=== PATIENT | female | born 1995 | race Caucasian/White ===

== ENCOUNTER 2019-12-11 04:11 | Emergency (ER) | payer OTHER, SELFPAY ==
[2019-12-11 04:30] VITALS: BP 134/91; PULSE 93; RESP 16; TEMP 36.4; O2SAT 96; BMI 28.2
[2019-12-11 04:41] VITALS: BP 137/99; PULSE 94; RESP 17; O2SAT 94
[2019-12-11 04:42] LABS: Add Urine Microscopic? NO
[2019-12-11 04:47] LABS: Bilirubin Urine Neg (NEGATIVE); Blood Urine Neg (Negative); Glucose Urine UA Norm (Normal); Ketones Urine Negative (Negative); Leukocyte Esterase Urine Negative (Negative); Nitrate Urine Negative (Negative); Protein Urine Neg (Negative); Urine Appearance Clear (CLEAR); Urine Color Yellow (Yellow); Urobilinogen Urine Norm (Negative); pH Urine 5 (5-7)
[2019-12-11] MEDS: sodium chloride 0.9% 1,000 ML 999 ML IV (04:57)
[2019-12-11 05:12] LABS: Basophils # 0.1 10^3/uL (0.0-0.1); Basophils % 0.8 %; Eosinophils # 0.3 10^3/uL (0.0-0.8); Eosinophils % 2.8 %; Hematocrit 43.4 % (37.0-47.0); Hemoglobin 14.9 g/dL (11.5-15.3); Lymphocytes # 2.8 10^3/uL (0.8-4.8); Lymphocytes % 30.9 %; Mean Corpuscular HGB Conc 34.3 g/dL (30.0-36.0); Mean Corpuscular Hemoglobin 31.3 pg (28.0-34.0); Mean Corpuscular Volume 91.2 fL (81-99); Mean Platelet Volume 11.4 fL (7.4-10.4); Monocytes # 0.7 10^3/uL (0.2-0.9); Neutrophils # 5.17 10^3/uL (1.8-7.7); Neutrophils % 57.2 %; Nucleated Red Blood Cells % 0 %; Platelet Count 265 10^3/cmm (130-400); Red Blood Count 4.76 10^6/uL (4.1-5.3); Red Cell Distribution Width 11.8 % (12.1-15.1)
[2019-12-11 05:20] LABS: HCG, Serum Qual Negative (Negative)
[2019-12-11] MEDS: lidocaine 2% viscous 15 ML, aluminum-mag hydrox-simethicon 30 ML, sucralfate oral liq 1 GM PO (05:25)
[2019-12-11] MEDS: ondansetron 2 mg/ML SDV 2 mL 4 MG IVP (05:25)
[2019-12-11] MEDS: ketorolac 30 mg/mL INJ IVP (05:25)
[2019-12-11 05:26] VITALS: BP 115/99; PULSE 83; RESP 14; O2SAT 96
[2019-12-11 05:29] LABS: Alanine Aminotransferase 41 U/L (0-33); Albumin Level 4.8 g/dL (3.5-5.2); Alcohol Level 81 mg/dL (0-10); Alkaline Phosphatase 65 IU/L (35-105); Anion Gap 15.2 (5-19); Aspartate Amino Transferase 45 U/L (0-32); Blood Urea Nitrogen 7 mg/dL (6-20); C Reactive Protein 0.3 mg/L (0.0-4.9); Calcium 8.8 mg/dL (8.5-10.5); Carbon Dioxide 23 mmol/L (22-29); Chloride 107 mmol/L (98-107); Globulin 2.7 g/dL (1.3-4.6); Glomerular Filtration Rate 104.6 mL/min (90-130); Glucose 103 mg/dL (65-115); Lipase 25 U/L (13-60); Osmolality Calculated 290 mOsm/kg (285-295); Potassium 3.2 mmol/L (3.5-5.1); Sodium 142 mmol/L (136-145); Total Bilirubin 0.2 mg/dL (0.15-1.2); Total Protein 7.5 g/dL (6.6-8.7)
[2019-12-11 06:06] VITALS: BP 142/93; PULSE 77; RESP 16; O2SAT 94
[2019-12-11 06:38] VITALS: BP 105/66; PULSE 84; RESP 16; O2SAT 95
[2019-12-11 07:35] LABS: Amphetamines Screen Urine Negative (Negative); Barbiturates Screen Urine Negative (Negative); Benzodiazepines Screen Urine Negative (Negative); Cocaine Screen Urine Negative (Negative); Opiate Screen Urine Negative (Negative); PCP Screen Urine Negative (Negative); THC Screen Urine Negative (Negative)
--- NOTE | 2019-12-11 09:23 | W.ED.ABDPA2 ---
HPI - Abdominal Pain General: Chief Complaint: Abdominal Pain Stated Complaint: abd pain Time Seen by Provider: 12/11/19 04:49 History of Present Illness: HPI narrative: 24-year-old female presents intoxicated. She notes that her stomach began to hurt after drinking 3 Alex's . Pain is located in the epigastric region. She is vomited a couple of times. No vomiting here. She rupesh not had diarrhea. MD elicited complaint: abdominal pain Pertinent past history: none Onset (ago): hour(s) Pain Consistency: constant Location: Epigastric Severity: moderate Quality: cramping and stabbing Radiation: epigastric Migration to: no migration Exacerbating factors: vomiting Relieving factors: nothing Associated Symptoms: Reports nausea; Denies fever(s), hematuria, hematemesis and fecal incontinence Related Data: Date of Last Menstrual Period: 12/10/19 Review of Systems Const: Denies: fever(s) Eyes: Denies: change in vision ENMT: Denies: swelling of lips/tongue, change in hearing or sinus pain Card: Denies: chest pain, palpitations or irregular heart rhythm Resp: Denies: dyspnea, productive cough, non-productive cough or wheezing GI: Reports: nausea; Denies: hematemesis or fecal incontinence : Denies: hematuria Musc: Denies: back pain Skin/Breast: Denies: rash Neuro: Denies: headache(s), dizziness or vertigo Psych: Denies: anxiety [facility] Female Reproductive History: Date of last menstrual period: 12/10/19 : 1 Physical Exam Const: GENERAL APPEARANCE: well developed ORIENTATION/CONSCIOUSNESS: Yes oriented to person, Yes oriented to place and Yes oriented to time HENMT: COMMON NORMALS: normocephalic, external ears normal and Normal external nose present HEAD & SCALP: normocephalic FACE & SINUS: normal facial exam NOSE: Normal external nose present and No nasal discharge present EXTERNAL EAR: Yes external ears normal Eye: COMMON NORMALS: Equal, round and reactive pupils present, EOMs intact bilaterally and conjunctivae normal EYELID: eyelids normal CONJUNCTIVA: Yes conjunctivae normal PUPIL: Yes Equal, round and reactive pupils present Neck/C-Spine: GENERAL: No tracheal deviation Chest: COMMONS NORMALS: normal inspection of the chest CHEST: No tenderness Resp: COMMON NORMALS: clear to auscultation bilaterally EFFORT & INSPECTION: No tachypneic, No respiratory distress, No retractions, No uses accessory muscles and No tracheal deviation AUSCULTATION: clear to auscultation bilaterally, no rhonchi, no wheezes and lung sounds not diminished Cardio: COMMON NORMALS: regular rate and regular rhythm RATE: regular rate RHYTHM: regular rhythm HEART SOUNDS: no murmurs PERIPHERAL PULSES: radial pulses present GI: COMMON NORMALS: Soft to palpation INSPECTION: No abdominal distension AUSCULTATION: No Hyperactive bowel sounds present and No Hypoactive bowel sounds present PALPATION: Yes Soft to palpation, Yes Tenderness to palpation present (GI) (Epigastric), No Guarding due to palpation present (GI) and No Rigid due to palpation PERCUSSION: no dullness to percussion and no tympanic to percussion Neuro: SENSORIUM/ORIENTATION: Yes oriented to person, Yes oriented to place and Yes oriented to time Psych: COMMON NORMALS: cooperative Skin: COMMON NORMALS: no rashes or lesions noted GENERAL SKIN EXAM: no rashes or lesions noted Course Vital Signs: Vital signs: Vital Signs Temperature 97.5 F L 12/11/19 04:30 Pulse Rate 84 12/11/19 06:38 Respiratory Rate 16 12/11/19 06:38 Blood Pressure 105/66 12/11/19 06:38 Pulse Oximetry 95 12/11/19 06:38 MDM - Abdominal Pain MDM Narrative: Medical decision making narrative: 24-year-old female intoxicated with alcohol. She presents with some epigastric discomfort and vomiting. She has not vomited here. She has been given antiemetics, fluid, and a GI cocktail which have helped. Her white blood cell count is 9. She has mild elevation of her liver enzymes consistent with alcohol consumption. Her alcohol level is elevated. She has a slightly low potassium. She will be allowed discharge Lab Data: Labs: Lab Results 12/11/19 12/11/19 12/11/19 Range/Units 04:36 04:38 04:54 WBC 9.0 (4.0-10.0) 10^3/ uL RBC 4.76 (4.1-5.3) 10^6/u L Hgb 14.9 (11.5-15.3) g/dL Hct 43.4 (37.0-47.0) % MCV 91.2 (81-99) fL MCH 31.3 (28.0-34.0) pg MCHC 34.3 (30.0-36.0) g/dL RDW 11.8 L (12.1-15.1) % Plt Count 265 (130-400) 10^3/c mm MPV 11.4 H (7.4-10.4) fL Neut % (Auto) 57.2 % Lymph % (Auto) 30.9 % Williams % (Auto) 8.0 % Eos % (Auto) 2.8 % Baso % (Auto) 0.8 % Neut # (Auto) 5.17 (1.8-7.7) 10^3/u L Lymph # (Auto) 2.8 (0.8-4.8) 10^3/u L Williams # (Auto) 0.7 (0.2-0.9) 10^3/u L Eos # (Auto) 0.3 (0.0-0.8) 10^3/u L Baso # (Auto) 0.1 (0.0-0.1) 10^3/u L Nucleated RBC % (a uto) 0 % Nucleated RBCs # 0.0 /100WBC Sodium (136-145) mmol/L Potassium (3.5-5.1) mmol/L Chloride (98-107) mmol/L Carbon Dioxide (22-29) mmol/L Anion Gap (5-19) BUN (6-20) mg/dL Creatinine (0.5-0.9) mg/dL GFR Calculation (90-130) mL/min Glucose (65-115) mg/dL Calculated Osmolal ity (285-295) mOsm/k g Calcium (8.5-10.5) mg/dL Total Bilirubin (0.15-1.2) mg/dL AST (0-32) U/L ALT (0-33) U/L Alkaline Phosphata se (35-105) IU/L C-Reactive Protein (0.0-4.9) mg/L Total Protein (6.6-8.7) g/dL Albumin (3.5-5.2) g/dL Globulin (1.3-4.6) g/dL Lipase (13-60) U/L HCG, Qual (Negative) Urine Color Yellow (Yellow) Urine Appearance Clear (CLEAR) Urine pH 5 (5-7) Ur Specific Gravit y 1.010 (1.005-1.030) Urine Protein Neg (Negative) Urine Glucose (UA) Norm (Normal) Urine Ketones Negative (Negative) Urine Blood Neg (Negative) Urine Nitrate Negative (Negative) Urine Bilirubin Neg (NEGATIVE) Urine Urobilinogen Norm (Negative) mg/dL Ur Leukocyte Kym ase Negative (Negative) Urine Opiates Scre en Negative (Negative) ng/mL Ur Barbiturates Sc reen Negative (Negative) ng/mL Ur Phencyclidine S crn Negative (Negative) ng/mL Ur Amphetamines Sc reen Negative (Negative) ng/mL U Benzodiazepines Scrn Negative (Negative) ng/mL Urine Cocaine Scre en Negative (Negative) ng/mL U Marijuana (THC) Screen Negative (Negative) ng/mL Ethyl Alcohol (0-10) mg/dL 12/11/19 12/11/19 Range/Units 04:54 04:54 WBC (4.0-10.0) 10^3/ uL RBC (4.1-5.3) 10^6/u L Hgb (11.5-15.3) g/dL Hct (37.0-47.0) % MCV (81-99) fL MCH (28.0-34.0) pg MCHC (30.0-36.0) g/dL RDW (12.1-15.1) % Plt Count (130-400) 10^3/c mm MPV (7.4-10.4) fL Neut % (Auto) % Lymph % (Auto) % Williams % (Auto) % Eos % (Auto) % Baso % (Auto) % Neut # (Auto) (1.8-7.7) 10^3/u L Lymph # (Auto) (0.8-4.8) 10^3/u L Williams # (Auto) (0.2-0.9) 10^3/u L Eos # (Auto) (0.0-0.8) 10^3/u L Baso # (Auto) (0.0-0.1) 10^3/u L Nucleated RBC % (a uto) % Nucleated RBCs # /100WBC Sodium 142 (136-145) mmol/L Potassium 3.2 L (3.5-5.1) mmol/L Chloride 107 (98-107) mmol/L Carbon Dioxide 23 (22-29) mmol/L Anion Gap 15.2 (5-19) BUN 7 (6-20) mg/dL Creatinine 0.7 (0.5-0.9) mg/dL GFR Calculation 104.6 (90-130) mL/min Glucose 103 (65-115) mg/dL Calculated Osmolal ity 290 (285-295) mOsm/k g Calcium 8.8 (8.5-10.5) mg/dL Total Bilirubin 0.2 (0.15-1.2) mg/dL AST 45 H (0-32) U/L ALT 41 H (0-33) U/L Alkaline Phosphata se 65 (35-105) IU/L C-Reactive Protein 0.3 (0.0-4.9) mg/L Total Protein 7.5 (6.6-8.7) g/dL Albumin 4.8 (3.5-5.2) g/dL Globulin 2.7 (1.3-4.6) g/dL Lipase 25 (13-60) U/L HCG, Qual Negative (Negative) Urine Color (Yellow) Urine Appearance (CLEAR) Urine pH (5-7) Ur Specific Gravit y (1.005-1.030) Urine Protein (Negative) Urine Glucose (UA) (Normal) Urine Ketones (Negative) Urine Blood (Negative) Urine Nitrate (Negative) Urine Bilirubin (NEGATIVE) Urine Urobilinogen (Negative) mg/dL Ur Leukocyte Kym ase (Negative) Urine Opiates Scre en (Negative) ng/mL Ur Barbiturates Sc reen (Negative) ng/mL Ur Phencyclidine S crn (Negative) ng/mL Ur Amphetamines Sc reen (Negative) ng/mL U Benzodiazepines Scrn (Negative) ng/mL Urine Cocaine Scre en (Negative) ng/mL U Marijuana (THC) Screen (Negative) ng/mL Ethyl Alcohol 81 H (0-10) mg/dL Discharge Plan Discharge Patient Disposition: Home Clinical Impression: Gastritis Qualifiers: Gastritis type: alcoholic Chronicity: acute Gastritis bleeding: without bleeding Qualified Code(s): K29.20 - Alcoholic gastritis without bleeding Condition: Stable Prescriptions: New Zofran 4 mg tablet 4 mg PO Q6H PRN (Reason: nausea and vomiting) Qty: 10 RF: 0 Discharge Orders: Discharge Order (Routine); Ordered 12/11/19 Ordered By: Anthony Patterson Discharge Diet: Advance as tolerated and Clear Liquid Discharge Activity: Increase activity as tolerated Patient Instructions: Gastritis (ED) Activity Restrictions/Additional Instructions: Return for fever greater than 100, worsening pain despite treatment, vomiting liquids or medications, other concerning symptoms. Discharge Date/Time: 12/11/19 06:39 Coding Level of Care Code ED Community Development Director for Yamilet De Souza
== END 2019-12-11 06:39 | disposition home or self-care (01) ==
PROVIDERS: Emergency Provider Emergency Medicine
DX: K29.20 Alcoholic gastritis without bleeding (principal)
CPT/HCPCS: 12345; 80053; 80306; 80307; 81003; 83690; 84703; 85025; 86140; 96360; 96361; 96374; 96375; 99283; J1885; J2405; J7030

== ENCOUNTER 2021-03-30 19:09 | Emergency (ER) | payer OTHER, SELFPAY ==
[2021-03-30 19:21] VITALS: BP 156/109; PULSE 97; RESP 20; TEMP 36.4; O2SAT 100; BMI 25.2
--- NOTE | 2021-03-30 19:21 | ED_ITS ---
Documented by User: SHEMAR Austin 03/30/21 23:54 HPI - Abdominal Pain General: Chief Complaint: Abdominal Pain Stated Complaint: abd Pain/GI bleed Time Seen by Provider: 03/30/21 19:21 History of Present Illness: HPI narrative: 25-year-old female comes in for concerns of discomfort at ileostomy site. 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 Patient is concerned due to lower abdominal pain. Patient reported that the surgery was in February she did had to return to [facility] in [place] for a complication/infection. Patient was released last week after clearance of the infection. Patient reports pain starting the last 2 days and was concerned that the infection was returning. Dr. Sarwat Dent was the patient's surgeon. Related Data: Date of Last Menstrual Period: 12/10/19 Review of Systems General: Reports: 10 or more systems reviewed and unremarkable except in HPI and below GI: Reports: abdominal pain [facility] ED Female Reproductive History: Date of last menstrual period: 12/10/19 Physical Exam Const: COMMON NORMALS: no acute distress and patient oriented x3 GENERAL APPEARANCE: cooperative HENMT: COMMON NORMALS: normocephalic and Normal external nose present HEAD & SCALP: normal to inspection and normocephalic NOSE: Normal external nose present Eye: GENERAL EYE: appearance normal, both eyes and all related structures Neck/C-Spine: COMMON NORMALS: full ROM Lymph: LYMPHATIC: no lymphadenopathy noted Chest: COMMONS NORMALS: normal inspection of the chest Resp: COMMON NORMALS: normal respiratory effort EFFORT & INSPECTION: Yes able to speak in complete sentences Cardio: COMMON NORMALS: regular rate and regular rhythm RATE: regular rate RHYTHM: regular rhythm GI: COMMON NORMALS: Soft to palpation AUSCULTATION: Yes normoactive bowel sounds PALPATION: Yes Soft to palpation and Yes Tenderness to palpation present (GI) (Lower abdomen) OTHER: Healing wounds are noted to the surgical incision sites. Patient also has a normal-appearing ileostomy to the right lower quadrant of the abdomen. : COMMON NORMALS: Yes no CVA tenderness BLADDER/KIDNEY EXAM: Yes no CVA tenderness Back/Pelvis: COMMON NORMALS: no CVA tenderness and thoracic and lumbar spine normal to inspection Extremity: COMMON NORMALS: normal to inspection Neuro: COMMON NORMALS: patient oriented x3 and moves all extremities Psych: COMMON NORMALS: mental status grossly normal and cooperative Skin: COMMON NORMALS: no rashes or lesions noted GENERAL SKIN EXAM: no rashes or lesions noted Course ED course: 2199, reviewed patient's CT scan and labs with Dr. Patterson. He agreed with plan of discussion with the surgeon on-call at [facility] for further evaluation and treatment of abscess formation in the presacral surgical area. Patient will be started on vancomycin and Zosyn. 2214, discussed with Dr. Patterson patient's hesitance about being transferred to [facility], he agreed to talk with Dr. Pruitt about accepting patient. We have also talked with [facility] who at this time have no [facility] available beds. 2348, Dr. Collier of [facility] in [place] agreed to accept patient. Patient will be boarded in our ER until a bed becomes available in the medical surgical unit. Patient will be continued care with antibiotics and IV fluids. Vital Signs: Vital signs: Vital Signs Temperature 97.5 F L 03/30/21 19:21 Pulse Rate 73 03/31/21 08:36 Respiratory Rate 16 03/31/21 06:18 Blood Pressure 102/68 03/31/21 08:36 Pulse Oximetry 98 03/31/21 08:36 MDM - Abdominal Pain MDM Narrative: Medical decision making narrative: Patient came in tonight for concerns of increasing abdominal pain to lower abdomen. Patient had a colectomy done about 1 month ago and has had concerns with abscess development after surgery. Patient was treated last week for the abscess but feels that it might be coming back due to her increased pain and discomfort. On exam abdomen soft with some lower abdominal tenderness. Ileostomy site is intact. Respirations are even lungs are clear to auscultation. Vital signs are normal. Differential diagnosis includes but not limited wound infection, surgical site infection, abscess, ruptured bowel. White blood cell count was 17,000, CMP was unremarkable, CT of the abdomen indicated a abscess in the presacral area. Reviewed this with Dr. Patterson who recommended that we talk with patient's surgeon at [facility]. Talk to Dr. Collier at [facility] who agreed to patient admission but transport will be delayed due to availability of beds. Lab Data: Labs: Lab Results 03/30/21 03/30/21 03/30/21 20:15 20:15 20:15 WBC 17.9 10^3/uL H 10 ^3/uL (4.0-10.0) RBC 3.28 10^6/uL L 10 ^6/uL (4.1-5.3) Hgb 10.0 g/dL L g/dL (11.5-15.3) Hct 29.9 % L % (37.0-47.0) MCV 91.2 fl fl (81-99) MCH 30.5 pg pg (28.0-34.0) MCHC 33.4 g/dL g/dL (30.0-36.0) RDW 13.5 % % (12.1-15.1) Plt Count 405 10^3/cmm H 10 ^3/cmm (130-400) MPV 10.9 fL H fL (7.4-10.4) Neut % (Auto) 74.0 % % Lymph % (Auto) 15.2 % % [place] % (Auto) 7.8 % % Eos % (Auto) 2.1 % % Baso % (Auto) 0.4 % % Neut # (Auto) 13.28 10^3/uL H 1 0^3/uL (1.8-7.7) Lymph # (Auto) 2.7 10^3/uL 10^3/ uL (0.8-4.8) [place] # (Auto) 1.4 10^3/uL H 10^ 3/uL (0.2-0.9) Eos # (Auto) 0.4 10^3/uL 10^3/ uL (0.0-0.8) Baso # (Auto) 0.1 10^3/uL 10^3/ uL (0.0-0.1) Nucleated RBC % (a uto) 0 % % Nucleated RBCs # 0.0 /100WBC /100W BC Sodium 137 mmol/L mmol/L (136-145) Potassium 3.9 mmol/L mmol/L (3.5-5.1) Chloride 100 mmol/L mmol/L (98-107) Carbon Dioxide 22 mmol/L mmol/L (22-29) Anion Gap 18.9 (5-19) BUN 12 mg/dL mg/dL (6-20) Creatinine 0.7 mg/dL mg/dL (0.5-0.9) GFR Calculation 103.7 mL/min mL/m in (90-130) Glucose 80 mg/dL mg/dL (65-115) Calculated Osmolal ity 283 mOsm/kg L mOs m/kg (285-295) Calcium 9.0 mg/dL mg/dL (8.5-10.5) Total Bilirubin 0.4 mg/dL mg/dL (0.15-1.2) AST 62 U/L H U/L (0-32) ALT 75 U/L H U/L (0-33) Alkaline Phosphata se 197 IU/L H IU/L (35-105) Total Protein 8.3 g/dL g/dL (6.6-8.7) Albumin 4.4 g/dL g/dL (3.5-5.2) Globulin 3.9 g/dL g/dL (1.3-4.6) Lipase 58 U/L U/L (13-60) HCG, Qual Negative (Negative) Urine Color Urine Appearance Urine pH Ur Specific Gravit y Urine Protein Urine Glucose (UA) Urine Ketones Urine Blood Urine Nitrate Urine Bilirubin Urine Urobilinogen Ur Leukocyte Kym ase Urine RBC Urine WBC Ur Squamous Epith Cells Amorphous Sediment Urine Bacteria Hyaline Casts 03/30/21 20:15 WBC RBC Hgb Hct MCV MCH MCHC RDW Plt Count MPV Neut % (Auto) Lymph % (Auto) [place] % (Auto) Eos % (Auto) Baso % (Auto) Neut # (Auto) Lymph # (Auto) [place] # (Auto) Eos # (Auto) Baso # (Auto) Nucleated RBC % (a uto) Nucleated RBCs # Sodium Potassium Chloride Carbon Dioxide Anion Gap BUN Creatinine GFR Calculation Glucose Calculated Osmolal ity Calcium Total Bilirubin AST ALT Alkaline Phosphata se Total Protein Albumin Globulin Lipase HCG, Qual Urine Color Yellow (Yellow) Urine Appearance Sl hazy (CLEAR) Urine pH 5 (5-7) Ur Specific Gravit y 1.015 (1.005-1.030) Urine Protein Neg (Negative) Urine Glucose (UA) Norm (Normal) Urine Ketones Negative (Negative) Urine Blood Neg (Negative) Urine Nitrate Negative (Negative) Urine Bilirubin Neg (Negative) Urine Urobilinogen Norm mg/dL mg/dL (Negative) Ur Leukocyte Kym ase Negative (Negative) Urine RBC 0-4 /hpf H /hpf (0-2) Urine WBC 0-4 /hpf H /hpf (0-5) Ur Squamous Epith Cells 10-15 /hpf H /hpf (0-5) Amorphous Sediment Not Reportable Urine Bacteria Trace /hpf /hpf (NONE) Hyaline Casts 0-4 /lpf H /lpf Discharge Plan Discharge Patient Disposition: Home Clinical Impression: Abscess of peritoneum Condition: Stable Prescriptions: New ciprofloxacin HCl 500 mg tablet 500 mg PO BID Qty: 14 RF: 0 metronidazole 500 mg tablet 500 mg PO TID Qty: 21 RF: 0 No Action Zofran 4 mg tablet 4 mg PO Q6H PRN (Reason: nausea and vomiting) Qty: 10 RF: 0 Discharge Orders: Discharge ED (Routine); Ordered 03/31/21 Ordered By: Gulshan Vela Discharge Diet: Clear Liquid Discharge Activity: Increase activity as tolerated Patient Instructions: Opioid Safety Activity Restrictions/Additional Instructions: Clear liquid diet for 24 to 48 hours then advance diet as tolerated. Start on Cipro and Flagyl as prescribed today on the recommendation of your surgeon. Also recommend that you contact your surgeon's office to make arrangements for follow-up later this week. Sign Out Sign Out Data: Patient Sign Out occurred on 03/31/21 at 08:32. Patient's care was discussed, and care was transferred from to Gulshan Vela DO. Coding Level of Care Code ED Service Desk Team Lead for Chg Fwd Exam Comprehensive Documented by User: Anthony Patterosn DO 03/31/21 06:08 HPI - Abdominal Pain General: Chief Complaint: Abdominal Pain Stated Complaint: abd Pain/GI bleed Time Seen by Provider: 03/30/21 19:21 Course Vital Signs: Vital signs: Vital Signs Temperature 97.5 F L 03/30/21 19:21 Pulse Rate 73 03/31/21 08:36 Respiratory Rate 16 03/31/21 06:18 Blood Pressure 102/68 03/31/21 08:36 Pulse Oximetry 98 03/31/21 08:36 MDM - Abdominal Pain MDM Narrative: Medical decision making narrative: This patient was originally seen by SHEMAR Roman. I have seen the patient as well. I agree with his history, evaluation, and treatment. Transfer to [facility] for IR when bed is available. Patient has received vancomycin, and is getting Zosyn. She remains medically stable. Blood pressure 107/79 heart rate 80, saturation 97% on room air. Checked out to Dr. Vela at shift change. Lab Data: Labs: Lab Results 03/30/21 03/30/21 03/30/21 20:15 20:15 20:15 WBC 17.9 10^3/uL H 10 ^3/uL (4.0-10.0) RBC 3.28 10^6/uL L 10 ^6/uL (4.1-5.3) Hgb 10.0 g/dL L g/dL (11.5-15.3) Hct 29.9 % L % (37.0-47.0) MCV 91.2 fl fl (81-99) MCH 30.5 pg pg (28.0-34.0) MCHC 33.4 g/dL g/dL (30.0-36.0) RDW 13.5 % % (12.1-15.1) Plt Count 405 10^3/cmm H 10 ^3/cmm (130-400) MPV 10.9 fL H fL (7.4-10.4) Neut % (Auto) 74.0 % % Lymph % (Auto) 15.2 % % [place] % (Auto) 7.8 % % Eos % (Auto) 2.1 % % Baso % (Auto) 0.4 % % Neut # (Auto) 13.28 10^3/uL H 1 0^3/uL (1.8-7.7) Lymph # (Auto) 2.7 10^3/uL 10^3/ uL (0.8-4.8) [place] # (Auto) 1.4 10^3/uL H 10^ 3/uL (0.2-0.9) Eos # (Auto) 0.4 10^3/uL 10^3/ uL (0.0-0.8) Baso # (Auto) 0.1 10^3/uL 10^3/ uL (0.0-0.1) Nucleated RBC % (a uto) 0 % % Nucleated RBCs # 0.0 /100WBC /100W BC Sodium 137 mmol/L mmol/L (136-145) Potassium 3.9 mmol/L mmol/L (3.5-5.1) Chloride 100 mmol/L mmol/L (98-107) Carbon Dioxide 22 mmol/L mmol/L (22-29) Anion Gap 18.9 (5-19) BUN 12 mg/dL mg/dL (6-20) Creatinine 0.7 mg/dL mg/dL (0.5-0.9) GFR Calculation 103.7 mL/min mL/m in (90-130) Glucose 80 mg/dL mg/dL (65-115) Calculated Osmolal ity 283 mOsm/kg L mOs m/kg (285-295) Calcium 9.0 mg/dL mg/dL (8.5-10.5) Total Bilirubin 0.4 mg/dL mg/dL (0.15-1.2) AST 62 U/L H U/L (0-32) ALT 75 U/L H U/L (0-33) Alkaline Phosphata se 197 IU/L H IU/L (35-105) Total Protein 8.3 g/dL g/dL (6.6-8.7) Albumin 4.4 g/dL g/dL (3.5-5.2) Globulin 3.9 g/dL g/dL (1.3-4.6) Lipase 58 U/L U/L (13-60) HCG, Qual Negative (Negative) Urine Color Urine Appearance Urine pH Ur Specific Gravit y Urine Protein Urine Glucose (UA) Urine Ketones Urine Blood Urine Nitrate Urine Bilirubin Urine Urobilinogen Ur Leukocyte Kym ase Urine RBC Urine WBC Ur Squamous Epith Cells Amorphous Sediment Urine Bacteria Hyaline Casts 03/30/21 20:15 WBC RBC Hgb Hct MCV MCH MCHC RDW Plt Count MPV Neut % (Auto) Lymph % (Auto) [place] % (Auto) Eos % (Auto) Baso % (Auto) Neut # (Auto) Lymph # (Auto) [place] # (Auto) Eos # (Auto) Baso # (Auto) Nucleated RBC % (a uto) Nucleated RBCs # Sodium Potassium Chloride Carbon Dioxide Anion Gap BUN Creatinine GFR Calculation Glucose Calculated Osmolal ity Calcium Total Bilirubin AST ALT Alkaline Phosphata se Total Protein Albumin Globulin Lipase HCG, Qual Urine Color Yellow (Yellow) Urine Appearance Sl hazy (CLEAR) Urine pH 5 (5-7) Ur Specific Gravit y 1.015 (1.005-1.030) Urine Protein Neg (Negative) Urine Glucose (UA) Norm (Normal) Urine Ketones Negative (Negative) Urine Blood Neg (Negative) Urine Nitrate Negative (Negative) Urine Bilirubin Neg (Negative) Urine Urobilinogen Norm mg/dL mg/dL (Negative) Ur Leukocyte Kym ase Negative (Negative) Urine RBC 0-4 /hpf H /hpf (0-2) Urine WBC 0-4 /hpf H /hpf (0-5) Ur Squamous Epith Cells 10-15 /hpf H /hpf (0-5) Amorphous Sediment Not Reportable Urine Bacteria Trace /hpf /hpf (NONE) Hyaline Casts 0-4 /lpf H /lpf Discharge Plan Discharge Patient Disposition: Home Clinical Impression: Abscess of peritoneum Condition: Stable Prescriptions: New ciprofloxacin HCl 500 mg tablet 500 mg PO BID Qty: 14 RF: 0 metronidazole 500 mg tablet 500 mg PO TID Qty: 21 RF: 0 No Action Zofran 4 mg tablet 4 mg PO Q6H PRN (Reason: nausea and vomiting) Qty: 10 RF: 0 Discharge Orders: Discharge ED (Routine); Ordered 03/31/21 Ordered By: Gulshan Vela Discharge Diet: Clear Liquid Discharge Activity: Increase activity as tolerated Patient Instructions: Opioid Safety Activity Restrictions/Additional Instructions: Clear liquid diet for 24 to 48 hours then advance diet as tolerated. Start on Cipro and Flagyl as prescribed today on the recommendation of your surgeon. Also recommend that you contact your surgeon's office to make arrangements for follow-up later this week. Sign Out Sign Out Data: Patient Sign Out occurred on 03/31/21 at 08:32. Patient's care was discussed, and care was transferred from to Gulshan Vela DO. Coding Level of Care Code ED Service Desk Team Lead for Chg Fwd Exam Comprehensive Documented by User: Gulshan Vela, DO 04/01/21 07:29 HPI - Abdominal Pain General: Chief Complaint: Abdominal Pain Stated Complaint: abd Pain/GI bleed Time Seen by Provider: 03/30/21 19:21 Course Vital Signs: Vital signs: Vital Signs Temperature 97.5 F L 03/30/21 19:21 Pulse Rate 73 03/31/21 08:36 Respiratory Rate 16 03/31/21 06:18 Blood Pressure 102/68 03/31/21 08:36 Pulse Oximetry 98 03/31/21 08:36 MDM - Abdominal Pain MDM Narrative: Medical decision making narrative: Initially seen by PA and by Dr. Patterson. Reviewed the chart and Dr. Felder her surgeon from [facility] called back. None of these findings are new per his report. She has been on antibiotics for the presacral abscess which I do not believe is actively infected. Dr. Arrington that this is not something that we will drained surgically at this point. He recommends discharge home on Cipro and Flagyl and outpatient follow-up. He offered the patient outpatient follow-up today. He does not feel that the patient needs to be on the inpatient unit. He is willing to accept her on transfer but anticipates discharge after evaluation and [facility] ER. I discussed with the patient and offered her the option of transfer offered option of evaluating for somewhere else to transfer to however that would be difficult because she is having complication of her recent procedure. Ultimately patient decided after long discussion to go ahead and discharge with oral medications and follow-up with Dr. Felder in the office she was asked to call his office today she has no worsening or change problems she should return immediately. Lab Data: Labs: Lab Results 03/30/21 03/30/21 03/30/21 20:15 20:15 20:15 WBC 17.9 10^3/uL H 10 ^3/uL (4.0-10.0) RBC 3.28 10^6/uL L 10 ^6/uL (4.1-5.3) Hgb 10.0 g/dL L g/dL (11.5-15.3) Hct 29.9 % L % (37.0-47.0) MCV 91.2 fl fl (81-99) MCH 30.5 pg pg (28.0-34.0) MCHC 33.4 g/dL g/dL (30.0-36.0) RDW 13.5 % % (12.1-15.1) Plt Count 405 10^3/cmm H 10 ^3/cmm (130-400) MPV 10.9 fL H fL (7.4-10.4) Neut % (Auto) 74.0 % % Lymph % (Auto) 15.2 % % [place] % (Auto) 7.8 % % Eos % (Auto) 2.1 % % Baso % (Auto) 0.4 % % Neut # (Auto) 13.28 10^3/uL H 1 0^3/uL (1.8-7.7) Lymph # (Auto) 2.7 10^3/uL 10^3/ uL (0.8-4.8) [place] # (Auto) 1.4 10^3/uL H 10^ 3/uL (0.2-0.9) Eos # (Auto) 0.4 10^3/uL 10^3/ uL (0.0-0.8) Baso # (Auto) 0.1 10^3/uL 10^3/ uL (0.0-0.1) Nucleated RBC % (a uto) 0 % % Nucleated RBCs # 0.0 /100WBC /100W BC Sodium 137 mmol/L mmol/L (136-145) Potassium 3.9 mmol/L mmol/L (3.5-5.1) Chloride 100 mmol/L mmol/L (98-107) Carbon Dioxide 22 mmol/L mmol/L (22-29) Anion Gap 18.9 (5-19) BUN 12 mg/dL mg/dL (6-20) Creatinine 0.7 mg/dL mg/dL (0.5-0.9) GFR Calculation 103.7 mL/min mL/m in (90-130) Glucose 80 mg/dL mg/dL (65-115) Calculated Osmolal ity 283 mOsm/kg L mOs m/kg (285-295) Calcium 9.0 mg/dL mg/dL (8.5-10.5) Total Bilirubin 0.4 mg/dL mg/dL (0.15-1.2) AST 62 U/L H U/L (0-32) ALT 75 U/L H U/L (0-33) Alkaline Phosphata se 197 IU/L H IU/L (35-105) Total Protein 8.3 g/dL g/dL (6.6-8.7) Albumin 4.4 g/dL g/dL (3.5-5.2) Globulin 3.9 g/dL g/dL (1.3-4.6) Lipase 58 U/L U/L (13-60) HCG, Qual Negative (Negative) Urine Color Urine Appearance Urine pH Ur Specific Gravit y Urine Protein Urine Glucose (UA) Urine Ketones Urine Blood Urine Nitrate Urine Bilirubin Urine Urobilinogen Ur Leukocyte Kym ase Urine RBC Urine WBC Ur Squamous Epith Cells Amorphous Sediment Urine Bacteria Hyaline Casts 03/30/21 20:15 WBC RBC Hgb Hct MCV MCH MCHC RDW Plt Count MPV Neut % (Auto) Lymph % (Auto) [place] % (Auto) Eos % (Auto) Baso % (Auto) Neut # (Auto) Lymph # (Auto) [place] # (Auto) Eos # (Auto) Baso # (Auto) Nucleated RBC % (a uto) Nucleated RBCs # Sodium Potassium Chloride Carbon Dioxide Anion Gap BUN Creatinine GFR Calculation Glucose Calculated Osmolal ity Calcium Total Bilirubin AST ALT Alkaline Phosphata se Total Protein Albumin Globulin Lipase HCG, Qual Urine Color Yellow (Yellow) Urine Appearance Sl hazy (CLEAR) Urine pH 5 (5-7) Ur Specific Gravit y 1.015 (1.005-1.030) Urine Protein Neg (Negative) Urine Glucose (UA) Norm (Normal) Urine Ketones Negative (Negative) Urine Blood Neg (Negative) Urine Nitrate Negative (Negative) Urine Bilirubin Neg (Negative) Urine Urobilinogen Norm mg/dL mg/dL (Negative) Ur Leukocyte Kym ase Negative (Negative) Urine RBC 0-4 /hpf H /hpf (0-2) Urine WBC 0-4 /hpf H /hpf (0-5) Ur Squamous Epith Cells 10-15 /hpf H /hpf (0-5) Amorphous Sediment Not Reportable Urine Bacteria Trace /hpf /hpf (NONE) Hyaline Casts 0-4 /lpf H /lpf Discharge Plan Discharge Patient Disposition: Home Clinical Impression: Abscess of peritoneum Condition: Stable Prescriptions: New ciprofloxacin HCl 500 mg tablet 500 mg PO BID Qty: 14 RF: 0 metronidazole 500 mg tablet 500 mg PO TID Qty: 21 RF: 0 No Action Zofran 4 mg tablet 4 mg PO Q6H PRN (Reason: nausea and vomiting) Qty: 10 RF: 0 Discharge Orders: Discharge ED (Routine); Ordered 03/31/21 Ordered By: Gulshan Vela Discharge Diet: Clear Liquid Discharge Activity: Increase activity as tolerated Patient Instructions: Opioid Safety Activity Restrictions/Additional Instructions: Clear liquid diet for 24 to 48 hours then advance diet as tolerated. Start on Cipro and Flagyl as prescribed today on the recommendation of your surgeon. Al so recommend that you contact your surgeon's office to make arrangements for follow-up later this week. Sign Out Sign Out Data: Patient Sign Out occurred on 03/31/21 at 08:32. Patient's care was discussed, and care was transferred from to Gulshan Vela DO. Coding Level of Care Code ED Service Desk Team Lead for Yamilet Fwd Exam Comprehensive
--- NOTE | 2021-03-30 19:40 | CTR_ITS ---
PROCEDURE INFORMATION: Exam: CT Abdomen And Pelvis With Contrast Exam date and time: 03/30/2021 7:40 PM Age: 25 years old Clinical indication: Abdominal pain; Localized; Right lower quadrant (rlq); Prior surgery; Surgery date: <1 month; Patient HX: Ileostomy 03/06 for polyposis C/O site pain and bleeding x 2 days; Additional info: Abd pain, recent colectomy, R/O abscess TECHNIQUE: Imaging protocol: Computed tomography of the abdomen and pelvis with contrast. Axial, coronal and sagittal reformatted images were created and reviewed. Radiation optimization: All CT scans at this facility use at least one of these dose optimization techniques: automated exposure control; mA and/or kV adjustment per patient size (includes targeted exams where dose is matched to clinical indication); or iterative reconstruction. Contrast material: OMNI 300; Contrast volume: 95 ml; Contrast route: INTRAVENOUS (IV); COMPARISON: US Transvaginal [id number] 10/27/2016 12:54 AM RADIATION DOSE METRICS: Total DLP (mGy-cm): 1098.89 FINDINGS: Liver: Unremarkable. Gallbladder and bile ducts: Status post cholecystectomy. No biliary ductal dilatation. Pancreas: Unremarkable. Spleen: Unremarkable. Adrenal glands: Normal. No mass. Kidneys and ureters: No mass. No radiodense calculi. No hydronephrosis. Stomach and bowel: Evidence of prior colectomy and right lower quadrant ileostomy. No definite bowel wall thickening. No obstruction. No pneumatosis. Appendix: Surgically absent. Intraperitoneal space: No free fluid. No free air. Vasculature: Unremarkable. No aneurysm. Lymph nodes: No pathologically enlarged lymph nodes. Urinary bladder: Unremarkable as visualized. Reproductive: Unremarkable. Bones/joints: No acute osseous abnormality. Soft tissues: Mild soft tissue prominence and edema in the presacral region with a small adjacent loculated, peripherally enhancing collection, measuring approximately 3.4 x 1.2 x 4.7 cm (axial image 67 and sagittal image 40). Tiny additional loculated, peripherally collection more inferiorly, measuring approximately 1.3 x 0.7 cm (axial image 80). CT/CT abdomen pelvis w con* [id number] IMPRESSION: 1. Postoperative changes with small abscess collections in the presacral region, as described above. 2. Additional findings, as above. Radiation Dose CTDIVOL = (mGy): DLP = 1098.89 (mGy-cm)
[2021-03-30] MEDS: morphine 4 mg/mL SDV 1 mL IVP (20:12)
[2021-03-30] MEDS: ondansetron 2 mg/ML SDV 2 mL 4 MG IVP (20:15)
[2021-03-30] MEDS: sodium chloride 0.9% 1,000 ML 999 ML IV (20:17)
[2021-03-30 20:22] VITALS: BP 103/83; PULSE 88; RESP 18; O2SAT 97
[2021-03-30 20:31] LABS: Basophils # 0.1 10^3/uL (0.0-0.1); Basophils % 0.4 %; Eosinophils # 0.4 10^3/uL (0.0-0.8); Eosinophils % 2.1 %; Hematocrit 29.9 % (37.0-47.0); Lymphocytes # 2.7 10^3/uL (0.8-4.8); Lymphocytes % 15.2 %; Mean Corpuscular HGB Conc 33.4 g/dL (30.0-36.0); Mean Corpuscular Hemoglobin 30.5 pg (28.0-34.0); Mean Corpuscular Volume 91.2 fl (81-99); Mean Platelet Volume 10.9 fL (7.4-10.4); Monocytes # 1.4 10^3/uL (0.2-0.9); Monocytes % 7.8 %; Neutrophils # 13.28 10^3/uL (1.8-7.7); Nucleated Red Blood Cells % 0 %; Platelet Count 405 10^3/cmm (130-400); Red Blood Count 3.28 10^6/uL (4.1-5.3); Red Cell Distribution Width 13.5 % (12.1-15.1); White Blood Count 17.9 10^3/uL (4.0-10.0)
[2021-03-30 20:42] LABS: HCG, Serum Qual Negative (Negative)
[2021-03-30 20:45] LABS: Alanine Aminotransferase 75 U/L (0-33); Albumin Level 4.4 g/dL (3.5-5.2); Alkaline Phosphatase 197 IU/L (35-105); Blood Urea Nitrogen 12 mg/dL (6-20); Carbon Dioxide 22 mmol/L (22-29); Chloride 100 mmol/L (98-107); Globulin 3.9 g/dL (1.3-4.6); Glomerular Filtration Rate 103.7 mL/min (90-130); Glucose 80 mg/dL (65-115); Lipase 58 U/L (13-60); Osmolality Calculated 283 mOsm/kg (285-295); Sodium 137 mmol/L (136-145); Total Bilirubin 0.4 mg/dL (0.15-1.2); Total Protein 8.3 g/dL (6.6-8.7)
[2021-03-30] MEDS: iohexol 300 mg/mL 100 mL Btl IV (20:57)
[2021-03-30 21:00] LABS: Add Urine Culture? No; Add Urine Microscopic? YES; Bacteria Urine TRACE /hpf; Bilirubin Urine Neg (Negative); Blood Urine Neg (Negative); Glucose Urine UA Norm (Normal); Hyaline Casts Urine 0-4 /lpf; Ketones Urine Negative (Negative); Leukocyte Esterase Urine Negative (Negative); Nitrate Urine Negative (Negative); Protein Urine Neg (Negative); RBC Urine 0-4 /hpf (0-2); Specific Gravity, Urine 1.015 (1.005-1.030); Urine Appearance SL Hazy (CLEAR); Urine Color Yellow (Yellow); Urobilinogen Urine Norm (Negative); WBC Urine 0-4 /hpf (0-5); pH Urine 5 (5-7)
[2021-03-30 21:09] LABS: Anion Gap 18.9 (5-19); Potassium 3.9 mmol/L (3.5-5.1)
[2021-03-30 21:10] LABS: Aspartate Amino Transferase 62 U/L (0-32)
[2021-03-30 21:29] VITALS: BP 110/81; O2SAT 98
[2021-03-30 22:13] VITALS: RESP 18
[2021-03-30] MEDS: morphine 4 mg/mL SDV 1 mL 2 MG IVP (22:13)
[2021-03-30] MEDS: piperacillin-tazobactam 3.375 GM in sodium chloride 0.9% (plus) 50 ML IV (22:13)
[2021-03-30 22:14] VITALS: PULSE 89; RESP 20; O2SAT 99
[2021-03-30] MEDS: vancomycin 1,000 MG in sodium chloride 0.9% 250 ML 250 MG IV (22:52)
[2021-03-30 23:55] VITALS: RESP 18; O2SAT 98
[2021-03-30] MEDS: HYDROmorphone 1 mg/mL INJ 1 mL IVP (23:55)
[2021-03-31] VITALS (7 sets, daily range): BP systolic 96–121; BP diastolic 65–86; PULSE 68–80; RESP 14–18; O2SAT 95–98
[2021-03-31] MEDS: sodium chloride 0.9% 1,000 ML 125 ML IV ×2 (01:10→08:34)
--- NOTE | 2021-03-31 02:58 | PC.NURSE ---
0245 Pt resting. Call light in reach. Family at bedside. VSS
[2021-03-31] MEDS: piperacillin-tazobactam 3.375 GM in sodium chloride 0.9% (plus) 50 ML IV (04:50)
[2021-03-31] MEDS: morphine 4 mg/mL SDV 1 mL IVP (04:54)
[2021-03-31] MEDS: ipratropium-albuterol 3 mL Neb INHALATION (06:17)
--- NOTE | 2021-03-31 06:25 | PC.NURSE ---
Pt states that she is having some wheezing. Orders recd.
[2021-03-31] MEDS: morphine 4 mg/mL SDV 1 mL 2 MG IVP (08:43)
== END 2021-03-31 09:03 | disposition home or self-care (01) ==
PROVIDERS: Nurse Practitioner Family; Emergency Provider Family Medicine
DX: K65.1 Peritoneal abscess (principal)
CPT/HCPCS: 74177; 80053; 81001; 83630; 83690; 84703; 85025; 87040; 87493; 87506; 94640; 96365; 96367; 96375; 96376; 99285; J1170; J2270; J2405; J2543; J3370; J7030; J7050; Q9967

== ENCOUNTER 2022-01-26 15:16 | Emergency (ER) | payer BC, MEDICAID, SELFPAY ==
[2022-01-26 15:26] VITALS: BP 139/93; PULSE 106; RESP 14; TEMP 36.7; O2SAT 98; BMI 25.8
--- NOTE | 2022-01-26 15:40 | CTR_ITS ---
PROCEDURE INFORMATION: Exam: CT Abdomen And Pelvis With Contrast Exam date and time: 01/26/2022 5:10 PM Age: 26 years old Clinical indication: Abdominal pain; Generalized; Prior surgery; Surgery date: 6+ months; Surgery type: Gb, ileostomy , and reversal, ; additional info: Possible abscess at previous ileostomy site, patient had ileostomy site that has been healing up for the TECHNIQUE: Imaging protocol: Computed tomography of the abdomen and pelvis with contrast. Radiation optimization: All CT scans at this facility use at least one of these dose optimization techniques: automated exposure control; mA and/or kV adjustment per patient size (includes targeted exams where dose is matched to clinical indication); or iterative reconstruction. Contrast material: OMNIPAQUE 350; Contrast volume: 80 ml; Contrast route: INTRAVENOUS (IV); COMPARISON: CT abdomen pelvis w con* [id number] 03/30/2021 8:54 PM RADIATION DOSE METRICS: Total DLP (mGy-cm): 622.98 FINDINGS: Lungs: Right lower lobe 3.1 mm pulmonary nodule, dedicated nonemergent chest CT advised for further evaluation. Bibasilar atelectasis. Liver: Normal. No mass. Gallbladder and bile ducts: Mild intrahepatic biliary dilation. Cholecystectomy. Pancreas: Normal. No ductal dilation. Spleen: Normal. No splenomegaly. Adrenal glands: Normal. No mass. Kidneys and ureters: Normal. No hydronephrosis. Stomach and bowel: Prominent fluid in the small bowel without dilation suggestive of an enteritis. Appendix: No evidence of appendicitis. Intraperitoneal space: Unremarkable. No free air. No significant fluid collection. Vasculature: Unremarkable. No abdominal aortic aneurysm. Lymph nodes: Unremarkable. No enlarged lymph nodes. Urinary bladder: Unremarkable as visualized. Reproductive: Unremarkable as visualized. Bones/joints: Unremarkable. No acute fracture. Soft tissues: Right abdominal wall postsurgical changes CT/CT abdomen pelvis w con* [id number] IMPRESSION: 1. Prominent fluid in the small bowel without dilation suggestive of an enteritis. 2. Right abdominal wall postsurgical changes 3. Right lower lobe 3.1 mm pulmonary nodule, dedicated nonemergent chest CT advised for further evaluation. 4. Bibasilar atelectasis. 5. Mild intrahepatic biliary dilation. 6. Cholecystectomy.
--- NOTE | 2022-01-26 15:45 | ED_ITS ---
Documented by User: AMADOU Coppola 01/27/22 07:06 HPI - Skin/Abscess/Foreign Bdy General: Chief complaint: Skin/Abscess/Foreign Body Stated complaint: Possible skin infection on stomach Time Seen by Provider: 01/26/22 15:30 History of Present Illness: Patient is a 26-year-old female comes to the ED with possible abscess on abdomen. Patient has a history of familial adenomatous polyposis and had an ileostomy performed at hospital in [place] and it was removed approximately 6 months ago. Patient states she has been in and out of hospitals multiple times for the past 10 months due to abdominal infections. Ileostomy site has been healing up but over the last 4 days started getting red, swollen and painful. She rates her pain currently an 8 out of 10. Denies any fevers, nausea/vomiting, bladder or bowel symptoms. Associated symptoms: Deny chills, fever(s), nausea or vomiting Review of Systems Const: Denies: fever(s), chills or fatigue Eyes: Denies: change in vision or eye discomfort ENMT: Denies: throat pain, odynophagia, nasal discharge or nasal congestion Card: Denies: chest pain, palpitations, edema, swelling of feet/ankles, dyspne a on exertion or orthopnea Resp: Denies: dyspnea, productive cough or non-productive cough GI: Reports: abdominal pain; Denies: nausea, vomiting, diarrhea, constipation or hematochezia : Denies: flank pain, dysuria or hematuria Musc: Denies: neck pain, back pain or extremity swelling Skin/Breast: Reports: new lesions (Possible abscess developing at healing ileostomy site.); Denies: rash Neuro: Denies: headache(s), numbness in extremities or weakness in extremities PFS ED PFSH: Medical History Family history of FAP (familial adenomatous polyposis) Surgical History H/O ileostomy Female Reproductive History: Date of last menstrual period: 12/10/19 Physical Exam Const: COMMON NORMALS: patient oriented x3 and alert GENERAL APPEARANCE: cooperative HENMT: COMMON NORMALS: normocephalic HEAD & SCALP: normocephalic MOUTH: Normal oral and palatal mucosa present THROAT: posterior oropharynx normal and uvula midline Neck/C-Spine: COMMON NORMALS: supple GENERAL: Yes normal visual inspection Resp: COMMON NORMALS: normal respiratory effort, No retractions, No use of accessory muscles and clear to auscultation bilaterally AUSCULTATION: clear to auscultation bilaterally Cardio: COMMON NORMALS: regular rate, regular rhythm, S1 normal heart sound present, S2 normal heart sound present, No gallops present (Cardio), No clicks present (Cardio), No murmurs present (Cardio) and Peripheral pulses 2+ throughout RATE: regular rate RHYTHM: regular rhythm HEART SOUNDS: S1 normal heart sound present and S2 normal heart sound present PERIPHERAL PULSE S: Peripheral pulses 2+ throughout GI: COMMON NORMALS: Normal to inspection, nondistended, normoactive bowel sounds present, Soft to palpation and no masses INSPECTION: Yes GI erythema present (Around previous ileostomy site) PALPATION: Yes Soft to palpation and Yes Tenderness to palpation present (GI) Details: other (Tenderness around previous ileostomy site.) OTHER: Palpable tenderness over healing ileostomy site. Surrounding erythema and fluctuant mass palpated. : COMMON NORMALS: Yes no CVA tenderness BLADDER/KIDNEY EXAM: Yes no CVA tenderness Back/Pelvis: COMMON NORMALS: no CVA tenderness Extremity: COMMON NORMALS: normal to inspection Neuro: COMMON NORMALS: patient oriented x3 SENSORIUM/ORIENTATION: Yes alert GAIT: Yes Normal gait present Skin: GENERAL SKIN EXAM: dry skin Course Vital Signs: Vital signs: Vital Signs Temperature 98.0 F 01/26/22 15:26 Pulse Rate 88 01/26/22 18:07 Respiratory Rate 18 01/26/22 18:07 Blood Pressure 140/78 01/26/22 18:07 Pulse Oximetry 96 01/26/22 18:07 Oxygen Delivery Me thod 01/26/22 15:26 MDM - Skin/Abscess/Foreign Bdy Lab Data I reviewed the patient's lab results. : 01/26/22 15:55 01/26/22 15:55 Radiology Impressions Abdomen/Pelvis CT 01/26/22 15:40 IMPRESSION: 1. Prominent fluid in the small bowel without dilation suggestive of an enteritis. 2. Right abdominal wall postsurgical changes 3. Right lower lobe 3.1 mm pulmonary nodule, dedicated nonemergent chest CT advised for further evaluation. 4. Bibasilar atelectasis. 5. Mild intrahepatic biliary dilation. 6. Cholecystectomy. Laboratory Results WBC 9.8 10^3/uL (4.0-10.0) 01/26/22 15:55 RBC 4.35 10^6/uL (4.1-5.3) 01/26/22 15:55 Hgb 14.0 g/dL (11.5-15.3) 01/26/22 15:55 Hct 41.5 % (37.0-47.0) 01/26/22 15:55 MCV 95.4 fl (81-99) 01/26/22 15:55 MCH 32.2 pg (28.0-34.0) 01/26/22 15:55 MCHC 33.7 g/dL (30.0-36.0) 01/26/22 15:55 RDW 12.4 % (12.1-15.1) 01/26/22 15:55 Plt Count 213 10^3/cmm (130-400) 01/26/22 15:55 MPV 11.7 fL (7.4-10.4) H 01/26/22 15:55 Neut % (Auto) 70.1 % 01/26/22 15:55 Lymph % (Auto) 19.0 % 01/26/22 15:55 Burke % (Auto) 5.2 % 01/26/22 15:55 Eos % (Auto) 4.4 % 01/26/22 15:55 Baso % (Auto) 0.7 % 01/26/22 15:55 Neut # (Auto) 6.87 10^3/uL (1.8-7.7) 01/26/22 15:55 Lymph # (Auto) 1.9 10^3/uL (0.8-4.8) 01/26/22 15:55 Burke # (Auto) 0.5 10^3/uL (0.2-0.9) 01/26/22 15:55 Eos # (Auto) 0.4 10^3/uL (0.0-0.8) 01/26/22 15:55 Baso # (Auto) 0.1 10^3/uL (0.0-0.1) 01/26/22 15:55 Nucleated RBC % (auto) 0 % 01/26/22 15:55 Nucleated RBCs # 0.0 /100WBC 01/26/22 15:55 Sodium 141 mmol/L (136-145) 01/26/22 15:55 Potassium 3.9 mmol/L (3.5-5.1) 01/26/22 15:55 Chloride 108 mmol/L (98-107) H 01/26/22 15:55 Carbon Dioxide 21 mmol/L (22-29) L 01/26/22 15:55 Anion Gap 15.9 (5-19) 01/26/22 15:55 BUN 9 mg/dL (6-20) 01/26/22 15:55 Creatinine 0.9 mg/dL (0.5-0.9) 01/26/22 15:55 GFR Calculation 76.9 mL/min (90-130) L 01/26/22 15:55 Glucose 95 mg/dL (65-115) 01/26/22 15:55 Calculated Osmolality 290 mOsm/kg (285-295) 01/26/22 15:55 Calcium 9.2 mg/dL (8.5-10.5) 01/26/22 15:55 Total Bilirubin 0.3 mg/dL (0.15-1.2) 01/26/22 15:55 AST 19 U/L (0-32) 01/26/22 15:55 ALT 22 U/L (0-33) 01/26/22 15:55 Alkaline Phosphatase 75 U/L (35-105) 01/26/22 15:55 Total Protein 6.7 g/dL (6.6-8.7) 01/26/22 15:55 Albumin 4.1 g/dL (3.5-5.2) 01/26/22 15:55 Globulin 2.6 g/dL (1.3-4.6) 01/26/22 15:55 HCG, Qual Negative (Negative) 01/26/22 16:32 Discharge Plan Discharge Patient Disposition: Home Clinical Impression: Cellulitis Qualifiers: Site of cellulitis: trunk Site of cellulitis of trunk: abdominal wall Qualified Code(s): L03.311 - Cellulitis of abdominal wall Condition: Stable Prescriptions: New Cipro 500 mg tablet 500 mg PO BID Qty: 14 0RF hydrocodone-acetaminophen 5-325 mg tablet 1 tab PO Q6H PRN (Reason: pain) Qty: 10 0RF No Action Zofran 4 mg tablet 4 mg PO Q6H PRN (Reason: nausea and vomiting) Qty: 10 0RF ciprofloxacin HCl 500 mg tablet 500 mg PO BID Qty: 14 0RF metronidazole 500 mg tablet 500 mg PO TID Qty: 21 0RF Discharge Orders: Discharge ED (Routine); Ordered 01/26/22 Ordered By: Abdon Warner Referrals: Rigoberto Ferguson MD [Primary Care Provider] - Discharge Diet: Usual diet Discharge Activity: Increase activity as tolerated Patient Instructions: Cellulitis (ED) Activity Restrictions/Additional Instructions: Drink plenty of fluids with antibiotic. Take medication as tolerated. Use acetaminophen and ibuprofen to control pain. Use hydrocodone for severe pain. Follow-up with surgeons office in the morning for further evaluation and treatment. Return to ER for fever greater than 100.5, inability to hold fluids down, blood in vomit or stool. Stand Alone Forms: Work/School Release Sign Out Sign Out Data: Patient Sign Out occurred on 01/26/22 at 17:07. Patient's care was discussed, and care was transferred from to Abdon Warner. Coding Level of Care Code ED Behavioral Scientist for Chg Fwd Exam Comprehensive Documented by User: SHEMAR Austin 01/26/22 17:59 HPI - Skin/Abscess/Foreign Bdy General: Chief complaint: Skin/Abscess/Foreign Body Stated complaint: Possible skin infection on stomach Time Seen by Provider: 01/26/22 15:30 PFSH ED PFSH: Medical History Family history of FAP (familial adenomatous polyposis) Surgical History H/O ileostomy Course Vital Signs: Vital signs: Vital Signs Temperature 98.0 F 01/26/22 15:26 Pulse Rate 88 01/26/22 18:07 Respiratory Rate 18 01/26/22 18:07 Blood Pressure 140/78 01/26/22 18:07 Pulse Oximetry 96 01/26/22 18:07 Oxygen Delivery Me thod 01/26/22 15:26 MDM - Skin/Abscess/Foreign Bdy Medicial Decision Making 26-year-old female comes in today with redness and tenderness to the right lower abdomen at the site of ileostomy repair. Ileostomy was reversed in July of this year. Patient reports has been healing well up until the last 3 days she is noted increased redness and tenderness. On exam abdomen soft. Bowel sounds are present. Vital signs are normal except for some mild elevation in pulse at 106. Differential diagnosis includes abscess, cellulitis, hernia. Laboratory values were unremarkable. CT of the abdomen pelvis noted no hernia or abscess at this time. We will treat patient for cellulitis and recommend follow-up with her surgeon for further evaluation and treatment. Patient reported understanding and agreed to plan. Patient was written a prescription for Cipro 500 twice a day for 7 days and a 10 tablets of hydrocodone for pain. Lab Data : 01/26/22 15:55 01/26/22 15:55 Radiology Impressions Abdomen/Pelvis CT 01/26/22 15:40 IMPRESSION: 1. Prominent fluid in the small bowel without dilation suggestive of an enteritis. 2. Right abdominal wall postsurgical changes 3. Right lower lobe 3.1 mm pulmonary nodule, dedicated nonemergent chest CT advised for further evaluation. 4. Bibasilar atelectasis. 5. Mild intrahepatic biliary dilation. 6. Cholecystectomy. Laboratory Results WBC 9.8 10^3/uL (4.0-10.0) 01/26/22 15:55 RBC 4.35 10^6/uL (4.1-5.3) 01/26/22 15:55 Hgb 14.0 g/dL (11.5-15.3) 01/26/22 15:55 Hct 41.5 % (37.0-47.0) 01/26/22 15:55 MCV 95.4 fl (81-99) 01/26/22 15:55 MCH 32.2 pg (28.0-34.0) 01/26/22 15:55 MCHC 33.7 g/dL (30.0-36.0) 01/26/22 15:55 RDW 12.4 % (12.1-15.1) 01/26/22 15:55 Plt Count 213 10^3/cmm (130-400) 01/26/22 15:55 MPV 11.7 fL (7.4-10.4) H 01/26/22 15:55 Neut % (Auto) 70.1 % 01/26/22 15:55 Lymph % (Auto) 19.0 % 01/26/22 15:55 Burke % (Auto) 5.2 % 01/26/22 15:55 Eos % (Auto) 4.4 % 01/26/22 15:55 Baso % (Auto) 0.7 % 01/26/22 15:55 Neut # (Auto) 6.87 10^3/uL (1.8-7.7) 01/26/22 15:55 Lymph # (Auto) 1.9 10^3/uL (0.8-4.8) 01/26/22 15:55 Burke # (Auto) 0.5 10^3/uL (0.2-0.9) 01/26/22 15:55 Eos # (Auto) 0.4 10^3/uL (0.0-0.8) 01/26/22 15:55 Baso # (Auto) 0.1 10^3/uL (0.0-0.1) 01/26/22 15:55 Nucleated RBC % (auto) 0 % 01/26/22 15:55 Nucleated RBCs # 0.0 /100WBC 01/26/22 15:55 Sodium 141 mmol/L (136-145) 01/26/22 15:55 Potassium 3.9 mmol/L (3.5-5.1) 01/26/22 15:55 Chloride 108 mmol/L (98-107) H 01/26/22 15:55 Carbon Dioxide 21 mmol/L (22-29) L 01/26/22 15:55 Anion Gap 15.9 (5-19) 01/26/22 15:55 BUN 9 mg/dL (6-20) 01/26/22 15:55 Creatinine 0.9 mg/dL (0.5-0.9) 01/26/22 15:55 GFR Calculation 76.9 mL/min (90-130) L 01/26/22 15:55 Glucose 95 mg/dL (65-115) 01/26/22 15:55 Calculated Osmolality 290 mOsm/kg (285-295) 01/26/22 15:55 Calcium 9.2 mg/dL (8.5-10.5) 01/26/22 15:55 Total Bilirubin 0.3 mg/dL (0.15-1.2) 01/26/22 15:55 AST 19 U/L (0-32) 01/26/22 15:55 ALT 22 U/L (0-33) 01/26/22 15:55 Alkaline Phosphatase 75 U/L (35-105) 01/26/22 15:55 Total Protein 6.7 g/dL (6.6-8.7) 01/26/22 15:55 Albumin 4.1 g/dL (3.5-5.2) 01/26/22 15:55 Globulin 2.6 g/dL (1.3-4.6) 01/26/22 15:55 HCG, Qual Negative (Negative) 01/26/22 16:32 Discharge Plan Discharge Patient Disposition: Home Clinical Impression: Cellulitis Qualifiers: Site of cellulitis: trunk Site of cellulitis of trunk: abdominal wall Qualified Code(s): L03.311 - Cellulitis of abdominal wall Condition: Stable Prescriptions: New Cipro 500 mg tablet 500 mg PO BID Qty: 14 0RF hydrocodone-acetaminophen 5-325 mg tablet 1 tab PO Q6H PRN (Reason: pain) Qty: 10 0RF No Action Zofran 4 mg tablet 4 mg PO Q6H PRN (Reason: nausea and vomiting) Qty: 10 0RF ciprofloxacin HCl 500 mg tablet 500 mg PO BID Qty: 14 0RF metronidazole 500 mg tablet 500 mg PO TID Qty: 21 0RF Discharge Orders: Discharge ED (Routine); Ordered 01/26/22 Ordered By: Abdon Warner Referrals: Rigoberto Ferguson MD [Primary Care Provider] - Discharge Diet: Usual diet Discharge Activity: Increase activity as tolerated Patient Instructions: Cellulitis (ED) Activity Restrictions/Additional Instructions: Drink plenty of fluids with antibiotic. Take medication as tolerated. Use acetaminophen and ibuprofen to control pain. Use hydrocodone for severe pain. Follow-up with surgeons office in the morning for further evaluation and treatment. Return to ER for fever greater than 100.5, inability to hold fluids down, blood in vomit or stool. Stand Alone Forms: Work/School Release Sign Out Sign Out Data: Patient Sign Out occurred on 01/26/22 at 17:07. Patient's care was discussed, and care was transferred from to Abdon Warner. Coding Level of Care Code ED Behavioral Scientist for Yamilet Fwd Exam Comprehensive
[2022-01-26] MEDS: ondansetron 2 mg/ML SDV 2 mL 4 MG IVP (15:58)
[2022-01-26 15:59] VITALS: RESP 14
[2022-01-26] MEDS: morphine 4 mg/mL SDV 1 mL IVP (15:59)
[2022-01-26 16:51] LABS: Basophils # 0.1 10^3/uL (0.0-0.1); Basophils % 0.7 %; Eosinophils # 0.4 10^3/uL (0.0-0.8); Eosinophils % 4.4 %; Hematocrit 41.5 % (37.0-47.0); Lymphocytes # 1.9 10^3/uL (0.8-4.8); Mean Corpuscular HGB Conc 33.7 g/dL (30.0-36.0); Mean Corpuscular Hemoglobin 32.2 pg (28.0-34.0); Mean Corpuscular Volume 95.4 fl (81-99); Mean Platelet Volume 11.7 fL (7.4-10.4); Monocytes # 0.5 10^3/uL (0.2-0.9); Monocytes % 5.2 %; Neutrophils # 6.87 10^3/uL (1.8-7.7); Neutrophils % 70.1 %; Nucleated Red Blood Cells % 0 %; Platelet Count 213 10^3/cmm (130-400); Red Blood Count 4.35 10^6/uL (4.1-5.3); Red Cell Distribution Width 12.4 % (12.1-15.1); White Blood Count 9.8 10^3/uL (4.0-10.0)
[2022-01-26 16:52] LABS: HCG, Serum Qual Negative (Negative)
[2022-01-26 17:00] LABS: Alanine Aminotransferase 22 U/L (0-33); Albumin Level 4.1 g/dL (3.5-5.2); Alkaline Phosphatase 75 U/L (35-105); Aspartate Amino Transferase 19 U/L (0-32); Blood Urea Nitrogen 9 mg/dL (6-20); Calcium 9.2 mg/dL (8.5-10.5); Carbon Dioxide 21 mmol/L (22-29); Chloride 108 mmol/L (98-107); Creatinine Clr Calc Pharmacy 98.3109; Globulin 2.6 g/dL (1.3-4.6); Glomerular Filtration Rate 76.9 mL/min (90-130); Glucose 95 mg/dL (65-115); Osmolality Calculated 290 mOsm/kg (285-295); Sodium 141 mmol/L (136-145); Total Bilirubin 0.3 mg/dL (0.15-1.2); Total Protein 6.7 g/dL (6.6-8.7)
[2022-01-26 17:02] LABS: Anion Gap 15.9 (5-19); Potassium 3.9 mmol/L (3.5-5.1)
[2022-01-26] MEDS: iohexol 350 mg/mL 100 mL Btl IV (17:13)
[2022-01-26 18:07] VITALS: BP 140/78; PULSE 88; RESP 18; O2SAT 96
[2022-01-26] MEDS: HYDROcodone-acetaminophen 7.5-325 mg Tablet 1 TAB PO (18:07)
[2022-01-26] MEDS: ciprofloxacin 500 mg Tablet PO (18:07)
== END 2022-01-26 18:09 | disposition home or self-care (01) ==
PROVIDERS: Physician Assistant; Emergency Provider Nurse Practitioner Family; PCP Family Medicine
DX: L03.311 Cellulitis of abdominal wall (principal)
CPT/HCPCS: 74177; 80053; 84703; 85025; 87040; 96374; 96375; 99285; J2270; J2405; Q9967

== ENCOUNTER 2022-01-28 18:01 | Day surgery (SDC) | payer BC, MEDICAID, SELFPAY ==
[2022-01-28] VITALS (7 sets, daily range): BP systolic 136–162; BP diastolic 87–100; PULSE 74–101; RESP 16–18; TEMP 36.7; O2SAT 97–99; BMI 25.8
--- NOTE | 2022-01-28 19:13 | ED_ITS ---
HPI - General Adult General: Chief complaint: ER Hold Stated complaint: Red scab on stomach, N/V Time Seen by Provider: 01/28/22 19:11 History of Present Illness: Patient is a 26-year-old female with a history of familial polyposis status post colectomy in 07/2021 in [place] presenting to the emergency room with complaints of abdominal pain and leakage. Patient tells me that she has had laparoscopic colectomy a while back and her laparoscopic incisions has has been well healing. Few days ago, patient noted redness in one of the laparoscopic incision site. Patient was diagnosed with cellulitis and discharged with antibiotics. Since then, patient noticed that the area has been leaking serosanguineous fluid and she has had significant pain and the erythema has spread. Patient denies any fever but reports chills and body aches. Patient reports abdominal pain around the site where the leakage is. Patient denies any diarrhea melena hematochezia. No complaints. No other focal complaints at this time. Onset: 5 days ago Duration:5 days Location:home Severity:moderate Associated symptoms: Deny chest pain, dyspnea, nausea, palpitations or vomiting Review of Systems Const: Denies: fever(s) or chills Eyes: Denies: change in vision ENMT: Denies: mouth pain Card: Denies: chest pain or palpitations Resp: Denies: dyspnea or non-productive cough GI: Denies: abdominal pain, nausea, vomiting or diarrhea : Denies: dysuria Musc: Denies: extremity pain Skin/Breast: Reports: new lesions (+skin erythema/fluctuance and drainage) Neuro: Denies: weakness in extremities Psych: Reports: other (Normal mood) Basil/Lymph: Denies: easy bruising PFSH ED PFSH: Medical History (Updated 01/31/22 @ 10:46 by Jo Perez MD) Family history of FAP (familial adenomatous polyposis) Surgical History (Updated 01/28/22 @ 19:43 by Jo Perez MD) H/O colectomy H/O ileostomy Social History (Updated 01/28/22 @ 19:43 by Jo Perez MD) Smoking and tobacco status: never smoked Alcohol intake: never Female Reproductive History: Date of last menstrual period: 01/20/22 Physical Exam Const: COMMON NORMALS: alert HENMT: COMMON NORMALS: atraumatic HEAD & SCALP: atraumatic MOUTH: moist mucous membranes not abnormal Eye: COMMON NORMALS: EOMs intact bilaterally and conjunctivae normal CONJUNCTIVA: Yes conjunctivae normal Neck/C-Spine: COMMON NORMALS: full ROM and supple Resp: COMMON NORMALS: normal respiratory effort and clear to auscultation bilaterally AUSCULTATION: clear to auscultation bilaterally Cardio: COMMON NORMALS: regular rate RATE: regular rate GI: COMMON NORMALS: Soft to palpation and non-tender PALPATION: Yes Soft to palpation OTHER: No focal TTP. NO guarding rebound, guarding, rigidity. No CVA tenderness to percussion. Neg Perez/Neg McBurney's point tenderness, no suprabupic tenderness to palpation. Extremity: COMMON NORMALS: full ROM Neuro: SENSORIUM/ORIENTATION: Yes alert MOTOR EXAM: No Abnormal motor strength present and Other motor observations present (no focal motor deficits) Psych: COMMON NORMALS: speech normal SPEECH: Yes normal speech MOOD & AFFECT: Yes euthymic mood Course Vital Signs: Vital signs: Vital Signs Temperature 98.5 F 01/29/22 11:20 Pulse Rate 79 01/29/22 11:20 Respiratory Rate 16 01/29/22 11:20 Blood Pressure 116/74 01/29/22 11:20 Pulse Oximetry 95 01/29/22 11:20 Oxygen Delivery Me thod 01/29/22 11:20 [facility] - General Adult Medical Decision Making Patient is a 26-year-old female with a history of familial polyposis status post colectomy in 07/2021 in [place] presenting to the emergency room with complaints of abdominal pain and leakage. On exam, patient has an area of palpable fluctuance with induration focal tender to palpation wtih serosanginous drainage. Patient is afebrile. White count 10.3. CT abdomen pelvis showed abdominal wall abscess and collection. This was discussed with Dr. Coreas who agrees for or washout in the morning. Patient will be kept NPO. S/p vancomycin/azetronam/clindamycin for abx coverage Disposition: admission Lab Data : 01/28/22 19:30 01/28/22 19:30 Radiology Impressions Abdomen/Pelvis CT 01/28/22 19:40 IMPRESSION: 1. Right-sided ostomy site in the abdominal wall subcutaneous fat with suggestion of some fluid in the subcutaneous abdominal wall tract which measures up to 3.1 x 1.2 cm suggestive of an infectious process with an overlying skin defect. Negative for intra-abdominal extension. 2. Bibasilar atelectasis versus minimal infiltrate. 3. Cholecystectomy. 4. Prominent fluid in the small bowel without dilation suggestive of an enteritis. 5. Several bilateral ovarian cysts measuring up to 2.3 cm on the left, likely follicular. Laboratory Results WBC 10.3 10^3/uL (4.0-10.0) H 01/28/22 19:30 RBC 4.46 10^6/uL (4.1-5.3) 01/28/22 19:30 Hgb 14.4 g/dL (11.5-15.3) 01/28/22 19: Hct 42.7 % (37.0-47.0) 01/28/22 19: MCV 95.7 fl (81-99) 01/28/22 19: MCH 32.3 pg (28.0-34.0) 01/28/22: MCHC 33.7 g/dL (30.0-36.0) 01/28/22 19: RDW 12.3 % (12.1-15.1) 01/28/22: Plt Count 227 10^3/cmm (130-400) 01/28/22 19: MPV 11.1 fL (7.4-10.4) H 01/28/22 19:30 Neut % (Auto) 70.0 % 01/28/22: Lymph % (Auto) 19.9 % 01/28/22: Bell % (Auto) 5.6 % 01/28/22 19:30 Eos % (Auto) 3.4 % 01/28/22: Baso % (Auto) 0.5 % 01/28/22:30 Neut # (Auto) 7.23 10^3/uL (1.8-7.7) 01/28/22 19: Lymph # (Auto) 2.1 10^3/uL (0.8-4.8) 01/28/22 19:30 Bell # (Auto) 0.6 10^3/uL (0.2-0.9) 01/28/22 19:30 Eos # (Auto) 0.4 10^3/uL (0.0-0.8) 01/28/22 19:30 Baso # (Auto) 0.1 10^3/uL (0.0-0.1) 01/28/22 19: Nucleated RBC % (auto) 0 % 01/28/22: Nucleated RBCs # 0.0 /100WBC 01/28/22 19: Sodium 141 mmol/L (136-145) 01/28/22: Potassium 4.2 mmol/L (3.5-5.1) 01/28/22: Chloride 108 mmol/L (98-107) H 01/28/22: Carbon Dioxide 23 mmol/L (22-29) 01/28/22: Anion Gap 14.2 (5-19) 01/28/22: BUN 9 mg/dL (6-20) 01/28/22: Creatinine 0.7 mg/dL (0.5-0.9) 01/28/22: GFR Calculation 102.8 mL/min (90-130) 01/28/22: Glucose 110 mg/dL (65-115) 01/28/22: Calculated Osmolality 291 mOsm/kg (285-295) 01/28/22: Calcium 9.0 mg/dL (8.5-10.5) 01/28/22: Total Bilirubin 0.2 mg/dL (0.15-1.2) 01/28/22: AST 17 U/L (0-32) 01/28/22: ALT 18 U/L (0-33) 01/28/22 19: Alkaline Phosphatase 78 U/L (35-105) 01/28/22: C-Reactive Protein 3.0 mg/L (0.0-4.9) 01/28/22: Total Protein 6.9 g/dL (6.6-8.7) 01/28/22 19: Albumin 4.3 g/dL (3.5-5.2) 01/28/22: Globulin 2.6 g/dL (1.3-4.6) 01/28/22: Lipase 19 U/L (13-60) 01/28/22 19:30 Urine HCG, Qual Negative (Negative) 01/29/22 08:22 Imaging Data Other Imaging: Radiologist's impression: [facility] [place] [address] CT Scan Report Signed Patient: Shayla Taylor Unit #: [id number] : 1995 Age/Sex: 26 / F ADM Date: 01/28/22 Loc: ER Room/Bed: Attending Dr: Ordering Provider/Ordering MD: Jo Perez MD Date of Service: 01/28/22 Procedure(s): CT abdomen pelvis w con* [id number] Accession Number(s): [id number] Report Number: [id number] PROCEDURE INFORMATION: Exam: CT Abdomen And Pelvis With Contrast Exam date and time: 01/28/2022 9:15 PM Age: 26 years old Clinical indication: Abdominal pain; Periumbilical; Prior surgery; Surgery type: Colectomy. Ileostomy; Patient HX: Infection with drainage to ileostomy site. ; Additional info: Abd lesion TECHNIQUE: Imaging protocol: Computed tomography of the abdomen and pelvis with contrast. Radiation optimization: All CT scans at this facility use at least one of these dose optimization techniques: automated exposure control; mA and/or kV adjustment per patient size (includes targeted exams where dose is matched to clinical indication); or iterative reconstruction. Contrast material: OMNI 350; Contrast volume: 80 ml; Contrast route: INTRAVENOUS (IV);? COMPARISON: CT abdomen pelvis w con* [id number] 01/26/2022 5:10 PM RADIATION DOSE METRICS: Total DLP (mGy-cm): 538.66 FINDINGS: Lungs: Bibasilar atelectasis versus minimal infiltrate. Liver: Normal. No mass. Gallbladder and bile ducts: Cholecystectomy. Pancreas: Normal. No ductal dilation. Spleen: Normal. No splenomegaly. Adrenal glands: Normal. No mass. Kidneys and ureters: Normal. No hydronephrosis. Stomach and bowel: Prominent fluid in the small bowel without dilation suggestive of an enteritis. Appendix: No evidence of appendicitis. Intraperitoneal space: Unremarkable. No free air. No significant fluid collection. Vasculature: Unremarkable. No abdominal aortic aneurysm. Lymph nodes: Unremarkable. No enlarged lymph nodes. Urinary bladder: Unremarkable as visualized. Reproductive:? Several bilateral ovarian cysts measuring up to 2.3 cm on the left, likely follicular. Bones/joints: Unremarkable. No acute fracture. Soft tissues: Right-sided ostomy site in the abdominal wall subcutaneous fat with suggestion of some fluid in the subcutaneous abdominal wall tract which measures up to 3.1 x 1.2 cm suggestive of an infectious process with an overlying skin defect. Negative for intra-abdominal extension. CT/CT abdomen pelvis w con* [id number] IMPRESSION: 1. Right-sided ostomy site in the abdominal wall subcutaneous fat with suggestion of some fluid in the subcutaneous abdominal wall tract which measures up to 3.1 x 1.2 cm suggestive of an infectious process with an overlying skin defect.? Negative for intra-abdominal extension. 2. Bibasilar atelectasis versus minimal infiltrate. 3. Cholecystectomy. 4. Prominent fluid in the small bowel without dilation suggestive of an enteritis. 5. Several bilateral ovarian cysts measuring up to 2.3 cm on the left, likely follicular. ? Dictated By: Kiel More MD Signed By: Kiel More MD Signed Date/Time: 01/28/222138 DD/ 14 Discharge Plan Discharge Patient Disposition: Admitted As Inpatient Clinical Impression: Abdominal wall abscess Condition: Stable Discharge Diet: Advance as tolerated Discharge Activity: Resume usual activity Coding Level of Care Code ED Low Heel Builder for Yamilet Fwd Exam Comprehensive
--- NOTE | 2022-01-28 19:40 | CTR_ITS ---
PROCEDURE INFORMATION: Exam: CT Abdomen And Pelvis With Contrast Exam date and time: 01/28/2022 9:15 PM Age: 26 years old Clinical indication: Abdominal pain; Periumbilical; Prior surgery; Surgery type: Colectomy. Ileostomy; Patient HX: Infection with drainage to ileostomy site. ; Additional info: Abd lesion TECHNIQUE: Imaging protocol: Computed tomography of the abdomen and pelvis with contrast. Radiation optimization: All CT scans at this facility use at least one of these dose optimization techniques: automated exposure control; mA and/or kV adjustment per patient size (includes targeted exams where dose is matched to clinical indication); or iterative reconstruction. Contrast material: OMNI 350; Contrast volume: 80 ml; Contrast route: INTRAVENOUS (IV); COMPARISON: CT abdomen pelvis w con* [id number] 01/26/2022 5:10 PM RADIATION DOSE METRICS: Total DLP (mGy-cm): 538.66 FINDINGS: Lungs: Bibasilar atelectasis versus minimal infiltrate. Liver: Normal. No mass. Gallbladder and bile ducts: Cholecystectomy. Pancreas: Normal. No ductal dilation. Spleen: Normal. No splenomegaly. Adrenal glands: Normal. No mass. Kidneys and ureters: Normal. No hydronephrosis. Stomach and bowel: Prominent fluid in the small bowel without dilation suggestive of an enteritis. Appendix: No evidence of appendicitis. Intraperitoneal space: Unremarkable. No free air. No significant fluid collection. Vasculature: Unremarkable. No abdominal aortic aneurysm. Lymph nodes: Unremarkable. No enlarged lymph nodes. Urinary bladder: Unremarkable as visualized. Reproductive: Several bilateral ovarian cysts measuring up to 2.3 cm on the left, likely follicular. Bones/joints: Unremarkable. No acute fracture. Soft tissues: Right-sided ostomy site in the abdominal wall subcutaneous fat with suggestion of some fluid in the subcutaneous abdominal wall tract which measures up to 3.1 x 1.2 cm suggestive of an infectious process with an overlying skin defect. Negative for intra-abdominal extension. CT/CT abdomen pelvis w con* [id number] IMPRESSION: 1. Right-sided ostomy site in the abdominal wall subcutaneous fat with suggestion of some fluid in the subcutaneous abdominal wall tract which measures up to 3.1 x 1.2 cm suggestive of an infectious process with an overlying skin defect. Negative for intra-abdominal extension. 2. Bibasilar atelectasis versus minimal infiltrate. 3. Cholecystectomy. 4. Prominent fluid in the small bowel without dilation suggestive of an enteritis. 5. Several bilateral ovarian cysts measuring up to 2.3 cm on the left, likely follicular.
[2022-01-28 19:41] LABS: Basophils # 0.1 10^3/uL (0.0-0.1); Basophils % 0.5 %; Eosinophils # 0.4 10^3/uL (0.0-0.8); Eosinophils % 3.4 %; Hematocrit 42.7 % (37.0-47.0); Hemoglobin 14.4 g/dL (11.5-15.3); Lymphocytes # 2.1 10^3/uL (0.8-4.8); Lymphocytes % 19.9 %; Mean Corpuscular HGB Conc 33.7 g/dL (30.0-36.0); Mean Corpuscular Hemoglobin 32.3 pg (28.0-34.0); Mean Corpuscular Volume 95.7 fl (81-99); Mean Platelet Volume 11.1 fL (7.4-10.4); Monocytes # 0.6 10^3/uL (0.2-0.9); Monocytes % 5.6 %; Neutrophils # 7.23 10^3/uL (1.8-7.7); Nucleated Red Blood Cells % 0 %; Platelet Count 227 10^3/cmm (130-400); Red Blood Count 4.46 10^6/uL (4.1-5.3); Red Cell Distribution Width 12.3 % (12.1-15.1); White Blood Count 10.3 10^3/uL (4.0-10.0)
[2022-01-28] MEDS: morphine 4 mg/mL SDV 1 mL IVP ×2 (19:56→20:47)
[2022-01-28 20:03] LABS: Alanine Aminotransferase 18 U/L (0-33); Albumin Level 4.3 g/dL (3.5-5.2); Alkaline Phosphatase 78 U/L (35-105); Anion Gap 14.2 (5-19); Aspartate Amino Transferase 17 U/L (0-32); Blood Urea Nitrogen 9 mg/dL (6-20); Carbon Dioxide 23 mmol/L (22-29); Chloride 108 mmol/L (98-107); Globulin 2.6 g/dL (1.3-4.6); Glomerular Filtration Rate 102.8 mL/min (90-130); Glucose 110 mg/dL (65-115); Lipase 19 U/L (13-60); Osmolality Calculated 291 mOsm/kg (285-295); Potassium 4.2 mmol/L (3.5-5.1); Sodium 141 mmol/L (136-145); Total Bilirubin 0.2 mg/dL (0.15-1.2); Total Protein 6.9 g/dL (6.6-8.7)
[2022-01-28] MEDS: iohexol 350 mg/mL 100 mL Btl IV (21:11)
[2022-01-28] MEDS: HYDROmorphone 1 mg/mL INJ 1 mL 0.5 MG IVP (22:39)
[2022-01-28] MEDS: clindamycin 600 MG/50 ML PREMIX 100 MG IV (23:14)
--- NOTE | 2022-01-28 23:26 | PM.HP ---
Providers/Chief Complaint Admitting Physician: Paul Coreas Primary Care Provider: Rigoberto Ferguson MD Chief Complaint: Red scab on stomach, N/V History of Present Illness Shayla Taylor is a 26 year old female She has a history of asthma and familial polyposis syndrome. She underwent a subtotal colectomy in [place] about 6 months ago. Postoperative course was complicated by infection, she stated that she was in the hospital for a month. Subsequently she developed several more episodes of infection which were treated in [place]. It is not clear if she has skin infection or some kind of intraperitoneal abscess. She is not the best historian to explain it and she does not give any medical records. Several days ago she noticed erythema around the laparoscopic port site on the right side of the abdomen. She was in the emergency room, was evaluated with a CT scan, discharged home. Oral antibiotics did not help. She presented to the emergency room again today with the same complaints. Repeat CT scan showed worsening inflammation. Surgery was consulted to evaluate the patient. She is complaining of pain in the abscess area, drainage from the abscess. She denies any other complaints at this time. She is accompanied by her fianc?. Review of Systems Narrative: 10 point review of systems is negative except as per HPI Medications/Allergies Home Medications Medication Instructions Recorded Confirmed Last Taken Type albuterol sulfate 90 mcg/actuation 2 puff inhalation QID PRN 01/28/22 01/28/22 Unknown History aerosol inhaler Shortness Of Breath Or Wheezing clindamycin HCl 300 mg capsule 300 mg PO TID 01/28/22 01/28/22 01/28/22 History Allergies Allergy/AdvReac Type Severity Reaction Status Date / Time ceftriaxone [From Rocephin] Allergy ALGY-Anaphy Verified 01/28/22 19:40 laxis ciprofloxacin [From Cipro] Allergy ADR-Nausea Verified 01/28/22 19:40 Sulfa (Sulfonamide Allergy Unknown Verified 01/28/22 19:40 Antibiotics) sulfamethoxazole Allergy ADR-Nausea Verified 01/28/22 19:40 [From Bactrim] trimethoprim [From Bactrim] Allergy ADR-Nausea Verified 01/28/22 19:40 PFSH Acute PFSH: Medical History (Updated 01/28/22 @ 23:31 by Paul Coreas MD) Family history of FAP (familial adenomatous polyposis) Surgical History (Updated 01/28/22 @ 19:43 by Jo Perez MD) H/O colectomy H/O ileostomy Social History (Updated 01/28/22 @ 19:43 by Jo Perez MD) Smoking and tobacco status: never smoked Alcohol intake: never Substance/Drug Use: never Female Reproductive History: Date of last menstrual period: 01/20/22 Vitals/I&O/Wt Last Vital Signs Temp 98.1 F 01/28/22 19:09 Pulse 74 01/28/22 21:01 Resp 18 01/28/22 22:57 BP 139/87 01/28/22 22:57 Pulse Ox 99 01/28/22 22:57 O2 Del Method 01/28/22 22:57 Weight last 48 hrs Weight 160 lb Physical Exam Narrative: General: No acute distress, comfortable Psych: [AAOx3] Eyes: [sclerae are white] Head/ENT: [normocephalic, symmetric] CV: [regular] pulse, [tachychardic], no JVD Lungs: [symmetrical chest rise] Abdomen: [soft, ND. Erythema in the epigastric area on the right, area of fluctuation consistent with a subcutaneous abscess] Ext: [no obvious traumatic deformities] Skin: warm Data : 01/28/22 19:30 01/28/22 19:30 Other data: I personally reviewed CT scan. She does have a subcutaneous abscess which extends to the rectus muscle on the right side. It is located exactly at the 12 mm trocar port that was used for colectomy. A&P Assessment and plan (1) Abdominal wall abscess at site of surgical wound: Status: Acute Plan Most likely this is a LigaSure abscess. Stranding does goes to the rectus muscle, there is swelling and erythema around the wound, it will be difficult to drain at bedside. Risk and benefits of surgery were discussed with the patient, given fluctuation and relatively superficial location I think she would benefit from I&D of the abscess. She would like to do it on the sedation/general anesthesia to avoid pain. I agree. We will continue IV antibiotics in the meanwhile because she seems to fail outpatient regimen. Plan for I&D of the right abdominal wall abscess, washout, packing tomorrow. I called and process the case for tomorrow. N.p.o. after midnight. I will admit for overnight observation for surgery tomorrow. Attestations Medical Necessity Statement*: Abdominal abscess Coding Level of Care Code Acute Money Laundering Investigator for Yamilet De Souza Diagnoses Abdominal wall abscess at site of surgical wound T81.49XA
[2022-01-28] MEDS: aztreonam 1,000 MG in sodium chloride 0.9% (plus) 50 ML 100 MG IV (23:42)
[2022-01-29] VITALS (17 sets, daily range): BP systolic 106–125; BP diastolic 58–91; PULSE 64–95; RESP 14–18; TEMP 36.4–37.1; O2SAT 79–97
[2022-01-29] MEDS: vancomycin 1,000 MG in sodium chloride 0.9% 250 ML 250 MG IV (00:17)
[2022-01-29] MEDS: ibuprofen 200 mg Tablet 400 MG PO (00:31)
[2022-01-29] MEDS: enoxaparin 40 mg/0.4 mL Syringe SUBCUT (00:32)
[2022-01-29] MEDS: albuterol 8 gm MDI 2 PUFF INHALATION (00:44)
[2022-01-29] MEDS: dextrose 5%-sod chloride 0.45% 1,000 ML 100 ML IV (02:53)
[2022-01-29] MEDS: aztreonam 2,000 MG in sodium chloride 0.9% (plus) 100 ML 200 MG IV (03:53)
[2022-01-29] MEDS: ipratropium-albuterol 3 mL Neb INHALATION (06:09)
--- NOTE | 2022-01-29 07:34 | PC.NURSE ---
Pt lying R-side with eyes closed, appears to be asleep and in no distress at this time, will continue to monitor.
[2022-01-29 08:31] LABS: OR HCG Qualitative Urine Negative (Negative)
[2022-01-29] MEDS: sodium chloride 0.9% 1,000 ML 30 ML IV (08:41)
--- NOTE | 2022-01-29 09:26 | P.ANESASSM_ITS ---
Pre-Anesthetic Assessment Height/Weight: Height 1.68 m Weight 72.575 kg Temp Pulse Resp BP Pulse Ox O2 Del Method 97.5 F L 81 18 124/80 94 01/29/22 08:13 01/29/22 08:13 01/29/22 08:13 01/29/22 08:13 01/29/22 08:13 01/29/22 08:13 Operation Date: 01/29/22 09:10 Proposed Procedures p Incision And Drainage of Abdominal Wall Abcess(Not Applicable) - Paul Coreas MD Familial anesthetic complications: None Was Beta Dana taken within 24 hours: N/A Was Clonidine taken within 24 hours: N/A Social Tobacco and No alcohol Exam alert, oriented x 3 and regular rate & rhythm Airway Submandibular: within normal limits Cervical ROM: within normal limits Mallampati: Class II Pulmonary Asthma and Chronic Obstructive Pulmonary Disease Anesthetic Plan ASA status: 2 Anesthesia: General Medications/Allergies Home Medications Medication Instructions Recorded Confirmed Last Taken Type albuterol sulfate 90 mcg/actuation 2 puff inhalation QID PRN 01/28/22 01/28/22 Unknown History aerosol inhaler Shortness Of Breath Or Wheezing clindamycin HCl 300 mg capsule 300 mg PO TID 01/28/22 01/28/22 01/28/22 History Allergies Allergy/AdvReac Type Severity Reaction Status Date / Time ceftriaxone [From Rocephin] Allergy ALGY-Anaphy Verified 01/28/22 19:40 laxis ciprofloxacin [From Cipro] Allergy ADR-Nausea Verified 01/28/22 19:40 Sulfa (Sulfonamide Allergy Unknown Verified 01/28/22 19:40 Antibiotics) sulfamethoxazole Allergy ADR-Nausea Verified 01/28/22 19:40 [From Bactrim] trimethoprim [From Bactrim] Allergy ADR-Nausea Verified 01/28/22 19:40 Current Medications Generic Name Dose Route Start Last Admin Trade Name Freq PRN Reason Stop Dose Admin Albuterol Sulfate 2 puff 01/28/22 23:18 01/29/22 00:44 Albuterol 8 Gm Mdi INHALATION 2 puff Q4H.RESPIRATORY PRN Administration SHORTNESS OF BREATH Enoxaparin Sodium 40 mg 01/29/22 00:10 01/29/22 00:32 Enoxaparin 40 Mg/0.4 Ml Syringe SUBCUT 40 mg Q24H LESLIE Administration Dextrose/Sodium Chloride 1,000 mls @ 100 mls/hr 01/29/22 00:10 01/29/22 02:53 Dextrose 5%-Sod Chloride 0.45% IV 100 mls/hr .Q10H LESLIE Administration Sodium Chloride 1,000 mls @ 30 mls/hr 01/29/22 08:15 01/29/22 08:41 Sodium Chloride 0.9% IV 01/30/22 08:14 30 mls/hr .Q24H LESLIE Administration Ibuprofen 400 mg 01/29/22 00:10 01/29/22 00:31 Ibuprofen 200 Mg Tablet PO 400 mg Q8H PRN Administration mild/mod pain or temp >/= 101 PFSH Anesthesia Medical History (Updated 01/28/22 @ 23:31 by Paul Coreas MD) Family history of FAP (familial adenomatous polyposis) Surgical History (Updated 01/28/22 @ 19:43 by Jo Perez MD) H/O colectomy H/O ileostomy Social History (Updated 01/28/22 @ 19:43 by Jo Perez MD) Smoking and tobacco status: never smoked Alcohol intake: never Substance/Drug Use: never Female Reproductive History Date of last menstrual period: 01/20/22 Data Anesthesia : 01/28/22 19:30 01/28/22 19:30 Short CBC 01/28/22 Range/Units 19:30 WBC 10.3 H (4.0-10.0) 10^3/uL Hgb 14.4 (11.5-15.3) g/dL Hct 42.7 (37.0-47.0) % MCV 95.7 (81-99) fl Plt Count 227 (130-400) 10^3/cmm Neut % (Auto) 70.0 % Neut # (Auto) 7.23 (1.8-7.7) 10^3/uL BMP 01/28/22 19:30 Sodium 141 Potassium 4.2 Chloride 108 H Carbon Dioxide 23 BUN 9 Creatinine 0.7 Glucose 110 Calcium 9.0 Liver Function 01/28/22 Range/Units 19:30 Total Bilirubin 0.2 (0.15-1.2) mg/dL AST 17 (0-32) U/L ALT 18 (0-33) U/L Alkaline Phosphatase 78 (35-105) U/L Albumin 4.3 (3.5-5.2) g/dL [facility] 01/28/22 19:30 C-Reactive Protein 3.0 Cardiac Studies: No Data to Display
[2022-01-29] MEDS: fentaNYL 50 mcg/mL INJ 2mL IVP (09:46)
--- NOTE | 2022-01-29 10:26 | P.OP_ITS ---
Operative Report Date of procedure: January 29, 2022 Pre-op diagnosis: Abdominal wall abscess Post-op diagnosis: Ligature abscess over the right rectus muscle. 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 Multiple episodes of infection after surgery. Presented to the ER with an abscess of the right abdominal wall, Procedure: Timeout was performed. Elliptical incision was made over the abscess to excise the skin and nonviable skin. Dissection was carried down, cultures were obtained. 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 There was a lot of chronic scar tissue consistent with a chronic abscess. Sinus tracts was dissected from the surrounding normal tissue all the way down to the rectus muscle and removed. At the bottom of the sinus tract to exposed PDS sutures were identified. Both were removed. The abscess did not tunnel into the peritoneal cavity. The wound was irrigated and packed with half-inch gauze. Sterile dressing was applied. I did not see any more exposed PDS sutures in the wound. I decided not to dissect healthier appearing tissue and look for more sutures that are not obviously exposed. Removing too much healthy tissue may predispose the patient to a large hernia defect in the future.
[2022-01-29] MEDS: meperidine 50 mg/mL INJ 12.5 MG IVP (10:50)
--- NOTE | 2022-01-29 11:11 | SUR.PHASEI ---
1026 PT TO PACU AWAKES TO VOICE, ABDOMEN SOFT WITH LARGE DRESSING PAPER TAPE D/I IV TO LT FOREARM #18 WITH NS 100ML UP AT KVO RATE PER GRAVITY, ID BANDS TO RT WRIST ,PT ID'D WITH 2 IDENTIFIERS. BILAT SCDS ON, WARM BLANKETS X 3 TO PT. 1050 PT CONTINUES TO SHIVER UNCONTROLLED AND NOW RATES PAIN AT 9 SEE MED GIVEN WARM BLANKETS X 3 MORE. 1108 PT SLEEPS IF NOT DISTURBED, MONITOR REMAINS SR NO ECTOPY ABDOMEN SOFT AND DRESSING D/I HANDOFF AT BEDSIDE TO ARCHIE ROPER PT TO OPS.
[2022-01-29] MEDS: TRAMadol 50 mg Tablet PO (11:44)
[2022-01-29] MEDS: ondansetron 2 mg/ML SDV 2 mL 4 MG IVP (11:46)
--- NOTE | 2022-01-29 12:41 | PM.DCS ---
Discharge Providers Date of Admission: 01/28/2022 Date of Discharge: January 29, 2022 Attending Provider at Discharge: Paul Coreas MD Primary Care Provider: Rigoberto Ferguson MD Diagnoses at Discharge Discharge Diagnosis (1) Abdominal wall abscess at site of surgical wound: Status: Acute Reason for Visit Reason for Visit: Red scab on stomach, N/V Brief History: 22 underwent colectomy in [place] at least 6 months ago, postoperative course complicated by infection, the patient cannot describe it very well, stated it was in the hospital for at least a month after surgery. Several more episodes of wound infection in the past. Hospital Course Hospital Course Intraoperatively, found to have a long sinus tract which led to a PDS ligature x2. Ligatures were removed, abscess drained and irrigated and packed. Physical Exam Narrative: General: No acute distress Psych: [AAOx3] Eyes: [sclerae are white] Head/ENT: [normocephalic, symmetric] CV: [regular] pulse, [tachychardic], no JVD Lungs: [symmetrical chest rise] Abdomen: [soft, ND, small draining wound in the right epigastrium] Ext: [no obvious traumatic deformities] Skin: warm Discharge Data Studies Completed and Pending Completed Studies During Hospitalization Category Date Time Status CT abdomen pelvis w con* [id number] Stat Cat Scan 01/28/22 19:40 Completed Pending at discharge Category Date Time Status Abscess Culture and Gram Stain Routine Lab 01/29/22 10:00 Received Anaerobic Culture Routine Lab 01/29/22 10:00 Received Radiology Impressions Abdomen/Pelvis CT 01/28/22 19:40 IMPRESSION: 1. Right-sided ostomy site in the abdominal wall subcutaneous fat with suggestion of some fluid in the subcutaneous abdominal wall tract which measures up to 3.1 x 1.2 cm suggestive of an infectious process with an overlying skin defect. Negative for intra-abdominal extension. 2. Bibasilar atelectasis versus minimal infiltrate. 3. Cholecystectomy. 4. Prominent fluid in the small bowel without dilation suggestive of an enteritis. 5. Several bilateral ovarian cysts measuring up to 2.3 cm on the left, likely follicular. Laboratory Results WBC 10.3 10^3/uL (4.0-10.0) H 01/28/22 19:30 RBC 4.46 10^6/uL (4.1-5.3) 01/28/22: Hgb 14.4 g/dL (11.5-15.3) 01/28/22: Hct 42.7 % (37.0-47.0) 01/28/22: MCV 95.7 fl (81-99) 01/28/22: MCH 32.3 pg (28.0-34.0) 01/28/22: MCHC 33.7 g/dL (30.0-36.0) 01/28/22: RDW 12.3 % (12.1-15.1) 01/28/22: Plt Count 227 10^3/cmm (130-400) 01/28/22 MPV 11.1 fL (7.4-10.4) H 01/28/22: Neut % (Auto) 70.0 % 01/28/22: Lymph % (Auto) 19.9 % 01/28/22: [place] % (Auto) 5.6 % 01/28/22: Eos % (Auto) 3.4 % 01/28/22: Baso % (Auto) 0.5 % 01/28/22 Neut # (Auto) 7.23 10^3/uL (1.8-7.7) 01/28/22 Lymph # (Auto) 2.1 10^3/uL (0.8-4.8) 01/28/22 [place] # (Auto) 0.6 10^3/uL (0.2-0.9) 01/28/22 Eos # (Auto) 0.4 10^3/uL (0.0-0.8) 01/28/22 Baso # (Auto) 0.1 10^3/uL (0.0-0.1) 01/28/22 Nucleated RBC % (auto) 0 % 01/28/22 Nucleated RBCs # 0.0 /100WBC 01/28/22: Sodium 141 mmol/L (136-145) 01/28/22: Potassium 4.2 mmol/L (3.5-5.1) 09/14/22 19:30 Chloride 108 mmol/L (98-107) H 01/28/22 19:30 Carbon Dioxide 23 mmol/L (22-29) 01/28/22 19:30 Anion Gap 14.2 (5-19) 01/28/22 19:30 BUN 9 mg/dL (6-20) 01/28/22 19:30 Creatinine 0.7 mg/dL (0.5-0.9) 01/28/22 19:30 GFR Calculation 102.8 mL/min (90-130) 01/28/22 19:30 Glucose 110 mg/dL (65-115) 01/28/22 19:30 Calculated Osmolality 291 mOsm/kg (285-295) 01/28/22 19:30 Calcium 9.0 mg/dL (8.5-10.5) 01/28/22 19:30 Total Bilirubin 0.2 mg/dL (0.15-1.2) 01/28/22 19:30 AST 17 U/L (0-32) 01/28/22 19:30 ALT 18 U/L (0-33) 01/28/22 19:30 Alkaline Phosphatase 78 U/L (35-105) 01/28/22 19:30 C-Reactive Protein 3.0 mg/L (0.0-4.9) 01/28/22 19:30 Total Protein 6.9 g/dL (6.6-8.7) 01/28/22 19:30 Albumin 4.3 g/dL (3.5-5.2) 01/28/22 19:30 Globulin 2.6 g/dL (1.3-4.6) 01/28/22 19:30 Lipase 19 U/L (13-60) 01/28/22 19:30 Urine HCG, Qual Negative (Negative) 01/29/22 08:22 Procedures Performed I&D of the right rectus muscle Vitals Last Vital Signs Temp 98.5 F 01/29/22 11:20 Pulse 79 01/29/22 11:20 Resp 16 01/29/22 11:20 BP 116/74 01/29/22 11:20 Pulse Ox 95 01/29/22 11:20 O2 Del Method 01/29/22 11:20 Discharge Plan Discharge Patient Disposition: Home Condition: Stable Prescriptions: New Probiotic 100 billion cell capsule 1 cap PO BID 7 Days Qty: 14 0RF ibuprofen 600 mg tablet 600 mg PO Q8H Qty: 15 0RF tramadol 50 mg tablet 50 mg PO Q8H PRN (Reason: pain) Qty: 12 0RF Continued albuterol sulfate 90 mcg/actuation Hfa Aerosol Inhaler 2 puff INHALATION QID PRN (Reason: Shortness Of Breath Or Wheezing) Changed clindamycin HCl 300 mg Capsule 300 mg PO Q6H 7 Days Qty: 28 0RF Discharge Orders: Discharge Order (Routine); Ordered 01/29/22 Ordered By: Paul Coreas Referrals: Jaxson Iyer DO [Physician] - 02/03/22 Rigoberto Ferguson MD [Primary Care Provider] - Discharge Diet: Advance as tolerated Discharge Activity: Resume usual activity Patient Instructions: OP Post-Operative Instructions Activity Restrictions/Additional Instructions: Wound packing daily, start on January 31, 2022. Removed old gauze, shower, okay to water to get into the wound, then pack with clean slightly wet gauze. Reapply clean dressing. Follow-up next Wednesday with Dr. Iyer to reassess the healing of the wound as well well as make a decision for how long to continue antibiotics. Continue to take clindamycin 4 times a day and probiotics twice a day for 7 days. The need for continuous antibiotic therapy will be reassessed in the surgery clinic next week. Stand Alone Forms: Work/School Release Discharge Attestations Time Spent in Discharge Care*: less than 30 min Quality Metrics Clinical Quality Measures [ No reported AMI, CVA or VTE this stay] Coding Level of Care Code Acute Chg [facility] note Diagnoses Abdominal wall abscess at site of surgical wound T81.49XA
--- NOTE | 2022-01-29 15:23 | ANE.PACU2 ---
Inpatient post-anesthesia follow up: Airway intact: Yes Vital signs: Temperature 98.5 F Pulse Rate 79 Respiratory Rate 16 Blood Pressure 116/74 Pulse Oximetry 95 Oxygen Delivery Me thod Room Air Oxygen Flow Rate Fraction of Inspir ed Oxygen Hydration adequate: Yes Nausea and vomiting: No Pain level: 3 Mental status: Baseline
== END 2022-01-29 12:40 | disposition home or self-care (01) ==
LOC: ER 01-29 02:50 → OPS 01-29 07:55
PROVIDERS: Anesthesiology; Emergency Provider Emergency Medicine; PCP Family Medicine; Visit Provider Surgery
PROC: (CPT 20520; principal; 2022-01-29 09:00)
DX: T81.49XA Infection following a procedure, other surgical site, initial encounter (principal); J44.9 Chronic obstructive pulmonary disease, unspecified
CPT/HCPCS: 20520; 12345; 74177; 80053; 83690; 84703; 85025; 86140; 87070; 87075; 87077; 87186; 87205; 94640; 96372; J1170; J1650; J2175; J2250; J2270; J2405; J3010; J3370; J3490; J3535; J7030; J7050; J7799; Q9967

== ENCOUNTER 2022-02-03 17:42 | Emergency (ER) | payer BC, MEDICAID, SELFPAY ==
[2022-02-03 18:20] VITALS: BMI 27.4
[2022-02-03 18:26] VITALS: BP 133/92; PULSE 90; RESP 18; TEMP 36.8; O2SAT 98
--- NOTE | 2022-02-03 21:11 | CTR_ITS ---
PROCEDURE INFORMATION: Exam: CT Abdomen And Pelvis With Contrast Exam date and time: 02/03/2022 9:29 PM Age: 26 years old Clinical indication: Other: Drainage from ileostomy site; Prior surgery; Surgery date: 3-7 days post-operative; Surgery type: Surgical drainage of abscess on 01/29/2022; Patient HX: Ivanna had surgical drainage of abscess of ileostomy site on 01/29/2022. C/O continued drainage. ; Additional info: Abd pain TECHNIQUE: Imaging protocol: Computed tomography of the abdomen and pelvis with contrast. Radiation optimization: All CT scans at this facility use at least one of these dose optimization techniques: automated exposure control; mA and/or kV adjustment per patient size (includes targeted exams where dose is matched to clinical indication); or iterative reconstruction. Contrast material: OMNI 350; Contrast volume: 80 ml; Contrast route: INTRAVENOUS (IV); COMPARISON: CT abdomen pelvis w con* [id number] 01/28/2022 9:15 PM RADIATION DOSE METRICS: Total DLP (mGy-cm): 567.41 FINDINGS: Liver: Normal. No mass. Gallbladder and bile ducts: Cholecystectomy. Pancreas: Normal. No ductal dilation. Spleen: Normal. No splenomegaly. Adrenal glands: Normal. No mass. Kidneys and ureters: Normal. No hydronephrosis. Stomach and bowel: Unremarkable. No obstruction. No mucosal thickening. Appendix: No evidence of appendicitis. Intraperitoneal space: Unremarkable. No free air. No significant fluid collection. Vasculature: Unremarkable. No abdominal aortic aneurysm. Lymph nodes: Unremarkable. No enlarged lymph nodes. Urinary bladder: Unremarkable as visualized. Reproductive: Several left ovarian cysts measuring up to 18 mm, nonspecific. Bones/joints: Unremarkable. No acute fracture. Soft tissues: Right abdominal wall apparent surgical defect with a 21 by 41 mm focal soft tissue prominence in the right rectus muscle deep to the defect, perhaps reflecting postsurgical changes, a developing phlegmon may also be a consideration depending on the clinical scenario. CT/CT abdomen pelvis w con* [id number] IMPRESSION: 1. Right abdominal wall apparent surgical defect with a 21 by 41 mm focal soft tissue prominence in the right rectus muscle deep to the defect, perhaps reflecting postsurgical changes, a developing phlegmon may also be a consideration depending on the clinical scenario. Finding best seen series 3, image 51. 2. Several left ovarian cysts measuring up to 18 mm, nonspecific. 3. Cholecystectomy.
[2022-02-03] MEDS: iohexol 350 mg/mL 100 mL Btl IV (21:21)
[2022-02-03] MEDS: ketorolac 30 mg/mL INJ 15 MG IVP (22:00)
[2022-02-03 22:03] LABS: Basophils # 0.1 10^3/uL (0.0-0.1); Basophils % 0.6 %; Eosinophils # 0.5 10^3/uL (0.0-0.8); Eosinophils % 3.9 %; Hematocrit 45.3 % (37.0-47.0); Hemoglobin 15.2 g/dL (11.5-15.3); Lymphocytes # 2.8 10^3/uL (0.8-4.8); Lymphocytes % 24.2 %; Mean Corpuscular HGB Conc 33.6 g/dL (30.0-36.0); Mean Corpuscular Volume 95.4 fl (81-99); Monocytes # 0.7 10^3/uL (0.2-0.9); Monocytes % 6.4 %; Neutrophils # 7.43 10^3/uL (1.8-7.7); Neutrophils % 64.5 %; Nucleated Red Blood Cells % 0 %; Platelet Count 252 10^3/cmm (130-400); Red Blood Count 4.75 10^6/uL (4.1-5.3); Red Cell Distribution Width 12.1 % (12.1-15.1); White Blood Count 11.5 10^3/uL (4.0-10.0)
[2022-02-03 22:10] VITALS: PULSE 82; RESP 16; O2SAT 99
[2022-02-03] MEDS: ipratropium-albuterol 3 mL Neb INHALATION (22:10)
[2022-02-03 22:12] VITALS: PULSE 77; RESP 20; O2SAT 99
[2022-02-03 22:25] VITALS: BP 129/89; PULSE 85; RESP 17; O2SAT 100
[2022-02-03 22:25] LABS: Alanine Aminotransferase 14 U/L (0-33); Albumin Level 4.2 g/dL (3.5-5.2); Alkaline Phosphatase 75 U/L (35-105); Anion Gap 12.8 (5-19); Aspartate Amino Transferase 12 U/L (0-32); Blood Urea Nitrogen 9 mg/dL (6-20); Calcium 9.4 mg/dL (8.5-10.5); Carbon Dioxide 23 mmol/L (22-29); Chloride 104 mmol/L (98-107); Creatinine Clr Calc Pharmacy 129.9493; Globulin 2.7 g/dL (1.3-4.6); Glomerular Filtration Rate 102.8 mL/min (90-130); Glucose 76 mg/dL (65-115); Osmolality Calculated 279 mOsm/kg (285-295); Potassium 3.8 mmol/L (3.5-5.1); Sodium 136 mmol/L (136-145); Total Bilirubin 0.2 mg/dL (0.15-1.2); Total Protein 6.9 g/dL (6.6-8.7)
[2022-02-03 22:33] LABS: SARS Covid-2 Antigen Negative (Negative)
--- NOTE | 2022-02-03 22:39 | W.ED.GENADLT ---
HPI - General Adult General: Chief complaint: Shortness of Breath/Dyspnea Stated complaint: SOB Time Seen by Provider: 02/03/22 20:53 History of Present Illness: 26-year-old female presents with abdominal pain, wheezing, shortness of breath. Patient reports that she has a upset stomach. She thinks this may be because she just started Levaquin for MRSA. Patient also reports that she has had some increasing mild shortness of breath and wheezing. That she has a history of asthma. That she has a mild cough. Patient denies any nausea or vomiting. Patient was concerned about her abdomen because she recently had an abscess drainage in her abdominal wall from difficulty with sutures not resolving. Patient denies any fever or chills. PFSH ED PFSH: Medical History Family history of FAP (familial adenomatous polyposis) Surgical History H/O colectomy H/O ileostomy Hx of cholecystectomy Hx of colonoscopy with polypectomy Social History Smoking and tobacco status: current every day smoker Alcohol intake: never Female Reproductive History: Date of last menstrual period: 01/28/22 Course Vital Signs: Vital signs: Vital Signs Temperature 98.2 F 02/03/22 18:26 Pulse Rate 83 02/03/22 22:52 Respiratory Rate 18 02/03/22 22:52 Blood Pressure 131/76 02/03/22 22:52 Pulse Oximetry 99 02/03/22 22:52 Oxygen Delivery Me thod 02/03/22 22:52 MDM - General Adult Medical Decision Making Patient's CT shows known postsurgical defect but no intra-abdominal pathology. I did recommend she follow-up with her surgeon to have this rechecked. Patient also was having an asthma exacerbation doing much better following treatment. I will refill her albuterol she is low. Patient should follow-up with her primary care provider as needed. Patient was stable and discharged home Lab Data : 02/03/22 21:54 02/03/22 21:54 Radiology Impressions Abdomen/Pelvis CT 02/03/22 21:11 IMPRESSION: 1. Right abdominal wall apparent surgical defect with a 21 by 41 mm focal soft tissue prominence in the right rectus muscle deep to the defect, perhaps reflecting postsurgical changes, a developing phlegmon may also be a consideration depending on the clinical scenario. Finding best seen series 3, image 51. 2. Several left ovarian cysts measuring up to 18 mm, nonspecific. 3. Cholecystectomy. Laboratory Results WBC 11.5 10^3/uL (4.0-10.0) H 02/03/22 21:54 RBC 4.75 10^6/uL (4.1-5.3) 02/03/22 21:54 Hgb 15.2 g/dL (11.5-15.3) 02/03/22 21:54 Hct 45.3 % (37.0-47.0) 02/03/22 21:54 MCV 95.4 fl (81-99) 02/03/22 21:54 MCH 32.0 pg (28.0-34.0) 02/03/22 21:54 MCHC 33.6 g/dL (30.0-36.0) 02/03/22 21:54 RDW 12.1 % (12.1-15.1) 02/03/22 21:54 Plt Count 252 10^3/cmm (130-400) 02/03/22 21:54 MPV 11.0 fL (7.4-10.4) H 02/03/22 21:54 Neut % (Auto) 64.5 % 02/03/22 21:54 Lymph % (Auto) 24.2 % 02/03/22 21:54 [place] % (Auto) 6.4 % 02/03/22 21:54 Eos % (Auto) 3.9 % 02/03/22 21:54 Baso % (Auto) 0.6 % 02/03/22 21:54 Neut # (Auto) 7.43 10^3/uL (1.8-7.7) 02/03/22 21:54 Lymph # (Auto) 2.8 10^3/uL (0.8-4.8) 02/03/22 21:54 [place] # (Auto) 0.7 10^3/uL (0.2-0.9) 02/03/22 21:54 Eos # (Auto) 0.5 10^3/uL (0.0-0.8) 02/03/22 21:54 Baso # (Auto) 0.1 10^3/uL (0.0-0.1) 02/03/22 21:54 Nucleated RBC % (auto) 0 % 02/03/22 21:54 Nucleated RBCs # 0.0 /100WBC 02/03/22 21:54 Sodium 136 mmol/L (136-145) 02/03/22 21:54 Potassium 3.8 mmol/L (3.5-5.1) 02/03/22 21:54 Chloride 104 mmol/L (98-107) 02/03/22 21:54 Carbon Dioxide 23 mmol/L (22-29) 02/03/22 21:54 Anion Gap 12.8 (5-19) 02/03/22 21:54 BUN 9 mg/dL (6-20) 02/03/22 21:54 Creatinine 0.7 mg/dL (0.5-0.9) 02/03/22 21:54 GFR Calculation 102.8 mL/min (90-130) 02/03/22 21:54 Glucose 76 mg/dL (65-115) 02/03/22 21:54 Calculated Osmolality 279 mOsm/kg (285-295) L 02/03/22 21:54 Lactate 1.0 mmol/L (0.5-2.2) 02/03/22 21:54 Calcium 9.4 mg/dL (8.5-10.5) 02/03/22 21:54 Total Bilirubin 0.2 mg/dL (0.15-1.2) 02/03/22 21:54 AST 12 U/L (0-32) 02/03/22 21:54 ALT 14 U/L (0-33) 02/03/22 21:54 Alkaline Phosphatase 75 U/L (35-105) 02/03/22 21:54 Total Protein 6.9 g/dL (6.6-8.7) 02/03/22 21:54 Albumin 4.2 g/dL (3.5-5.2) 02/03/22 21:54 Globulin 2.7 g/dL (1.3-4.6) 02/03/22 21:54 Urine Color Yellow (Yellow) 02/03/22 22:43 Urine Appearance Clear (CLEAR) 02/03/22 22:43 Urine pH 5 (5-7) 02/03/22 22:43 Ur Specific Flasher 1.010 (1.005-1.030) 02/03/22 22:43 Urine Protein Trace (Negative) 02/03/22 22:43 Urine Glucose (UA) Norm (Normal) 02/03/22 22:43 Urine Ketones Negative (Negative) 02/03/22 22:43 Urine Blood Neg (Negative) 02/03/22 22:43 Urine Nitrate Negative (Negative) 02/03/22 22:43 Urine Bilirubin Neg (Negative) 02/03/22 22:43 Urine Urobilinogen Norm mg/dL (Negative) 02/03/22 22:43 Ur Leukocyte Esterase Negative (Negative) 02/03/22 22:43 Urine RBC 0-4 /hpf (0-2) H 02/03/22 22:43 Urine WBC None /hpf (0-5) 02/03/22 22:43 Ur Squamous Epith Cells 0-4 /hpf (0-5) H 02/03/22 22:43 Amorphous Sediment Not Reportable 02/03/22 22:43 Urine Bacteria None /hpf (NONE) 02/03/22 22:43 SARS-CoV-2 Ag (Rapid) Negative (Negative) 02/03/22 22:07 Discharge Plan Discharge Condition: Stable Prescriptions: No Action levofloxacin 750 mg tablet 750 mg PO DAILY albuterol sulfate 90 mcg/actuation Hfa Aerosol Inhaler 2 puff INHALATION QID PRN (Reason: Shortness Of Breath Or Wheezing) Probiotic 100 billion cell capsule 1 cap PO BID 7 Days Qty: 14 0RF clindamycin HCl 300 mg Capsule 300 mg PO Q6H 7 Days Qty: 28 0RF ibuprofen 600 mg tablet 600 mg PO Q8H Qty: 15 0RF tramadol 50 mg tablet 50 mg PO Q8H PRN (Reason: pain) Qty: 12 0RF Referrals: Rigoberto Ferguson MD [Primary Care Provider] - Coding Level of Care Code ED Sheet Metal Installer for Yamilet De Souza
[2022-02-03] MEDS: dexamethasone 10 mg/mL INJ IVP (22:48)
[2022-02-03 22:52] VITALS: BP 131/76; PULSE 83; RESP 18; O2SAT 99
[2022-02-03 23:00] LABS: Add Urine Microscopic? YES; Bilirubin Urine Neg (Negative); Blood Urine Neg (Negative); Glucose Urine UA Norm (Normal); Ketones Urine Negative (Negative); Leukocyte Esterase Urine Negative (Negative); Nitrate Urine Negative (Negative); Protein Urine Trace (Negative); Urine Appearance Clear (CLEAR); Urine Color Yellow (Yellow); Urobilinogen Urine Norm (Negative); pH Urine 5 (5-7)
[2022-02-03 23:01] LABS: Add Urine Culture? No; RBC Urine 0-4 /hpf (0-2); Squamous Epithelial Cell Urine 0-4 /hpf (0-5)
[2022-02-03 23:27] VITALS: BP 120/86; PULSE 82; RESP 16; O2SAT 99
== END 2022-02-03 23:27 | disposition home or self-care (01) ==
PROVIDERS: Emergency Provider Student in an Organized Health Care Education/Training Program; PCP Family Medicine
DX: R10.9 Unspecified abdominal pain (principal); R06.02 Shortness of breath; R06.2 Wheezing; Z20.822 Contact with and (suspected) exposure to COVID-19; F17.210 Nicotine dependence, cigarettes, uncomplicated
CPT/HCPCS: 74177; 80053; 81001; 83605; 85025; 87426; 94640; 96374; 96375; 99285; J1100; J1885; J7611; Q9967

== ENCOUNTER 2022-02-13 12:45 | Outpatient (CLI) | payer BC, MEDICAID, SELFPAY ==
--- NOTE | 2022-02-13 13:00 | CTR_ITS ---
PROCEDURE INFORMATION: Exam: CT Abdomen And Pelvis With Contrast Exam date and time: 02/13/2022 3:05 PM Age: 26 years old Clinical indication: Abdominal pain; Epigastric; Prior surgery; Surgery date: <1 month; Surgery type: Surgery-- 2 weeks ago- colon resection (polyps); Additional info: Generalized abdominal pain TECHNIQUE: Imaging protocol: Computed tomography of the abdomen and pelvis with contrast. Radiation optimization: All CT scans at this facility use at least one of these dose optimization techniques: automated exposure control; mA and/or kV adjustment per patient size (includes targeted exams where dose is matched to clinical indication); or iterative reconstruction. Contrast material: OMNIPAQUE 350; Contrast volume: 95 ml; Contrast route: INTRAVENOUS (IV); Other contrast: Oral, Omnipaque 350, 30; COMPARISON: CT abdomen pelvis w con* [id number] 02/03/2022 9:29 PM RADIATION DOSE METRICS: Total DLP (mGy-cm): 1057.03 FINDINGS: Liver: Normal. No mass. Gallbladder and bile ducts: Stable cholecystectomy. Pancreas: Normal. No ductal dilation. Spleen: Normal. No splenomegaly. Adrenal glands: Normal. No mass. Kidneys and ureters: Normal. No hydronephrosis. Stomach and bowel: Unremarkable. No obstruction. No mucosal thickening. Appendix: No evidence of appendicitis. Intraperitoneal space: Unremarkable. No free air. No significant fluid collection. Vasculature: Unremarkable. No abdominal aortic aneurysm. Lymph nodes: Unremarkable. No enlarged lymph nodes. Urinary bladder: Unremarkable as visualized. Reproductive: Unremarkable as visualized. Bones/joints: Unremarkable. No acute fracture. Soft tissues: Interval healing in the soft tissue defect in the right lower quadrant with decreased size of the soft tissue defect in decreased inflammation. Other findings: Scar tissue leading from the right rectus muscle to the soft tissue defect in the right lower quadrant. CT/CT abdomen pelvis w con* [id number] IMPRESSION: 1. Interval healing in the soft tissue defect in the right lower quadrant with decreased size of the soft tissue defect in decreased inflammation. 2. Scar tissue leading from the right rectus muscle to the soft tissue defect in the right lower quadrant.
[2022-02-13 14:57] LABS: HCG, Serum Qual Negative (Negative)
[2022-02-13] MEDS: iohexol 350 mg/mL 100 mL Btl IV (15:01)
== END 2022-02-13 12:46 | disposition home or self-care (01) ==
LOC: RAD 12:46
PROVIDERS: Radiology Neuroradiology; PCP Family Medicine; Visit Provider Family Medicine
DX: R10.84 Generalized abdominal pain (principal)
CPT/HCPCS: 74177; 84703

== ENCOUNTER 2022-03-10 13:06 | Emergency (ER) | payer BC, MEDICAID, SELFPAY ==
[2022-03-10 13:23] VITALS: BP 131/88; PULSE 88; RESP 18; TEMP 36.8; O2SAT 98; BMI 27.4
--- NOTE | 2022-03-10 13:27 | ECG_ITS ---
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 Measurements Intervals [place] Rate: 77 P: 67 SC: 215 QRS: 26 QRSD: 93 T: 69 QT: 356 QTc: 405 Interpretive Statements SINUS RHYTHM WITH FIRST DEGREE AV BLOCK POSSIBLE RIGHT VENTRICULAR CONDUCTION DELAY [RSR (QR) IN V1/V2] INTERPRETATION BASED ON A DEFAULT AGE OF 40 YEARS Compared to ECG 06/08/2016 00:10:58 No significant changes Electronically Signed On 03-11-2022 0:19:52 CDT by Julissa Mckeon M.D. [id number]
--- NOTE | 2022-03-10 13:27 | XR_ITS ---
WS: [id number] Exam: XR chest 1V portable [id number] Date/Time of Exam: 03/10/2022 1:27 PM Reason For Exam: Chest Pain Comparison 12/07/2018. Findings: The lungs are clear and fully expanded. Costophrenic angles are sharp. No infiltrates. Bronchovascula r relief appears normal. Cardiac silhouette is unremarkable. Bony elements are intact. XR/XR chest 1V portable [id number] IMPRESSION: Unremarkable chest radiograph.
[2022-03-10 14:05] LABS: Basophils # 0.1 10^3/uL (0.0-0.1); Basophils % 0.6 %; Eosinophils # 0.3 10^3/uL (0.0-0.8); Eosinophils % 2.4 %; Hematocrit 42.3 % (37.0-47.0); Hemoglobin 14.4 g/dL (11.5-15.3); Lymphocytes # 2.6 10^3/uL (0.8-4.8); Mean Corpuscular Hemoglobin 32.1 pg (28.0-34.0); Mean Corpuscular Volume 94.2 fl (81-99); Mean Platelet Volume 10.8 fL (7.4-10.4); Monocytes # 0.8 10^3/uL (0.2-0.9); Monocytes % 5.7 %; Neutrophils # 9.37 10^3/uL (1.8-7.7); Neutrophils % 69.7 %; Nucleated Red Blood Cells % 0 %; Platelet Count 247 10^3/cmm (130-400); Red Blood Count 4.49 10^6/uL (4.1-5.3); Red Cell Distribution Width 12.1 % (12.1-15.1); White Blood Count 13.4 10^3/uL (4.0-10.0)
[2022-03-10 14:30] LABS: Troponin(5th) Baseline 6 ng/L (0-10)
[2022-03-10 14:37] LABS: Alanine Aminotransferase 18 U/L (0-33); Alkaline Phosphatase 84 U/L (35-105); Anion Gap 11.6 (5-19); Aspartate Amino Transferase 10 U/L (0-32); Blood Urea Nitrogen 8 mg/dL (6-20); Calcium 9.2 mg/dL (8.5-10.5); Carbon Dioxide 24 mmol/L (22-29); Chloride 102 mmol/L (98-107); Creatinine Clr Calc Pharmacy 151.6075; Globulin 2.8 g/dL (1.3-4.6); Glomerular Filtration Rate 122.8 mL/min (90-130); Glucose 84 mg/dL (65-115); NT Pro B Type Natriuretic Pept 17 pg/mL (0-125); Osmolality Calculated 276 mOsm/kg (285-295); Potassium 3.6 mmol/L (3.5-5.1); Sodium 134 mmol/L (136-145); Total Bilirubin 0.3 mg/dL (0.15-1.2); Total Protein 6.8 g/dL (6.6-8.7)
--- NOTE | 2022-03-10 18:41 | W.ED.CHESTPA ---
HPI - Chest Pain General: Chief Complaint: Chest Pain Stated Complaint: Chest Pain and dizziness Time Seen by Provider: 03/10/22 18:32 Source: patient Mode of arrival: ambulatory Limitations: no limitations History of Present Illness: 26-year-old female who states she started a new job yesterday states she is around burning: She feels like she has been inhaling the fumes. She states that she had felt lightheaded today at work and felt like she was going to pass out states she had a mild cough as well and some burning in her chest. She states she feels improved currently denies any fever Associated symptoms: Deny abdominal pain, dyspnea, fever(s), nausea or vomiting Review of Systems Const: Denies: fever(s), chills, body aches or change in appetite Eyes: Denies: blurry vision or eye discomfort ENMT: Denies: throat pain or dental pain Card: Reports: pre-syncope Resp: Denies: dyspnea GI: Denies: abdominal pain, nausea, vomiting or diarrhea : Denies: dysuria Musc: Denies: neck pain or back pain Skin/Breast: Denies: rash Neuro: Denies: headache(s) Psych: Denies: depression Basil/Lymph: Denies: easy bruising All/Imm: Denies: urticaria PFSH ED PFSH: Medical History Family history of FAP (familial adenomatous polyposis) Surgical History H/O colectomy H/O ileostomy Hx of cholecystectomy Hx of colonoscopy with polypectomy Social History Smoking and tobacco status: current every day smoker Alcohol intake: never Female Reproductive History: Date of last menstrual period: 01/28/22 Physical Exam Const: COMMON NORMALS: no acute distress, patient oriented x3 and healthy appearing HENMT: COMMON NORMALS: normocephalic and atraumatic HEAD & SCALP: normocephalic and atraumatic Eye: COMMON NORMALS: Equal, round and reactive pupils present and EOMs intact bilaterally PUPIL: Yes Equal, round and reactive pupils present Neck/C-Spine: COMMON NORMALS: full ROM and supple Chest: COMMONS NORMALS: normal inspection of the chest and normal palpation of entire chest wall Resp: COMMON NORMALS: normal respiratory effort, No retractions, No use of accessory muscles and clear to auscultation bilaterally AUSCULTATION: clear to auscultation bilaterally Cardio: COMMON NORMALS: regular rate, regular rhythm and No murmurs present (Cardio) RATE: regular rate RHYTHM: regular rhythm GI: COMMON NORMALS: Normal to inspection, nondistended, normoactive bowel sounds present, Soft to palpation, non-tender and no masses PALPATION: Yes Soft to palpation Extremity: COMMON NORMALS: normal to inspection and full ROM Neuro: COMMON NORMALS: patient oriented x3, moves all extremities and no focal motor deficits Psych: COMMON NORMALS: mental status grossly normal, Normal thought process present and cooperative THOUGHT PROCESS: Normal thought process present Skin: COMMON NORMALS: no rashes or lesions noted and no wounds GENERAL SKIN EXAM: no rashes or lesions noted Course Vital Signs: Vital signs: Vital Signs Temperature 98.2 F 03/10/22 13:23 Pulse Rate 88 03/10/22 13:23 Respiratory Rate 18 03/10/22 13:23 Blood Pressure 131/88 03/10/22 13:23 Pulse Oximetry 98 03/10/22 13:23 Oxygen Delivery Me thod 03/10/22 13:23 MDM - Chest Pain Medical Decision Making Patient presents here with near syncopal event could be from inhaling fumes at work her blood work including carboxyhemoglobin here is normal she is stable for discharge she is to follow-up with PCP and return if worsening. Lab Data : 03/10/22 13:56 03/10/22 13:56 Radiology Impressions Chest X-Ray 03/10/22 13:27 IMPRESSION: Unremarkable chest radiograph. Laboratory Results WBC 13.4 10^3/uL (4.0-10.0) H 03/10/22 13:56 RBC 4.49 10^6/uL (4.1-5.3) 03/10/22 13:56 Hgb 14.4 g/dL (11.5-15.3) 03/10/22 13:56 Hct 42.3 % (37.0-47.0) 03/10/22 13:56 MCV 94.2 fl (81-99) 03/10/22 13:56 MCH 32.1 pg (28.0-34.0) 03/10/22 13:56 MCHC 34.0 g/dL (30.0-36.0) 03/10/22 13:56 RDW 12.1 % (12.1-15.1) 03/10/22 13:56 Plt Count 247 10^3/cmm (130-400) 03/10/22 13:56 MPV 10.8 fL (7.4-10.4) H 03/10/22 13:56 Neut % (Auto) 69.7 % 03/10/22 13:56 Lymph % (Auto) 19.0 % 03/10/22 13:56 [place] % (Auto) 5.7 % 03/10/22 13:56 Eos % (Auto) 2.4 % 03/10/22 13:56 Baso % (Auto) 0.6 % 03/10/22 13:56 Neut # (Auto) 9.37 10^3/uL (1.8-7.7) H 03/10/22 13:56 Lymph # (Auto) 2.6 10^3/uL (0.8-4.8) 03/10/22 13:56 [place] # (Auto) 0.8 10^3/uL (0.2-0.9) 03/10/22 13:56 Eos # (Auto) 0.3 10^3/uL (0.0-0.8) 03/10/22 13:56 Baso # (Auto) 0.1 10^3/uL (0.0-0.1) 03/10/22 13:56 Nucleated RBC % (auto) 0 % 03/10/22 13:56 Nucleated RBCs # 0.0 /100WBC 03/10/22 13:56 Specimen Type Arterial 03/10/22 18:47 Sample Site Radial, left 03/10/22 18:47 ABG pH 7.41 (7.35-7.45) 03/10/22 18:47 ABG pCO2 37.5 mmHg (35-45) 03/10/22 18:47 ABG pO2 93.7 mmHg (80.0-100.0) 03/10/22 18:47 ABG HCO3 23.6 mmol/L (22-26) 03/10/22 18:47 ABG O2 Saturation 98.9 03/10/22 18:47 ABG Base Excess -0.8 mmol/L (-2.0-2.0) 03/10/22 18:47 Haris Test Pos 03/10/22 18:47 A-a O2 Gradient 1.0 mmHg (5-10) L 03/10/22 18:47 Hematocrit 42.3 % (37-47) 03/10/22 18:47 Hgb O2 Saturation 92.9 % (95-100) L 03/10/22 18:47 Carboxyhemoglobin 5.3 %THgb (0.4-20.1) 03/10/22 18:47 Methemoglobin 0.8 % (0.4-1.5) 03/10/22 18:47 Total Hemoglobin 13.8 g/dL (12-16) 03/10/22 18:47 Sodium 138.0 mmol/L (131-143) 03/10/22 18:47 Potassium 3.5 mmol/L (3.5-5.0) 03/10/22 18:47 Glucose 83.0 mg/dL (70-115) 03/10/22 18:47 Ionized Calcium 1.2 mmol/L (1.1-1.4) 03/10/22 18:47 O2 Delivery Device Room air 03/10/22 18:47 FiO2 21.0 % 03/10/22 18:47 Altitude Chamber Technician ID Cak 03/10/22 18:47 Sodium 134 mmol/L (136-145) L 03/10/22 13:56 Potassium 3.6 mmol/L (3.5-5.1) 03/10/22 13:56 Chloride 102 mmol/L (98-107) 03/10/22 13:56 Carbon Dioxide 24 mmol/L (22-29) 03/10/22 13:56 Anion Gap 11.6 (5-19) 03/10/22 13:56 BUN 8 mg/dL (6-20) 03/10/22 13:56 Creatinine 0.6 mg/dL (0.5-0.9) 03/10/22 13:56 GFR Calculation 122.8 mL/min (90-130) 03/10/22 13:56 Glucose 84 mg/dL (65-115) 03/10/22 13:56 Calculated Osmolality 276 mOsm/kg (285-295) L 03/10/22 13:56 Calcium 9.2 mg/dL (8.5-10.5) 03/10/22 13:56 Total Bilirubin 0.3 mg/dL (0.15-1.2) 03/10/22 13:56 AST 10 U/L (0-32) 03/10/22 13:56 ALT 18 U/L (0-33) 03/10/22 13:56 Alkaline Phosphatase 84 U/L (35-105) 03/10/22 13:56 Troponin T Baseline 6 ng/L (0-10) 03/10/22 13:56 NT-Pro-B Natriuret Pep 17 pg/mL (0-125) 03/10/22 13:56 Total Protein 6.8 g/dL (6.6-8.7) 03/10/22 13:56 Albumin 4.0 g/dL (3.5-5.2) 03/10/22 13:56 Globulin 2.8 g/dL (1.3-4.6) 03/10/22 13:56 HCG, Qual Negative (Negative) 03/10/22 19:32 Discharge Plan Discharge Patient Disposition: Home Clinical Impression: Near syncope Condition: Stable Prescriptions: No Action levofloxacin 750 mg tablet 750 mg PO DAILY albuterol sulfate 90 mcg/actuation HFA aerosol inhaler 2 inh inhalation Q4H PRN (Reason: shortness of breath or wheezing) Qty: 8.5 0RF albuterol sulfate 90 mcg/actuation Hfa Aerosol Inhaler 2 puff INHALATION QID PRN (Reason: Shortness Of Breath Or Wheezing) clindamycin HCl 300 mg Capsule 300 mg PO Q6H 7 Days Qty: 28 0RF ibuprofen 600 mg tablet 600 mg PO Q8H Qty: 15 0RF tramadol 50 mg tablet 50 mg PO Q8H PRN (Reason: pain) Qty: 12 0RF Discharge Orders: Discharge ED (Routine); Ordered 03/10/22 Ordered By: Herman Guerrero Referrals: Rigoberto Ferguson MD [Primary Care Provider] - Discharge Diet: Advance as tolerated Discharge Activity: Resume usual activity Patient Instructions: Near Syncope (ED) Stand Alone Forms: Work/School Release Coding Level of Care Code ED Parts Department Manager for Ch Fwd Exam Comprehensive
[2022-03-10 18:59] LABS: ABG PCO2 37.5 mmHg (35-45); ABG PH Result 7.41 (7.35-7.45); Arterial Blood Gas Hematocrit 42.3 % (37-47); Base Excess ABG -0.8 mmol/L (-2.0-2.0); Blood Gas Allen Test Pos; Blood Gas Operator Identificat CAK; Blood Gas Sample Site Radial, left; Blood Gas Sample Type Arterial; Carboxyhemoglobin 5.3 %THgb (0.4-20.1); HCO3 ABG 23.6 mmol/L (22-26); HGB O2 Sat 92.9 % (95-100); Ionized Calcium Level - ABG 1.2 mmol/L (1.1-1.4); Methemoglobin 0.8 % (0.4-1.5); Oxygen Device ROOM AIR; Oxygen Saturation ABG 98.9; PO2 ABG 93.7 mmHg (80.0-100.0); Potassium Level - ABG 3.5 mmol/L (3.5-5.0); Total Hemoglobin 13.8 g/dL (12-16)
--- NOTE | 2022-03-10 19:02 | PC.NURSE ---
performed on day shift
--- NOTE | 2022-03-10 19:14 | ECG_ITS ---
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 Measurements Intervals [place] Rate: 69 P: 69 [place]: 226 QRS: 89 QRSD: 110 T: 51 QT: 361 QTc: 388 Interpretive Statements SINUS RHYTHM WITH SINUS ARRHYTHMIA WITH FIRST DEGREE AV BLOCK Compared to ECG 03/10/2022 13:18:21 No significant changes Electronically Signed On 03-12-2022 7:08:53 CDT by Saul Kingsley M.D. [id number]
[2022-03-10 19:35] VITALS: BP 126/84; PULSE 73; RESP 18; O2SAT 97
[2022-03-10 19:50] LABS: HCG Qualitative Urine. Negative (Negative)
[2022-03-10 20:08] VITALS: BP 133/90; PULSE 78; RESP 18; O2SAT 98
[2022-03-10 20:55] LABS: Add Urine Microscopic? YES; Bilirubin Urine Neg (Negative); Blood Urine Neg (Negative); Glucose Urine UA Norm (Normal); Ketones Urine 1+ (Negative); Leukocyte Esterase Urine Negative (Negative); Nitrate Urine Negative (Negative); Protein Urine Trace (Negative); Specific Gravity, Urine 1.025 (1.005-1.030); Urine Appearance Hazy (CLEAR); Urine Color Yellow (Yellow); Urobilinogen Urine Norm (Negative); pH Urine 5 (5-7)
[2022-03-10 20:56] LABS: Add Urine Culture? No; Amorphous Sediment Urine 1+ /hpf; Mucus Urine 2+ /hpf; WBC Urine 0-4 /hpf (0-5)
== END 2022-03-10 20:14 | disposition home or self-care (01) ==
PROVIDERS: Family Medicine; Emergency Provider Emergency Medicine; PCP Family Medicine
DX: R55 Syncope and collapse (principal); F17.210 Nicotine dependence, cigarettes, uncomplicated
CPT/HCPCS: 36415; 36600; 71045; 80051; 80053; 81001; 81025; 82330; 82805; 83880; 84484; 85025; 93005; 99285

== ENCOUNTER 2022-03-15 23:59 | Emergency (ER) | payer BC, MEDICAID, SELFPAY ==
[2022-03-16] VITALS (8 sets, daily range): BP systolic 106–141; BP diastolic 64–98; PULSE 89–97; RESP 16–20; TEMP 36.4; O2SAT 87–98
--- NOTE | 2022-03-16 01:05 | CTR_ITS ---
PROCEDURE INFORMATION: Exam: CT Abdomen And Pelvis With Contrast Exam date and time: 03/16/2022 2:09 AM Age: 26 years old Clinical indication: Vomiting; Abdominal pain; Acute; Prior surgery; Surgery date: 6+ months; Surgery type: Cholecystectomy; Additional info: Abd pain vomiting TECHNIQUE: Imaging protocol: Computed tomography of the abdomen and pelvis with contrast. Radiation optimization: All CT scans at this facility use at least one of these dose optimization techniques: automated exposure control; mA and/or kV adjustment per patient size (includes targeted exams where dose is matched to clinical indication); or iterative reconstruction. Contrast material: OMNI 350; Contrast volume: 100 ml; Contrast route: INTRAVENOUS (IV); COMPARISON: CT abdomen pelvis w con* [id number] 02/13/2022 3:05 PM RADIATION DOSE METRICS: Total DLP (mGy-cm): 681.55 FINDINGS: Lungs: The visualized lung bases demonstrate a small focus of consolidation in the left lower lobe suspicious for aspiration. Liver: No hepatomegaly. There are no enhancing liver masses. Gallbladder and bile ducts: There has been a cholecystectomy. There is a mild, expected degree of intrahepatic ductal dilation. Pancreas: Normal in size and homogeneous enhancement. No ductal dilation. Spleen: Normal. No splenomegaly. Adrenal glands: Normal. No mass. Kidneys and ureters: There is no hydronephrosis. No renal or obstructing ureteral calculi. Stomach and bowel: There is thickening of the gastric wall that may be secondary to gastritis or underdistension. There are multiple, diffuse small bowel loops with thickened hutchinson consistent with enteritis (axial series 3, image 32; coronal 5, images 18-22). There are postoperative changes of the rectosigmoid with a probable anastomosis. There is an area of narrowing in the distal sigmoid or anastomosing ileum with proximal dilatation to 4.2 cm, which is concerning for stricture, possibly worsened by inflammatory changes and partial obstruction (axial series 3, images 47 - 68; coronal 5, images 15 - 42). This is worse than on the comparison study. There is gas and stool in the rectosigmoid.. Appendix: The appendix is not identified and is likely surgically absent. Intraperitoneal space: No free air. No significant fluid collection. Vasculature: There is no abdominal aortic aneurysm. Lymph nodes: No enlarged retroperitoneal or mesenteric lymph nodes. Urinary bladder: The bladder shows a normal contour and is free of calcific opacities. Reproductive: In the right ovary, there is a 4 x 3.6 cm cyst. Bones/joints: No acute fracture. Soft tissues: Normal. CT/CT abdomen pelvis w con* [id number] IMPRESSION: 1. A small focus of consolidation in the left lower lobe concerning for aspiration pneumonia and this vomiting patient. 2. Findings consistent with gastroenteritis. Underdistension may present a similar picture. 3. There are findings suggestive of a sub total colectomy. There is a small area of stricture, spasm and of inflammatory changes proximal to the distal ileocolic anastomosis with proximally dilated bowel suspicious for partial obstruction. 4. A 4 cm cyst in the right ovary. This may be further evaluated by pelvic sonography to evaluate the cyst and document flow in the right ovary.
[2022-03-16] MEDS: sodium chloride 0.9% 1,000 ML 999 ML IV (01:21)
[2022-03-16] MEDS: ondansetron 2 mg/ML SDV 2 mL 4 MG IVP (01:23)
[2022-03-16 01:25] LABS: Basophils # 0.1 10^3/uL (0.0-0.1); Basophils % 0.4 %; Eosinophils # 0.2 10^3/uL (0.0-0.8); Eosinophils % 1.1 %; Hematocrit 40.5 % (37.0-47.0); Hemoglobin 14.1 g/dL (11.5-15.3); Lymphocytes # 2.4 10^3/uL (0.8-4.8); Lymphocytes % 14.8 %; Mean Corpuscular HGB Conc 34.8 g/dL (30.0-36.0); Mean Corpuscular Hemoglobin 32.3 pg (28.0-34.0); Mean Corpuscular Volume 92.9 fl (81-99); Mean Platelet Volume 11.3 fL (7.4-10.4); Monocytes # 0.8 10^3/uL (0.2-0.9); Neutrophils # 12.69 10^3/uL (1.8-7.7); Neutrophils % 78.1 %; Nucleated Red Blood Cells % 0 %; Platelet Count 223 10^3/cmm (130-400); Red Blood Count 4.36 10^6/uL (4.1-5.3); Red Cell Distribution Width 12.5 % (12.1-15.1); White Blood Count 16.3 10^3/uL (4.0-10.0)
[2022-03-16] MEDS: morphine 4 mg/mL SDV 1 mL IVP (01:25)
--- NOTE | 2022-03-16 01:42 | W.ED.ABDPA2 ---
HPI - Abdominal Pain General: Chief Complaint: Abdominal Pain Stated Complaint: Vomiting Bowel Time Seen by Provider: 03/16/22 01:05 History of Present Illness: 26-year-old female with a history of juvenile polyposis, and colon surgery with ileostomy site. Her course has been complicated by abdominal abscesses which have had to be treated surgically as well. She does not have a gallbladder. She presents with abdominal pain and vomiting. She notes that she is vomited 5 times today no fever. She has had diarrhea, but this is normal for her. Pain is generalized. MD elicited complaint: abdominal pain Pertinent past history: other Onset (ago): hour(s) Pain Consistency: constant Location: Diffuse Quality: cramping, stabbing and aching Radiation: none Migration to: no migration Exacerbating factors: vomiting and movement Relieving factors: nothing Associated Symptoms: Reports diarrhea and vomiting; Denies bloating, coffee ground emesis, constipation, dysuria, fever(s) and hematochezia Related Data: Date of Last Menstrual Period: 01/28/22 Review of Systems Const: Denies: fever(s) Eyes: Denies: change in vision ENMT: Denies: throat pain Card: Denies: chest pain or palpitations Resp: Denies: dyspnea, productive cough or non-productive cough GI: Reports: vomiting and diarrhea; Denies: coffee ground emesis, constipation, bloating or hematochezia : Denies: dysuria Skin/Breast: Reports: rash Neuro: Denies: headache(s) PFSH ED PFSH: Medical History Family history of FAP (familial adenomatous polyposis) Surgical History H/O colectomy H/O ileostomy Hx of cholecystectomy Hx of colonoscopy with polypectomy Social History Smoking and tobacco status: current every day smoker Alcohol intake: never Female Reproductive History: Date of last menstrual period: 01/28/22 Physical Exam Const: COMMON NORMALS: no acute distress GENERAL APPEARANCE: cooperative; not ill appearing and not frail appearing HENMT: COMMON NORMALS: normocephalic, atraumatic and Normal external nose present HEAD & SCALP: normocephalic and atraumatic FACE & SINUS: normal facial exam NOSE: Normal external nose present Eye: COMMON NORMALS: Equal, round and reactive pupils present and EOMs intact bilaterally PUPIL: Yes Equal, round and reactive pupils present Neck/C-Spine: GENERAL: Yes trachea midline Chest: CHEST: Yes Symmetrical chest wall rise Resp: COMMON NORMALS: normal respiratory effort, No retractions, No use of accessory muscles and clear to auscultation bilaterally AUSCULTATION: clear to auscultation bilaterally Cardio: COMMON NORMALS: regular rate and regular rhythm RATE: regular rate RHYTHM: regular rhythm GI: COMMON NORMALS: Normal to inspection, nondistended, normoactive bowel sounds present and Soft to palpation PALPATION: Yes Soft to palpation and Yes Tenderness to palpation present (GI) (Diffusely) Extremity: COMMON NORMALS: no pedal edema Neuro: ANDREAS COMA SCALE: document GCS findings Andreas coma scale eye opening: Spontaneous [place] coma scale verbal response: Orientated Andreas coma scale motor response: Obey commands Andreas coma scale total score: 15 SENSORY EXAM: Yes extremities (intact) Psych: COMMON NORMALS: speech normal SPEECH: Yes normal speech Skin: COMMON NORMALS: no rashes or lesions noted GENERAL SKIN EXAM: no rashes or lesions noted Course Vital Signs: Vital signs: Vital Signs Temperature 97.6 F 03/16/22 00:06 Pulse Rate 97 03/16/22 04:07 Respiratory Rate 18 03/16/22 04:07 Blood Pressure 106/66 03/16/22 04:07 Pulse Oximetry 92 03/16/22 04:07 Oxygen Delivery Me thod 03/16/22 04:07 Oxygen Flow Rate 1 03/16/22 03:24 MDM - Abdominal Pain Medical Decision Making 26-year-old female with a history of multiple abdominal surgeries. She is status post ileostomy with delayed reanastomosis. She presents with vomiting and generalized belly pain. She notes that her vomit at 1 point smelled like stool. CT findings show a small focus of consolidation in the left lower lobe concerning for pneumonitis. She does not have a history of or present as pneumonia. She has a 4 cm cyst in the right ovary. She is not overly tender in the right lower quadrant compared to the left. She does have a small area of stricture or spasm with inflammatory changes to the distal ileocolic anastomosis with proximally dilated bowel suspicious for partial obstruction although she has stool and air distally. Upon returning from CT, the patient began to experience shortness of breath. She started to wheeze significantly. She was quite tight. She became mildly hypoxic with a low oxygen saturation of 85 at the lowest he was placed on oxygen. She was given intramuscular epinephrine, racemic epinephrine treatment, Solu-Medrol, Pepcid, and Benadryl. Symptoms have essentially resolved. She is off oxygen now satting 94%. Heart rate is down to 92. Blood pressure is 109/66. She will need to add IV contrast dye to her list of allergies. 4:35 AM patient is significantly improved. Her belly pain is decreased. No episodes of vomiting here. She shows no signs of rebound allergic reaction. She would like to go home. She will be allowed discharge on liquid diet for the next 48 hours. Magnesium citrate to help relieve the obstruction, scheduled Zofran and as needed pain medication. She was counseled to come back for any return of symptoms. Lab Data : 03/16/22 01:15 03/16/22 01:15 Labs/Radiology: Radiology Impressions Abdomen/Pelvis CT 03/16/22 01:05 IMPRESSION: 1. A small focus of consolidation in the left lower lobe concerning for aspiration pneumonia and this vomiting patient. 2. Findings consistent with gastroenteritis. Underdistension may present a similar picture. 3. There are findings suggestive of a sub total colectomy. There is a small area of stricture, spasm and of inflammatory changes proximal to the distal ileocolic anastomosis with proximally dilated bowel suspicious for partial obstruction. 4. A 4 cm cyst in the right ovary. This may be further evaluated by pelvic sonography to evaluate the cyst and document flow in the right ovary. ADDENDUM: 03/16/22 0345 THIS REPORT CONTAINS FINDINGS THAT MAY BE CRITICAL TO PATIENT CARE. The findings were verbally communicated via telephone conference with ANTHONY PATTERSON at 3:43 AM CDT on 03/16/2022. The findings were acknowledged and understood. Laboratory Results WBC 16.3 10^3/uL (4.0-10.0) H 03/16/22 01:15 RBC 4.36 10^6/uL (4.1-5.3) 03/16/22 01:15 Hgb 14.1 g/dL (11.5-15.3) 03/16/22 01:15 Hct 40.5 % (37.0-47.0) 03/16/22 01:15 MCV 92.9 fl (81-99) 03/16/22 01:15 MCH 32.3 pg (28.0-34.0) 03/16/22 01:15 MCHC 34.8 g/dL (30.0-36.0) 03/16/22 01:15 RDW 12.5 % (12.1-15.1) 03/16/22 01:15 Plt Count 223 10^3/cmm (130-400) 03/16/22 01:15 MPV 11.3 fL (7.4-10.4) H 03/16/22 01:15 Neut % (Auto) 78.1 % 03/16/22 01:15 Lymph % (Auto) 14.8 % 03/16/22 01:15 [place] % (Auto) 5.0 % 03/16/22 01:15 Eos % (Auto) 1.1 % 03/16/22 01:15 Baso % (Auto) 0.4 % 03/16/22 01:15 Neut # (Auto) 12.69 10^3/uL (1.8-7.7) H 03/16/22 01:15 Lymph # (Auto) 2.4 10^3/uL (0.8-4.8) 03/16/22 01:15 [place] # (Auto) 0.8 10^3/uL (0.2-0.9) 03/16/22 01:15 Eos # (Auto) 0.2 10^3/uL (0.0-0.8) 03/16/22 01:15 Baso # (Auto) 0.1 10^3/uL (0.0-0.1) 03/16/22 01:15 Nucleated RBC % (auto) 0 % 03/16/22 01:15 Nucleated RBCs # 0.0 /100WBC 03/16/22 01:15 Sodium 137 mmol/L (136-145) 03/16/22 01:15 Potassium 3.8 mmol/L (3.5-5.1) 03/16/22 01:15 Chloride 103 mmol/L (98-107) 03/16/22 01:15 Carbon Dioxide 22 mmol/L (22-29) 03/16/22 01:15 Anion Gap 15.8 (5-19) 03/16/22 01:15 BUN 12 mg/dL (6-20) 03/16/22 01:15 Creatinine 0.8 mg/dL (0.5-0.9) 03/16/22 01:15 GFR Calculation 88.1 mL/min (90-130) L 03/16/22 01:15 Glucose 94 mg/dL (65-115) 03/16/22 01:15 Calculated Osmolality 284 mOsm/kg (285-295) L 03/16/22 01:15 Calcium 9.3 mg/dL (8.5-10.5) 03/16/22 01:15 Total Bilirubin 0.2 mg/dL (0.15-1.2) 03/16/22 01:15 AST 12 U/L (0-32) 03/16/22 01:15 ALT 14 U/L (0-33) 03/16/22 01:15 Alkaline Phosphatase 75 U/L (35-105) 03/16/22 01:15 C-Reactive Protein 3.0 mg/L (0.0-4.9) 03/16/22 01:15 Total Protein 6.9 g/dL (6.6-8.7) 03/16/22 01:15 Albumin 4.3 g/dL (3.5-5.2) 03/16/22 01:15 Globulin 2.6 g/dL (1.3-4.6) 03/16/22 01:15 Lipase 30 U/L (13-60) 03/16/22 01:15 HCG, Qual Negative (Negative) 03/16/22 01:15 Urine Color Yellow (Yellow) 03/16/22 01:07 Urine Appearance Clear (CLEAR) 03/16/22 01:07 Urine pH 6 (5-7) 03/16/22 01:07 Ur Specific [place] 1.020 (1.005-1.030) 03/16/22 01:07 Urine Protein Neg (Negative) 03/16/22 01:07 Urine Glucose (UA) Norm (Normal) 03/16/22 01:07 Urine Ketones 1+ (Negative) H 03/16/22 01:07 Urine Blood Neg (Negative) 03/16/22 01:07 Urine Nitrate Negative (Negative) 03/16/22 01:07 Urine Bilirubin Neg (Negative) 03/16/22 01:07 Urine Urobilinogen Neg mg/dL (Negative) 03/16/22 01:07 Ur Leukocyte Esterase Trace (Negative) H 03/16/22 01:07 Urine RBC None /hpf (0-2) 03/16/22 01:07 Urine WBC 0-4 /hpf (0-5) H 03/16/22 01:07 Ur Squamous Epith Cells 5-10 /hpf (0-5) H 03/16/22 01:07 Amorphous Sediment Not Reportable 03/16/22 01:07 Urine Bacteria Trace /hpf (NONE) 03/16/22 01:07 Discharge Plan Discharge Patient Disposition: Home Clinical Impression: Partial bowel obstruction Condition: Stable Prescriptions: New Percocet 7.5-325 mg tablet 1 tab PO Q6H PRN (Reason: pain) Qty: 10 0RF ondansetron 4 mg film 4 mg PO DAILY PRN (Reason: nausea and vomiting) Qty: 10 0RF No Action levofloxacin 750 mg tablet 750 mg PO DAILY albuterol sulfate 90 mcg/actuation HFA aerosol inhaler 2 inh inhalation Q4H PRN (Reason: shortness of breath or wheezing) Qty: 8.5 0RF albuterol sulfate 90 mcg/actuation Hfa Aerosol Inhaler 2 puff INHALATION QID PRN (Reason: Shortness Of Breath Or Wheezing) clindamycin HCl 300 mg Capsule 300 mg PO Q6H 7 Days Qty: 28 0RF ibuprofen 600 mg tablet 600 mg PO Q8H Qty: 15 0RF tramadol 50 mg tablet 50 mg PO Q8H PRN (Reason: pain) Qty: 12 0RF Discharge Orders: Discharge ED (Routine); Ordered 03/16/22 Ordered By: Anthony Patterson Referrals: Rigoberto Ferguson MD [Primary Care Provider] - 1-3 days Discharge Diet: Clear Liquid Patient Instructions: Bowel Obstruction (ED), Opioid Safety, Pain Management Activity Restrictions/Additional Instructions: Stay on a clear liquid diet for 48 hours. Use nausea medication every 6 hours while awake for the first 48 hours scheduled, then as needed. Pain medication only for severe pain. Use the medication you were dispensed when you get home and stay close to a bathroom, as it will cause you to have significant watery stool to relieve the obstruction. Return for return of or worsening symptoms Stand Alone Forms: Work/School Release Coding Level of Care Code ED Floral [employer] Specialist for Chg Fwd Exam Comprehensive
[2022-03-16 01:43] LABS: Bilirubin Urine Neg (Negative); Blood Urine Neg (Negative); Glucose Urine UA Norm (Normal); Ketones Urine 1+ (Negative); Leukocyte Esterase Urine Trace (Negative); Nitrate Urine Negative (Negative); Protein Urine Neg (Negative); Urine Appearance Clear (CLEAR); Urine Color Yellow (Yellow); Urobilinogen Urine Neg (Negative); pH Urine 6 (5-7)
[2022-03-16 01:44] LABS: Add Urine Microscopic? YES
[2022-03-16 01:46] LABS: Bacteria Urine TRACE /hpf; WBC Urine 0-4 /hpf (0-5)
[2022-03-16 01:47] LABS: Alanine Aminotransferase 14 U/L (0-33); Albumin Level 4.3 g/dL (3.5-5.2); Alkaline Phosphatase 75 U/L (35-105); Anion Gap 15.8 (5-19); Aspartate Amino Transferase 12 U/L (0-32); Blood Urea Nitrogen 12 mg/dL (6-20); Calcium 9.3 mg/dL (8.5-10.5); Carbon Dioxide 22 mmol/L (22-29); Chloride 103 mmol/L (98-107); Creatinine Clr Calc Pharmacy 113.7057; Globulin 2.6 g/dL (1.3-4.6); Glomerular Filtration Rate 88.1 mL/min (90-130); Glucose 94 mg/dL (65-115); Lipase 30 U/L (13-60); Osmolality Calculated 284 mOsm/kg (285-295); Potassium 3.8 mmol/L (3.5-5.1); Sodium 137 mmol/L (136-145); Total Bilirubin 0.2 mg/dL (0.15-1.2); Total Protein 6.9 g/dL (6.6-8.7)
[2022-03-16 01:47] LABS: Add Urine Culture? No
[2022-03-16 01:54] LABS: HCG, Serum Qual Negative (Negative)
[2022-03-16] MEDS: iohexol 350 mg/mL 100 mL Btl IV (01:59)
[2022-03-16] MEDS: EPINEPHrine 1 mg/mL INJ 0.3 MG IM (02:30)
[2022-03-16] MEDS: diphenhydrAMINE 50 mg/mL SDV 1mL 25 MG IVP (02:30)
[2022-03-16] MEDS: famotidine 20 mg/2 mL INJ IVP (02:32)
--- NOTE | 2022-03-16 02:33 | PC.NURSE ---
Patient returned from CT with new complaints of dyspnea after receiving IV contrast. On arrival, patient noted to be slightly hypoxic with oxygen saturation of 88% on RA. Lung sounds diminished with exp. wheesze. Provider notified of concerned and assessed. Medications ordered and given per JUL.
[2022-03-16] MEDS: racepinephrine 0.5 mL Neb INHALATION (02:36)
== END 2022-03-16 04:59 | disposition home or self-care (01) ==
PROVIDERS: Emergency Provider Emergency Medicine; PCP Family Medicine
DX: K56.600 Partial intestinal obstruction, unspecified as to cause (principal); F17.210 Nicotine dependence, cigarettes, uncomplicated
CPT/HCPCS: 74177; 80053; 81001; 83690; 84703; 85025; 86140; 94640; 96361; 96372; 96374; 96375; 99285; J0171; J1200; J2270; J2405; J2930; J3490; J7030; Q9967

== ENCOUNTER 2022-03-17 15:58 | Emergency (ER) | payer BC, MEDICAID, SELFPAY ==
[2022-03-17 16:22] VITALS: BP 146/92; PULSE 84; RESP 16; TEMP 36.6; O2SAT 97; BMI 27.4
[2022-03-17 19:30] LABS: Basophils # 0.1 10^3/uL (0.0-0.1); Basophils % 0.4 %; Eosinophils # 0.1 10^3/uL (0.0-0.8); Hematocrit 42.6 % (37.0-47.0); Hemoglobin 14.4 g/dL (11.5-15.3); Lymphocytes # 2.3 10^3/uL (0.8-4.8); Lymphocytes % 19.5 %; Mean Corpuscular HGB Conc 33.8 g/dL (30.0-36.0); Mean Corpuscular Hemoglobin 32.2 pg (28.0-34.0); Mean Corpuscular Volume 95.3 fl (81-99); Mean Platelet Volume 11.6 fL (7.4-10.4); Monocytes # 0.6 10^3/uL (0.2-0.9); Monocytes % 4.8 %; Neutrophils # 8.64 10^3/uL (1.8-7.7); Neutrophils % 73.5 %; Nucleated Red Blood Cells % 0 %; Platelet Count 210 10^3/cmm (130-400); Red Blood Count 4.47 10^6/uL (4.1-5.3); Red Cell Distribution Width 12.6 % (12.1-15.1); White Blood Count 11.8 10^3/uL (4.0-10.0)
[2022-03-17 19:46] LABS: HCG, Serum Qual Negative (Negative)
[2022-03-17 19:53] LABS: Alanine Aminotransferase 15 U/L (0-33); Albumin Level 4.2 g/dL (3.5-5.2); Alkaline Phosphatase 88 U/L (35-105); Anion Gap 11.8 (5-19); Aspartate Amino Transferase 13 U/L (0-32); Blood Urea Nitrogen 13 mg/dL (6-20); Calcium 9.3 mg/dL (8.5-10.5); Carbon Dioxide 26 mmol/L (22-29); Chloride 102 mmol/L (98-107); Creatinine Clr Calc Pharmacy 113.7057; Globulin 2.8 g/dL (1.3-4.6); Glomerular Filtration Rate 88.1 mL/min (90-130); Glucose 83 mg/dL (65-115); Osmolality Calculated 281 mOsm/kg (285-295); Potassium 3.8 mmol/L (3.5-5.1); Sodium 136 mmol/L (136-145); Total Bilirubin 0.2 mg/dL (0.15-1.2)
--- NOTE | 2022-03-17 20:28 | CTR_ITS ---
PROCEDURE INFORMATION: Exam: CT Abdomen And Pelvis Without Contrast Exam date and time: 03/17/2022 9:06 PM Age: 26 years old Clinical indication: Abdominal pain; Generalized; Prior surgery; Surgery type: Gb. Colectomy. Ileostomy. Patient HX: C/O persistent abd pain. Possible sbo on CT dated 03/16/2022. TECHNIQUE: Imaging protocol: Computed tomography of the abdomen and pelvis without contrast. Sagittal and coronal reformatted images were created and reviewed. Radiation optimization: All CT scans at this facility use at least one of these dose optimization techniques: automated exposure control; mA and/or kV adjustment per patient size (includes targeted exams where dose is matched to clinical indication); or iterative reconstruction. COMPARISON: 1. CT abdomen pelvis w con* [id number] 02/13/2022 3:[address] abdomen pelvis w con* [id number] 01/26/2022 5:[address] abdomen pelvis w con* [id number] 03/16/2022 2:09 AM RADIATION DOSE METRICS: Total DLP (mGy-cm): 577.63 FINDINGS: Limitations: Evaluation of solid organs and vasculature is limited without intravenous contrast. Lungs: Dependent atelectasis in the visualized lungs. Pleural spaces: No pleural effusion. Heart: Visualized cardiac chambers are unremarkable. Liver: The liver is unremarkable. Gallbladder and bile ducts: Stable findings consistent with a previous cholecystectomy. No biliary ductal dilatation. Pancreas: The pancreas is unremarkable. No pancreatic ductal dilatation. Spleen: The spleen is unremarkable. Adrenal glands: The right and left adrenal glands are unremarkable. Kidneys and ureters: The right and left kidneys are unremarkable. The right and left ureters are unremarkable. Stomach and bowel: Stable changes consistent with a previous subtotal colectomy and ileocolic anastomosis at the distal sigmoid. Dilatation of small bowel loops in the lower abdomen has resolved. Fluid within the small bowel without evidence of bowel wall thickening. Ingested contents in the stomach. Stable scar from a previous right ileostomy. Appendix: The patient has had a previous appendectomy. Intraperitoneal space: No free intraperitoneal air. No ascites. No loculated fluid collections to suggest an abscess. Vasculature: No evidence for aortic aneurysm. Lymph nodes: No lymphadenopathy. Urinary bladder: The bladder is unremarkable. Reproductive: The uterus is unremarkable. 4.3 x 3.5 cm cyst in the right ovary (series 3, image 66). This is new compared with 02/13/2022. The left ovary is unremarkable. Bones/joints: No acute fracture. Soft tissues: No acute abnormality in the extra-abdominal soft tissues. CT/CT abdomen pelvis wo con [id number] IMPRESSION: 1. Fluid within the small bowel without evidence of bowel wall thickening. This may reflect viral gastroenteritis in the appropriate clinical situation. 2. Stable changes consistent with a previous subtotal colectomy and ileocolic anastomosis at the distal sigmoid. 3. Dilatation of small bowel loops in the lower abdomen has resolved. 4. Right ovarian cyst that is new compared with 02/13/2022. 5. Incidental/nonacute findings are listed in the report.
--- NOTE | 2022-03-17 20:54 | ED_ITS ---
HPI - Abdominal Pain General: Chief Complaint: Abdominal Pain Stated Complaint: constipation Time Seen by Provider: 03/17/22 20:23 Source: patient Mode of arrival: ambulatory Limitations: no limitations History of Present Illness: 26-year-old female who states she was seen here 2 days ago was diagnosed with a partial small bowel obstruction she states that since being discharged she is continue to have abdominal pain along with some vomiting. Patient has had bowel movements as well. She denies any fever she denies any worsening or improving factors. Patient resting comfortably in the bed. Associated Symptoms: Reports nausea and vomiting; Denies chills, dysuria and fever(s) Related Data: Date of Last Menstrual Period: 01/28/22 Review of Systems Const: Denies: fever(s), chills, body aches or change in appetite Eyes: Denies: blurry vision or eye discomfort ENMT: Denies: throat pain or dental pain Card: Denies: chest pain Resp: Denies: dyspnea GI: Reports: abdominal pain, nausea and vomiting : Denies: dysuria Musc: Denies: neck pain or back pain Skin/Breast: Denies: rash Neuro: Denies: headache(s) Psych: Denies: depression Basil/Lymph: Denies: easy bruising All/Imm: Denies: urticaria PFSH ED PFSH: Medical History Family history of FAP (familial adenomatous polyposis) Surgical History H/O colectomy H/O ileostomy Hx of cholecystectomy Hx of colonoscopy with polypectomy Social History Smoking and tobacco status: current every day smoker Alcohol intake: never Female Reproductive History: Date of last menstrual period: 01/28/22 Physical Exam Const: COMMON NORMALS: no acute distress, patient oriented x3 and healthy appearing HENMT: COMMON NORMALS: normocephalic and atraumatic HEAD & SCALP: normocephalic and atraumatic Eye: COMMON NORMALS: Equal, round and reactive pupils present and EOMs intact bilaterally PUPIL: Yes Equal, round and reactive pupils present Neck/C-Spine: COMMON NORMALS: full ROM and supple Chest: COMMONS NORMALS: normal inspection of the chest and normal palpation of entire chest wall Resp: COMMON NORMALS: normal respiratory effort, No retractions, No use of accessory muscles and clear to auscultation bilaterally AUSCULTATION: clear to auscultation bilaterally Cardio: COMMON NORMALS: regular rate, regular rhythm and No murmurs present (Cardio) RATE: regular rate RHYTHM: regular rhythm GI: COMMON NORMALS: Normal to inspection, nondistended, normoactive bowel sounds present, Soft to palpation, non-tender and no masses PALPATION: Yes Soft to palpation Extremity: COMMON NORMALS: normal to inspection and full ROM Neuro: COMMON NORMALS: patient oriented x3, moves all extremities and no focal motor deficits Psych: COMMON NORMALS: mental status grossly normal, Normal thought process present and cooperative THOUGHT PROCESS: Normal thought process present Skin: COMMON NORMALS: no rashes or lesions noted and no wounds GENERAL SKIN EXAM: no rashes or lesions noted Course Vital Signs: Vital signs: Vital Signs Temperature 97.8 F 03/17/22 16:22 Pulse Rate 84 03/17/22 16:22 Respiratory Rate 16 03/17/22 16:22 Blood Pressure 146/92 03/17/22 16:22 Pulse Oximetry 97 03/17/22 16:22 Oxygen Delivery Me thod 03/17/22 16:22 MDM - Abdominal Pain Medical Decision Making Patient presents here with vomiting along with some abdominal pain her CT actually shows improvement of her obstruction she is well-appearing here she feels improved we will prescribe her Reglan for home she is to follow-up with her surgeon in [place] return if worsening she understands agrees to plan. Lab Data : 03/17/22 19:20 03/17/22 19:20 Labs/Radiology: Radiology Impressions Abdomen/Pelvis CT 03/17/22 20:28 IMPRESSION: 1. Fluid within the small bowel without evidence of bowel wall thickening. This may reflect viral gastroenteritis in the appropriate clinical situation. 2. Stable changes consistent with a previous subtotal colectomy and ileocolic anastomosis at the distal sigmoid. 3. Dilatation of small bowel loops in the lower abdomen has resolved. 4. Right ovarian cyst that is new compared with 02/13/2022. 5. Incidental/nonacute findings are listed in the report. Laboratory Results WBC 11.8 10^3/uL (4.0-10.0) H 03/17/22 19:20 RBC 4.47 10^6/uL (4.1-5.3) 03/17/22 19:20 Hgb 14.4 g/dL (11.5-15.3) 03/17/22 19:20 Hct 42.6 % (37.0-47.0) 03/17/22 19:20 MCV 95.3 fl (81-99) 03/17/22 19:20 MCH 32.2 pg (28.0-34.0) 03/17/22 19:20 MCHC 33.8 g/dL (30.0-36.0) 03/17/22 19:20 RDW 12.6 % (12.1-15.1) 03/17/22 19:20 Plt Count 210 10^3/cmm (130-400) 03/17/22 19:20 MPV 11.6 fL (7.4-10.4) H 03/17/22 19:20 Neut % (Auto) 73.5 % 03/17/22 19:20 Lymph % (Auto) 19.5 % 03/17/22 19:20 [place] % (Auto) 4.8 % 03/17/22 19:20 Eos % (Auto) 1.0 % 03/17/22 19:20 Baso % (Auto) 0.4 % 03/17/22 19:20 Neut # (Auto) 8.64 10^3/uL (1.8-7.7) H 03/17/22 19:20 Lymph # (Auto) 2.3 10^3/uL (0.8-4.8) 03/17/22 19:20 [place] # (Auto) 0.6 10^3/uL (0.2-0.9) 03/17/22 19:20 Eos # (Auto) 0.1 10^3/uL (0.0-0.8) 03/17/22 19:20 Baso # (Auto) 0.1 10^3/uL (0.0-0.1) 03/17/22 19:20 Nucleated RBC % (auto) 0 % 03/17/22: Nucleated RBCs # 0.0 /100WBC 03/17/22 19:20 Sodium 136 mmol/L (136-145) 03/17/22 19:20 Potassium 3.8 mmol/L (3.5-5.1) 03/17/22 19:20 Chloride 102 mmol/L (98-107) 03/17/22 19:20 Carbon Dioxide 26 mmol/L (22-29) 03/17/22 19:20 Anion Gap 11.8 (5-19) 03/17/22 19:20 BUN 13 mg/dL (6-20) 03/17/22 19:20 Creatinine 0.8 mg/dL (0.5-0.9) 03/17/22 19:20 GFR Calculation 88.1 mL/min (90-130) L 03/17/22 19:20 Glucose 83 mg/dL (65-115) 03/17/22 19:20 Calculated Osmolality 281 mOsm/kg (285-295) L 03/17/22 19:20 Calcium 9.3 mg/dL (8.5-10.5) 03/17/22 19:20 Total Bilirubin 0.2 mg/dL (0.15-1.2) 03/17/22 19:20 AST 13 U/L (0-32) 03/17/22 19:20 ALT 15 U/L (0-33) 03/17/22 19:20 Alkaline Phosphatase 88 U/L (35-105) 03/17/22 19:20 Total Protein 7.0 g/dL (6.6-8.7) 03/17/22 19:20 Albumin 4.2 g/dL (3.5-5.2) 03/17/22 19:20 Globulin 2.8 g/dL (1.3-4.6) 03/17/22 19:20 HCG, Qual Negative (Negative) 03/17/22 19:20 Discharge Plan Discharge Patient Disposition: Home Clinical Impression: Abdominal pain, Vomiting Condition: Stable Prescriptions: New Reglan 10 mg tablet 10 mg PO Q6H PRN (Reason: nausea and vomiting) Qty: 20 0RF No Action levofloxacin 750 mg tablet 750 mg PO DAILY albuterol sulfate 90 mcg/actuation HFA aerosol inhaler 2 inh inhalation Q4H PRN (Reason: shortness of breath or wheezing) Qty: 8.5 0RF Percocet 7.5-325 mg tablet 1 tab PO Q6H PRN (Reason: pain) Qty: 10 0RF ondansetron 4 mg film 4 mg PO DAILY PRN (Reason: nausea and vomiting) Qty: 10 0RF albuterol sulfate 90 mcg/actuation Hfa Aerosol Inhaler 2 puff INHALATION QID PRN (Reason: Shortness Of Breath Or Wheezing) clindamycin HCl 300 mg Capsule 300 mg PO Q6H 7 Days Qty: 28 0RF ibuprofen 600 mg tablet 600 mg PO Q8H Qty: 15 0RF tramadol 50 mg tablet 50 mg PO Q8H PRN (Reason: pain) Qty: 12 0RF Discharge Orders: Discharge ED (Routine); Ordered 03/17/22 Ordered By: Herman Guerrero Referrals: Rigoberto Ferguson MD [Primary Care Provider] - Discharge Diet: Advance as tolerated Discharge Activity: Resume usual activity Patient Instructions: Acute Nausea and Vomiting (ED), Abdominal Pain (ED) Stand Alone Forms: Work/School Release Coding Level of Care Code ED Phosphoric Acid Operator for [place]ignon Fwd Exam Comprehensive
[2022-03-17 21:01] VITALS: BP 117/85; PULSE 78; RESP 18; O2SAT 97
[2022-03-17 21:30] VITALS: BP 134/90; PULSE 81; RESP 18; O2SAT 98
[2022-03-17 21:42] LABS: Add Urine Microscopic? NO; Charge for UA Resulting for Rev
[2022-03-17 21:59] LABS: Bilirubin Urine Neg (Negative); Blood Urine Neg (Negative); Glucose Urine UA Norm (Normal); Ketones Urine Negative (Negative); Leukocyte Esterase Urine Negative (Negative); Nitrate Urine Negative (Negative); Protein Urine Neg (Negative); Specific Gravity, Urine 1.015 (1.005-1.030); Urine Appearance Clear (CLEAR); Urine Color Yellow (Yellow); Urobilinogen Urine Norm (Negative); pH Urine 7 (5-7)
[2022-03-17] MEDS: diphenhydrAMINE 50 mg/mL SDV 1mL IVP (22:06)
[2022-03-17] MEDS: metoclopramide 5 mg/mL SDV 2 mL 10 MG IVP (22:06)
[2022-03-17 22:16] VITALS: BP 119/74; PULSE 77; RESP 18; O2SAT 99
== END 2022-03-17 22:16 | disposition home or self-care (01) ==
PROVIDERS: Nurse Practitioner Family; Emergency Provider Emergency Medicine; PCP Family Medicine
DX: R10.9 Unspecified abdominal pain (principal); R11.11 Vomiting without nausea; F17.210 Nicotine dependence, cigarettes, uncomplicated
CPT/HCPCS: 36415; 74176; 80053; 81003; 84703; 85025; 96374; 96375; 99285; J1200; J2765

== ENCOUNTER 2022-04-19 16:07 | Emergency (ER) | payer BC, MEDICAID, SELFPAY ==
[2022-04-19 16:16] VITALS: BP 140/98; PULSE 86; RESP 18; TEMP 36.8; O2SAT 97
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
[2022-04-19 19:16] LABS: HCG Qualitative Urine. Negative (Negative)
[2022-04-19 19:17] LABS: Bilirubin Urine Neg (Negative); Blood Urine Neg (Negative); Glucose Urine UA Norm (Normal); Ketones Urine Negative (Negative); Leukocyte Esterase Urine Negative (Negative); Nitrate Urine Negative (Negative); Protein Urine Neg (Negative); Specific Gravity, Urine 1.015 (1.005-1.030); Urine Appearance Hazy (CLEAR); Urine Color Yellow (Yellow); Urobilinogen Urine Neg (Negative); pH Urine 6.5 (5-7)
[2022-04-19 19:20] LABS: Add Urine Microscopic? YES
[2022-04-19 19:21] LABS: Add Urine Culture? No
[2022-04-19 19:42] LABS: Basophils # 0.1 10^3/uL (0.0-0.1); Basophils % 0.6 %; Eosinophils # 0.3 10^3/uL (0.0-0.8); Eosinophils % 2.7 %; Hematocrit 41.8 % (37.0-47.0); Hemoglobin 14.3 g/dL (11.5-15.3); Lymphocytes # 2.1 10^3/uL (0.8-4.8); Lymphocytes % 20.8 %; Mean Corpuscular HGB Conc 34.2 g/dL (30.0-36.0); Mean Corpuscular Hemoglobin 32.3 pg (28.0-34.0); Mean Corpuscular Volume 94.4 fl (81-99); Monocytes # 0.6 10^3/uL (0.2-0.9); Monocytes % 5.4 %; Neutrophils % 70.1 %; Nucleated Red Blood Cells % 0 %; Platelet Count 191 10^3/cmm (130-400); Red Blood Count 4.43 10^6/uL (4.1-5.3); Red Cell Distribution Width 12.2 % (12.1-15.1); White Blood Count 10.3 10^3/uL (4.0-10.0)
[2022-04-19 19:50] VITALS: BP 131/88; PULSE 88; RESP 18; O2SAT 97
[2022-04-19 20:05] LABS: Alanine Aminotransferase 12 U/L (0-33); Albumin Level 3.9 g/dL (3.5-5.2); Alkaline Phosphatase 68 U/L (35-105); Anion Gap 11.3 (5-19); Aspartate Amino Transferase 9 U/L (0-32); Blood Urea Nitrogen 8 mg/dL (6-20); Carbon Dioxide 23 mmol/L (22-29); Chloride 101 mmol/L (98-107); Creatinine Clr Calc Pharmacy 151.6075; Globulin 2.7 g/dL (1.3-4.6); Glomerular Filtration Rate 122.8 mL/min (90-130); Glucose 102 mg/dL (65-115); Lipase 22 U/L (13-60); Osmolality Calculated 273 mOsm/kg (285-295); Potassium 3.3 mmol/L (3.5-5.1); Sodium 132 mmol/L (136-145); Total Bilirubin 0.3 mg/dL (0.15-1.2); Total Protein 6.6 g/dL (6.6-8.7)
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
[2022-04-19 20:43] LABS: HIV 1 & 2 Antibody Non-Reactive (Non-Reactiv); HIV 1 & 2 Antigen Non-Reactive (Non-Reactiv)
[2022-04-19 20:46] VITALS: RESP 18
[2022-04-19] MEDS: morphine 4 mg/mL SDV 1 mL IM (20:46)
[2022-04-19 21:32] LABS: Hepatitis A Antibody IgM Non-Reactive (Nonreactive); Hepatitis B Core IgM Non-Reactive (Nonreactive); Hepatitis B Surface Antigen Non-Reactive (Nonreactive); Hepatitis C Virus Antibody Non-Reactive (Nonreactive)
[2022-04-19 22:00] VITALS: BP 129/85; PULSE 76; RESP 18; O2SAT 97
== END 2022-04-19 22:00 | disposition home or self-care (01) ==
PROVIDERS: Emergency Provider Emergency Medicine; PCP Family Medicine
DX: R10.9 Unspecified abdominal pain (principal)
CPT/HCPCS: 76856; 80053; 80074; 81001; 81025; 83690; 85025; 87210; 87491; 87591; 87806; 96372; 99284; J2270

== ENCOUNTER 2022-04-27 18:35 | Emergency (ER) | payer BC, MEDICAID, SELFPAY ==
[2022-04-27 18:46] VITALS: BP 143/96; PULSE 84; RESP 14; TEMP 36.8; O2SAT 98; BMI 27.4
--- NOTE | 2022-04-27 20:26 | W.ED.ABDPA2 ---
HPI - Abdominal Pain General: Chief Complaint: Abdominal Pain Stated Complaint: abdomen pain Time Seen by Provider: 04/27/22 20:15 Source: patient Mode of arrival: ambulatory Limitations: no limitations History of Present Illness: 26-year-old female has had multiple abdominal surgeries in the past states she has been having diffuse abdominal pain since this morning states it is worse in the epigastric but is diffuse in nature she rates it a 7 out of 10 on multiple episodes of vomiting denies any fever denies any diarrhea she denies any worsening improving factors. Associated Symptoms: Reports nausea and vomiting; Denies chills, dysuria and fever(s) Related Data: Date of Last Menstrual Period: 01/28/22 Review of Systems Const: Denies: fever(s), chills, body aches or change in appetite Eyes: Denies: blurry vision or eye discomfort ENMT: Denies: throat pain or dental pain Card: Denies: chest pain Resp: Denies: dyspnea GI: Reports: abdominal pain, nausea and vomiting : Denies: dysuria Musc: Denies: neck pain or back pain Skin/Breast: Denies: rash Neuro: Denies: headache(s) Psych: Denies: depression Basil/Lymph: Denies: easy bruising All/Imm: Denies: urticaria PFSH ED PFSH: Medical History Family history of FAP (familial adenomatous polyposis) Surgical History H/O colectomy H/O ileostomy Hx of cholecystectomy Hx of colonoscopy with polypectomy Social History Smoking and tobacco status: current every day smoker Alcohol intake: never Female Reproductive History: Date of last menstrual period: 01/28/22 Physical Exam Const: COMMON NORMALS: no acute distress, patient oriented x3 and healthy appearing HENMT: COMMON NORMALS: normocephalic and atraumatic HEAD & SCALP: normocephalic and atraumatic Eye: COMMON NORMALS: Equal, round and reactive pupils present and EOMs intact bilaterally PUPIL: Yes Equal, round and reactive pupils present Neck/C-Spine: COMMON NORMALS: full ROM and supple Chest: COMMONS NORMALS: normal inspection of the chest and normal palpation of entire chest wall Resp: COMMON NORMALS: normal respiratory effort, No retractions, No use of accessory muscles and clear to auscultation bilaterally AUSCULTATION: clear to auscultation bilaterally Cardio: COMMON NORMALS: regular rate, regular rhythm and No murmurs present (Cardio) RATE: regular rate RHYTHM: regular rhythm GI: COMMON NORMALS: Normal to inspection, nondistended, normoactive bowel sounds present, Soft to palpation and no masses PALPATION: Yes Soft to palpation OTHER: diffuse tenderness Extremity: COMMON NORMALS: normal to inspection and full ROM Neuro: COMMON NORMALS: patient oriented x3, moves all extremities and no focal motor deficits Psych: COMMON NORMALS: mental status grossly normal, Normal thought process present and cooperative THOUGHT PROCESS: Normal thought process present Skin: COMMON NORMALS: no rashes or lesions noted and no wounds GENERAL SKIN EXAM: no rashes or lesions noted Course Vital Signs: Vital signs: Vital Signs Temperature 98.2 F 04/27/22 18:46 Pulse Rate 86 04/27/22 22:00 Respiratory Rate 15 04/27/22 22:16 Blood Pressure 106/74 04/27/22 22:00 Pulse Oximetry 97 04/27/22 22:16 Oxygen Delivery Me thod 04/27/22 21:30 MDM - Abdominal Pain Medical Decision Making Patient presents here with abdominal pain likely from ovarian cyst she is well-appearing here no signs of torsion we will get her follow-up with OB write her pain meds she is return if worsening. Lab Data 04/27/22 18:37 04/27/22 18:37 Labs/Radiology: Radiology Impressions Abdomen/Pelvis CT 04/27/22 20:46 IMPRESSION: 1. Large left ovarian 6 cm cyst. Consider need for ultrasound, as this is quite large. This is new from 03/17/2022. From that time, the right-sided cyst has resolved. 2. Postop findings and a few other chronic findings above. No small bowel obstruction, abscess or free air. Pelvis Ultrasound 04/27/22 21:49 IMPRESSION: 1. Large left ovarian probable hemorrhagic cyst. This should be followed up in 4-6 weeks. 2. No evidence of torsion or other acute finding. Laboratory Results WBC 14.5 10^3/uL (4.0-10.0) H 04/27/22 20:32 Corrected WBC Cancelled 04/27/22 18:37 RBC 4.74 10^6/uL (4.1-5.3) 04/27/22 20:32 Hgb 15.1 g/dL (11.5-15.3) 04/27/22 20:32 Hct 44.8 % (37.0-47.0) 04/27/22 20:32 MCV 94.5 fl (81-99) 04/27/22 20: MCH 31.9 pg (28.0-34.0) 04/27/22 20:32 MCHC 33.7 g/dL (30.0-36.0) 04/27/22 20:32 RDW 12.5 % (12.1-15.1) 04/27/22 20:32 Plt Count 224 10^3/cmm (130-400) 04/27/22 20:32 MPV 11.0 fL (7.4-10.4) H 04/27/22 20:32 Gran % Cancelled 04/27/22 18:37 Neut % (Auto) 74.2 % 04/27/22 20:32 Lymph % (Auto) 18.0 % 04/27/22 20:32 [place] % (Auto) 5.2 % 04/27/22 20:32 Eos % (Auto) 1.7 % 04/27/22 20:32 Baso % (Auto) 0.3 % 04/27/22 20:32 Neut # (Auto) 10.76 10^3/uL (1.8-7.7) H 04/27/22 20:32 Lymph # (Auto) 2.6 10^3/uL (0.8-4.8) 04/27/22 20:32 [place] # (Auto) 0.8 10^3/uL (0.2-0.9) 04/27/22 20:32 Eos # (Auto) 0.2 10^3/uL (0.0-0.8) 04/27/22 20:32 Baso # (Auto) 0.0 10^3/uL (0.0-0.1) 04/27/22 20:32 Absolute Gran (auto) Cancelled 04/27/22 18:37 Nucleated RBC % (auto) 0 % 04/27/22 20:32 Nucleated RBCs # 0.0 /100WBC 04/27/22 20:32 Sodium 133 mmol/L (136-145) L 04/27/22 20:32 Potassium 3.7 mmol/L (3.5-5.1) 04/27/22 20:32 Chloride 102 mmol/L (98-107) 04/27/22 20:32 Carbon Dioxide 22 mmol/L (22-29) 04/27/22 20:32 Anion Gap 12.7 (5-19) 04/27/22 20:32 BUN 10 mg/dL (6-20) 04/27/22 20:32 Creatinine 0.6 mg/dL (0.5-0.9) 04/27/22 20:32 GFR Calculation 122.8 mL/min (90-130) 04/27/22 20:32 Glucose 90 mg/dL (65-115) 04/27/22 20:32 Calculated Osmolality 275 mOsm/kg (285-295) L 04/27/22 20:32 Calcium 9.0 mg/dL (8.5-10.5) 04/27/22 20:32 Total Bilirubin 0.2 mg/dL (0.15-1.2) 04/27/22 20:32 AST 12 U/L (0-32) 04/27/22 20:32 ALT 17 U/L (0-33) 04/27/22 20:32 Alkaline Phosphatase 64 U/L (35-105) 04/27/22 20:32 Total Protein 7.1 g/dL (6.6-8.7) 04/27/22 20:32 Albumin 4.4 g/dL (3.5-5.2) 04/27/22 20:32 Globulin 2.7 g/dL (1.3-4.6) 04/27/22 20:32 Lipase 27 U/L (13-60) 04/27/22 20:32 HCG, Qual Negative (Negative) 04/27/22 20:32 Urine Color Light yellow (Yellow) 04/27/22 20:15 Urine Appearance Clear (CLEAR) 04/27/22 20:15 Urine pH 5 (5-7) 04/27/22 20:15 Ur Specific [place] 1.015 (1.005-1.030) 04/27/22 20:15 Urine Protein Neg (Negative) 04/27/22 20:15 Urine Glucose (UA) Norm (Normal) 04/27/22 20:15 Urine Ketones 1+ (Negative) H 04/27/22 20:15 Urine Blood Neg (Negative) 04/27/22 20:15 Urine Nitrate Negative (Negative) 04/27/22 20:15 Urine Bilirubin Neg (Negative) 04/27/22 20:15 Urine Urobilinogen Neg mg/dL (Negative) 04/27/22 20:15 Ur Leukocyte Esterase Negative (Negative) 04/27/22 20:15 Discharge Plan Discharge Patient Disposition: Home Clinical Impression: Abdominal pain, Ovarian cyst Condition: Stable Prescriptions: New hydrocodone-acetaminophen 5-325 mg tablet 1 tab PO Q6H PRN (Reason: pain) Qty: 14 0RF ondansetron 4 mg tablet,disintegrating 4 mg PO Q6H PRN (Reason: nausea and vomiting) Qty: 14 0RF No Action levofloxacin 750 mg tablet 750 mg PO DAILY albuterol sulfate 90 mcg/actuation HFA aerosol inhaler 2 inh inhalation Q4H PRN (Reason: shortness of breath or wheezing) Qty: 8.5 0RF Percocet 7.5-325 mg tablet 1 tab PO Q6H PRN (Reason: pain) Qty: 10 0RF ondansetron 4 mg film 4 mg PO DAILY PRN (Reason: nausea and vomiting) Qty: 10 0RF oxycodone 5 mg tablet 5 mg PO Q4H PRN (Reason: pain) Qty: 10 0RF albuterol sulfate 90 mcg/actuation Hfa Aerosol Inhaler 2 puff INHALATION QID PRN (Reason: Shortness Of Breath Or Wheezing) clindamycin HCl 300 mg Capsule 300 mg PO Q6H 7 Days Qty: 28 0RF ibuprofen 600 mg tablet 600 mg PO Q8H Qty: 15 0RF tramadol 50 mg tablet 50 mg PO Q8H PRN (Reason: pain) Qty: 12 0RF Reglan 10 mg tablet 10 mg PO Q6H PRN (Reason: nausea and vomiting) Qty: 20 0RF Discharge Orders: Discharge ED (Routine); Ordered 04/27/22 Ordered By: Herman Guerrero Referrals: Lc Victoria MD [Physician] - 1-3 days Rigoberto Ferguson MD [Primary Care Provider] - Discharge Diet: Advance as tolerated Discharge Activity: Resume usual activity Patient Instructions: Ovarian Cyst (ED), Abdominal Pain (ED), Opioid Safety Coding Level of Care Code ED Employment Educational Coord for Chg Fwd Exam Comprehensive
[2022-04-27 20:32] LABS: Add Urine Microscopic? NO; Charge for UA Resulting for Rev
[2022-04-27 20:43] LABS: Basophils % 0.3 %; Eosinophils # 0.2 10^3/uL (0.0-0.8); Eosinophils % 1.7 %; Hematocrit 44.8 % (37.0-47.0); Hemoglobin 15.1 g/dL (11.5-15.3); Lymphocytes # 2.6 10^3/uL (0.8-4.8); Mean Corpuscular HGB Conc 33.7 g/dL (30.0-36.0); Mean Corpuscular Hemoglobin 31.9 pg (28.0-34.0); Mean Corpuscular Volume 94.5 fl (81-99); Monocytes # 0.8 10^3/uL (0.2-0.9); Monocytes % 5.2 %; Neutrophils # 10.76 10^3/uL (1.8-7.7); Neutrophils % 74.2 %; Nucleated Red Blood Cells % 0 %; Platelet Count 224 10^3/cmm (130-400); Red Blood Count 4.74 10^6/uL (4.1-5.3); Red Cell Distribution Width 12.5 % (12.1-15.1); White Blood Count 14.5 10^3/uL (4.0-10.0)
[2022-04-27] MEDS: sodium chloride 0.9% 1,000 ML 999 ML IV (20:46)
--- NOTE | 2022-04-27 20:46 | CTR_ITS ---
PROCEDURE INFORMATION: Exam: CT Abdomen And Pelvis Without Contrast Exam date and time: 04/27/2022 9:22 PM Age: 26 years old Clinical indication: Abdominal pain; Generalized; Prior surgery; Surgery type: Gb. Colectomy. Ileostomy. Patient HX: C/O of persistent abd pain since abd surgery one month ago for MRSA. TECHNIQUE: Imaging protocol: Computed tomography of the abdomen and pelvis without contrast. Radiation optimization: All CT scans at this facility use at least one of these dose optimization techniques: automated exposure control; mA and/or kV adjustment per patient size (includes targeted exams where dose is matched to clinical indication); or iterative reconstruction. COMPARISON: CT abdomen pelvis wo con [id number] 03/17/2022 9:06 PM RADIATION DOSE METRICS: Total DLP (mGy-cm): 567.13 FINDINGS: Lungs: The visualized lung bases are clear. Liver: Unremarkable. No discrete mass. Gallbladder and bile ducts: The gallbladder is absent. Pancreas: Unremarkable with no suspicious mass. No ductal dilation. Spleen: The spleen is not enlarged. No suspicious mass is noted. Adrenal glands: Normal. No mass. Kidneys and ureters: No solid renal mass or hydronephrosis. Stomach and bowel: Rectal anastomotic postop changes. No small bowel obstruction, abscess, or free air. Appendix: No evidence of appendicitis. Intraperitoneal space: See Stomach and bowel finding. Vasculature: No AAA or acute vascular lesion identified. Lymph nodes: No enlarged lymph nodes. Urinary bladder: Unremarkable as visualized. Reproductive: The left ovary shows a large rounded cystic lesion measuring 6.1 cm. Bones/joints: No acute fracture. Soft tissues: No acute or suspicious finding noted. Right lateral mid abdominal subcutaneous scarring. CT/CT abdomen pelvis wo con [id number] IMPRESSION: 1. Large left ovarian 6 cm cyst. Consider need for ultrasound, as this is quite large. This is new from 03/17/2022. From that time, the right-sided cyst has resolved. 2. Postop findings and a few other chronic findings above. No small bowel obstruction, abscess or free air.
[2022-04-27 20:47] VITALS: RESP 16; O2SAT 99
[2022-04-27] MEDS: morphine 4 mg/mL SDV 1 mL IVP (20:47)
[2022-04-27] MEDS: ondansetron 2 mg/ML SDV 2 mL 4 MG IVP (20:47)
[2022-04-27 20:49] LABS: Blood Urine Neg (Negative); Glucose Urine UA Norm (Normal); Ketones Urine 1+ (Negative); Nitrate Urine Negative (Negative); Protein Urine Neg (Negative); Specific Gravity, Urine 1.015 (1.005-1.030); Urine Appearance Clear (CLEAR); Urine Color Light Yellow (Yellow); pH Urine 5 (5-7)
[2022-04-27 20:50] LABS: Bilirubin Urine Neg (Negative); Leukocyte Esterase Urine Negative (Negative); Urobilinogen Urine Neg (Negative)
[2022-04-27 20:56] LABS: HCG, Serum Qual Negative (Negative)
[2022-04-27 21:19] LABS: Alanine Aminotransferase 17 U/L (0-33); Albumin Level 4.4 g/dL (3.5-5.2); Alkaline Phosphatase 64 U/L (35-105); Anion Gap 12.7 (5-19); Aspartate Amino Transferase 12 U/L (0-32); Blood Urea Nitrogen 10 mg/dL (6-20); Carbon Dioxide 22 mmol/L (22-29); Chloride 102 mmol/L (98-107); Creatinine Clr Calc Pharmacy 151.6075; Globulin 2.7 g/dL (1.3-4.6); Glomerular Filtration Rate 122.8 mL/min (90-130); Glucose 90 mg/dL (65-115); Lipase 27 U/L (13-60); Osmolality Calculated 275 mOsm/kg (285-295); Potassium 3.7 mmol/L (3.5-5.1); Sodium 133 mmol/L (136-145); Total Bilirubin 0.2 mg/dL (0.15-1.2); Total Protein 7.1 g/dL (6.6-8.7)
[2022-04-27 21:30] VITALS: BP 149/85; PULSE 73; RESP 15; O2SAT 99
--- NOTE | 2022-04-27 21:49 | USR_ITS ---
PROCEDURE INFORMATION: Exam: US Pelvis Complete, Transabdominal and US Pelvis, Transvaginal Exam date and time: 04/27/2022 10:36 PM Age: 26 years old Clinical indication: Abdominal pain; Other: Generalized pain across upper abdomen. She is also complaining of left pelvic pain, but says this has been going on for months. Patient HX: History of complete colectomy 2020 with MRSA post-op. She says colectomy was due to 150 polyps . ; Additional info: Left ovarian cyst/ pain TECHNIQUE: Imaging protocol: Real-time complete transabdominal and transvaginal pelvic ultrasound with image documentation. Transvaginal imaging was used for better evaluation of the endometrium, adnexa, and/or cervix. COMPARISON: US pelvic complete* [id number] 04/19/2022 8:45 PM FINDINGS: Uterus: Uterus is normal. Endometrial stripe is normal. Right ovary/adnexa: Ovary is normal. No mass. Normal ovarian blood flow. Left ovary/adnexa: The left ovary is quite large measuring 67 x 43 x 56 mm. It contains an internal complex cystic lesion measuring up to 5.8 cm. No evidence of torsion. Intraperitoneal space: No intraperitoneal fluid. Urinary bladder: Normal. US/US pelvic complete* [id number] IMPRESSION: 1. Large left ovarian probable hemorrhagic cyst. This should be followed up in 4-6 weeks. 2. No evidence of torsion or other acute finding.
[2022-04-27 22:00] VITALS: BP 106/74; PULSE 86; RESP 18; O2SAT 99
[2022-04-27 22:16] VITALS: RESP 15; O2SAT 97
[2022-04-27] MEDS: HYDROmorphone 1 mg/mL INJ 1 mL IVP (22:16)
[2022-04-27 23:43] VITALS: BP 117/87; PULSE 88; RESP 19; O2SAT 98
--- NOTE | 2022-04-28 10:29 | DCPLANNER ---
Addendum entered by Venessa Gongora 07/29/22 07:24: Patient had a follow up appointment at [facility] - patient did not attend appointment Addendum entered by Venessa Gongora 05/01/22 12:22: Patient has a follow up appointment scheduled for Tuesday June 29, 2021 at 9:[address] Victoria at [facility]. Clinic will call patient with appointment information. Original Note: manager oncology had message to schedule a follow up appointment for patient with [facility]. manager oncology sent patients information to the front office staff at [facility]. Patients information will be printed and reviewed. Clinic will call patient with appointment information.
== END 2022-04-27 23:43 | disposition home or self-care (01) ==
PROVIDERS: Emergency Provider Emergency Medicine; PCP Family Medicine
DX: R10.9 Unspecified abdominal pain (principal); N83.202 Unspecified ovarian cyst, left side; F17.210 Nicotine dependence, cigarettes, uncomplicated
CPT/HCPCS: 74176; 76856; 80053; 81003; 83690; 84703; 85025; 96361; 96374; 96375; 99285; J1170; J2270; J2405; J7030

== ENCOUNTER 2022-06-08 19:51 | Emergency (ER) | payer BC, MEDICAID, SELFPAY ==
[2022-06-08 19:55] VITALS: BP 139/87; PULSE 87; RESP 18; TEMP 36.3; O2SAT 97
[2022-06-08 20:52] LABS: Basophils # 0.1 10^3/uL (0.0-0.1); Basophils % 0.6 %; Eosinophils # 0.4 10^3/uL (0.0-0.8); Eosinophils % 3.5 %; Hemoglobin 16.2 g/dL (11.5-15.3); Lymphocytes # 2.4 10^3/uL (0.8-4.8); Mean Corpuscular HGB Conc 33.8 g/dL (30.0-36.0); Mean Corpuscular Hemoglobin 31.7 pg (28.0-34.0); Mean Corpuscular Volume 93.9 fl (81-99); Mean Platelet Volume 10.9 fL (7.4-10.4); Monocytes # 0.4 10^3/uL (0.2-0.9); Monocytes % 3.6 %; Neutrophils # 7.95 10^3/uL (1.8-7.7); Neutrophils % 70.9 %; Nucleated Red Blood Cells % 0 %; Platelet Count 257 10^3/cmm (130-400); Red Blood Count 5.11 10^6/uL (4.1-5.3); White Blood Count 11.2 10^3/uL (4.0-10.0)
[2022-06-08 21:09] LABS: INR 0.85 (0.8-1.2)
[2022-06-08 21:10] LABS: HCG, Serum Qual Negative (Negative)
[2022-06-08 21:15] LABS: Alanine Aminotransferase 25 U/L (0-33); Alkaline Phosphatase 86 U/L (35-105); Anion Gap 15.7 (5-19); Aspartate Amino Transferase 20 U/L (0-32); Blood Urea Nitrogen 10 mg/dL (6-20); Carbon Dioxide 22 mmol/L (22-29); Chloride 103 mmol/L (98-107); Creatinine Clr Calc Pharmacy 151.6075; Globulin 3.1 g/dL (1.3-4.6); Glomerular Filtration Rate 122.8 mL/min (90-130); Glucose 95 mg/dL (65-115); Lipase 31 U/L (13-60); Osmolality Calculated 283 mOsm/kg (285-295); Potassium 3.7 mmol/L (3.5-5.1); Sodium 137 mmol/L (136-145); Total Bilirubin 0.2 mg/dL (0.15-1.2); Total Protein 8.1 g/dL (6.6-8.7)
[2022-06-08 21:36] LABS: Calcium 9.3 mg/dL (8.5-10.5)
--- NOTE | 2022-06-08 22:30 | PC.NURSE ---
NIWR after calling for patient
== END 2022-06-08 23:00 | disposition left against medical advice (07) ==
PROVIDERS: Emergency Medicine; Emergency Provider Family Medicine; PCP Family Medicine
DX: Z53.21 Procedure and treatment not carried out due to patient leaving prior to being seen by health care provider (principal)
CPT/HCPCS: 80053; 83690; 84703; 85025; 85610; 99283

== ENCOUNTER 2022-06-10 15:47 | Emergency (ER) | payer BC, MEDICAID, SELFPAY ==
[2022-06-10] VITALS (8 sets, daily range): BP systolic 116–143; BP diastolic 73–89; PULSE 71–95; RESP 16–18; TEMP 36.3; O2SAT 94–98
--- NOTE | 2022-06-10 16:03 | CTR_ITS ---
PROCEDURE INFORMATION: Exam: CT Abdomen And Pelvis With Contrast Exam date and time: 06/10/2022 5:29 PM Age: 26 years old Clinical indication: Abdominal pain; Generalized; Prior surgery; Surgery date: 6+ months; Surgery type: Ostomy and reversal, gall bladder; Patient HX: Familial adenomatous polyposis; Additional info: Abd pain. TECHNIQUE: Imaging protocol: Computed tomography of the abdomen and pelvis with contrast. Radiation optimization: All CT scans at this facility use at least one of these dose optimization techniques: automated exposure control; mA and/or kV adjustment per patient size (includes targeted exams where dose is matched to clinical indication); or iterative reconstruction. Contrast material: OMNIPAQUE 350; Contrast volume: 75 ml; Contrast route: INTRAVENOUS (IV); Other protocol: This patient has received 7 known CTs and 0 known cardiac nuclear medicine studies in the 12 months prior to the current study. COMPARISON: CT abdomen pelvis wo con [id number] 04/27/2022 9:22 PM RADIATION DOSE METRICS: Total DLP (mGy-cm): 608.88 FINDINGS: Lungs: Bibasilar atelectasis. Liver: Normal. No mass. Gallbladder and bile ducts: Cholecystectomy. Pancreas: Normal. No ductal dilation. Spleen: Normal. No splenomegaly. Adrenal glands: Normal. No mass. Kidneys and ureters: Normal. No hydronephrosis. Stomach and bowel: Rectal anastomotic changes again seen similar to prior exam. Appendix: No evidence of appendicitis. Intraperitoneal space: Unremarkable. No free air. No significant fluid collection. Vasculature: Unremarkable. No abdominal aortic aneurysm. Lymph nodes: Unremarkable. No enlarged lymph nodes. Urinary bladder: Unremarkable as visualized. Reproductive: Unremarkable as visualized. Bones/joints: Unremarkable. No acute fracture. Soft tissues: Unremarkable. CT/CT abdomen pelvis w con* [id number] IMPRESSION: 1. Negative for acute inflammatory process in the abdomen or pelvis. 2. Bibasilar atelectasis. 3. Cholecystectomy. 4. Rectal anastomotic changes again seen similar to prior exam.
[2022-06-10 16:21] LABS: Basophils # 0.1 10^3/uL (0.0-0.1); Basophils % 0.8 %; Eosinophils # 0.4 10^3/uL (0.0-0.8); Eosinophils % 3.9 %; Hematocrit 44.4 % (37.0-47.0); Lymphocytes # 2.3 10^3/uL (0.8-4.8); Mean Corpuscular HGB Conc 33.8 g/dL (30.0-36.0); Mean Corpuscular Hemoglobin 31.6 pg (28.0-34.0); Mean Corpuscular Volume 93.7 fl (81-99); Monocytes # 0.5 10^3/uL (0.2-0.9); Monocytes % 5.2 %; Neutrophils # 6.32 10^3/uL (1.8-7.7); Neutrophils % 65.8 %; Nucleated Red Blood Cells % 0 %; Platelet Count 253 10^3/cmm (130-400); Red Blood Count 4.74 10^6/uL (4.1-5.3); Red Cell Distribution Width 11.9 % (12.1-15.1); White Blood Count 9.6 10^3/uL (4.0-10.0)
--- NOTE | 2022-06-10 16:26 | W.ED.GIBLEED ---
Documented by User: Gulshan Vela DO 06/11/22 05:58 HPI - GI Bleed General: Chief complaint: GI Bleed Stated complaint: blood in stool, blood in vomit Time Seen by Provider: 06/10/22 15:59 Source: patient Mode of arrival: ambulatory History of Present Illness: 26-year-old female presents emergency room complaining of dark stools and hematemesis. The stools been going on for several days hematemesis began yesterday. She is also noticed some bright red blood in the stool. She uses large amounts of NSAID Aleve and ibuprofen daily for her chronic pain. She has had several visits for abdominal pain over the last 2 months. MD complaint: blood streaked emesis Onset (ago): day(s) Pain Consistency: intermittent Severity: mild Relieving factors: none Exacerbating factors: none Associated symptoms: Reports abdominal pain; Denies chills, easy bruising, epistaxis, fever(s), headache(s), malaise, nausea, other bleeding, poor appetite, rash, syncope, vomiting or weakness Treatments Prior to Arrival: none Review of Systems Const: Denies: fever(s), chills or malaise ENMT: Denies: epistaxis Card: Denies: syncope GI: Reports: abdominal pain, hematemesis and hematochezia; Denies: nausea or vomiting : Denies: dysuria, urinary frequency or urinary urgency Skin/Breast: Denies: rash Neuro: Denies: headache(s) Basil/Lymph: Denies: easy bruising PFSH ED PFSH: Medical History Family history of FAP (familial adenomatous polyposis) Surgical History H/O colectomy H/O ileostomy Hx of cholecystectomy Hx of colonoscopy with polypectomy Social History Smoking and tobacco status: current every day smoker Alcohol intake: never Female Reproductive History: Date of last menstrual period: 01/28/22 Physical Exam Const: GENERAL APPEARANCE: cooperative and comfortable ORIENTATION/CONSCIOUSNESS: Yes awake, Yes oriented to person, Yes oriented to place and Yes oriented to time HENMT: COMMON NORMALS: normocephalic, atraumatic and hearing grossly normal bilaterally HEAD & SCALP: normocephalic and atraumatic Resp: COMMON NORMALS: normal respiratory effort, No retractions, No use of accessory muscles and clear to auscultation bilaterally AUSCULTATION: clear to auscultation bilaterally Cardio: COMMON NORMALS: regular rate, regular rhythm and No murmurs present (Cardio) RATE: regular rate RHYTHM: regular rhythm GI: COMMON NORMALS: Soft to palpation and No hepatosplenomegaly present AUSCULTATION: Yes normoactive bowel sounds PALPATION: Yes Soft to palpation, No Tenderness to palpation present (GI), No Guarding due to palpation present (GI) and Yes No hepatosplenomegaly present Extremity: COMMON NORMALS: normal to inspection, capillary refill normal, no clubbing, cyanosis or edema, no calf tenderness and no pedal edema Neuro: SENSORIUM/ORIENTATION: Yes oriented to person, Yes oriented to place and Yes oriented to time Skin: COMMON NORMALS: no rashes or lesions noted GENERAL SKIN EXAM: no rashes or lesions noted Course Vital Signs: Vital signs: Vital Signs Temperature 97.3 F L 06/10/22 15:54 Pulse Rate 84 06/10/22 18:49 Respiratory Rate 16 06/10/22 18:49 Blood Pressure 116/80 06/10/22 18:49 Pulse Oximetry 96 06/10/22 18:49 Oxygen Delivery Me thod 06/10/22 17:40 MDM - GI Bleed Medical Decision Making Care signed out to Dr. Guerrero at change of shift. See final notes for diagnosis and disposition. Lab Data 06/10/22 16:10 06/10/22 16:10 Radiology Impressions Abdomen/Pelvis CT 06/10/22 16:03 IMPRESSION: 1. Negative for acute inflammatory process in the abdomen or pelvis. 2. Bibasilar atelectasis. 3. Cholecystectomy. 4. Rectal anastomotic changes again seen similar to prior exam. Laboratory Results WBC 9.6 10^3/uL (4.0-10.0) 06/10/22 16:10 RBC 4.74 10^6/uL (4.1-5.3) 06/10/22 16:10 Hgb 14.3 g/dL (11.5-15.3) 06/10/22 18:25 Hct 42.6 % (37.0-47.0) 06/10/22 18:25 MCV 93.7 fl (81-99) 06/10/22 16:10 MCH 31.6 pg (28.0-34.0) 06/10/22 16:10 MCHC 33.8 g/dL (30.0-36.0) 06/10/22 16:10 RDW 11.9 % (12.1-15.1) L 06/10/22 16:10 Plt Count 253 10^3/cmm (130-400) 06/10/22 16:10 MPV 11.0 fL (7.4-10.4) H 06/10/22 16:10 Neut % (Auto) 65.8 % 06/10/22 16:10 Lymph % (Auto) 24.0 % 06/10/22 16:10 Haskell % (Auto) 5.2 % 06/10/22 16:10 Eos % (Auto) 3.9 % 06/10/22 16:10 Baso % (Auto) 0.8 % 06/10/22 16:10 Neut # (Auto) 6.32 10^3/uL (1.8-7.7) 06/10/22 16:10 Lymph # (Auto) 2.3 10^3/uL (0.8-4.8) 06/10/22 16:10 Haskell # (Auto) 0.5 10^3/uL (0.2-0.9) 06/10/22 16:10 Eos # (Auto) 0.4 10^3/uL (0.0-0.8) 06/10/22 16:10 Baso # (Auto) 0.1 10^3/uL (0.0-0.1) 06/10/22 16:10 Nucleated RBC % (auto) 0 % 06/10/22 16:10 Nucleated RBCs # 0.0 /100WBC 06/10/22 16:10 PT 12.50 SECONDS (12.1-14.9) 06/10/22 16:10 INR 0.90 (0.8-1.2) 06/10/22 16:10 APTT 26.1 SECONDS (23.9-36.7) 06/10/22 16:10 Sodium 138 mmol/L (136-145) 06/10/22 16:10 Potassium 4.0 mmol/L (3.5-5.1) 06/10/22 16:10 Chloride 104 mmol/L (98-107) 06/10/22 16:10 Carbon Dioxide 22 mmol/L (22-29) 06/10/22 16:10 Anion Gap 16.0 (5-19) 06/10/22 16:10 BUN 14 mg/dL (6-20) 06/10/22 16:10 Creatinine 0.6 mg/dL (0.5-0.9) 06/10/22 16:10 GFR Calculation 122.8 mL/min (90-130) 06/10/22 16:10 Glucose 103 mg/dL (65-115) 06/10/22 16:10 Calculated Osmolality 287 mOsm/kg (285-295) 06/10/22 16:10 Calcium 9.1 mg/dL (8.5-10.5) 06/10/22 16:10 Total Bilirubin 0.2 mg/dL (0.15-1.2) 06/10/22 16:10 AST 14 U/L (0-32) 06/10/22 16:10 ALT 19 U/L (0-33) 06/10/22 16:10 Alkaline Phosphatase 70 U/L (35-105) 06/10/22 16:10 Total Protein 7.0 g/dL (6.6-8.7) 06/10/22 16:10 Albumin 4.5 g/dL (3.5-5.2) 06/10/22 16:10 Globulin 2.5 g/dL (1.3-4.6) 06/10/22 16:10 Discharge Plan Discharge Patient Disposition: Home Clinical Impression: Upper gastrointestinal hemorrhage, Allergic reaction to contrast dye Condition: Stable Prescriptions: New Protonix 40 mg tablet,delayed release (DR/EC) 40 mg PO DAILY Qty: 60 0RF No Action levofloxacin 750 mg tablet 750 mg PO DAILY albuterol sulfate 90 mcg/actuation HFA aerosol inhaler 2 inh inhalation Q4H PRN (Reason: shortness of breath or wheezing) Qty: 8.5 0RF Percocet 7.5-325 mg tablet 1 tab PO Q6H PRN (Reason: pain) Qty: 10 0RF ondansetron 4 mg film 4 mg PO DAILY PRN (Reason: nausea and vomiting) Qty: 10 0RF oxycodone 5 mg tablet 5 mg PO Q4H PRN (Reason: pain) Qty: 10 0RF hydrocodone-acetaminophen 5-325 mg tablet 1 tab PO Q6H PRN (Reason: pain) Qty: 14 0RF ondansetron 4 mg tablet,disintegrating 4 mg PO Q6H PRN (Reason: nausea and vomiting) Qty: 14 0RF albuterol sulfate 90 mcg/actuation Hfa Aerosol Inhaler 2 puff INHALATION QID PRN (Reason: Shortness Of Breath Or Wheezing) clindamycin HCl 300 mg Capsule 300 mg PO Q6H 7 Days Qty: 28 0RF ibuprofen 600 mg tablet 600 mg PO Q8H Qty: 15 0RF tramadol 50 mg tablet 50 mg PO Q8H PRN (Reason: pain) Qty: 12 0RF Reglan 10 mg tablet 10 mg PO Q6H PRN (Reason: nausea and vomiting) Qty: 20 0RF Discharge Orders: Discharge ED (Routine); Ordered 06/10/22 Ordered By: Herman Guerrero Referrals: Jaxson Iyer DO [Physician] - 1-3 days Rigoberto Ferguson MD [Primary Care Provider] - Discharge Diet: Advance as tolerated Discharge Activity: Resume usual activity Patient Instructions: General Allergic Reaction (ED) Coding Level of Care Code ED Supplier Quality Engineering Manager for Chg Fwd Exam Detailed Documented by User: Herman Guerrero MD 06/10/22 19:08 HPI - GI Bleed General: Chief complaint: GI Bleed Stated complaint: blood in stool, blood in vomit Time Seen by Provider: 06/10/22 15:59 PFSH ED PFSH: Medical History Family history of FAP (familial adenomatous polyposis) Surgical History H/O colectomy H/O ileostomy Hx of cholecystectomy Hx of colonoscopy with polypectomy Social History Smoking and tobacco status: current every day smoker Alcohol intake: never Course Vital Signs: Vital signs: Vital Signs Temperature 97.3 F L 06/10/22 15:54 Pulse Rate 84 06/10/22 18:49 Respiratory Rate 16 06/10/22 18:49 Blood Pressure 116/80 06/10/22 18:49 Pulse Oximetry 96 06/10/22 18:49 Oxygen Delivery Me thod 06/10/22 17:40 MDM - GI Bleed Medical Decision Making Care signed out to Dr. Guerrero at change of shift. See final notes for diagnosis and disposition. Patient presents here with a GI bleed her hemoglobin here is been stable no signs of large amount of bleeding CT scan was normal she did have allergic reaction to iodine did have some wheezing she is much improved after breathing treatment steroids she is requesting go home I feel she is stable for discharge have her set up with GI consult she is return if worsening she understands agrees to plan. Lab Data 06/10/22 16:10 06/10/22 16:10 Radiology Impressions Abdomen/Pelvis CT 06/10/22 16:03
[2022-06-10 16:28] LABS: Partial Thromboplastin Time 26.1 SECONDS (23.9-36.7)
[2022-06-10] MEDS: sodium chloride 0.9% 1,000 ML 999 ML IV (16:30)
[2022-06-10] MEDS: pantoprazole 40 mg SDV 80 MG IVP (16:30)
[2022-06-10 16:33] LABS: Alanine Aminotransferase 19 U/L (0-33); Albumin Level 4.5 g/dL (3.5-5.2); Alkaline Phosphatase 70 U/L (35-105); Aspartate Amino Transferase 14 U/L (0-32); Blood Urea Nitrogen 14 mg/dL (6-20); Calcium 9.1 mg/dL (8.5-10.5); Carbon Dioxide 22 mmol/L (22-29); Chloride 104 mmol/L (98-107); Creatinine Clr Calc Pharmacy 151.6075; Globulin 2.5 g/dL (1.3-4.6); Glomerular Filtration Rate 122.8 mL/min (90-130); Glucose 103 mg/dL (65-115); Osmolality Calculated 287 mOsm/kg (285-295); Sodium 138 mmol/L (136-145); Total Bilirubin 0.2 mg/dL (0.15-1.2)
[2022-06-10] MEDS: diphenhydrAMINE 50 mg/mL SDV 1mL IVP (16:59)
[2022-06-10] MEDS: ipratropium 0.5 mg/2.5 mL Neb INHALATION (17:44)
[2022-06-10] MEDS: iohexol 350 mg/mL 500 mL Btl (per mL) IV (17:45)
[2022-06-10] MEDS: albuterol 2.5 mg/3 mL Neb INHALATION (17:45)
[2022-06-10 18:32] LABS: Hematocrit 42.6 % (37.0-47.0); Hemoglobin 14.3 g/dL (11.5-15.3)
[2022-06-10] MEDS: morphine 4 mg/mL SDV 1 mL IVP (18:46)
[2022-06-10] MEDS: ondansetron 2 mg/ML SDV 2 mL 4 MG IVP (18:46)
--- NOTE | 2022-06-11 09:55 | DCPLANNER ---
Addendum entered by Venessa Gongora 07/17/22 07:19: Patient had a follow up appointment at general surgery - patient did not attend appointment. Addendum entered by Venessa Gongora 06/16/22 13:44: Patient has a follow up appointment scheduled for Wednesday, July 01, 2022 at 2:[address] Iyer at general surgery. Clinic will call patient with appointment information. Original Note: multimedia services manager had message to schedule a follow up appointment for patient with general surgery. multimedia services manager sent patients information to the front office staff at general surgery. Patients information will be printed and reviewed. Clinic will call patient with appointment information.
== END 2022-06-10 19:09 | disposition home or self-care (01) ==
PROVIDERS: Family Medicine; Emergency Provider Emergency Medicine; PCP Family Medicine
DX: K92.2 Gastrointestinal hemorrhage, unspecified (principal); T50.8X5A Adverse effect of diagnostic agents, initial encounter; F17.210 Nicotine dependence, cigarettes, uncomplicated
CPT/HCPCS: 74177; 80053; 85014; 85018; 85025; 85610; 85730; 94640; 96374; 96375; 96376; 99285; C9113; J1200; J2270; J2405; J2920; J2930; J7030; J7613; J7644; Q9967

== ENCOUNTER 2022-06-18 19:01 | Emergency (ER) | payer BC, MEDICAID, SELFPAY ==
[2022-06-18 19:35] VITALS: BP 147/99; PULSE 101; RESP 18; TEMP 36.6; O2SAT 96; BMI 27.4
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
[2022-06-18] MEDS: HYDROcodone-acetaminophen 5-325 mg Tablet 1 TAB PO (19:59)
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
== END 2022-06-18 20:33 | disposition home or self-care (01) ==
PROVIDERS: Emergency Provider Emergency Medicine; PCP Family Medicine
DX: S92.251A Displaced fracture of navicular [scaphoid] of right foot, initial encounter for closed fracture (principal); F17.210 Nicotine dependence, cigarettes, uncomplicated; W01.0XXA Fall on same level from slipping, tripping and stumbling without subsequent striking against object, initial encounter
CPT/HCPCS: 73562; 73630; 99283; E0114

== ENCOUNTER 2022-07-16 13:28 | Emergency (ER) | payer BC, MEDICAID, SELFPAY ==
[2022-07-16 14:10] VITALS: BP 151/92; PULSE 97; RESP 14; TEMP 37; O2SAT 97
[2022-07-16 14:44] VITALS: BP 124/85; PULSE 93; RESP 14; O2SAT 97
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
[2022-07-16 17:27] VITALS: BP 132/91; PULSE 80; RESP 16; TEMP 36.3; O2SAT 97
== END 2022-07-16 17:30 | disposition home or self-care (01) ==
PROVIDERS: Emergency Provider Physician Assistant; PCP Family Medicine
DX: M79.671 Pain in right foot (principal); F17.210 Nicotine dependence, cigarettes, uncomplicated
CPT/HCPCS: 73630; 99283

== ENCOUNTER 2022-07-26 17:10 | Emergency (ER) | payer BC, MEDICAID, SELFPAY ==
[2022-07-26 17:14] VITALS: BP 129/87; PULSE 112; RESP 16; TEMP 36.9; O2SAT 98
--- NOTE | 2022-07-26 18:18 | W.ED.ABDPA2 ---
HPI - Abdominal Pain General: Chief Complaint: Abdominal Pain Stated Complaint: abd pain Time Seen by Provider: 07/26/22 17:35 Source: patient History of Present Illness: This 26-year-old female with a history of familial adenomatous polyposis with partial colectomy presents to the ER with abdominal pain that started last night. It is associated with nausea and vomiting that occurred once last night. She has no fever, chest pain, shortness of breath or any other systemic symptoms. Because of her FAP, patient had partial removal of her colon in February 2021. She had an ileostomy for a while which was subsequently closed. Since then, patient has been experiencing intermittent abdominal pain with occasional bowel obstruction. She appears clinically stable. Associated Symptoms: Reports nausea and vomiting Review of Systems General: Reports: 10 or more systems reviewed and unremarkable except in HPI and below GI: Reports: abdominal pain, nausea and vomiting PFSH ED PFSH: Medical History Family history of FAP (familial adenomatous polyposis) Surgical History H/O colectomy H/O ileostomy Hx of cholecystectomy Hx of colonoscopy with polypectomy Social History Smoking and tobacco status: current every day smoker Alcohol intake: never Physical Exam Const: COMMON NORMALS: no acute distress, patient oriented x3, no limitations and alert Resp: COMMON NORMALS: normal respiratory effort, No retractions, No use of accessory muscles and clear to auscultation bilaterally AUSCULTATION: clear to auscultation bilaterally Cardio: COMMON NORMALS: regular rate, regular rhythm and No murmurs present (Cardio) RATE: regular rate RHYTHM: regular rhythm GI: COMMON NORMALS: Normal to inspection, nondistended, normoactive bowel sounds present OTHER: Abdomen is soft, periumbilical tenderness. Normal bowel sounds. No distention or rigidity. Back/Pelvis: COMMON NORMALS: no thoracic nor lumbar tenderness Extremity: GENERAL: Yes normal exam except as noted Neuro: COMMON NORMALS: patient oriented x3 and no focal motor deficits SENSORIUM/ORIENTATION: Yes alert Psych: COMMON NORMALS: mental status grossly normal and cooperative Course Vital Signs: Vital signs: Vital Signs Temperature 98.5 F 07/26/22 17:14 Pulse Rate 112 H 03/12/23 17:14 Respiratory Rate 16 07/26/22 17:14 Blood Pressure 129/87 07/26/22 17:14 Pulse Oximetry 98 07/26/22 17:14 Oxygen Delivery Me thod 07/26/22 17:14 MDM - Abdominal Pain Medical Decision Making Medical decision making: History as above. Patient has a history of chronic intermittent abdominal pain following her surgery in 2020. She has had instances of small bowel obstruction but that does not seem to be the case today. On exam, abdomen is soft and nonsurgical. CT of the abdomen reveals no acute intra-abdominal process. White count is 12.2 with no left shift and CMP is unremarkable. Given that she is not vomiting as she can tolerate orally there is no indication to admit her at this time. She will be treated symptomatically. Lab Data 07/26/22 19:17 07/26/22 19:17 Labs/Radiology: Radiology Impressions Abdomen/Pelvis CT 07/26/22 18:24 IMPRESSION: 1. Limited noncontrast examination without CT evidence of acute intra-abdominal or pelvic pathology. 2. Additional findings, as above. Laboratory Results WBC 12.2 10^3/uL (4.0-10.0) H 07/26/22 19:17 RBC 4.46 10^6/uL (4.1-5.3) 07/26/22 19:17 Hgb 14.1 g/dL (11.5-15.3) 07/26/22 19:17 Hct 41.9 % (37.0-47.0) 07/26/22 19:17 MCV 93.9 fl (81-99) 07/26/22 19:17 MCH 31.6 pg (28.0-34.0) 07/26/22 19:17 MCHC 33.7 g/dL (30.0-36.0) 07/26/22 19:17 RDW 12.3 % (12.1-15.1) 07/26/22 19:17 Plt Count 229 10^3/cmm (130-400) 07/26/22 19:17 MPV 11.3 fL (7.4-10.4) H 07/26/22 19:17 Neut % (Auto) 73.7 % 07/26/22 19:17 Lymph % (Auto) 17.5 % 07/26/22 19:17 [place] % (Auto) 5.6 % 07/26/22 19:17 Eos % (Auto) 2.0 % 07/26/22 19:17 Baso % (Auto) 0.5 % 07/26/22 19:17 Neut # (Auto) 8.99 10^3/uL (1.8-7.7) H 07/26/22 19:17 Lymph # (Auto) 2.1 10^3/uL (0.8-4.8) 07/26/22 19:17 [place] # (Auto) 0.7 10^3/uL (0.2-0.9) 07/26/22 19:17 Eos # (Auto) 0.3 10^3/uL (0.0-0.8) 07/26/22 19:17 Baso # (Auto) 0.1 10^3/uL (0.0-0.1) 07/26/22 19:17 Nucleated RBC % (auto) 0 % 07/26/22 19:17 Nucleated RBCs # 0.0 /100WBC 07/26/22 19:17 Sodium 139 mmol/L (136-145) 07/26/22 19:17 Potassium 4.0 mmol/L (3.5-5.1) 07/26/22 19:17 Chloride 104 mmol/L (98-107) 07/26/22 19:17 Carbon Dioxide 24 mmol/L (22-29) 07/26/22 19:17 Anion Gap 15.0 (5-19) 07/26/22 19:17 BUN 10 mg/dL (6-20) 07/26/22 19:17 Creatinine 0.6 mg/dL (0.5-0.9) 07/26/22 19:17 GFR Calculation 122.8 mL/min (90-130) 07/26/22 19:17 Glucose 88 mg/dL (65-115) 07/26/22 19:17 Calculated Osmolality 286 mOsm/kg (285-295) 07/26/22 19:17 Calcium 9.4 mg/dL (8.5-10.5) 07/26/22 19:17 Total Bilirubin 0.2 mg/dL (0.15-1.2) 07/26/22 19:17 AST 15 U/L (0-32) 07/26/22 19:17 ALT 18 U/L (0-33) 07/26/22 19:17 Alkaline Phosphatase 78 U/L (35-105) 07/26/22 19:17 Total Protein 6.7 g/dL (6.6-8.7) 07/26/22 19:17 Albumin 4.3 g/dL (3.5-5.2) 07/26/22 19:17 Globulin 2.4 g/dL (1.3-4.6) 07/26/22 19:17 Lipase 25 U/L (13-60) 07/26/22 19:17 Discharge Plan Discharge Patient Disposition: Home Clinical Impression: Intermittent abdominal pain Condition: Stable Prescriptions: New tramadol 50 mg tablet 50 mg PO Q6H PRN (Reason: pain) Qty: 20 0RF No Action levofloxacin 750 mg tablet 750 mg PO DAILY albuterol sulfate 90 mcg/actuation HFA aerosol inhaler 2 inh inhalation Q4H PRN (Reason: shortness of breath or wheezing) Qty: 8.5 0RF Percocet 7.5-325 mg tablet 1 tab PO Q6H PRN (Reason: pain) Qty: 10 0RF ondansetron 4 mg film 4 mg PO DAILY PRN (Reason: nausea and vomiting) Qty: 10 0RF oxycodone 5 mg tablet 5 mg PO Q4H PRN (Reason: pain) Qty: 10 0RF hydrocodone-acetaminophen 5-325 mg tablet 1 tab PO Q6H PRN (Reason: pain) Qty: 14 0RF ondansetron 4 mg tablet,disintegrating 4 mg PO Q6H PRN (Reason: nausea and vomiting) Qty: 14 0RF albuterol sulfate 90 mcg/actuation Hfa Aerosol Inhaler 2 puff INHALATION QID PRN (Reason: Shortness Of Breath Or Wheezing) clindamycin HCl 300 mg Capsule 300 mg PO Q6H 7 Days Qty: 28 0RF ibuprofen 600 mg tablet 600 mg PO Q8H Qty: 15 0RF tramadol 50 mg tablet 50 mg PO Q8H PRN (Reason: pain) Qty: 12 0RF Reglan 10 mg tablet 10 mg PO Q6H PRN (Reason: nausea and vomiting) Qty: 20 0RF Protonix 40 mg tablet,delayed release (DR/EC) 40 mg PO DAILY Qty: 60 0RF Discharge Orders: Discharge ED (Routine); Ordered 07/26/22 Ordered By: Ludmila Landin Referrals: Rigoberto Ferguson MD [Primary Care Provider] - Discharge Diet: Usual diet Discharge Activity: Resume usual activity Patient Instructions: Abdominal Pain (ED), Opioid Safety, Pain Management Activity Restrictions/Additional Instructions: Take tramadol as needed for pain. Maintain adequate fluid intake. Follow-up with your primary care physician in 3 to 5 days for reevaluation. Return with new or worsening symptoms. Coding Level of Care Code ED Wood Treating Inspector for Yamilet De Souza
--- NOTE | 2022-07-26 18:24 | CTR_ITS ---
PROCEDURE INFORMATION: Exam: CT Abdomen And Pelvis Without Contrast Exam date and time: 07/26/2022 5:32 PM Age: 26 years old Clinical indication: Abdominal pain; Generalized; Prior surgery; Surgery date: 6+ months; Surgery type: Complete colectomy TECHNIQUE: Imaging protocol: Computed tomography of the abdomen and pelvis without contrast. Axial, coronal and sagittal reformatted images were created and reviewed. Radiation optimization: All CT scans at this facility use at least one of these dose optimization techniques: automated exposure control; mA and/or kV adjustment per patient size (includes targeted exams where dose is matched to clinical indication); or iterative reconstruction. REPORTING DATA: Count of CT and Cardiac NM exams in prior 12 months: This patient has received 8 known CTs and 0 known cardiac nuclear medicine studies in the 12 months prior to the current study. COMPARISON: CT abdomen pelvis w con* [id number] 06/10/2022 5:29 PM RADIATION DOSE METRICS: Total DLP (mGy-cm): 594.12 FINDINGS: Liver: Unremarkable. Gallbladder and bile ducts: Status post cholecystectomy. No biliary ductal dilatation. Pancreas: Unremarkable. Spleen: Punctate calcified splenic granuloma. Adrenal glands: Normal. No mass. Kidneys and ureters: No mass. No radiodense calculi. No hydronephrosis. Stomach and bowel: Evidence of prior bowel resection. No definite bowel wall thickening. No obstruction. No pneumatosis. Appendix: Surgically absent. Intraperitoneal space: No free fluid. No organized fluid collection. No free air. Vasculature: Unremarkable. No aneurysm. Lymph nodes: No pathologically enlarged lymph nodes. Urinary bladder: Unremarkable as visualized. Reproductive: 2.7 x 2.1 cm right adnexal cystic lesion, likely a follicular cyst. Bones/joints: No acute osseous abnormality. Soft tissues: Unremarkable. CT/CT abdomen pelvis wo con [id number] IMPRESSION: 1. Limited noncontrast examination without CT evidence of acute intra-abdominal or pelvic pathology. 2. Additional findings, as above.
[2022-07-26] MEDS: sodium chloride 0.9% 1,000 ML 999 ML IV (19:22)
[2022-07-26] MEDS: morphine 4 mg/mL SDV 1 mL IVP (19:22)
[2022-07-26 19:23] LABS: Basophils # 0.1 10^3/uL (0.0-0.1); Basophils % 0.5 %; Eosinophils # 0.3 10^3/uL (0.0-0.8); Hematocrit 41.9 % (37.0-47.0); Hemoglobin 14.1 g/dL (11.5-15.3); Lymphocytes # 2.1 10^3/uL (0.8-4.8); Lymphocytes % 17.5 %; Mean Corpuscular HGB Conc 33.7 g/dL (30.0-36.0); Mean Corpuscular Hemoglobin 31.6 pg (28.0-34.0); Mean Corpuscular Volume 93.9 fl (81-99); Mean Platelet Volume 11.3 fL (7.4-10.4); Monocytes # 0.7 10^3/uL (0.2-0.9); Monocytes % 5.6 %; Neutrophils # 8.99 10^3/uL (1.8-7.7); Neutrophils % 73.7 %; Nucleated Red Blood Cells % 0 %; Platelet Count 229 10^3/cmm (130-400); Red Blood Count 4.46 10^6/uL (4.1-5.3); Red Cell Distribution Width 12.3 % (12.1-15.1); White Blood Count 12.2 10^3/uL (4.0-10.0)
[2022-07-26 19:39] LABS: Alanine Aminotransferase 18 U/L (0-33); Albumin Level 4.3 g/dL (3.5-5.2); Alkaline Phosphatase 78 U/L (35-105); Aspartate Amino Transferase 15 U/L (0-32); Blood Urea Nitrogen 10 mg/dL (6-20); Calcium 9.4 mg/dL (8.5-10.5); Carbon Dioxide 24 mmol/L (22-29); Chloride 104 mmol/L (98-107); Creatinine Clr Calc Pharmacy 151.6075; Globulin 2.4 g/dL (1.3-4.6); Glomerular Filtration Rate 122.8 mL/min (90-130); Glucose 88 mg/dL (65-115); Lipase 25 U/L (13-60); Osmolality Calculated 286 mOsm/kg (285-295); Sodium 139 mmol/L (136-145); Total Bilirubin 0.2 mg/dL (0.15-1.2); Total Protein 6.7 g/dL (6.6-8.7)
== END 2022-07-26 20:37 | disposition home or self-care (01) ==
PROVIDERS: Emergency Provider Family Medicine; PCP Family Medicine
DX: R10.9 Unspecified abdominal pain (principal); F17.210 Nicotine dependence, cigarettes, uncomplicated
CPT/HCPCS: 74176; 80053; 83690; 85025; 96361; 96374; 99285; J2270; J7030

== ENCOUNTER 2022-09-23 21:41 | Emergency (ER) | payer BC, MEDICAID, SELFPAY ==
[2022-09-23] VITALS (9 sets, daily range): BP systolic 132–138; BP diastolic 88–98; PULSE 70–86; RESP 15–18; TEMP 36.9; O2SAT 96–99
--- NOTE | 2022-09-23 21:53 | ED_ITS ---
HPI - Abdominal Pain General: Chief Complaint: Abdominal Pain Stated Complaint: ABD Pain Time Seen by Provider: 09/23/22 21:51 Source: patient Mode of arrival: ambulatory Limitations: no limitations History of Present Illness: 27-year-old female states she has had abdominal pain over the last 3 days states that her left lower quadrant is sharp in nature states she is also had some bright red blood in her stools for over a week. She denies any fever denies any vomiting denies any diarrhea denies any worsening proving factors. She rates her pain a 4 out of 10 currently Associated Symptoms: Reports hematochezia; Denies chills, diarrhea, dysuria, fever(s), nausea and vomiting Review of Systems Const: Denies: fever(s) or chills ENMT: Denies: throat pain or dental pain Card: Denies: chest pain Resp: Denies: dyspnea GI: Reports: abdominal pain and hematochezia; Denies: nausea, vomiting or diarrhea : Denies: dysuria Musc: Denies: neck pain or back pain Skin/Breast: Denies: rash Neuro: Denies: headache(s) PFSH ED PFSH: Medical History Family history of FAP (familial adenomatous polyposis) Surgical History H/O colectomy H/O ileostomy Hx of cholecystectomy Hx of colonoscopy with polypectomy Social History Smoking and tobacco status: current every day smoker Alcohol intake: never Substance/Drug Use: never Physical Exam Const: COMMON NORMALS: no acute distress, patient oriented x3 and healthy ap pearing HENMT: COMMON NORMALS: normocephalic and atraumatic HEAD & SCALP: normocephalic and atraumatic Eye: COMMON NORMALS: conjunctivae normal CONJUNCTIVA: Yes conjunctivae normal Neck/C-Spine: COMMON NORMALS: full ROM and supple Chest: COMMONS NORMALS: normal inspection of the chest Resp: COMMON NORMALS: normal respiratory effort, No retractions, No use of accessory muscles and clear to auscultation bilaterally AUSCULTATION: clear to auscultation bilaterally Cardio: COMMON NORMALS: regular rate, regular rhythm and No murmurs present (Cardio) RATE: regular rate RHYTHM: regular rhythm GI: COMMON NORMALS: Normal to inspection, nondistended, normoactive bowel sounds present, Soft to palpation, non-tender and no masses PALPATION: Yes Soft to palpation Extremity: COMMON NORMALS: normal to inspection and full ROM Neuro: COMMON NORMALS: patient oriented x3, moves all extremities and no focal motor deficits Psych: COMMON NORMALS: mental status grossly normal, Normal thought process present and cooperative THOUGHT PROCESS: Normal thought process present Skin: COMMON NORMALS: no rashes or lesions noted and no wounds GENERAL SKIN EXAM: no rashes or lesions noted Course Vital Signs: Vital signs: Vital Signs Temperature 98.5 F 09/23/22 21:46 Pulse Rate 77 09/23/22 23:34 Respiratory Rate 18 09/23/22 23:34 Blood Pressure 138/98 09/23/22 23:34 Pulse Oximetry 97 09/23/22 23:34 Oxygen Delivery Me thod Room Air 09/23/22 23:30 MDM - Abdominal Pain Medical Decision Making Patient presents here with some abdominal pain she states she had blood in her stools I did a rectal exam showed no blood Hemoccult was negative. Her blood work here is all normal white counts normal hemoglobin is normal she has had a recent CAT scan as well. She has had a history of a colon resection due to familial polyposis we will get her follow-up with GI as she likely does need a scope in the future we will write her pain meds nausea meds she is to return if worsening she understands agrees to plan. Medical Records I reviewed the patient's medical records. Lab Data I reviewed the patient's lab results. 09/23/22 22:22 09/23/22 22:22 Labs/Radiology: Laboratory Results WBC 9.9 10^3/uL (4.0-10.0) 09/23/22 22: RBC 4.46 10^6/uL (4.1-5.3) 09/23/22 22: Hgb 14.1 g/dL (11.5-15.3) 09/23/22 22: Hct 41.3 % (37.0-47.0) 09/23/22 22: MCV 92.6 fl (81-99) 09/23/22 22: MCH 31.6 pg (28.0-34.0) 09/23/22: MCHC 34.1 g/dL (30.0-36.0) 09/23/22: RDW 12.0 % (12.1-15.1) L 09/23/22: Plt Count 230 10^3/cmm (130-400) 09/23/22: MPV 11.3 fL (7.4-10.4) H 09/23/22: Neut % (Auto) 63.2 % 09/23/22: Lymph % (Auto) 25.5 % 09/23/22: [place] % (Auto) 7.0 % 09/23/22: Eos % (Auto) 3.3 % 09/23/22: Baso % (Auto) 0.7 % 09/23/22: Neut # (Auto) 6.23 10^3/uL (1.8-7.7) 09/23/22: Lymph # (Auto) 2.5 10^3/uL (0.8-4.8) 09/23/22: [place] # (Auto) 0.7 10^3/uL (0.2-0.9) 09/23/22: Eos # (Auto) 0.3 10^3/uL (0.0-0.8) 09/23/22: Baso # (Auto) 0.1 10^3/uL (0.0-0.1) 09/23/22: Nucleated RBC % (auto) 0 % 09/23/22: Nucleated RBCs # 0.0 /100WBC 09/23/22: Sodium 138 mmol/L (136-145) 09/23/22 22: Potassium 3.7 mmol/L (3.5-5.1) 09/23/22: Chloride 107 mmol/L (98-107) 09/23/22: Carbon Dioxide 19 mmol/L (22-29) L 09/23/22: Anion Gap 15.7 (5-19) 09/23/22: BUN 12 mg/dL (6-20) 09/23/22:22 Creatinine 0.7 mg/dL (0.5-0.9) 09/23/22 22: GFR Calculation 102.0 mL/min (90-130) 09/23/22 22: Glucose 85 mg/dL (65-115) 09/23/22 22: Calculated Osmolality 285 mOsm/kg (285-295) 09/23/22 22: Calcium 9.0 mg/dL (8.5-10.5) 09/23/22 22: Total Bilirubin 0.2 mg/dL (0.15-1.2) 09/23/22 22: AST 13 U/L (0-32) 09/23/22 22: ALT 15 U/L (0-33) 09/23/22 22: Alkaline Phosphatase 68 U/L (35-105) 09/23/22 22: Total Protein 6.4 g/dL (6.6-8.7) L 09/23/22 22: Albumin 4.4 g/dL (3.5-5.2) 09/23/22: Globulin 2.0 g/dL (1.3-4.6) 09/23/22 22: Lipase 30 U/L (13-60) 09/23/22 22: HCG, Qual Negative (Negative) 09/23/22 22: Discharge Plan Discharge Patient Disposition: Home Clinical Impression: Abdominal pain, Blood in stool Condition: Stable Prescriptions: New hydrocodone-acetaminophen 5-325 mg tablet 1 tab PO Q6H PRN (Reason: pain) Qty: 14 0RF ondansetron 4 mg tablet,disintegrating 4 mg PO Q6H PRN (Reason: nausea and vomiting) Qty: 14 0RF No Action levofloxacin 750 mg tablet 750 mg PO DAILY albuterol sulfate 90 mcg/actuation HFA aerosol inhaler 2 inh inhalation Q4H PRN (Reason: shortness of breath or wheezing) Qty: 8.5 0RF Percocet 7.5-325 mg tablet 1 tab PO Q6H PRN (Reason: pain) Qty: 10 0RF ondansetron 4 mg film 4 mg PO DAILY PRN (Reason: nausea and vomiting) Qty: 10 0RF oxycodone 5 mg tablet 5 mg PO Q4H PRN (Reason: pain) Qty: 10 0RF hydrocodone-acetaminophen 5-325 mg tablet 1 tab PO Q6H PRN (Reason: pain) Qty: 14 0RF ondansetron 4 mg tablet,disintegrating 4 mg PO Q6H PRN (Reason: nausea and vomiting) Qty: 14 0RF tramadol 50 mg tablet 50 mg PO Q6H PRN (Reason: pain) Qty: 20 0RF albuterol sulfate 90 mcg/actuation Hfa Aerosol Inhaler 2 puff INHALATION QID PRN (Reason: Shortness Of Breath Or Wheezing) clindamycin HCl 300 mg Capsule 300 mg PO Q6H 7 Days Qty: 28 0RF ibuprofen 600 mg tablet 600 mg PO Q8H Qty: 15 0RF tramadol 50 mg tablet 50 mg PO Q8H PRN (Reason: pain) Qty: 12 0RF Reglan 10 mg tablet 10 mg PO Q6H PRN (Reason: nausea and vomiting) Qty: 20 0RF Protonix 40 mg tablet,delayed release (DR/EC) 40 mg PO DAILY Qty: 60 0RF Discharge Orders: Discharge ED (Routine); Ordered 09/23/22 Ordered By: Herman Guerrero Referrals: Jaxson Iyer DO [Physician] - 1-3 days Rigoberto Ferguson MD [Primary Care Provider] - Discharge Diet: Advance as tolerated Discharge Activity: Resume usual activity Patient Instructions: Abdominal Pain (ED) Coding Level of Care Code ED Revenue Director for Yamilet De Souza
[2022-09-23] MEDS: ondansetron 2 mg/ML SDV 2 mL 4 MG IVP (22:39)
[2022-09-23] MEDS: morphine 4 mg/mL SDV 1 mL IVP ×2 (22:39→23:12)
[2022-09-23 22:44] LABS: HCG, Serum Qual Negative (Negative)
[2022-09-23 23:06] LABS: Basophils # 0.1 10^3/uL (0.0-0.1); Basophils % 0.7 %; Eosinophils # 0.3 10^3/uL (0.0-0.8); Eosinophils % 3.3 %; Hematocrit 41.3 % (37.0-47.0); Hemoglobin 14.1 g/dL (11.5-15.3); Lymphocytes # 2.5 10^3/uL (0.8-4.8); Lymphocytes % 25.5 %; Mean Corpuscular HGB Conc 34.1 g/dL (30.0-36.0); Mean Corpuscular Hemoglobin 31.6 pg (28.0-34.0); Mean Corpuscular Volume 92.6 fl (81-99); Mean Platelet Volume 11.3 fL (7.4-10.4); Monocytes # 0.7 10^3/uL (0.2-0.9); Neutrophils # 6.23 10^3/uL (1.8-7.7); Neutrophils % 63.2 %; Nucleated Red Blood Cells % 0 %; Platelet Count 230 10^3/cmm (130-400); Red Blood Count 4.46 10^6/uL (4.1-5.3); White Blood Count 9.9 10^3/uL (4.0-10.0)
[2022-09-23 23:21] LABS: Alanine Aminotransferase 15 U/L (0-33); Albumin Level 4.4 g/dL (3.5-5.2); Alkaline Phosphatase 68 U/L (35-105); Anion Gap 15.7 (5-19); Aspartate Amino Transferase 13 U/L (0-32); Blood Urea Nitrogen 12 mg/dL (6-20); Carbon Dioxide 19 mmol/L (22-29); Chloride 107 mmol/L (98-107); Glucose 85 mg/dL (65-115); Lipase 30 U/L (13-60); Osmolality Calculated 285 mOsm/kg (285-295); Potassium 3.7 mmol/L (3.5-5.1); Sodium 138 mmol/L (136-145); Total Bilirubin 0.2 mg/dL (0.15-1.2); Total Protein 6.4 g/dL (6.6-8.7)
--- NOTE | 2022-09-24 08:43 | DCPLANNER ---
Addendum entered by Venessa Gongora 10/14/22 11:16: Patient had a follow up appointment scheduled with general surgery - patient did attend appointment Addendum entered by Venessa Gongora 09/30/22 11:23: Patient has a follow up appointment scheduled for Thursday, October 13, 2022 at 3:[address] Iyer at general surgery. Original Note: marketing project manager had message to schedule a follow up appointment for patient with general surgery. marketing project manager sent patients information to the front office staff at general surgery. Patients information will be printed and reviewed. Clinic will call patient with appointment information.
== END 2022-09-23 23:39 | disposition home or self-care (01) ==
PROVIDERS: Emergency Provider Emergency Medicine; PCP Family Medicine
DX: R10.32 Left lower quadrant pain (principal); K92.1 Melena; F17.210 Nicotine dependence, cigarettes, uncomplicated
CPT/HCPCS: 80053; 83690; 84703; 85025; 96374; 96375; 96376; 99285; J2270; J2405

== ENCOUNTER 2022-10-01 09:26 | Emergency (ER) | payer BC, MEDICAID, SELFPAY ==
[2022-10-01 09:31] VITALS: BP 150/100; PULSE 96; RESP 16; TEMP 36.7; O2SAT 95; BMI 27.6
--- NOTE | 2022-10-01 09:40 | W.ED.ABDPA2 ---
Documented by User: AMADOU Coppola 10/01/22 15:42 HPI - Abdominal Pain General: Chief Complaint: Abdominal Pain Stated Complaint: abd pains Time Seen by Provider: 10/01/22 09:28 History of Present Illness: Patient is a 27-year-old female comes to the ED with abdominal pain. 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 patient says her abdominal pains been going on for approximately 1 month. She was seen here in the ED for same complaint back on September 23. Patient rates her pain currently an 8 out of 10 and says her abdominal pain is located in the right lower quadrant of her abdomen. Endorses having nausea and vomiting and states she has trouble keeping any food or fluids down. Patient does state that she has had some red blood in her stool recently as well. Denies any fevers. Associated Symptoms: Reports hematochezia, nausea and vomiting; Denies chills, constipation, diarrhea, dysuria, fever(s) and hematuria Review of Systems Const: Denies: fever(s), chills or fatigue Eyes: Denies: change in vision or eye discomfort ENMT: Denies: throat pain, odynophagia, nasal discharge or nasal congestion Card: Denies: chest pain, palpitations, edema, swelling of feet/ankles, dyspnea on exertion or orthopnea Resp: Denies: dyspnea, productive cough or non-productive cough GI: Reports: abdominal pain, nausea, vomiting and hematochezia; Denies: diarrhea or constipation : Denies: flank pain, dysuria or hematuria Musc: Denies: neck pain, back pain or extremity swelling Skin/Breast: Denies: rash or new lesions Neuro: Denies: headache(s), numbness in extremities or weakness in extremities PFS ED PFSH: Medical History Family history of FAP (familial adenomatous polyposis) Surgical History H/O colectomy H/O ileostomy Hx of cholecystectomy Hx of colonoscopy with polypectomy Social History Smoking and tobacco status: current every day smoker Alcohol intake: never Substance/Drug Use: never Physical Exam Const: COMMON NORMALS: no acute distress, patient oriented x3 and alert HENMT: COMMON NORMALS: normocephalic HEAD & SCALP: normocephalic MOUTH: Normal oral and palatal mucosa present THROAT: posterior oropharynx normal and uvula midline Neck/C-Spine: COMMON NORMALS: supple GENERAL: Yes normal visual inspection Resp: COMMON NORMALS: normal respiratory effort, No retractions, No use of accessory muscles and clear to auscultation bilaterally AUSCULTATION: clear to auscultation bilaterally Cardio: COMMON NORMALS: regular rate, regular rhythm, S1 normal heart sound present, S2 normal heart sound present, No gallops present (Cardio), No clicks present (Cardio), No murmurs present (Cardio) and Peripheral pulses 2+ throughout RATE: regular rate RHYTHM: regular rhythm HEART SOUNDS: S1 normal heart sound present and S2 normal heart sound present PERIPHERAL PULSES: Peripheral pulses 2+ throughout GI: COMMON NORMALS: Normal to inspection, nondistended, normoactive bowel sounds present, Soft to palpation and no masses PALPATION: Yes Soft to palpation and Yes Tenderness to palpation present (GI) Details: RLQ : COMMON NORMALS: Yes no CVA tenderness BLADDER/KIDNEY EXAM: Yes no CVA tenderness Back/Pelvis: COMMON NORMALS: no CVA tenderness Extremity: COMMON NORMALS: normal to inspection Neuro: COMMON NORMALS: patient oriented x3 SENSORIUM/ORIENTATION: Yes alert GAIT: Yes Normal gait present Skin: GENERAL SKIN EXAM: dry skin Course Vital Signs: Vital signs: Vital Signs Temperature 98.1 F 10/01/22 09:31 Pulse Rate 70 10/01/22 13:08 Respiratory Rate 18 10/01/22 13:08 Blood Pressure 110/85 10/01/22 13:08 Pulse Oximetry 98 10/01/22 13:08 Oxygen Delivery Me thod Room Air 10/01/22 10:03 MDM - Abdominal Pain Medical Decision Making Patient is a 27-year-old female comes to the ED with abdominal pain. 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 patient says her abdominal pains been going on for approximately 1 month. She was seen here in the ED for same complaint back on September 23. Patient rates her pain currently an 8 out of 10 and says her abdominal pain is located in the right lower quadrant of her abdomen. Endorses having nausea and vomiting and states she has trouble keeping any food or fluids down. Patient does state that she has had some red blood in her stool recently as well. Denies any fevers. Vitals are stable. Patient appears nontoxic in no acute distress or pain. She does have some right lower quadrant abdominal tenderness but rest of exam is benign. Labs are all unremarkable. CT of abdomen pelvis shows a moderate sized right ovarian cyst. No other acute findings noted. Patient was given IV fluids, pain and nausea meds and her symptoms were controlled. She was able to tolerate p.o. fluids. She was stable for discharge home and diagnosed with right ovarian cyst. Sent home with prescription for nausea med and pain med. Return to ED precautions given. Follow-up with PCP within the next week for reevaluation. Patient understood and agreed with plan. Lab Data I reviewed the patient's lab results. 10/01/22 10:00 10/01/22 10:00 Labs/Radiology: Radiology Impressions Abdomen/Pelvis CT 10/01/22 10:43 IMPRESSION: 1. Moderate size RIGHT ovarian cyst measuring 3.5 x 4.4 cm, (O-RADS 2). 2. Prior rectosigmoid anastomotic sutures. No recurrent mass or obstruction. Moderate fecal retention distal colon. 3. Appendix not visualized. No inflammatory changes in the RIGHT lower quadrant. Laboratory Results WBC 7.9 10^3/uL (4.0-10.0) 10/01/22 10:00 RBC 4.73 10^6/uL (4.1-5.3) 10/01/22 10:00 Hgb 14.8 g/dL (11.5-15.3) 10/01/22 10:00 Hct 43.8 % (37.0-47.0) 10/01/22 10:00 MCV 92.6 fl (81-99) 10/01/22 10:00 MCH 31.3 pg (28.0-34.0) 10/01/22 10:00 MCHC 33.8 g/dL (30.0-36.0) 10/01/22 10:00 RDW 12.0 % (12.1-15.1) L 10/01/22 10:00 Plt Count 176 10^3/cmm (130-400) 10/01/22 10:00 MPV 11.5 fL (7.4-10.4) H 10/01/22 10:00 Neut % (Auto) 70.4 % 10/01/22 10:00 Lymph % (Auto) 18.5 % 10/01/22 10:00 [place] % (Auto) 6.5 % 10/01/22 10:00 Eos % (Auto) 3.5 % 10/01/22 10:00 Baso % (Auto) 0.6 % 10/01/22 10:00 Neut # (Auto) 5.58 10^3/uL (1.8-7.7) 10/01/22 10:00 Lymph # (Auto) 1.5 10^3/uL (0.8-4.8) 10/01/22 10:00 [place] # (Auto) 0.5 10^3/uL (0.2-0.9) 10/01/22 10:00 Eos # (Auto) 0.3 10^3/uL (0.0-0.8) 10/01/22 10:00 Baso # (Auto) 0.1 10^3/uL (0.0-0.1) 10/01/22 10:00 Nucleated RBC % (auto) 0 % 10/01/22 10:00 Nucleated RBCs # 0.0 /100WBC 10/01/22 10:00 Sodium 138 mmol/L (136-145) 10/01/22 10:00 Potassium 4.3 mmol/L (3.5-5.1) 10/01/22 10:00 Chloride 107 mmol/L (98-107) 10/01/22 10:00 Carbon Dioxide 20 mmol/L (22-29) L 10/01/22 10:00 Anion Gap 15.3 (5-19) 10/01/22 10:00 BUN 10 mg/dL (6-20) 10/01/22 10:00 Creatinine 0.6 mg/dL (0.5-0.9) 10/01/22 10:00 GFR Calculation 121.8 mL/min (90-130) 10/01/22 10:00 Glucose 84 mg/dL (65-115) 10/01/22 10:00 Calculated Osmolality 284 mOsm/kg (285-295) L 10/01/22 10:00 Calcium 9.3 mg/dL (8.5-10.5) 10/01/22 10:00 Total Bilirubin 0.2 mg/dL (0.15-1.2) 10/01/22 10:00 AST 16 U/L (0-32) 10/01/22 10:00 ALT 16 U/L (0-33) 10/01/22 10:00 Alkaline Phosphatase 62 U/L (35-105) 10/01/22 10:00 Total Protein 6.5 g/dL (6.6-8.7) L 10/01/22 10:00 Albumin 4.4 g/dL (3.5-5.2) 10/01/22 10:00 Globulin 2.1 g/dL (1.3-4.6) 10/01/22 10:00 Lipase 25 U/L (13-60) 10/01/22 10:00 HCG, Qual Negative (Negative) 10/01/22 10:00 Urine Color Light yellow (Yellow) 10/01/22 11:42 Urine Appearance Sl hazy (CLEAR) A 10/01/22 11:42 Urine pH 5 (5-7) 10/01/22 11:42 Ur Specific [place] 1.010 (1.005-1.030) 10/01/22 11:42 Urine Protein Neg (Negative) 10/01/22 11:42 Urine Glucose (UA) Norm (Normal) 10/01/22 11:42 Urine Ketones Negative (Negative) 10/01/22 11:42 Urine Blood Neg (Negative) 10/01/22 11:42 Urine Nitrate Negative (Negative) 10/01/22 11:42 Urine Bilirubin Neg (Negative) 10/01/22 11:42 Urine Urobilinogen Neg mg/dL (Negative) 10/01/22 11:42 Ur Leukocyte Esterase Trace (Negative) H 10/01/22 11:42 Urine RBC Rare /hpf (0-2) 10/01/22 11:42 Urine WBC 0-4 /hpf (0-5) H 10/01/22 11:42 Ur Squamous Epith Cells 0-4 /hpf (0-5) H 10/01/22 11:42 Amorphous Sediment Not Reportable 10/01/22 11:42 Urine Bacteria None /hpf (NONE) 10/01/22 11:42 Discharge Plan Discharge Patient Disposition: Home Clinical Impression: Right ovarian cyst Condition: Stable Prescriptions: New Reglan 10 mg tablet 10 mg PO Q6H PRN (Reason: nausea and vomiting) Qty: 20 0RF No Action hydrocodone-acetaminophen 5-325 mg tablet 1 tab PO Q6H PRN (Reason: pain) Qty: 14 0RF albuterol sulfate 90 mcg/actuation Hfa Aerosol Inhaler 2 puff INHALATION QID PRN (Reason: Shortness Of Breath Or Wheezing) metformin 500 mg Tablet 500 mg PO BID Symbicort 80-4.5 mcg/actuation Hfa Aerosol Inhaler 2 puff INHALATION BID Discharge Orders: Discharge ED (Routine); Ordered 10/01/22 Ordered By: Sarwat Ceballos Referrals: Rigoberto Ferguson MD [Primary Care Provider] - Discharge Diet: Advance as tolerated and Clear Liquid Discharge Activity: Increase activity as tolerated Patient Instructions: Ovarian Cyst (ED), Opioid Safety Activity Restrictions/Additional Instructions: Follow-up with your PCP or surgical product sales consultant doctor in the next week for reevaluation. Take medications as prescribed. Return to the ER or your medical provider if condition worsens. Please read and understand discharge instructions. Thank you for choosing [facility] for your healthcare needs today. Please realize this is an emergency room and that we are providing you with a medical screening exam and this may not be complete and all inclusive of all the testing and or work up that you may need to determine your ailment or severity of your illness. It is very important that you follow up as instructed or that you return to the Emergency Department should you have concerns or if your condition changes or worsens in any way. Coding Level of Care Code ED Corporate Relations Director for [facility] Documented by User: Gulshan Vela DO 10/01/22 16:00 HPI - Abdominal Pain General: Chief Complaint: Abdominal Pain Stated Complaint: abd pains Time Seen by Provider: 10/01/22 09:28 [facility] ED PFSH: Medical History Family history of FAP (familial adenomatous polyposis) Surgical History H/O colectomy H/O ileostomy Hx of cholecystectomy Hx of colonoscopy with polypectomy Social History Smoking and tobacco status: current every day smoker Alcohol intake: never Substance/Drug Use: never Course Vital Signs: Vital signs: Vital Signs Temperature 98.1 F 10/01/22 09:31 Pulse Rate 70 10/01/22 13:08 Respiratory Rate 18 10/01/22 13:08 Blood Pressure 110/85 10/01/22 13:08 Pulse Oximetry 98 10/01/22 13:08 Oxygen Delivery Me thod Room Air 10/01/22 10:03 MDM - Abdominal Pain Medical Decision Making Patient is a 27-year-old female comes to the ED with abdominal pain. 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 patient says her abdominal pains been going on for approximately 1 month. She was seen here in the ED for same complaint back on September 23. Patient rates her pain currently an 8 out of 10 and says her abdominal pain is located in the right lower quadrant of her abdomen. Endorses having nausea and vomiting and states she has trouble keeping any food or fluids down. Patient does state that she has had some red blood in her stool recently as well. Denies any fevers. Vitals are stable. Patient appears nontoxic in no acute distress or pain. She does have some right lower quadrant abdominal tenderness but rest of exam is benign. Labs are all unremarkable. CT of abdomen pelvis shows a moderate sized right ovarian cyst. No other acute findings noted. Patient was given IV fluids, pain and nausea meds and her symptoms were controlled. She was able to tolerate p.o. fluids. She was stable for discharge home and diagnosed with right ovarian cyst. Sent home with prescription for nausea med and pain med. Return to ED precautions given. Follow-up with PCP within the next week for reevaluation. Patient understood and agreed with plan. Chart reviewed and patient discussed with midlevel. Agree with assessment and plan. Lab Data 10/01/22 10:00 10/01/22 10:00 Labs/Radiology: Radiology Impressions Abdomen/Pelvis CT 10/01/22 10:43 IMPRESSION: 1. Moderate size RIGHT ovarian cyst measuring 3.5 x 4.4 cm, (O-RADS 2). 2. Prior rectosigmoid anastomotic sutures. No recurrent mass or obstruction. Moderate fecal retention distal colon. 3. Appendix not visualized. No inflammatory changes in the RIGHT lower quadrant. Laboratory Results WBC 7.9 10^3/uL (4.0-10.0) 10/01/22 10:00 RBC 4.73 10^6/uL (4.1-5.3) 10/01/22 10:00 Hgb 14.8 g/dL (11.5-15.3) 10/01/22 10:00 Hct 43.8 % (37.0-47.0) 10/01/22 10:00 MCV 92.6 fl (81-99) 10/01/22 10:00 MCH 31.3 pg (28.0-34.0) 10/01/22 10:00 MCHC 33.8 g/dL (30.0-36.0) 10/01/22 10:00 RDW 12.0 % (12.1-15.1) L 10/01/22 10:00 Plt Count 176 10^3/cmm (130-400) 10/01/22 10:00 MPV 11.5 fL (7.4-10.4) H 10/01/22 10:00 Neut % (Auto) 70.4 % 10/01/22 10:00 Lymph % (Auto) 18.5 % 10/01/22 10:00 [place] % (Auto) 6.5 % 10/01/22 10:00 Eos % (Auto) 3.5 % 10/01/22 10:00 Baso % (Auto) 0.6 % 10/01/22 10:00 Neut # (Auto) 5.58 10^3/uL (1.8-7.7) 10/01/22 10:00 Lymph # (Auto) 1.5 10^3/uL (0.8-4.8) 10/01/22 10:00 [place] # (Auto) 0.5 10^3/uL (0.2-0.9) 10/01/22 10:00 Eos # (Auto) 0.3 10^3/uL (0.0-0.8) 10/01/22 10:00 Baso # (Auto) 0.1 10^3/uL (0.0-0.1) 10/01/22 10:00 Nucleated RBC % (auto) 0 % 10/01/22 10:00 Nucleated RBCs # 0.0 /100WBC 10/01/22 10:00 Sodium 138 mmol/L (136-145) 10/01/22 10:00 Potassium 4.3 mmol/L (3.5-5.1) 10/01/22 10:00 Chloride 107 mmol/L (98-107) 10/01/22 10:00 Carbon Dioxide 20 mmol/L (22-29) L 10/01/22 10:00 Anion Gap 15.3 (5-19) 10/01/22 10:00 BUN 10 mg/dL (6-20) 10/01/22 10:00 Creatinine 0.6 mg/dL (0.5-0.9) 10/01/22 10:00 GFR Calculation 121.8 mL/min (90-130) 10/01/22 10:00 Glucose 84 mg/dL (65-115) 10/01/22 10:00 Calculated Osmolality 284 mOsm/kg (285-295) L 10/01/22 10:00 Calcium 9.3 mg/dL (8.5-10.5) 10/01/22 10:00 Total Bilirubin 0.2 mg/dL (0.15-1.2) 10/01/22 10:00 AST 16 U/L (0-32) 10/01/22 10:00 ALT 16 U/L (0-33) 10/01/22 10:00 Alkaline Phosphatase 62 U/L (35-105) 10/01/22 10:00 Total Protein 6.5 g/dL (6.6-8.7) L 10/01/22 10:00 Albumin 4.4 g/dL (3.5-5.2) 10/01/22 10:00 Globulin 2.1 g/dL (1.3-4.6) 10/01/22 10:00 Lipase 25 U/L (13-60) 10/01/22 10:00 HCG, Qual Negative (Negative) 10/01/22 10:00 Urine Color Light yellow (Yellow) 10/01/22 11:42 Urine Appearance Sl hazy (CLEAR) A 10/01/22 11:42 Urine pH 5 (5-7) 10/01/22 11:42 Ur Specific [place] 1.010 (1.005-1.030) 10/01/22 11:42 Urine Protein Neg (Negative) 10/01/22 11:42 Urine Glucose (UA) Norm (Normal) 10/01/22 11:42 Urine Ketones Negative (Negative) 10/01/22 11:42 Urine Blood Neg (Negative) 10/01/22 11:42 Urine Nitrate Negative (Negative) 10/01/22 11:42 Urine Bilirubin Neg (Negative) 10/01/22 11:42 Urine Urobilinogen Neg mg/dL (Negative) 10/01/22 11:42 Ur Leukocyte Esterase Trace (Negative) H 10/01/22 11:42 Urine RBC Rare /hpf (0-2) 10/01/22 11:42 Urine WBC 0-4 /hpf (0-5) H 10/01/22 11:42 Ur Squamous Epith Cells 0-4 /hpf (0-5) H 10/01/22 11:42 Amorphous Sediment Not Reportable 10/01/22 11:42 Urine Bacteria None /hpf (NONE) 10/01/22 11:42 Discharge Plan Discharge Patient Disposition: Home Clinical Impression: Right ovarian cyst Condition: Stable Prescriptions: New Reglan 10 mg tablet 10 mg PO Q6H PRN (Reason: nausea and vomiting) Qty: 20 0RF No Action hydrocodone-acetaminophen 5-325 mg tablet 1 tab PO Q6H PRN (Reason: pain) Qty: 14 0RF albuterol sulfate 90 mcg/actuation Hfa Aerosol Inhaler 2 puff INHALATION QID PRN (Reason: Shortness Of Breath Or Wheezing) metformin 500 mg Tablet 500 mg PO BID Symbicort 80-4.5 mcg/actuation Hfa Aerosol Inhaler 2 puff INHALATION BID Discharge Orders: Discharge ED (Routine); Ordered 10/01/22 Ordered By: Sarwat Ceballos Referrals: Rigoberto Ferguson MD [Primary Care Provider] - Discharge Diet: Advance as tolerated and Clear Liquid Discharge Activity: Increase activity as tolerated Patient Instructions: Ovarian Cyst (ED), Opioid Safety Activity Restrictions/Additional Instructions: Follow-up with your PCP or surgical product sales consultant doctor in the next week for reevaluation. Take medications as prescribed. Return to the ER or your medical provider if condition worsens. Please read and understand discharge instructions. Thank you for choosing [facility] for your healthcare needs today. Please realize this is an emergency room and that we are providing you with a medical screening exam and this may not be complete and all inclusive of all the testing and or work up that you may need to determine your ailment or severity of your illness. It is very important that you follow up as instructed or that you return to the Emergency Department should you have concerns or if your condition changes or worsens in any way. Coding Level of Care Code ED Corporate Relations Director for Yamilet De Souza
[2022-10-01 10:03] VITALS: BP 128/87; PULSE 80; RESP 18; O2SAT 98
[2022-10-01 10:05] VITALS: RESP 18
[2022-10-01] MEDS: sodium chloride 0.9% 1,000 ML 999 ML IV (10:05)
[2022-10-01] MEDS: ondansetron 2 mg/ML SDV 2 mL 4 MG IVP (10:05)
[2022-10-01] MEDS: HYDROmorphone 1 mg/mL INJ 1 mL IVP (10:05)
[2022-10-01 10:23] LABS: Basophils # 0.1 10^3/uL (0.0-0.1); Basophils % 0.6 %; Eosinophils # 0.3 10^3/uL (0.0-0.8); Eosinophils % 3.5 %; Hematocrit 43.8 % (37.0-47.0); Hemoglobin 14.8 g/dL (11.5-15.3); Lymphocytes # 1.5 10^3/uL (0.8-4.8); Lymphocytes % 18.5 %; Mean Corpuscular HGB Conc 33.8 g/dL (30.0-36.0); Mean Corpuscular Hemoglobin 31.3 pg (28.0-34.0); Mean Corpuscular Volume 92.6 fl (81-99); Mean Platelet Volume 11.5 fL (7.4-10.4); Monocytes # 0.5 10^3/uL (0.2-0.9); Monocytes % 6.5 %; Neutrophils # 5.58 10^3/uL (1.8-7.7); Neutrophils % 70.4 %; Nucleated Red Blood Cells % 0 %; Platelet Count 176 10^3/cmm (130-400); Red Blood Count 4.73 10^6/uL (4.1-5.3); White Blood Count 7.9 10^3/uL (4.0-10.0)
[2022-10-01 10:27] LABS: HCG, Serum Qual Negative (Negative)
[2022-10-01 10:35] LABS: Alanine Aminotransferase 16 U/L (0-33); Albumin Level 4.4 g/dL (3.5-5.2); Alkaline Phosphatase 62 U/L (35-105); Blood Urea Nitrogen 10 mg/dL (6-20); Calcium 9.3 mg/dL (8.5-10.5); Carbon Dioxide 20 mmol/L (22-29); Chloride 107 mmol/L (98-107); Creatinine Clr Calc Pharmacy 150.7106; Globulin 2.1 g/dL (1.3-4.6); Glomerular Filtration Rate 121.8 mL/min (90-130); Glucose 84 mg/dL (65-115); Lipase 25 U/L (13-60); Osmolality Calculated 284 mOsm/kg (285-295); Sodium 138 mmol/L (136-145); Total Bilirubin 0.2 mg/dL (0.15-1.2); Total Protein 6.5 g/dL (6.6-8.7)
[2022-10-01 10:39] LABS: Anion Gap 15.3 (5-19); Aspartate Amino Transferase 16 U/L (0-32); Potassium 4.3 mmol/L (3.5-5.1)
--- NOTE | 2022-10-01 10:43 | CT_ITS ---
WS: [id number] CT ABDOMEN AND PELVIS WITH CONTRAST HISTORY: RLQ abdominal pain, n/v TECHNIQUE: Imaging performed of the abdomen and pelvis with IV contrast. Single phase imaging of the abdomen. Coronal and sagittal reformats are submitted. All CT scans at [facility] use at [address] one of these dose optimization techniques: automated exposure control; mA and/or kV adjustment per patient size (includes targeted exams where dose is matched to clinical indication); or iterative re construction. IV CONTRAST: Omnipaque 350; 100 mL IV. Oral contrast: No DLP: 644.62 mGy.cm COMPARISON: 07/26/2022 Lower thorax: Mild dependent changes and hazy attenuation at the lung bases. Normal size heart. No hi atal hernia. Liver/biliary system: Normal size liver. Hepatic steatosis along the falciform ligament. There is faviola y slight central bile duct dilatation. May be on the basis of cholecystectomy. Gallbladder: Status post cholecystectomy. Pancreas: Normal size pancreas and pancreatic duct. No adjacent inflammation. Spleen: Normal size spleen. No mass or infarct. Adrenal glands: Normal. Right kidney: Normal. Left kidney: Normal. Aorta: Normal. Lymphadenopathy: None. Free fluid: None. GI tract: Normal stomach. No small bowel obstruction. Focal dilatation of the proximal small bowel lo op in the RIGHT upper quadrant. May be intermittent dilatation due to peristalsis. The appendix is no t definitely visualized. Rectosigmoid anastomotic sutures are identified. No mass or obstruction. The re is a moderate amount of retained fecal material distally. Abdominal wall: Unremarkable abdominal wall. No hernia. Pelvis: No free fluid or adenopathy within the pelvis. RIGHT adnexal cyst with enhancing wall measure s 3.5 x 4.4 cm. Normal size uterus. Normal size LEFT ovary. Bones: Unremarkable. CT/CT abdomen pelvis w con* [id number] IMPRESSION: 1. Moderate size RIGHT ovarian cyst measuring 3.5 x 4.4 cm, (O-RADS 2). 2. Prior rectosigmoid anastomotic sutures. No recurrent mass or obstruction. M oderate fecal retention distal colon. 3. Appendix not visualized. No inflammatory changes in the RIGHT lower quadran t.
[2022-10-01 10:46] LABS: Slide Review Slide Review Perform
[2022-10-01] MEDS: diphenhydrAMINE 50 mg/mL SDV 1mL IVP (11:02)
[2022-10-01] MEDS: water for injection-sterile SDV 10 mL IVP (11:49)
[2022-10-01 11:55] LABS: Urine Appearance SL Hazy (CLEAR); Urine Color Light yellow (Yellow)
[2022-10-01 11:56] LABS: Add Urine Culture? No; Add Urine Microscopic? YES; Bilirubin Urine Neg (Negative); Blood Urine Neg (Negative); Glucose Urine UA Norm (Normal); Ketones Urine Negative (Negative); Leukocyte Esterase Urine Trace (Negative); Nitrate Urine Negative (Negative); Protein Urine Neg (Negative); RBC Urine RARE /hpf (0-2); Squamous Epithelial Cell Urine 0-4 /hpf (0-5); Urobilinogen Urine Neg (Negative); WBC Urine 0-4 /hpf (0-5); pH Urine 5 (5-7)
[2022-10-01] MEDS: HYDROmorphone 1 mg/mL INJ 1 mL 0.5 MG IVP (12:20)
[2022-10-01 13:08] VITALS: BP 110/85; PULSE 70; RESP 18; O2SAT 98
== END 2022-10-01 12:00 | disposition home or self-care (01) ==
PROVIDERS: Emergency Provider Physician Assistant; PCP Family Medicine
DX: N83.201 Unspecified ovarian cyst, right side (principal); F17.210 Nicotine dependence, cigarettes, uncomplicated
CPT/HCPCS: 74177; 80053; 81001; 83690; 84703; 85025; 96361; 96374; 96375; 96376; 99284; J1170; J1200; J2405; J2920; J7030; Q9967

== ENCOUNTER 2022-10-06 12:39 | Emergency (ER) | payer BC, MEDICAID, SELFPAY ==
[2022-10-06 12:52] VITALS: BP 127/75; PULSE 96; RESP 16; TEMP 36.8; O2SAT 96
--- NOTE | 2022-10-06 13:43 | W.ED.ABDPA2 ---
HPI - Abdominal Pain General: Chief Complaint: Abdominal Pain Stated Complaint: abd pain Time Seen by Provider: 10/06/22 13:26 History of Present Illness: Patient presents to the ER with complaints of right pelvic/abdominal pain. Patient was seen here about 5 days ago diagnosed with a right ovarian cyst per CT. Patient's also having some nausea but no vomiting. Patient says she has a cyst all the time and this pain is no different than the others MD elicited complaint: abdominal pain (Right lower quadrant/right suprapubic) Pertinent past history: other (Strong history of ovarian cysts) Location: RLQ and Suprapubic Severity: moderate Quality: aching Radiation: none Migration to: no migration Exacerbating factors: movement Relieving factors: nothing Context: history of similar episodes Associated Symptoms: Reports nausea; Denies chills and fever(s) Review of Systems General: Reports: 10 or more systems reviewed and unremarkable except in HPI and below Const: Denies: fever(s) or chills Eyes: Denies: change in vision or photophobia ENMT: Denies: throat pain or odynophagia Card: Denies: chest pain, palpitations or edema Resp: Denies: dyspnea or non-productive cough GI: Reports: abdominal pain and nausea : Denies: flank pain or difficulty voiding Musc: Denies: neck pain or back pain Skin/Breast: Denies: rash or pruritus Neuro: Denies: headache(s), numbness in extremities or weakness in extremities PFSH ED PFSH: Medical History (Updated 10/10/22 @ 05:59 by Maverick Monsalve DO) Family history of FAP (familial adenomatous polyposis) Surgical History H/O colectomy H/O ileostomy Hx of cholecystectomy Hx of colonoscopy with polypectomy Family History (Updated 10/09/22 @ 10:01 by Yanelis Jimenez LPN) Family/Other Diabetes Maternal uncle Hypertension Maternal uncle Hyperlipidemia Maternal uncle Colon cancer paternal cousins Mother Hypertension Hyperlipidemia Stroke Father Colon cancer Family/Other No problems noted. Other Breast cancer Ovarian cancer Uterine cancer Denies family history of Heart disease Thyroid condition Physical Exam Const: COMMON NORMALS: no acute distress, average body habitus, patient oriented x3, no limitations, healthy appearing, alert and well nourished HENMT: COMMON NORMALS: normocephalic, atraumatic, hearing grossly normal bilaterally, external ears normal, Normal external nose present and moist oral mucous membranes HEAD & SCALP: normocephalic and atraumatic NOSE: Normal external nose present EXTERNAL EAR: Yes external ears normal Neck/C-Spine: COMMON NORMALS: no JVD Chest: COMMONS NORMALS: normal inspection of the chest and normal palpation of entire chest wall Resp: COMMON NORMALS: normal respiratory effort, No retractions, No use of accessory muscles and clear to auscultation bilaterally AUSCULTATION: clear to auscultation bilaterally Cardio: COMMON NORMALS: no JVD, regular rate, regular rhythm, S1 normal heart sound present, S2 normal heart sound present, No gallops present (Cardio), No clicks present (Cardio), No murmurs present (Cardio) and No rub (Cardio) RATE: regular rate RHYTHM: regular rhythm HEART SOUNDS: S1 normal heart sound present and S2 normal heart sound present GI: COMMON NORMALS: Normal to inspection, nondistended, normoactive bowel sounds present, Soft to palpation, No hepatosplenomegaly present and no masses PALPATION: Yes Soft to palpation, Yes Tenderness to palpation present (GI) Details: RLQ, Yes No hepatosplenomegaly present, No Hepatomegaly present, No Splenomegaly present, No Palpable mass present and No Rebound tenderness present : COMMON NORMALS: Yes no CVA tenderness BLADDER/KIDNEY EXAM: Yes no CVA tenderness Back/Pelvis: COMMON NORMALS: no CVA tenderness Neuro: COMMON NORMALS: patient oriented x3 SENSORIUM/ORIENTATION: Yes alert Course Vital Signs: Vital signs: Vital Signs Temperature 98.3 F 10/06/22 12:52 Pulse Rate 90 10/06/22 14:41 Respiratory Rate 14 10/06/22 14:41 Blood Pressure 119/84 10/06/22 14:41 Pulse Oximetry 97 10/06/22 14:41 Oxygen Delivery Me thod Room Air 10/06/22 12:52 MDM - Abdominal Pain Medical Decision Making Patient left AGAINST MEDICAL ADVICE after she received pain medicine Differential Diagnosis Likely abdominal pain; Unlikely acute appendicitis, calculus of kidney, constipation, diverticulitis, endometriosis, gastroenteritis, pancreatitis or small bowel obstruction Medical Records I reviewed the patient's medical records. Lab Data I reviewed the patient's lab results. Labs/Radiology: Laboratory Results Urine Color Yellow (Yellow) 10/06/22 14:15 Urine Appearance Cloudy (CLEAR) A 10/06/22 14:15 Urine pH 5 (5-7) 10/06/22 14:15 Ur Specific [place] 1.030 (1.005-1.030) 10/06/22 14:15 Urine Protein Neg (Negative) 10/06/22 14:15 Urine Glucose (UA) Norm (Normal) 10/06/22 14:15 Urine Ketones Negative (Negative) 10/06/22 14:15 Urine Blood Neg (Negative) 10/06/22 14:15 Urine Nitrate Negative (Negative) 10/06/22 14:15 Urine Bilirubin Neg (Negative) 10/06/22 14:15 Urine Urobilinogen Norm mg/dL (Negative) 10/06/22 14:15 Ur Leukocyte Esterase 1+ (Negative) H 10/06/22 14:15 Urine RBC 10-15 /hpf (0-2) H 10/06/22 14:15 Urine WBC 15-25 /hpf (0-5) H 10/06/22 14:15 Ur Squamous Epith Cells 25-40 /hpf (0-5) H 10/06/22 14:15 Amorphous Sediment Not Reportable 10/06/22 14:15 Urine Bacteria Trace /hpf (NONE) 10/06/22 14:15 Discharge Plan Discharge Patient Disposition: Left Against Medical Advice Clinical Impression: Ovarian cyst Condition: Stable Prescriptions: No Action hydrocodone-acetaminophen 5-325 mg tablet 1 tab PO Q6H PRN (Reason: pain) Qty: 14 0RF albuterol sulfate 90 mcg/actuation Hfa Aerosol Inhaler 2 puff INHALATION QID PRN (Reason: Shortness Of Breath Or Wheezing) metformin 500 mg Tablet 500 mg PO BID Symbicort 80-4.5 mcg/actuation Hfa Aerosol Inhaler 2 puff INHALATION BID Reglan 10 mg tablet 10 mg PO Q6H PRN (Reason: nausea and vomiting) Qty: 20 0RF Referrals: Rigoberto Freguson MD [Primary Care Provider] - Coding Level of Care Code ED Starting Sheet Tank Operator for Chg Nolvia
[2022-10-06 13:54] VITALS: BP 127/95; PULSE 100; O2SAT 96
[2022-10-06] MEDS: promethazine 25 mg/mL SDV 1 mL IM (13:54)
[2022-10-06] MEDS: ketorolac 60 mg/2 mL INJ IM (13:54)
--- NOTE | 2022-10-06 14:40 | PC.NURSE ---
pt reported to tech she wnted to leave because we werent doing anything for her , rn to room informed PT we had medicated her and was waiting on Urine sample. pt reported she wanted to leave AMA. AMA waiver signed, pt left in NAD VSS
[2022-10-06 14:41] VITALS: BP 119/84; PULSE 90; RESP 14; O2SAT 97
[2022-10-06 14:42] LABS: Add Urine Microscopic? YES; Bilirubin Urine Neg (Negative); Blood Urine Neg (Negative); Glucose Urine UA Norm (Normal); Ketones Urine Negative (Negative); Leukocyte Esterase Urine 1+ (Negative); Nitrate Urine Negative (Negative); Protein Urine Neg (Negative); Urine Appearance Cloudy (CLEAR); Urine Color Yellow (Yellow); Urobilinogen Urine Norm (Negative); pH Urine 5 (5-7)
[2022-10-06 14:43] LABS: Bacteria Urine TRACE /hpf; Squamous Epithelial Cell Urine 25-40 /hpf (0-5); WBC Urine 15-25 /hpf (0-5)
== END 2022-10-06 14:42 | disposition left against medical advice (07) ==
PROVIDERS: Emergency Provider Emergency Medicine; PCP Family Medicine
DX: N83.209 Unspecified ovarian cyst, unspecified side (principal); Z79.84 Long term (current) use of oral hypoglycemic drugs; Z53.21 Procedure and treatment not carried out due to patient leaving prior to being seen by health care provider
CPT/HCPCS: 81001; 96372; 99284; J1885; J2550

== ENCOUNTER 2022-10-14 18:59 | Emergency (ER) | payer BC, MEDICAID, SELFPAY ==
[2022-10-14] VITALS (8 sets, daily range): BP systolic 118–142; BP diastolic 78–103; PULSE 72–88; RESP 16–18; TEMP 36.8; O2SAT 95–98; BMI 27.4
[2022-10-14 19:53] LABS: Basophils # 0.1 10^3/uL (0.0-0.1); Basophils % 0.6 %; Eosinophils # 0.3 10^3/uL (0.0-0.8); Eosinophils % 2.7 %; Hematocrit 42.9 % (37.0-47.0); Hemoglobin 14.8 g/dL (11.5-15.3); Mean Corpuscular HGB Conc 34.5 g/dL (30.0-36.0); Mean Corpuscular Hemoglobin 31.1 pg (28.0-34.0); Mean Corpuscular Volume 90.1 fl (81-99); Mean Platelet Volume 10.8 fL (7.4-10.4); Monocytes # 0.6 10^3/uL (0.2-0.9); Monocytes % 5.4 %; Neutrophils # 7.16 10^3/uL (1.8-7.7); Neutrophils % 70.9 %; Nucleated Red Blood Cells % 0 %; Platelet Count 244 10^3/cmm (130-400); Red Blood Count 4.76 10^6/uL (4.1-5.3); Red Cell Distribution Width 11.9 % (12.1-15.1); White Blood Count 10.1 10^3/uL (4.0-10.0)
--- NOTE | 2022-10-14 19:53 | ED_ITS ---
HPI - Abdominal Pain General: Chief Complaint: Abdominal Pain Stated Complaint: ABD Pain Time Seen by Provider: 10/14/22 19:41 History of Present Illness: Ms. 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 She notes few month history of blood in stool and abdominal pain for few weeks. She is scheduled for endoscopy on the of this coming month however began having lightheadedness and presyncopal type feeling earlier today. She denies infectious symptoms or other focal neurologic symptoms. Moderate intensity symptoms. No other specific changes in health, exacerbating, or alleviating factors identified. Onset (ago): month(s) Severity: moderate Exacerbating factors: nothing Relieving factors: nothing Associated Symptoms: Reports hematochezia and other; Denies hematemesis Review of Systems General: Reports: 10 or more systems reviewed and unremarkable except in HPI and below GI: Reports: hematochezia and other; Denies: hematemesis PFSH ED PFSH: Medical History Family history of FAP (familial adenomatous polyposis) Surgical History H/O colectomy H/O ileostomy Hx of cholecystectomy Hx of colonoscopy with polypectomy Family History Family/Other Diabetes Maternal uncle Hypertension Maternal uncle Hyperlipidemia Maternal uncle Colon cancer paternal cousins Mother Hypertension Hyperlipidemia Stroke Father Colon cancer Family/Other No problems noted. Other Breast cancer Ovarian cancer Uterine cancer Denies family history of Heart disease Thyroid condition Physical Exam Const: COMMON NORMALS: alert GENERAL APPEARANCE: cooperative and well developed HENMT: COMMON NORMALS: normocephalic and atraumatic HEAD & SCALP: normocephalic and atraumatic Eye: COMMON NORMALS: conjunctivae normal CONJUNCTIVA: Yes conjunctivae normal SCLERA: sclerae normal Neck/C-Spine: COMMON NORMALS: supple GENERAL: Yes trachea midline Resp: COMMON NORMALS: clear to auscultation bilaterally EFFORT & INSPECTION: Yes able to speak in complete sentences AUSCULTATION: clear to auscultation bilaterally Cardio: COMMON NORMALS: regular rate and regular rhythm RATE: regular rate RHYTHM: regular rhythm GI: COMMON NORMALS: Soft to palpation PALPATION: Yes Soft to palpation and No Tenderness to palpation present (GI) Extremity: GENERAL: Yes normal exam except as noted and No edema Neuro: COMMON NORMALS: moves all extremities SENSORIUM/ORIENTATION: Yes alert and No Orientation impaired Psych: COMMON NORMALS: mental status grossly normal and Normal thought process present THOUGHT PROCESS: Normal thought process present Course Vital Signs: Vital signs: Vital Signs Temperature 98.2 F 10/14/22 19:10 Pulse Rate 85 10/14/22 22:35 Respiratory Rate 18 10/14/22 22:35 Blood Pressure 139/91 10/14/22 22:35 Pulse Oximetry 97 10/14/22 22:35 Oxygen Delivery Me thod Room Air 10/14/22 22:20 MDM - Abdominal Pain Medical Decision Making 27-year-old lady with past surgical history presenting with months of change in bowel habits with concern over GI bleeding. Does endorse presyncopal episode earlier. No focal neurologic deficits. Vitals are satisfactory. Patient appears warm and well-perfused. Labs with normal hemoglobin and platelet count. Coags are normal. Metabolic panel with perhaps mild dehydration. hCG negative. No UTI. Patient had CT on 10/01 which was reviewed. Given abdominal exam and provided clinical history I do not feel that repeat is necessary at this time. Patient treated with fluids and analgesia. Also albuterol treatment for wheezing. Patient is appropriate for continued plan for outpatient endoscopy. The results of ED evaluation were discussed with the patient including prescriptions and/or symptomatic cares (if applicable) including appropriate and responsible use, followup plan, and return precautions. The patient verbalized understanding and felt safe for discharge. Medical Records I reviewed the patient's medical records. Lab Data I reviewed the patient's lab results. 10/14/22 19:43 10/14/22 19:43 Labs/Radiology: Laboratory Results WBC 10.1 10^3/uL (4.0-10.0) H 10/14/22 19:43 RBC 4.76 10^6/uL (4.1-5.3) 10/14/22 19:43 Hgb 14.8 g/dL (11.5-15.3) 10/14/22 19: Hct 42.9 % (37.0-47.0) 10/14/22 19:43 MCV 90.1 fl (81-99) 10/14/22 19:43 MCH 31.1 pg (28.0-34.0) 10/14/22 19:43 MCHC 34.5 g/dL (30.0-36.0) 10/14/22 19:43 RDW 11.9 % (12.1-15.1) L 10/14/22 19:43 Plt Count 244 10^3/cmm (130-400) 10/14/22 19:43 MPV 10.8 fL (7.4-10.4) H 10/14/22 19:43 Neut % (Auto) 70.9 % 10/14/22 19:43 Lymph % (Auto) 20.0 % 10/14/22 19:43 Morgan % (Auto) 5.4 % 10/14/22 19:43 Eos % (Auto) 2.7 % 10/14/22 19:43 Baso % (Auto) 0.6 % 10/14/22 19:43 Neut # (Auto) 7.16 10^3/uL (1.8-7.7) 10/14/22 19:43 Lymph # (Auto) 2.0 10^3/uL (0.8-4.8) 10/14/22 19:43 Morgan # (Auto) 0.6 10^3/uL (0.2-0.9) 10/14/22 19:43 Eos # (Auto) 0.3 10^3/uL (0.0-0.8) 10/14/22 19:43 Baso # (Auto) 0.1 10^3/uL (0.0-0.1) 10/14/22 19:43 Nucleated RBC % (auto) 0 % 10/14/22 19:43 Nucleated RBCs # 0.0 /100WBC 10/14/22 19:43 PT 12.40 SECONDS (12.1-14.9) 10/14/22 19:43 INR 0.90 (0.8-1.2) 10/14/22 19:43 Sodium 137 mmol/L (136-145) 10/14/22 19:43 Potassium 3.9 mmol/L (3.5-5.1) 10/14/22 19:43 Chloride 107 mmol/L (98-107) 10/14/22 19:43 Carbon Dioxide 19 mmol/L (22-29) L 10/14/22 19:43 Anion Gap 14.9 (5-19) 10/14/22 19:43 BUN 9 mg/dL (6-20) 10/14/22 19:43 Creatinine 0.8 mg/dL (0.5-0.9) 10/14/22 19:43 GFR Calculation 87.4 mL/min (90-130) L 10/14/22 19:43 Glucose 87 mg/dL (65-115) 10/14/22 19:43 Calculated Osmolality 282 mOsm/kg (285-295) L 10/14/22 19:43 Calcium 8.7 mg/dL (8.5-10.5) 10/14/22 19:43 Total Bilirubin 0.2 mg/dL (0.15-1.2) 10/14/22 19:43 AST 16 U/L (0-32) 10/14/22 19:43 ALT 22 U/L (0-33) 10/14/22 19:43 Alkaline Phosphatase 76 U/L (35-105) 10/14/22 19:43 Total Protein 7.0 g/dL (6.6-8.7) 10/14/22 19:43 Albumin 4.5 g/dL (3.5-5.2) 10/14/22 19:43 Globulin 2.5 g/dL (1.3-4.6) 10/14/22 19:43 Lipase 28 U/L (13-60) 10/14/22 19:43 HCG, Qual Negative (Negative) 10/14/22 19:43 Urine Color Yellow (Yellow) 10/14/22 21:28 Urine Appearance Clear (CLEAR) 10/14/22 21:28 Urine pH 5 (5-7) 10/14/22 21:28 Ur Specific [place] 1.020 (1.005-1.030) 10/14/22 21:28 Urine Protein Neg (Negative) 10/14/22 21:28 Urine Glucose (UA) Norm (Normal) 10/14/22 21:28 Urine Ketones Negative (Negative) 10/14/22 21:28 Urine Blood Neg (Negative) 10/14/22 21:28 Urine Nitrate Negative (Negative) 10/14/22 21:28 Urine Bilirubin Neg (Negative) 05/31/23 21:28 Urine Urobilinogen Norm mg/dL (Negative) 10/14/22 21:28 Ur Leukocyte Esterase Negative (Negative) 10/14/22 21:28 Urine RBC 5-10 /hpf (0-2) H 10/14/22 21:28 Urine WBC 0-4 /hpf (0-5) H 10/14/22 21:28 Ur Squamous Epith Cells 0-4 /hpf (0-5) H 10/14/22 21:28 Amorphous Sediment Not Reportable 10/14/22 21:28 Urine Bacteria Not Reportable 10/14/22 21:28 Urine Mucus 2+ /hpf 10/14/22 21:28 Discharge Plan Discharge Patient Disposition: Home Clinical Impression: Abdominal pain, Blood in stool Condition: Stable Prescriptions: New omeprazole 40 mg capsule,delayed release(DR/EC) 40 mg PO DAILY 28 Days Qty: 28 0RF clarithromycin 500 mg tablet 500 mg PO BID 14 Days Qty: 28 0RF metronidazole 500 mg tablet 500 mg PO BID 14 Days Qty: 28 0RF No Action hydrocodone-acetaminophen 5-325 mg tablet 1 tab PO Q6H PRN (Reason: pain) Qty: 14 0RF ondansetron 4 mg tablet,disintegrating 4 mg PO Q8H PRN (Reason: nausea and vomiting) Qty: 15 0RF Miralax 17 gram/dose powder 17 g PO TID PRN (Reason: constipation) Qty: 238 0RF Rx Instructions: One to Three times daily adjusted for multiple apple sauce consistency stools albuterol sulfate 90 mcg/actuation Hfa Aerosol Inhaler 2 puff INHALATION QID PRN (Reason: Shortness Of Breath Or Wheezing) metformin 500 mg Tablet 500 mg PO BID Symbicort 80-4.5 mcg/actuation Hfa Aerosol Inhaler 2 puff INHALATION BID Reglan 10 mg tablet 10 mg PO Q6H PRN (Reason: nausea and vomiting) Qty: 20 0RF Discharge Orders: Discharge ED (Routine); Ordered 10/14/22 Ordered By: Josias Ortiz Referrals: Rigoberto Ferguson MD [Primary Care Provider] - Discharge Diet: Advance as tolerated and Clear Liquid Discharge Activity: Increase activity as tolerated Patient Instructions: Gastrointestinal Bleeding (ED), Diet for Stomach Ulcers and Gastritis (ED), Abdominal Pain (ED), Opioid Safety Activity Restrictions/Additional Instructions: Thank you for visiting the emergency department. You were seen and evaluated for abdominal pain and blood in stool. The exact cause of your symptoms is unclear. Based on ED evaluation I believe that continued outpatient management is appropriate. I will treat empirically for possible H. pylori infection and peptic ulcer disease. Please follow-up with your primary care provider. Return to the emergency department for uncontrolled symptoms or anything else that you are concerned about and feel needs emergency department evaluation. Coding Level of Care Code ED Medical Transcription Supervisor for Yamilet De Souza
[2022-10-14 20:11] LABS: Alanine Aminotransferase 22 U/L (0-33); Albumin Level 4.5 g/dL (3.5-5.2); Alkaline Phosphatase 76 U/L (35-105); Anion Gap 14.9 (5-19); Aspartate Amino Transferase 16 U/L (0-32); Blood Urea Nitrogen 9 mg/dL (6-20); Calcium 8.7 mg/dL (8.5-10.5); Carbon Dioxide 19 mmol/L (22-29); Chloride 107 mmol/L (98-107); Glomerular Filtration Rate 87.4 mL/min (90-130); Glucose 87 mg/dL (65-115); HCG, Serum Qual Negative (Negative); Lipase 28 U/L (13-60); Osmolality Calculated 282 mOsm/kg (285-295); Potassium 3.9 mmol/L (3.5-5.1); Sodium 137 mmol/L (136-145); Total Bilirubin 0.2 mg/dL (0.15-1.2)
[2022-10-14] MEDS: lactated ringers 1,000 ML 999 ML IV (20:45)
[2022-10-14] MEDS: morphine 4 mg/mL SDV 1 mL IVP (20:56)
[2022-10-14 20:58] LABS: Globulin 2.5 g/dL (1.3-4.6)
[2022-10-14 21:43] LABS: Add Urine Microscopic? YES; Bilirubin Urine Neg (Negative); Blood Urine Neg (Negative); Glucose Urine UA Norm (Normal); Ketones Urine Negative (Negative); Leukocyte Esterase Urine Negative (Negative); Nitrate Urine Negative (Negative); Protein Urine Neg (Negative); Urine Appearance Clear (CLEAR); Urine Color Yellow (Yellow); Urobilinogen Urine Norm (Negative); WBC Urine 0-4 /hpf (0-5); pH Urine 5 (5-7)
[2022-10-14 21:44] LABS: Add Urine Culture? No; Mucus Urine 2+ /hpf; Squamous Epithelial Cell Urine 0-4 /hpf (0-5)
[2022-10-14] MEDS: lidocaine 2% viscous 15 ML, aluminum-mag hydrox-simethicon 30 ML, sucralfate oral liq 1 GM PO (22:01)
[2022-10-14] MEDS: ipratropium-albuterol 3 mL Neb INHALATION (22:19)
== END 2022-10-14 22:39 | disposition home or self-care (01) ==
PROVIDERS: Emergency Provider Emergency Medicine; PCP Family Medicine
DX: K92.1 Melena (principal); Z79.84 Long term (current) use of oral hypoglycemic drugs; R10.9 Unspecified abdominal pain
CPT/HCPCS: 36415; 80053; 81001; 83690; 84703; 85025; 85610; 94640; 96361; 96374; 99284; J2270; J7120

== ENCOUNTER 2022-10-16 22:13 | Emergency (ER) | payer BC, MEDICAID, SELFPAY ==
[2022-10-16 22:25] VITALS: BP 151/103; PULSE 85; RESP 18; TEMP 36.9; O2SAT 99; BMI 27.4
--- NOTE | 2022-10-16 23:03 | W.ED.SYNCOPE ---
HPI - Syncope General: Chief Complaint: Syncope Stated Complaint: syncope Time Seen by Provider: 10/16/22 23:03 Limitations: altered mental status History of Present Illness: 27-year-old lady presenting due to altered mental status. She has recently been seen multiple times for abdominal pain and apparently was incidentally. She had near syncope in the end episode of confusion as reported by friends. Patient himself continues to have mild confusion however no focal neurologic deficits. History otherwise limited by patient factors/mental state. Review of Systems General: Reports: ROS unobtainable due to mental status PFSH ED PFSH: Medical History Family history of FAP (familial adenomatous polyposis) Surgical History H/O colectomy H/O ileostomy Hx of cholecystectomy Hx of colonoscopy with polypectomy Family History Family/Other Diabetes Maternal uncle Hypertension Maternal uncle Hyperlipidemia Maternal uncle Colon cancer paternal cousins Mother Hypertension Hyperlipidemia Stroke Father Colon cancer Family/Other No problems noted. Other Breast cancer Ovarian cancer Uterine cancer Denies family history of Heart disease Thyroid condition Physical Exam Const: COMMON NORMALS: patient oriented x3 and alert GENERAL APPEARANCE: cooperative and well developed HENMT: COMMON NORMALS: normocephalic and atraumatic HEAD & SCALP: normocephalic and atraumatic THROAT: posterior oropharynx normal Eye: COMMON NORMALS: conjunctivae normal CONJUNCTIVA: Yes conjunctivae normal SCLERA: sclerae normal Neck/C-Spine: COMMON NORMALS: supple and no meningeal signs GENERAL: Yes trachea midline Resp: COMMON NORMALS: clear to auscultation bilaterally EFFORT & INSPECTION: Yes able to speak in complete sentences AUSCULTATION: clear to auscultation bilaterally Cardio: COMMON NORMALS: regular rate and regular rhythm RATE: regular rate RHYTHM: regular rhythm GI: COMMON NORMALS: Soft to palpation PALPATION: Yes Soft to palpation, Yes Tenderness to palpation present (GI), No Guarding due to palpation present (GI) and No Rigid due to palpation Extremity: GENERAL: Yes normal exam except as noted and No edema Neuro: COMMON NORMALS: patient oriented x3, CN's II-XII intact bilaterally, moves all extremities, no focal motor deficits and no sensory deficits noted SENSORIUM/ORIENTATION: Yes alert and No Orientation impaired MENINGEAL SIGNS: Yes no meningeal signs Course Vital Signs: Vital signs: Vital Signs Temperature 98.4 F 10/17/22 04:12 Pulse Rate 89 10/17/22 04:12 Respiratory Rate 16 10/17/22 04:12 Blood Pressure 111/86 10/17/22 04:12 Pulse Oximetry 97 10/17/22 04:12 MDM - Syncope Medical Decision Making 27-year lady presenting with episode of confusion with possible presyncope. Continues to be somewhat altered appearing without focal neurologic deficits. She is nontoxic. Labs with minimal leukocytosis, normal hemoglobin and platelet count. Metabolic panel without acute arrangement to explain symptoms. Urinalysis is negative. Toxic ingestions are negative with exception of UDS for opioids which may be secondary to iatrogenic administration. Head CT negative. Chest x-ray with no lobar consolidation or pneumothorax. CT abdomen pelvis notes possible gastritis and constipation. Incidental findings noted. Clinically patient does not have pneumonia. Patient treated with analgesia, given and was improved. Also given enema. Plan to continue to treat for constipation at home. Exact etiology of symptoms is unclear however does not appear to need hospitalization at this time. The results of ED evaluation were discussed with the patient including prescriptions and/or symptomatic cares (if applicable) including appropriate and responsible use, followup plan, and return precautions. The patient verbalized understanding and felt safe for discharge. Medical Records I reviewed the patient's medical records. Lab Data I reviewed the patient's lab results. 10/16/22 23:21 10/16/22 23:21 Radiology Impressions Abdomen/Pelvis CT 10/16/22 23:10 IMPRESSION: 1. Prominent fluid in the stomach may reflect a gastritis in the appropriate clinical setting. 2. Left lower lobe atelectasis versus minimal infiltrate. 3. Cholecystectomy. 4. Constipation with large amount of stool in the rectal vault. Chest X-Ray 10/16/22 23:10 IMPRESSION: No acute findings. Head CT 10/16/22 23:10 IMPRESSION: No acute intracranial abnormality. Laboratory Results WBC 11.5 10^3/uL (4.0-10.0) H 10/16/22 23:21 RBC 4.52 10^6/uL (4.1-5.3) 10/16/22 23:21 Hgb 13.9 g/dL (11.5-15.3) 10/16/22 23:21 Hct 41.3 % (37.0-47.0) 10/16/22 23:21 MCV 91.4 fl (81-99) 10/16/22 23:21 MCH 30.8 pg (28.0-34.0) 10/16/22 23:21 MCHC 33.7 g/dL (30.0-36.0) 10/16/22 23:21 RDW 12.0 % (12.1-15.1) L 10/16/22 23:21 Plt Count 252 10^3/cmm (130-400) 10/16/22 23:21 MPV 11.2 fL (7.4-10.4) H 10/16/22 23:21 Neut % (Auto) 69.2 % 10/16/22 23:21 Lymph % (Auto) 21.2 % 10/16/22 23:21 [place] % (Auto) 5.8 % 10/16/22 23:21 Eos % (Auto) 2.9 % 10/16/22 23:21 Baso % (Auto) 0.6 % 10/16/22 23:21 Neut # (Auto) 7.99 10^3/uL (1.8-7.7) H 10/16/22 23:21 Lymph # (Auto) 2.4 10^3/uL (0.8-4.8) 10/16/22 23:21 [place] # (Auto) 0.7 10^3/uL (0.2-0.9) 10/16/22 23:21 Eos # (Auto) 0.3 10^3/uL (0.0-0.8) 10/16/22 23:21 Baso # (Auto) 0.1 10^3/uL (0.0-0.1) 10/16/22 23:21 Nucleated RBC % (auto) 0 % 10/16/22 23: Nucleated RBCs # 0.0 /100WBC 10/16/22 23:21 Sodium 140 mmol/L (136-145) 10/16/22 23:21 Potassium 3.9 mmol/L (3.5-5.1) 10/16/22 23:21 Chloride 109 mmol/L (98-107) H 10/16/22 23:21 Carbon Dioxide 20 mmol/L (22-29) L 10/16/22 23:21 Anion Gap 14.9 (5-19) 10/16/22 23:21 BUN 6 mg/dL (6-20) 10/16/22 23:21 Creatinine 0.7 mg/dL (0.5-0.9) 10/16/22 23:21 GFR Calculation 102.0 mL/min (90-130) 10/16/22 23:21 Glucose 83 mg/dL (65-115) 10/16/22 23:21 POC Glucose 93 mg/dL (70-110) 10/16/22 23:23 Calculated Osmolality 287 mOsm/kg (285-295) 10/16/22 23:21 Calcium 8.9 mg/dL (8.5-10.5) 10/16/22 23:21 Magnesium 1.9 mg/dL (1.7-2.3) 10/16/22 23:21 Total Bilirubin 0.2 mg/dL (0.15-1.2) 10/16/22 23:21 AST 13 U/L (0-32) 10/16/22 23:21 ALT 16 U/L (0-33) 10/16/22 23:21 Alkaline Phosphatase 71 U/L (35-105) 10/16/22 23:21 Total Protein 6.9 g/dL (6.6-8.7) 10/16/22 23:21 Albumin 4.6 g/dL (3.5-5.2) 10/16/22 23:21 Globulin 2.3 g/dL (1.3-4.6) 10/16/22 23:21 Urine Color Yellow (Yellow) 10/17/22 00:04 Urine Appearance Clear (CLEAR) 10/17/22 00:04 Urine pH 5 (5-7) 10/17/22 00:04 Ur Specific [place] 1.025 (1.005-1.030) 10/17/22 00:04 Urine Protein Neg (Negative) 10/17/22 00:04 Urine Glucose (UA) Norm (Normal) 10/17/22 00:04 Urine Ketones Negative (Negative) 10/17/22 00:04 Urine Blood Neg (Negative) 10/17/22 00:04 Urine Nitrate Negative (Negative) 10/17/22 00:04 Urine Bilirubin Neg (Negative) 10/17/22 00:04 Urine Urobilinogen Norm mg/dL (Negative) 10/17/22 00:04 Ur Leukocyte Esterase Negative (Negative) 10/17/22 00:04 Salicylates < 0.3 mg/dL (3-10) L 10/16/22 23:21 Urine Opiates Screen Positive ng/mL (Negative) H 10/17/22 00:04 Acetaminophen < 5.0 ug/mL (10-30) L 10/16/22 23:21 Ur Barbiturates Screen Negative ng/mL (Negative) 10/17/22 00:04 Ur Phencyclidine Scrn Negative ng/mL (Negative) 10/17/22 00:04 Ur Amphetamines Screen Negative ng/mL (Negative) 10/17/22 00:04 U Benzodiazepines Scrn Negative ng/mL (Negative) 10/17/22 00:04 Urine Cocaine Screen Negative ng/mL (Negative) 10/17/22 00:04 U Marijuana (THC) Screen Negative ng/mL (Negative) 10/17/22 00:04 Ethyl Alcohol < 10 mg/dL (0-10) 10/16/22 23:21 Discharge Plan Discharge Patient Disposition: Home Clinical Impression: Constipation, Enteritis, Syncope, Altered mental status Condition: Stable Prescriptions: New ondansetron 4 mg tablet,disintegrating 4 mg PO Q8H PRN (Reason: nausea and vomiting) Qty: 15 0RF Miralax 17 gram/dose powder 17 g PO TID PRN (Reason: constipation) Qty: 238 0RF Rx Instructions: One to Three times daily adjusted for multiple apple sauce consistency stools No Action hydrocodone-acetaminophen 5-325 mg tablet 1 tab PO Q6H PRN (Reason: pain) Qty: 14 0RF albuterol sulfate 90 mcg/actuation Hfa Aerosol Inhaler 2 puff INHALATION QID PRN (Reason: Shortness Of Breath Or Wheezing) metformin 500 mg Tablet 500 mg PO BID Symbicort 80-4.5 mcg/actuation Hfa Aerosol Inhaler 2 puff INHALATION BID Reglan 10 mg tablet 10 mg PO Q6H PRN (Reason: nausea and vomiting) Qty: 20 0RF omeprazole 40 mg capsule,delayed release(DR/EC) 40 mg PO DAILY 28 Days Qty: 28 0RF Discharge Orders: Discharge ED (Routine); Ordered 10/17/22 Ordered By: Josias Ortiz Other Ambulatory Orders: ECG holter monitor 7 Days (Routine) Timeframe: 3 Days Facility: [facility] - Location: Radiology Ordered By: Josias Ortiz Referrals: Rigoberto Ferguson MD [Primary Care Provider] - Discharge Diet: Clear Liquid Discharge Activity: Increase activity as tolerated Patient Instructions: Constipation (ED), Syncope (ED), Abdominal Pain (ED), Opioid Safety Activity Restrictions/Additional Instructions: Thank you for visiting the emergency department. You were seen and evaluated for abdominal pain. The exact cause of your symptoms is unclear however may be related to enteritis and constipation. The episode of syncope and mental status change is also somewhat unclear however does not appear to need hospitalization at this time. I will order an outpatient property assessment monitor. I recommend clear liquid diet. For constipation I recommend MiraLAX 1-3 times daily for goal of multiple applesauce consistency stools per day. Please ensure that you are drinking electrolyte solution to stay hydrated. Follow-up with your primary care provider. Continue previously prescribed medications. Return for anything that you are concerned about and feel needs emergency department evaluation. Coding Level of Care Code ED Human Services Instructor for Yamilet De Souza
--- NOTE | 2022-10-16 23:10 | XRR_ITS ---
PROCEDURE INFORMATION: Exam: XR Chest Exam date and time: 10/16/2022 11:24 PM Age: 27 years old Clinical indication: Other: Syncopal episode; Additional info: Syncope TECHNIQUE: Imaging protocol: Radiologic exam of the chest. Views: 1 view. COMPARISON: CR XR chest 1V portable [id number] 03/10/2022 1:35 PM FINDINGS: Lungs: Unremarkable. No consolidation. Pleural spaces: Unremarkable. No pleural effusion. No pneumothorax. Heart/Mediastinum: Unremarkable. No cardiomegaly. Bones/joints: Unremarkable. XR/XR chest 1V portable [id number] IMPRESSION: No acute findings.
--- NOTE | 2022-10-16 23:10 | CTR_ITS ---
PROCEDURE INFORMATION: Exam: CT Abdomen And Pelvis Without Contrast Exam date and time: 10/16/2022 11:40 PM Age: 27 years old Clinical indication: Abdominal pain; Generalized; Prior surgery; Surgery date: 6+ months; Surgery type: Gb. Ileostomy. Colectomy. Patient HX: C/O diffuse abd pain; Additional info: Syncope, AMS, abd pain TECHNIQUE: Imaging protocol: Computed tomography of the abdomen and pelvis without contrast. Radiation optimization: All CT scans at this facility use at least one of these dose optimization techniques: automated exposure control; mA and/or kV adjustment per patient size (includes targeted exams where dose is matched to clinical indication); or iterative reconstruction. REPORTING DATA: Count of CT and Cardiac NM exams in prior 12 months: This patient has received 10 known CTs and 0 known cardiac nuclear medicine studies in the 12 months prior to the current study. COMPARISON: CT abdomen pelvis w con* [id number] 10/01/2022 11:14 AM RADIATION DOSE METRICS: Total DLP (mGy-cm): 711.93 FINDINGS: Lungs: Left lower lobe atelectasis versus minimal infiltrate. Liver: Normal. No mass. Gallbladder and bile ducts: Cholecystectomy. Pancreas: Normal. No ductal dilation. Spleen: Normal. No splenomegaly. Adrenal glands: Normal. No mass. Kidneys and ureters: Normal. No hydronephrosis. Stomach and bowel: Prominent fluid in the stomach may reflect a gastritis in the appropriate clinical setting. Constipation with large amount of stool in the rectal vault. Appendix: No evidence of appendicitis. Intraperitoneal space: Unremarkable. No free air. No significant fluid collection. Vasculature: Unremarkable. No abdominal aortic aneurysm. Lymph nodes: Unremarkable. No enlarged lymph nodes. Urinary bladder: Unremarkable as visualized. Reproductive: Unremarkable as visualized. Bones/joints: Unremarkable. No acute fracture. Soft tissues: Unremarkable. CT/CT abdomen pelvis wo con [id number] IMPRESSION: 1. Prominent fluid in the stomach may reflect a gastritis in the appropriate clinical setting. 2. Left lower lobe atelectasis versus minimal infiltrate. 3. Cholecystectomy. 4. Constipation with large amount of stool in the rectal vault.
--- NOTE | 2022-10-16 23:10 | CTR_ITS ---
PROCEDURE INFORMATION: Exam: CT Head Without Contrast Exam date and time: 10/16/2022 11:38 PM Age: 27 years old Clinical indication: Syncope and collapse; Patient HX: Syncopal episode; Additional info: Syncope, AMS TECHNIQUE: Imaging protocol: Computed tomography of the head without contrast. Radiation optimization: All CT scans at this facility use at least one of these dose optimization techniques: automated exposure control; mA and/or kV adjustment per patient size (includes targeted exams where dose is matched to clinical indication); or iterative reconstruction. REPORTING DATA: Count of CT and Cardiac NM exams in prior 12 months: This patient has received 10 known CTs and 0 known cardiac nuclear medicine studies in the 12 months prior to the current study. COMPARISON: CT neck w con* [id number] 10/11/2016 10:39 AM RADIATION DOSE METRICS: Total DLP (mGy-cm): 990.58 FINDINGS: Brain: Normal. No hemorrhage. Unremarkable white matter. No mass effect. Cerebral ventricles: No ventriculomegaly. Paranasal sinuses: Visualized sinuses are unremarkable. No fluid levels. Mastoid air cells: Visualized mastoid air cells are well aerated. Bones/joints: Unremarkable. No acute fracture. Soft tissues: Unremarkable. CT/CT head wo con* [id number] IMPRESSION: No acute intracranial abnormality.
[2022-10-16] MEDS: sodium chloride 0.9% 1,000 ML 999 ML IV (23:19)
[2022-10-16 23:24] VITALS: RESP 16; O2SAT 97
[2022-10-16] MEDS: morphine 4 mg/mL SDV 1 mL IVP (23:24)
[2022-10-16] MEDS: ondansetron 2 mg/ML SDV 2 mL 4 MG IVP (23:25)
[2022-10-16 23:30] VITALS: BP 138/91; PULSE 77; RESP 16; O2SAT 98
[2022-10-16 23:37] LABS: Basophils # 0.1 10^3/uL (0.0-0.1); Basophils % 0.6 %; Eosinophils # 0.3 10^3/uL (0.0-0.8); Eosinophils % 2.9 %; Hematocrit 41.3 % (37.0-47.0); Hemoglobin 13.9 g/dL (11.5-15.3); Lymphocytes # 2.4 10^3/uL (0.8-4.8); Lymphocytes % 21.2 %; Mean Corpuscular HGB Conc 33.7 g/dL (30.0-36.0); Mean Corpuscular Hemoglobin 30.8 pg (28.0-34.0); Mean Corpuscular Volume 91.4 fl (81-99); Mean Platelet Volume 11.2 fL (7.4-10.4); Monocytes # 0.7 10^3/uL (0.2-0.9); Monocytes % 5.8 %; Neutrophils # 7.99 10^3/uL (1.8-7.7); Neutrophils % 69.2 %; Nucleated Red Blood Cells % 0 %; Platelet Count 252 10^3/cmm (130-400); Red Blood Count 4.52 10^6/uL (4.1-5.3); White Blood Count 11.5 10^3/uL (4.0-10.0)
[2022-10-16 23:46] LABS: Alanine Aminotransferase 16 U/L (0-33); Albumin Level 4.6 g/dL (3.5-5.2); Alkaline Phosphatase 71 U/L (35-105); Anion Gap 14.9 (5-19); Aspartate Amino Transferase 13 U/L (0-32); Blood Urea Nitrogen 6 mg/dL (6-20); Calcium 8.9 mg/dL (8.5-10.5); Carbon Dioxide 20 mmol/L (22-29); Chloride 109 mmol/L (98-107); Globulin 2.3 g/dL (1.3-4.6); Glucose 83 mg/dL (65-115); Magnesium 1.9 mg/dL (1.7-2.3); Osmolality Calculated 287 mOsm/kg (285-295); Potassium 3.9 mmol/L (3.5-5.1); Sodium 140 mmol/L (136-145); Total Bilirubin 0.2 mg/dL (0.15-1.2); Total Protein 6.9 g/dL (6.6-8.7)
[2022-10-16 23:49] LABS: Acetaminophen < 5.0 ug/mL (10-30); Alcohol Level < 10 mg/dL (0-10); Salicylate < 0.3 mg/dL (3-10)
[2022-10-17] VITALS (9 sets, daily range): BP systolic 96–131; BP diastolic 56–94; PULSE 66–89; RESP 16; TEMP 36.9; O2SAT 96–98
--- NOTE | 2022-10-17 00:01 | USR_ITS ---
PROCEDURE INFORMATION: Exam: US Pelvis Complete, Transabdominal and US Duplex Artery and Vein, Ovaries, Complete Exam date and time: 10/17/2022 2:10 AM Age: 27 years old Clinical indication: Pelvic pain; Additional info: Eval torsion, abd pain, known cyst, syncope TECHNIQUE: Imaging protocol: Real-time transabdominal pelvic ultrasound with image documentation. Real-time duplex ultrasound scan of the arterial and venous flow of the ovaries with B-mode, color Doppler flow and spectral waveform analysis. Complete Pelvis, Complete Duplex. Duplex exam was performed to evaluate for torsion and other vascular conditions. COMPARISON: US pelvic complete* [id number] 04/27/2022 10:36 PM FINDINGS: The uterus measures 8.6 cm in length. There is no visible focal myometrial mass. There is no intrauterine fluid. Endometrial thickness is 4.1 mm. There is no free pelvic fluid. The right ovary measures 44 x 24 x 37 mm, estimated volume 19.7 cc. The right ovary appears essentially unremarkable. The left ovary measures 28 x 22 x 26 mm, estimated volume 8.5 cc. The left ovary appears essentially unremarkable. Ovarian blood flow was evaluated with color and spectral Doppler imaging. Arterial and venous blood flow detected within each ovary. The urinary bladder was not completely evaluated/imaged at this time. US/US pelvic complete* [id number] IMPRESSION: 1. Essentially unremarkable sonographic appearance of the uterus and ovaries. 2. Blood flow detected in each ovary. 3. Other details discussed above.
[2022-10-17 00:14] LABS: Add Urine Microscopic? NO; Charge for UA Resulting for Rev
[2022-10-17 00:17] LABS: Bilirubin Urine Neg (Negative); Blood Urine Neg (Negative); Glucose Urine UA Norm (Normal); Ketones Urine Negative (Negative); Leukocyte Esterase Urine Negative (Negative); Nitrate Urine Negative (Negative); Protein Urine Neg (Negative); Specific Gravity, Urine 1.025 (1.005-1.030); Urine Appearance Clear (CLEAR); Urine Color Yellow (Yellow); Urobilinogen Urine Norm (Negative); pH Urine 5 (5-7)
[2022-10-17] MEDS: morphine 4 mg/mL SDV 1 mL IVP (00:20)
[2022-10-17 00:26] LABS: Amphetamines Screen Urine Negative (Negative); Barbiturates Screen Urine Negative (Negative); Benzodiazepines Screen Urine Negative (Negative); Cocaine Screen Urine Negative (Negative); Opiate Screen Urine Positive (Negative); PCP Screen Urine Negative (Negative); THC Screen Urine Negative (Negative)
[2022-10-17] MEDS: acetaminophen 500 mg Tablet 1000 MG PO (01:22)
[2022-10-17] MEDS: HYDROmorphone 1 mg/mL INJ 1 mL 0.5 MG IVP (01:49)
[2022-10-17] MEDS: haloperidol inj 5 mg/mL INJ 1 mL 1 MG IVP (02:04)
[2022-10-17] MEDS: Fleet Enema 133 mL Enema PR (02:39)
[2022-10-17 09:33] LABS: Glucose Point of Care 93 mg/dL (70-110)
== END 2022-10-17 04:13 | disposition home or self-care (01) ==
PROVIDERS: Emergency Provider Emergency Medicine; PCP Family Medicine
DX: R55 Syncope and collapse (principal); K59.00 Constipation, unspecified; K52.9 Noninfective gastroenteritis and colitis, unspecified; R41.82 Altered mental status, unspecified; Z79.84 Long term (current) use of oral hypoglycemic drugs
CPT/HCPCS: 36416; 70450; 71045; 74176; 76856; 80053; 80306; 80307; 81003; 82962; 83735; 85025; 96361; 96374; 96375; 96376; 99285; J1170; J1630; J2270; J2405; J7030

== ENCOUNTER 2022-10-22 14:58 | Outpatient (CLI) | payer BC, MEDICAID, SELFPAY ==
--- NOTE | 2022-10-22 | US_ITS ---
WS: [id number] US transvaginal [id number] HISTORY: N83.209 - Unspecified ovarian cyst, unspecified side COMPARISON: 10/18/2019. Uterus: 7.2 cm x 3.6 cm x 2.6 cm. Normal size anteverted uterus. No fibroid or mass. Endometrium: 0.3 cm. Normal. Right ovary: 3.9 cm x 3.2 cm x 3.5 cm. 22 cubic cm. Enlarged ovary with multiple small peripheral fol licles. Numerous follicles are present, greater than 20 estimated within the periphery of the ovary. Normal vascularity. Left ovary: 4.5 cm x 3.3 cm x 2.2 cm. 17 cubic cm. Enlarged ovary with multiple small peripheral foll icles. The number of follicles approaching 20. Normal vascularity. No free fluid in the cul-de-sac. US/US transvaginal [id number] IMPRESSION: 1. Normal vascularity to each ovary. 2. Enlarged ovaries with multiple peripheral follicles. Findings consistent wi th polycystic ovarian syndrome.
== END 2022-10-22 14:59 | disposition home or self-care (01) ==
LOC: RAD 15:01
PROVIDERS: PCP Family Medicine; Visit Provider Obstetrics & Gynecology
DX: N83.209 Unspecified ovarian cyst, unspecified side (principal); N83.8 Other noninflammatory disorders of ovary, fallopian tube and broad ligament
CPT/HCPCS: 76830

== ENCOUNTER 2022-10-31 21:32 | Emergency (ER) | payer BC, MEDICAID, SELFPAY ==
[2022-10-31 21:57] VITALS: BP 146/93; PULSE 97; RESP 15; TEMP 36.7; O2SAT 99
[2022-10-31 23:53] LABS: Basophils # 0.1 10^3/uL (0.0-0.1); Basophils % 0.6 %; Eosinophils # 0.3 10^3/uL (0.0-0.8); Eosinophils % 2.7 %; Hematocrit 52.2 % (37.0-47.0); Hemoglobin 16.1 g/dL (11.5-15.3); Lymphocytes # 1.9 10^3/uL (0.8-4.8); Lymphocytes % 17.5 %; Mean Corpuscular HGB Conc 30.8 g/dL (30.0-36.0); Mean Corpuscular Hemoglobin 31.1 pg (28.0-34.0); Mean Corpuscular Volume 100.8 fl (81-99); Monocytes % 8.9 %; Neutrophils # 7.52 10^3/uL (1.8-7.7); Neutrophils % 69.7 %; Nucleated Red Blood Cells % 0 %; Platelet Count 208 10^3/cmm (130-400); Red Blood Count 5.18 10^6/uL (4.1-5.3); Red Cell Distribution Width 12.2 % (12.1-15.1); White Blood Count 10.8 10^3/uL (4.0-10.0)
[2022-11-01 00:22] LABS: Blood Urea Nitrogen 9 mg/dL (6-20); Calcium 9.8 mg/dL (8.5-10.5); Carbon Dioxide 20 mmol/L (22-29); Chloride 103 mmol/L (98-107); Glucose 82 mg/dL (65-115); Lipase 21 U/L (13-60); Osmolality Calculated 280 mOsm/kg (285-295); Sodium 136 mmol/L (136-145)
--- NOTE | 2022-11-01 01:19 | XRR_ITS ---
PROCEDURE INFORMATION: Exam: XR Abdomen Exam date and time: 11/01/2022 1:30 AM Age: 27 years old Clinical indication: Abdominal pain; Generalized; Additional info: Abd pain TECHNIQUE: Imaging protocol: Radiologic exam of the abdomen. Views: Frontal supine view of the abdomen. 1 View. COMPARISON: CT abdomen pelvis con [id number] 10/16/2022 11:40 PM FINDINGS: Gastrointestinal tract: No small bowel dilation or free air identified. The colon is known to be tortuous and redundant based on CT. It distally measures up to about 6 cm. A mild ileus is possible. There are rectal postop changes. Organs: Absent gallbladder. Bones/joints: Mild scoliosis. XR/XR KUB portable [id number] IMPRESSION: 1. No small bowel obstruction or free air. 2. The colon is known to be tortuous and redundant based on recent CT. It distally measures up to about 6 cm. A mild ileus is possible. There are rectal postop changes. Overall, the findings are improved mildly from 10/16/2022.
[2022-11-01 01:46] LABS: Alanine Aminotransferase 30 U/L (0-33); Albumin Level 4.5 g/dL (3.5-5.2); Alkaline Phosphatase 116 U/L (35-105); Total Bilirubin 0.3 mg/dL (0.15-1.2); Total Protein 7.5 g/dL (6.6-8.7)
[2022-11-01 01:51] LABS: Aspartate Amino Transferase 23 U/L (0-32)
--- NOTE | 2022-11-01 02:45 | CTR_ITS ---
PROCEDURE INFORMATION: Exam: CT Abdomen And Pelvis Without Contrast Exam date and time: 11/01/2022 4:38 AM Age: 27 years old Clinical indication: Abdominal pain; Generalized; Prior surgery; Surgery date: 6+ months; Surgery type: Colectomy, ileostomy, cholecystectomy; Additional info: Abd pain. HX colectomy TECHNIQUE: Imaging protocol: Computed tomography of the abdomen and pelvis without contrast. Radiation optimization: All CT scans at this facility use at least one of these dose optimization techniques: automated exposure control; mA and/or kV adjustment per patient size (includes targeted exams where dose is matched to clinical indication); or iterative reconstruction. REPORTING DATA: Count of CT and Cardiac NM exams in prior 12 months: This patient has received 12 known CTs and 0 known cardiac nuclear medicine studies in the 12 months prior to the current study. COMPARISON: CT abdomen pelvis con [id number] 10/16/2022 11:40 PM RADIATION DOSE METRICS: Total DLP (mGy-cm): 536.72 FINDINGS: Lungs: Minimal left lung base probable atelectasis. Liver: Unremarkable. No discrete mass. Gallbladder and bile ducts: Absent gallbladder. Pancreas: Unremarkable with no suspicious mass. No ductal dilation. Spleen: The spleen is not enlarged. No suspicious mass is noted. Adrenal glands: Normal. No mass. Kidneys and ureters: No solid renal mass or hydronephrosis. Stomach and bowel: Rectosigmoid anastomotic suture all postop changes. Previous extensive colon resection, correlate with surgical history. Rectum measures up to 8 cm, fluid-filled. No small bowel obstruction, abscess or free air. Appendix: No evidence of appendicitis. Intraperitoneal space: Unremarkable. No free air. No suspicious fluid collection. Vasculature: No AAA or acute vascular lesion identified. Lymph nodes: No enlarged lymph nodes. Urinary bladder: Unremarkable as visualized. Reproductive: Unremarkable as visualized. Bones/joints: No acute fracture. Soft tissues: No acute or suspicious finding noted. CT/CT abdomen pelvis wo con [id number] IMPRESSION: 1. Rectosigmoid anastomotic postop changes. Fluid-filled rectum, which does suggest a diarrheal disease. 2. No small bowel obstruction, abscess or free air. 3. Absent gallbladder.
[2022-11-01] MEDS: ondansetron 2 mg/ML SDV 2 mL 4 MG IVP (03:27)
[2022-11-01] MEDS: morphine 4 mg/mL SDV 1 mL IVP (03:27)
[2022-11-01 03:35] VITALS: BP 135/93; PULSE 88; RESP 16; O2SAT 97
[2022-11-01 04:20] VITALS: BP 135/93; RESP 16; O2SAT 97
[2022-11-01 04:27] LABS: HCG, Serum Qual Negative (Negative)
[2022-11-01 05:20] VITALS: BP 128/93; PULSE 85; RESP 16; TEMP 36.7; O2SAT 97
--- NOTE | 2022-11-01 15:14 | ED_ITS ---
HPI - Abdominal Pain General: Chief Complaint: Abdominal Pain Stated Complaint: abdomen pain Time Seen by Provider: 11/01/22 00:46 Source: patient History of Present Illness: 27 year old female with a history of a colectomy. She's had other belly surgeries as well. She presents with abdominal pain, vomiting at home. + diarrhea. A mild amount of blood in the stool. She presents not infrequently with these similar symptoms. She is concerned over a bowel obstruction, as she has had this prior. MD elicited complaint: abdominal pain Location: Epigastric, LUQ and LLQ Severity: moderate Quality: stabbing and aching Radiation: none Migration to: no migration Exacerbating factors: vomiting and movement Relieving factors: nothing Associated Symptoms: Reports change in stool character, diarrhea, fever(s) (subjective), hematochezia, loose stools, nausea and vomiting; Denies coffee ground emesis, dysuria and hematemesis Review of Systems Const: Reports: fever(s) (subjective) Card: Denies: chest pain Resp: Denies: dyspnea GI: Reports: abdominal pain, nausea, vomiting, diarrhea, change in stool character and hematochezia; Denies: hematemesis or coffee ground emesis : Denies: flank pain or dysuria PFSH ED PFSH: Medical History Family history of FAP (familial adenomatous polyposis) Surgical History H/O colectomy H/O ileostomy Hx of cholecystectomy Hx of colonoscopy with polypectomy Family History Family/Other Diabetes Maternal uncle Hypertension Maternal uncle Hyperlipidemia Maternal uncle Colon cancer paternal cousins Mother Hypertension Hyperlipidemia Stroke Father Colon cancer Family/Other No problems noted. Other Breast cancer Ovarian cancer Uterine cancer Denies family history of Heart disease Thyroid condition Physical Exam Const: COMMON NORMALS: no acute distress GENERAL APPEARANCE: cooperative; not ill appearing and not frail appearing HENMT: COMMON NORMALS: normocephalic, atraumatic and Normal external nose present HEAD & SCALP: normocephalic and atraumatic FACE & SINUS: normal facial exam and face symmetric NOSE: Normal external nose present Eye: COMMON NORMALS: Equal, round and reactive pupils present and EOMs intact bilaterally PUPIL: Yes Equal, round and reactive pupils present Neck/C-Spine: GENERAL: Yes trachea midline Chest: CHEST: Yes Symmetrical chest wall rise Resp: COMMON NORMALS: normal respiratory effort, No retractions, No use of accessory muscles and clear to auscultation bilaterally AUSCULTATION: clear to auscultation bilaterally Cardio: COMMON NORMALS: regular rate and regular rhythm RATE: regular rate RHYTHM: regular rhythm GI: COMMON NORMALS: Normal to inspection, nondistended, normoactive bowel sounds present PALPATION: Yes Tenderness to palpation present (GI) and Yes Guarding due to palpation present (GI) Extremity: COMMON NORMALS: no pedal edema Neuro: ANDREAS COMA SCALE: document GCS findings Andreas coma scale eye opening: Spontaneous Andreas coma scale verbal response: Orientated Andreas coma scale motor response: Obey commands Andreas coma scale total score: 15 SENSORY EXAM: Yes extremities (intact) Psych: COMMON NORMALS: speech normal SPEECH: Yes normal speech Skin: COMMON NORMALS: no rashes or lesions noted GENERAL SKIN EXAM: no rashes or lesions noted Course Vital Signs: Vital signs: Vital Signs Temperature 98.0 F 11/01/22 05:20 Pulse Rate 85 11/01/22 05:20 Respiratory Rate 16 11/01/22 05:20 Blood Pressure 128/93 11/01/22 05:20 Pulse Oximetry 97 11/01/22 05:20 Oxygen Delivery Me thod Room Air 10/31/22 21:57 MDM - Abdominal Pain Medical Decision Making Abdominal pain is improved following medication. White blood cell count is 11. Hemoglobin 16. BMP is normal. Liver enzymes are normal. CT reveals no small bowel obstruction Abscess or free air. There are postoperative changes with a fluid filled rectum suggestive of diarrhea. symptomatic treatment. Our patient follow up. Return if worsening symptoms. Lab Data 10/31/22 23:31 10/31/22 23:31 Labs/Radiology: Radiology Impressions KUB X-Ray 11/01/22 01:19 IMPRESSION: 1. No small bowel obstruction or free air. 2. The colon is known to be tortuous and redundant based on recent CT. It distally measures up to about 6 cm. A mild ileus is possible. There are rectal postop changes. Overall, the findings are improved mildly from 10/16/2022. Abdomen/Pelvis CT 11/01/22 02:45 IMPRESSION: 1. Rectosigmoid anastomotic postop changes. Fluid-filled rectum, which does suggest a diarrheal disease. 2. No small bowel obstruction, abscess or free air. 3. Absent gallbladder. Laboratory Results WBC 10.8 10^3/uL (4.0-10.0) H 10/31/22 23:31 RBC 5.18 10^6/uL (4.1-5.3) 10/31/22 23: Hgb 16.1 g/dL (11.5-15.3) H 10/31/22 23:31 Hct 52.2 % (37.0-47.0) H 10/31/22 23:31 MCV 100.8 fl (81-99) H 10/31/22 23: MCH 31.1 pg (28.0-34.0) 10/31/22 23: MCHC 30.8 g/dL (30.0-36.0) 10/31/22 23: RDW 12.2 % (12.1-15.1) 10/31/22 23: Plt Count 208 10^3/cmm (130-400) 10/31/22 23: MPV 11.0 fL (7.4-10.4) H 10/31/22 23: Neut % (Auto) 69.7 % 10/31/22 23: Lymph % (Auto) 17.5 % 10/31/22 23: [place] % (Auto) 8.9 % 10/31/22 23: Eos % (Auto) 2.7 % 10/31/22 23: Baso % (Auto) 0.6 % 10/31/22 23: Neut # (Auto) 7.52 10^3/uL (1.8-7.7) 10/31/22 23: Lymph # (Auto) 1.9 10^3/uL (0.8-4.8) 10/31/22 23: [place] # (Auto) 1.0 10^3/uL (0.2-0.9) H 10/31/22 23:31 Eos # (Auto) 0.3 10^3/uL (0.0-0.8) 10/31/22 23: Baso # (Auto) 0.1 10^3/uL (0.0-0.1) 10/31/22 23:31 Nucleated RBC % (auto) 0 % 10/31/22 23:31 Nucleated RBCs # 0.0 /100WBC 10/31/22 23:31 Sodium 136 mmol/L (136-145) 10/31/22 23:31 Potassium 4.0 mmol/L (3.5-5.1) 10/31/22 23:31 Chloride 103 mmol/L (98-107) 10/31/22 23:31 Carbon Dioxide 20 mmol/L (22-29) L 10/31/22 23:31 Anion Gap 17.0 (5-19) 10/31/22 23:31 BUN 9 mg/dL (6-20) 10/31/22 23:31 Creatinine 0.7 mg/dL (0.5-0.9) 10/31/22 23:31 GFR Calculation 102.0 mL/min (90-130) 10/31/22 23:31 Glucose 82 mg/dL (65-115) 10/31/22 23:31 Calculated Osmolality 280 mOsm/kg (285-295) L 10/31/22 23:31 Calcium 9.8 mg/dL (8.5-10.5) 10/31/22 23:31 Total Bilirubin 0.3 mg/dL (0.15-1.2) 10/31/22 23:31 Direct Bilirubin 0.20 mg/dL (0.00-0.30) 10/31/22 23:31 AST 23 U/L (0-32) 10/31/22 23:31 ALT 30 U/L (0-33) 10/31/22 23:31 Alkaline Phosphatase 116 U/L (35-105) H 10/31/22 23:31 Total Protein 7.5 g/dL (6.6-8.7) 10/31/22 23:31 Albumin 4.5 g/dL (3.5-5.2) 10/31/22 23:31 Globulin 3.0 g/dL (1.3-4.6) 10/31/22 23:31 Lipase 21 U/L (13-60) 10/31/22 23:31 HCG, Qual Negative (Negative) 11/01/22 03:15 Discharge Plan Discharge Patient Disposition: Home Clinical Impression: Abdominal pain Condition: Stable Prescriptions: Continued hydrocodone-acetaminophen 5-325 mg tablet 1 tab PO Q6H PRN (Reason: pain) Qty: 7 0RF ondansetron 4 mg tablet,disintegrating 4 mg PO Q8H PRN (Reason: nausea and vomiting) Qty: 15 0RF No Action Miralax 17 gram/dose powder 17 g PO TID PRN (Reason: constipation) Qty: 238 0RF Rx Instructions: One to Three times daily adjusted for multiple apple sauce consistency stools albuterol sulfate 90 mcg/actuation Hfa Aerosol Inhaler 2 puff INHALATION QID PRN (Reason: Shortness Of Breath Or Wheezing) metformin 500 mg Tablet 500 mg PO BID Symbicort 80-4.5 mcg/actuation Hfa Aerosol Inhaler 2 puff INHALATION BID Reglan 10 mg tablet 10 mg PO Q6H PRN (Reason: nausea and vomiting) Qty: 20 0RF omeprazole 40 mg capsule,delayed release(DR/EC) 40 mg PO DAILY 28 Days Qty: 28 0RF Discharge Orders: Discharge ED (Routine); Ordered 11/01/22 Ordered By: Anthony Patterson Referrals: Rigoberto Ferguson MD [Primary Care Provider] - 1-3 days Patient Instructions: Abdominal Pain (ED), Opioid Safety, Pain Management Activity Restrictions/Additional Instructions: Your testing did not reveal a specific cause of your abdominal pain this morning. Medications are for symptoms. See your doctor early this week in follow-up. Return for continued fever greater than 100, vomiting liquids or medications despite treatment, other concerning symptoms. Coding Level of Care Code ED Information Technology Audit Manager for Yamilet De Souza
== END 2022-11-01 05:21 | disposition home or self-care (01) ==
PROVIDERS: Emergency Provider Emergency Medicine; PCP Family Medicine
DX: R10.12 Left upper quadrant pain (principal); R10.32 Left lower quadrant pain; Z79.84 Long term (current) use of oral hypoglycemic drugs
CPT/HCPCS: 36415; 74018; 74176; 80048; 80076; 83690; 84703; 85025; 96374; 96375; 99285; J2270; J2405

== ENCOUNTER 2022-11-11 07:59 | Day surgery (SDC) | payer BC, MEDICAID, SELFPAY ==
[2022-11-09 10:14] VITALS: BMI 28.2
[2022-11-11 08:29] VITALS: BP 124/94; PULSE 86; RESP 18; TEMP 36.5; O2SAT 95
--- NOTE | 2022-11-11 08:35 | P.ANESASSM_ITS ---
Pre-Anesthetic Assessment Height/Weight: Height 1.68 m Weight 79.379 kg Operation Date: 11/11/22 09:15 Proposed Procedures p proctosigmoidoscoy [id number] EGD K92.1 melena(Not Applicable) - Jaxson Iyer DO s proctosigmoidoscoy [id number] EGD K92.1 melena(Not Applicable) - Jaxson Iyer DO Familial anesthetic complications: None Was Beta Dana taken within 24 hours: N/A Was Clonidine taken within 24 hours: N/A Social Tobacco and No alcohol 1, marijuana pack(s) per day 7 pack years Exam alert, oriented x 3, clear to auscultation bilaterally and regular rate & rhythm Airway Submandibular: within normal limits Cervical ROM: within normal limits Mallampati: Class II Dentition: full History/ROS No significant history except as noted and No significant complaints Pulmonary Asthma, Chronic Obstructive Pulmonary Disease and Cough Asthma exacerbation 2 weeks ago. Was treated for strep throat a month ago but stated she never had any symptoms of strep CV/HEM None reported None reported Hepatic None reported GI Gastroesophageal Reflux Disease (None this am) Hemicolectomy 2020 Metabolic None reported Musc/skel None reported Neuropsych Anxiety Anesthetic Plan ASA status: 2 Anesthesia: Anesthesia Evaluation, General and MAC Risk of > 500 ml blood loss (7ml/kg in children): No Medications/Allergies Home Medications Medication Instructions Recorded Confirmed Last Taken Type albuterol sulfate 90 mcg/actuation 2 puff inhalation QID PRN 01/28/22 11/09/22 11/11/22 07:45 History aerosol inhaler Shortness Of Breath Or Wheezing budesonide-formoterol HFA 80 2 puff inhalation BID 10/01/22 11/09/22 11/11/22 07:45 History mcg-4.5 mcg/actuation aerosol inhaler (Symbicort) metformin 500 mg tablet 500 mg PO BID 10/01/22 11/09/22 11/09/22 History metoclopramide HCl 10 mg tablet 10 mg PO Q6H PRN nausea and 10/01/22 11/11/22 1 Week Ago Rx (Reglan) vomiting #20 tabs ~11/04/22 hydrocodone 5 mg-acetaminophen 325 1 tab PO Q6H PRN pain #7 tabs 11/01/22 11/11/22 1 Week Ago Rx mg tablet ~11/04/22 prednisone 20 mg tablet 20 mg PO BID 5 days #10 tabs 11/03/22 11/09/22 11/08/22 Rx Allergies Allergy/AdvReac Type Severity Reaction Status Date / Time Iodinated Contrast Media Allergy Severe ALGY-Anaphy Verified 11/11/22 08:22 laxis ceftriaxone [From Rocephin] Allergy ALGY-Anaphy Verified 11/11/22 08:22 laxis ciprofloxacin [From Cipro] Allergy ADR-Nausea Verified 11/11/22 08:22 ketorolac Allergy anaphylaxis Verified 11/11/22 08:22 Sulfa (Sulfonamide Allergy Unknown Verified 11/11/22 08:22 Antibiotics) sulfamethoxazole Allergy ADR-Nausea Verified 11/11/22 08:22 [From Bactrim] trimethoprim [From Bactrim] Allergy ADR-Nausea Verified 11/11/22 08:22 [facility] Anesthesia Medical History Family history of FAP (familial adenomatous polyposis) Surgical History H/O colectomy H/O ileostomy Hx of cholecystectomy Hx of colonoscopy with polypectomy Family History Family/Other Diabetes Maternal uncle Hypertension Maternal uncle Hyperlipidemia Maternal uncle Colon cancer paternal cousins Mother Hypertension Hyperlipidemia Stroke Father Colon cancer Family/Other No problems noted. Other Breast cancer Ovarian cancer Uterine cancer Denies family history of Heart disease Thyroid condition Data Anesthesia Cardiac Studies: No Data to Display
[2022-11-11] MEDS: sodium chloride 0.9% 1,000 ML 30 ML IV (08:52)
[2022-11-11 08:55] LABS: OR HCG Qualitative Urine Negative (Negative)
--- NOTE | 2022-11-11 09:01 | W.PM.OPSUD ---
Surgery/Procedure H&P Update DATE OF PROCEDURE: November 11, 2022 DATE H&P PERFORMED: 10/13/22 H&P UPDATE INFORMATION: I have reviewed H&P completed within last 30 days, I have examined patient prior to procedure and No changes to prior documentation PLANNED PROCEDURE: Operation Date: 11/11/22 09:15 Proposed Procedures p proctosigmoidoscoy [id number] EGD K92.1 melena(Not Applicable) - Jaxson Iyer DO s proctosigmoidoscoy [id number] EGD K92.1 melena(Not Applicable) - Jaxson Iyer DO
[2022-11-11 09:28] VITALS: BP 115/68; PULSE 72; RESP 16; TEMP 36.1; O2SAT 98
[2022-11-11 09:40] VITALS: BP 118/78; PULSE 78; RESP 16; O2SAT 98
--- NOTE | 2022-11-11 15:51 | ANE.PACU2 ---
Inpatient post-anesthesia follow up: Airway intact: Yes Vital signs: Temperature 97.0 F Pulse Rate 78 Respiratory Rate 16 Blood Pressure 118/78 Pulse Oximetry 98 Oxygen Delivery Me thod Room Air Oxygen Flow Rate Fraction of Inspir ed Oxygen Hydration adequate: Yes Nausea and vomiting: No Pain level: 1 Mental status: Baseline
== END 2022-11-11 10:05 | disposition home or self-care (01) ==
PROVIDERS: Anesthesiology; PCP Family Medicine; Visit Provider Surgery
PROC: 0DJD8ZZ Inspection of Lower Intestinal Tract, Via Natural or Artificial Opening Endoscopic (ICD-10-PCS; CPT 45330; principal; 2022-11-11 09:15)
PROC: 0DJ08ZZ Inspection of Upper Intestinal Tract, Via Natural or Artificial Opening Endoscopic (ICD-10-PCS; CPT 43235; 2022-11-11 09:15)
DX: K92.1 Melena (principal); K29.50 Unspecified chronic gastritis without bleeding
CPT/HCPCS: 43239; 45300; 81025; 84703; 88305; 88342; J2250; J2704; J7030

== ENCOUNTER → 2022-11-20 08:03 | Outpatient (BNVA) | payer BC, MEDICAID, SELFPAY | PROVIDERS: PCP Family Medicine; Visit Provider Podiatrist Foot & Ankle Surgery | DX: T84.84XA Pain due to internal orthopedic prosthetic devices, implants and grafts, initial encounter (principal); Y79.2 Prosthetic and other implants, materials and accessory orthopedic devices associated with adverse incidents; M96.0 Pseudarthrosis after fusion or arthrodesis | CPT/HCPCS: 73630 ==

== ENCOUNTER 2022-11-25 15:53 | Outpatient (CLI) | payer BC, MEDICAID, SELFPAY | END 2022-11-25 15:54 | disposition home or self-care (01) | LOC: SPT 15:57 | PROVIDERS: PCP Family Medicine; Visit Provider Podiatrist Foot & Ankle Surgery | DX: Z46.89 Encounter for fitting and adjustment of other specified devices (principal); M79.671 Pain in right foot | CPT/HCPCS: 97760; L4361 ==

== ENCOUNTER 2022-12-02 20:23 | Emergency (ER) | payer BC, MEDICAID, SELFPAY ==
[2022-12-02 20:29] VITALS: BP 140/88; PULSE 88; RESP 16; TEMP 36.8; O2SAT 96; BMI 29.0
--- NOTE | 2022-12-02 20:37 | XRR_ITS ---
PROCEDURE INFORMATION: Exam: XR Right Foot Exam date and time: 12/02/2022 8:43 PM Age: 27 years old Clinical indication: Injury or trauma; Fall; Other: General pain; Prior surgery; Surgery date: 1-6 months; Surgery type: Foot TECHNIQUE: Imaging protocol: Radiologic exam of the right foot. Views: 3 or more views. COMPARISON: CR XR foot RT min 3V* [id number] 07/16/2022 4:02 PM FINDINGS: Bones/joints: Intact ORIF hardware within the cuneiforms, bases of the 1st through 3rd metatarsals, and navicular bone. Osseous structures are intact. Negative for fracture. Joint spaces are preserved. Soft tissues: Normal. XR/XR foot RT min 3V* [id number] IMPRESSION: No acute findings.
--- NOTE | 2022-12-02 20:37 | XRR_ITS ---
PROCEDURE INFORMATION: Exam: XR Right Tibia and Fibula Exam date and time: 12/02/2022 8:45 PM Age: 27 years old Clinical indication: Pain; Foot and lower leg; Right; Additional info: Injury TECHNIQUE: Imaging protocol: Radiologic exam of the right tibia and fibula. Views: 2 views. COMPARISON: CR (LOW EXM, ) 12/02/2022 8:43 PM FINDINGS: Bones/joints: Tibia and fibula are intact. Negative for fracture. Soft tissues: Normal. XR/XR tibia fibula RT 2V [id number] IMPRESSION: No acute findings.
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
== END 2022-12-02 21:14 | disposition home or self-care (01) ==
PROVIDERS: Emergency Provider Physician Assistant; PCP Family Medicine
DX: S99.921A Unspecified injury of right foot, initial encounter (principal); W01.0XXA Fall on same level from slipping, tripping and stumbling without subsequent striking against object, initial encounter
CPT/HCPCS: 73590; 73630; 99283

== ENCOUNTER 2022-12-07 19:53 | Emergency (ER) | payer BC, MEDICAID, SELFPAY ==
--- NOTE | 2022-12-07 20:02 | XRR_ITS ---
PROCEDURE INFORMATION: Exam: XR Right Ankle Exam date and time: 12/07/2022 8:22 PM Age: 27 years old Clinical indication: Injury or trauma; Fall; Blunt trauma; Ankle; Right TECHNIQUE: Imaging protocol: Radiologic exam of the right ankle. Views: 3 or more views. COMPARISON: CR (LOW EXM, ) 12/07/2022 8:19 PM FINDINGS: Bones/joints: No acute fracture or other acute osseous abnormality. No significant joint narrowing. No joint dislocation. No joint effusion noted. Soft tissues: The soft tissues are unremarkable as demonstrated. XR/XR ankle RT min 3V* [id number] IMPRESSION: No acute fracture demonstrated.
--- NOTE | 2022-12-07 20:02 | XRR_ITS ---
PROCEDURE INFORMATION: Exam: XR Right Foot Exam date and time: 12/07/2022 8:19 PM Age: 27 years old Clinical indication: Injury or trauma; Fall; Blunt trauma; Right; Prior surgery; Surgery date: 1-6 months; Surgery type: RT foot TECHNIQUE: Imaging protocol: Radiologic exam of the right foot. Views: 3 or more views. COMPARISON: CR (LOW EXM, ) 12/02/2022 8:43 PM FINDINGS: Bones/joints: Intact ORIF hardware within the tarsal navicular, the cuneiforms, and the bases of the 1st through 3rd metatarsals. Osseous structures are intact. Negative for fracture. Joint spaces are preserved. Soft tissues: No acute abnormality XR/XR foot RT min 3V* [id number] IMPRESSION: 1. No acute fracture demonstrated. 2. There is no interval change from the prior examination.
[2022-12-07 20:11] VITALS: BP 136/87; PULSE 96; RESP 14; TEMP 37.2; O2SAT 98; BMI 29.0
[2022-12-07 20:51] VITALS: BP 139/94; PULSE 87; RESP 14; O2SAT 98
--- NOTE | 2022-12-07 21:11 | ED_ITS ---
HPI - Extremity Problem General: Chief complaint: Extremity Injury, Lower Stated complaint: Right foot injury Time Seen by Provider: 12/07/22 20:55 History of Present Illness: To the ER with complaints of right foot pain after she fell approximately 4 feet onto the hard ground. Patient's post-ORIF in June of her foot and has extensive hardware in it. Patient was told the fracture was still there and is not healing properly. Patient states now the pain hurts a lot worse than it did before the fall. Review of Systems General: Reports: 10 or more systems reviewed and unremarkable except in HPI and below PFSH ED PFSH: Medical History Family history of FAP (familial adenomatous polyposis) Surgical History H/O colectomy H/O ileostomy Hx of cholecystectomy Hx of colonoscopy with polypectomy Family History Family/Other Diabetes Maternal uncle Hypertension Maternal uncle Hyperlipidemia Maternal uncle Colon cancer paternal cousins Mother Hypertension Hyperlipidemia Stroke Father Colon cancer Family/Other No problems noted. Other Breast cancer Ovarian cancer Uterine cancer Denies family history of Heart disease Thyroid condition Physical Exam Const: COMMON NORMALS: no acute distress, average body habitus, patient oriented x3, no limitations, alert and well nourished HENMT: COMMON NORMALS: normocephalic, atraumatic, hearing grossly normal bilaterally, external ears normal, Normal external nose present and moist oral mucous membranes HEAD & SCALP: normocephalic and atraumatic NOSE: Normal external nose present EXTERNAL EAR: Yes external ears normal Neck/C-Spine: COMMON NORMALS: full ROM, no lymphadenopathy, no meningeal signs, no JVD and Thyroid normal THYROID: Thyroid normal Chest: COMMONS NORMALS: normal inspection of the chest and normal palpation of entire chest wall Resp: COMMON NORMALS: normal respiratory effort, No retractions, No use of accessory muscles and clear to auscultation bilaterally AUSCULTATION: clear to auscultation bilaterally Cardio: COMMON NORMALS: no JVD, regular rate, regular rhythm, S1 normal heart sound present, S2 normal heart sound present, No gallops present (Cardio), No clicks present (Cardio), No murmurs present (Cardio) and No rub (Cardio) RATE: regular rate RHYTHM: regular rhythm HEART SOUNDS: S1 normal heart sound present and S2 normal heart sound present GI: COMMON NORMALS: Normal to inspection, nondistended, normoactive bowel sounds present, Soft to palpation, non-tender, No hepatosplenomegaly present and no masses PALPATION: Yes Soft to palpation and Yes No hepatosplenomegaly present Extremity: NARRATIVE EXTREMITY EXAM: Tenderness to palpation over right foot worsened along the tarsal phalangeal region. Extensive postsurgical changes noted. Neuro: COMMON NORMALS: patient oriented x3 SENSORIUM/ORIENTATION: Yes alert MENINGEAL SIGNS: Yes no meningeal signs Course Vital Signs: Vital signs: Vital Signs Temperature 99.0 F 12/07/22 20:11 Pulse Rate 87 12/07/22 20:51 Respiratory Rate 14 12/07/22 20:51 Blood Pressure 139/94 12/07/22 20:51 Pulse Oximetry 98 12/07/22 20:51 Oxygen Delivery Me thod Room Air 12/07/22 20:51 MDM - Extremity (Nontraumatic) Medical Decision Making Presents to the ER with complaints of falling and landing on her right foot. Patient's post ORIF about 6 months of multiple areas in her right foot. X-ray was obtained which was essentially negative for new acute fracture. Patient was given 5 mg Kimberly for pain. Patient be discharged home to follow-up with her PCP and/or paperboard box maker. Differential Diagnosis Unlikely herpes zoster, gout, cellulitis, superficial thrombophlebitis, deep venous thrombosis of upper extremity, lower extremity edema or deep vein thrombosis of lower extremity Medical Records I reviewed the patient's medical records. Lab Data I reviewed the patient's lab results. Radiology Impressions Ankle X-Ray 12/07/22 20:02 IMPRESSION: No acute fracture demonstrated. Foot X-Ray 12/07/22 20:02 IMPRESSION: 1. No acute fracture demonstrated. 2. There is no interval change from the prior examination. Discharge Plan Discharge Patient Disposition: Home Clinical Impression: Pain in right foot Fall Qualifiers: Encounter type: initial encounter Qualified Code(s): W19.XXXA - Unspecified fall, initial encounter Condition: Stable Prescriptions: No Action (DME) CAM Boot See Rx Instructions .Route .MEDSUPPLY Qty: 1 0RF Rx Instructions: As directed hydrocodone-acetaminophen 5-325 mg tablet 1 tab PO Q6H PRN (Reason: pain) Qty: 7 0RF albuterol sulfate 90 mcg/actuation Hfa Aerosol Inhaler 2 puff INHALATION QID PRN (Reason: Shortness Of Breath Or Wheezing) metformin 500 mg Tablet 500 mg PO BID budesonide-formoterol [Symbicort] 80-4.5 mcg/actuation Hfa Aerosol Inhaler 2 puff INHALATION BID metoclopramide HCl [Reglan] 10 mg tablet 10 mg PO Q6H PRN (Reason: nausea and vomiting) Qty: 20 0RF Protonix 40 mg tablet,delayed release (DR/EC) 40 mg PO BID 42 Days Qty: 84 1RF Discharge Orders: Discharge ED (Routine); Ordered 12/07/22 Ordered By: Maverick Monsalve Referrals: Rigoberto Ferguson MD [Primary Care Provider] - 7-10 days Patient Instructions: Foot Contusion (ED), Fall Prevention Activity Restrictions/Additional Instructions: Your x-rays were read off as negative for new or acute fractures by the radiologist. Please take [id number] Tylenol and Motrin as needed for your pain. Please follow-up with your family practice doctor and/or paperboard box maker for further pain control. Coding Level of Care Code ED Green Building Materials Distributor for Yamilet De Souza
[2022-12-07] MEDS: HYDROcodone-acetaminophen 5-325 mg Tablet 1 TAB PO (21:31)
[2022-12-07 21:45] VITALS: BP 137/91; PULSE 88; RESP 16; O2SAT 98
== END 2022-12-07 21:47 | disposition home or self-care (01) ==
PROVIDERS: Emergency Provider Emergency Medicine; PCP Family Medicine
DX: M79.671 Pain in right foot (principal); Z98.890 Other specified postprocedural states
CPT/HCPCS: 73610; 73630; 99283

== ENCOUNTER → 2022-12-15 17:36 | Outpatient (BNVA) | payer BC, MEDICAID, SELFPAY | PROVIDERS: PCP Family Medicine; Visit Provider Nurse Practitioner Family | DX: S99.921A Unspecified injury of right foot, initial encounter; X58.XXXA Exposure to other specified factors, initial encounter | CPT/HCPCS: 73630 ==

== ENCOUNTER → 2022-12-18 09:05 | Outpatient (BNVA) | payer BC, MEDICAID, SELFPAY | PROVIDERS: PCP Family Medicine; Visit Provider Podiatrist Foot & Ankle Surgery | DX: M79.671 Pain in right foot (principal); T84.84XA Pain due to internal orthopedic prosthetic devices, implants and grafts, initial encounter; Y79.2 Prosthetic and other implants, materials and accessory orthopedic devices associated with adverse incidents; S93.32 Subluxation and dislocation of tarsometatarsal joint; X58.XXXS Exposure to other specified factors, sequela; F17.200 Nicotine dependence, unspecified, uncomplicated | CPT/HCPCS: 36415; 80323 ==

== ENCOUNTER 2022-12-22 13:34 | Emergency (ER) | payer BC, MEDICAID, SELFPAY ==
[2022-12-22 13:49] VITALS: BP 125/87; PULSE 105; RESP 18; TEMP 36.9; O2SAT 98; BMI 29.0
--- NOTE | 2022-12-22 14:00 | XRR_ITS ---
PROCEDURE INFORMATION: Exam: XR Right Foot Exam date and time: 12/22/2022 2:04 PM Age: 27 years old Clinical indication: Injury or trauma; Fall; Sprain or strain; Right; Injury details: Fell in hole; Prior surgery; Surgery date: 6+ months; Surgery type: Foot, June TECHNIQUE: Imaging protocol: Radiologic exam of the right foot. Views: 3 or more views. COMPARISON: CR XR foot RT min 3V* [id number] 12/15/2022 5:42 PM FINDINGS: Bones/joints: Alignment is normal. No acute fracture. Intact fixation plates and screws transfixing the 1st tarsometatarsal joint and intertarsal joints. Intact fixation plate and screws transfixing the 2nd tarsometatarsal joint and intertarsal joints. Intact fixation device at the 3rd tarsometatarsal joint. Intact cannulated screw in the navicular. Fractured transtarsal screw without displacement, unchanged since 12/15/2022. Soft tissues: Visible soft tissues are unremarkable. XR/XR foot RT min 3V* [id number] IMPRESSION: 1. No change since 12/15/2022. 2. Fractured transtarsal screw without displacement.
--- NOTE | 2022-12-22 14:01 | ED_ITS ---
HPI - Extremity Injury (Lower) General: Chief Complaint: Extremity Injury, Lower Stated Complaint: foot pain Time Seen by Provider: 12/22/22 13:49 Source: patient Mode of arrival: ambulatory Limitations: no limitations History of Present Illness: Patient is a 27-year-old female who presents to ED today for evaluation of a right foot injury.? Patient states that in May 2022 she was involved in a [facility] resulting in a foot fracture. She states that she underwent ORIF of the right foot in June 2022.? Patient states she has been following up with Dr. Patel.? She states 2-3 days ago she stepped into a ditch and twisted the foot and wants to make sure she did not reinjure her foot in any way. Patient has been seen several times for similar story. Between the emergency department, walk-in clin ics, Dr. Patel he has been seen 7 times over the past month for this foot. In the emergency department she is not wearing any type of boot or splint and is bearing weight. MD complaint: foot injury Onset (ago): day(s) Injury: Right: foot Type of Injury: inversion Place: home Severity: moderate Relieving factors: immobilization Exacerbating factors: weight bearing, movement and palpation Associated symptoms: Reports no associated symptoms Other symptoms: none Review of Systems Musc: Reports: extremity pain (R foot); Denies: extremity swelling, joint pain or joint swelling Neuro: Denies: numbness in extremities, weakness in extremities or sensory changes [facility] ED PFSH: Medical History Family history of FAP (familial adenomatous polyposis) Surgical History H/O colectomy H/O ileostomy Hx of cholecystectomy Hx of colonoscopy with polypectomy Family History Family/Other Diabetes Maternal uncle Hypertension Maternal uncle Hyperlipidemia Maternal uncle Colon cancer paternal cousins Mother Hypertension Hyperlipidemia Stroke Father Colon cancer Family/Other No problems noted. Other Breast cancer Ovarian cancer Uterine cancer Denies family history of Heart disease Thyroid condition Physical Exam Const: COMMON NORMALS: no acute distress, average body habitus, patient oriented x3, no limitations, healthy appearing, alert and well nourished Extremity: COMMON NORMALS: capillary refill normal, no joint enlargement, no calf tenderness and no pedal edema GENERAL: Yes normal exam except as noted RIGHT LOWER EXTREMITY: Yes foot & digits (TTP dorsal R foot w/o swelling or bony deformity) Right foot and digits: Yes neurovascular exam (normal) Neuro: COMMON NORMALS: patient oriented x3, moves all extremities, no focal motor deficits and no sensory deficits noted SENSORIUM/ORIENTATION: Yes alert Course Vital Signs: Vital signs: Vital Signs Temperature 98.5 F 12/22/22 13:49 Pulse Rate 105 H 12/22/22 13:49 Respiratory Rate 18 12/22/22 13:49 Blood Pressure 125/87 12/22/22 13:49 Pulse Oximetry 98 12/22/22 13:49 MDM - Extremity Injury (Lower) Medical Decision Making XR negative. She can follow up with Amanda as scheduled. She already has crutches and a cam boot at home that she can wear/use as needed for comfort. Lab Data Radiology Impressions Foot X-Ray 12/22/22 14:00 IMPRESSION: 1. No change since 12/15/2022. 2. Fractured transtarsal screw without displacement. Discharge Plan Discharge Patient Disposition: Home Clinical Impression: Pain in right foot Condition: Stable Prescriptions: No Action (DME) CAM Boot See Rx Instructions .Route .MEDSUPPLY Qty: 1 0RF Rx Instructions: As directed albuterol sulfate 90 mcg/actuation Hfa Aerosol Inhaler 2 puff INHALATION Q4H PRN (Reason: Shortness Of Breath Or Wheezing) metformin 500 mg Tablet 500 mg PO BID Rx Instructions: stop taking 2 weeks ago per pt on 12/22/22 budesonide-formoterol [Symbicort] 80-4.5 mcg/actuation Hfa Aerosol Inhaler 2 puff INHALATION BID Tylenol Ex Str Rapid Release 500 mg Tablet 1,000 mg PO Q6H PRN (Reason: Pain) Discharge Orders: Discharge ED (Routine); Ordered 12/22/22 Ordered By: Mirtha Eid Referrals: Rigoberto Ferguson MD [Primary Care Provider] - Activity Restrictions/Additional Instructions: Please follow-up with Dr. Patel. You already have crutches he can be weightbearing as tolerated. Stand Alone Forms: Work/School Release Coding Level of Care Code ED Ios Developer for Chg Nolvia
[2022-12-22] MEDS: acetaminophen 500 mg Tablet 1000 MG PO (14:29)
== END 2022-12-22 14:45 | disposition home or self-care (01) ==
PROVIDERS: Emergency Provider Physician Assistant; PCP Family Medicine
DX: M79.671 Pain in right foot (principal)
CPT/HCPCS: 73630; 99283

== ENCOUNTER → 2022-12-30 12:44 | Outpatient (BNVA) | payer BC, MEDICAID, SELFPAY | PROVIDERS: PCP Family Medicine; Visit Provider Nurse Practitioner | DX: R05.9 Cough, unspecified (principal) | CPT/HCPCS: 87426 ==

== ENCOUNTER 2023-01-13 11:17 | Emergency (ER) | payer BC, MEDICAID, SELFPAY ==
[2023-01-13 11:26] VITALS: BP 134/93; PULSE 87; RESP 16; TEMP 36.7; O2SAT 98
--- NOTE | 2023-01-13 12:44 | XR_ITS ---
WS: [id number] Exam: XR abdomen 1V* [id number] Date/Time of Exam: 01/13/2023 12:48 PM Reason For Exam: abd pain n/v/d Comparison 11/01/2022. No bowel obstruction or free air. No organ enlargement. Signs of prior cholecystectomy. Multiple surg ical sutures in the central pelvis. Levoscoliosis of the lumbar spine. IMPRESSION: 1. No acute abdominal process.
--- NOTE | 2023-01-13 12:49 | ED_ITS ---
HPI - GI Bleed General: Chief complaint: GI Bleed Stated complaint: bloody stool, body aches Time Seen by Provider: 01/13/23 12:15 History of Present Illness: Patient presents to the ER with blood in her stool since yesterday. Patient states is bright red blood. Patient states she is also dizzy with some mild nausea and vomiting. Patient's had all the symptoms before and actually been worked up for the EGD and a colonoscopy by Dr. Iyer here. Patient said that Dr. Iyer did not find anything and is referred her to for capsule endoscopy in [place] but she has not got any report from them. Review of Systems General: Reports: 10 or more systems reviewed and unremarkable except in HPI and below PFSH ED PFSH: Medical History Family history of FAP (familial adenomatous polyposis) Surgical History H/O colectomy H/O ileostomy Hx of cholecystectomy Hx of colonoscopy with polypectomy Family History Family/Other Diabetes Maternal uncle Hypertension Maternal uncle Hyperlipidemia Maternal uncle Colon cancer paternal cousins Mother Hypertension Hyperlipidemia Stroke Father Colon cancer Family/Other No problems noted. Other Breast cancer Ovarian cancer Uterine cancer Denies family history of Heart disease Thyroid condition Physical Exam Const: COMMON NORMALS: no acute distress, average body habitus, patient oriented x3, no limitations, healthy appearing, alert and well nourished HENMT: COMMON NORMALS: normocephalic, atraumatic, hearing grossly normal bilaterally, external ears normal, Normal external nose present and moist oral mucous membranes HEAD & SCALP: normocephalic and atraumatic NOSE: Normal external nose present EXTERNAL EAR: Yes external ears normal Eye: COMMON NORMALS: Equal, round and reactive pupils present, EOMs intact bilaterally, conjunctivae normal and no scleral icterus CONJUNCTIVA: Yes conjunctivae normal PUPIL: Yes Equal, round and reactive pupils present Neck/C-Spine: COMMON NORMALS: full ROM, no lymphadenopathy, supple, no meningeal signs, no JVD and Thyroid normal THYROID: Thyroid normal Lymph: LYMPHATIC: no lymphadenopathy noted Chest: COMMONS NORMALS: normal inspection of the chest and normal palpation of entire chest wall Resp: COMMON NORMALS: normal respiratory effort, No retractions, No use of accessory muscles and clear to auscultation bilaterally AUSCULTATION: clear to auscultation bilaterally Cardio: COMMON NORMALS: no JVD, regular rate, regular rhythm, S1 normal heart sound present, S2 normal heart sound present, No gallops present (Cardio), No clicks present (Cardio) and No murmurs present (Cardio) RATE: regular rate RHYTHM: regular rhythm HEART SOUNDS: S1 normal heart sound present and S2 normal heart sound present GI: COMMON NORMALS: Normal to inspection, nondistended, normoactive bowel sounds present, Soft to palpation, non-tender (Diffuse tenderness), No hepatosplenomegaly present and no masses PALPATION: Yes Soft to palpation and Yes No hepatosplenomegaly present : COMMON NORMALS: Yes no CVA tenderness BLADDER/KIDNEY EXAM: Yes no CVA tenderness Back/Pelvis: COMMON NORMALS: no CVA tenderness Neuro: COMMON NORMALS: patient oriented x3 SENSORIUM/ORIENTATION: Yes alert MENINGEAL SIGNS: Yes no meningeal signs Course Vital Signs: Vital signs: Vital Signs Temperature 98.0 F 01/13/23 11:26 Pulse Rate 87 01/13/23 11:26 Respiratory Rate 16 01/13/23 11:26 Blood Pressure 134/93 01/13/23 11:26 Pulse Oximetry 98 01/13/23 11:26 MDM - GI Bleed Medical Decision Making Patient presents to the ER with complaints of bright red blood in stool and nausea vomiting. Patient is already in the process of working this up by Dr. Iyer he is also already done a colonoscopy and a EGD and is sending her for a capsule endoscopy study. Lab work was obtained which revealed the patient has a stable hemoglobin hematocrit of 14.8 and 43.3. As well as the rest of her metabolic panel is benign. Patient be discharged home to follow back up with Dr. Iyer and over the capsule endoscopy and/or her PCP. Differential Diagnosis Likely hematochezia; Unlikely hemorrhoids, infectious diarrhea, esophageal varices, gastritis, Meri-Miller syndrome, Upper gastrointestinal hemorrhage, Lower gastrointestinal hemorrhage or melena Medical Records I reviewed the patient's medical records. Lab Data I reviewed the patient's lab results. 01/13/23 13:15 01/13/23 13:15 Laboratory Results WBC 7.20 10^3/uL (3.29-11.43) 01/13/23 13:15 RBC 4.61 10^6/uL (3.85-5.65) 01/13/23 13:15 Hgb 14.80 g/dL (11.27-16.99) 01/13/23 13:15 Hct 43.3 % (36-47) 01/13/23 13:15 MCV 93.9 fl (85-98) 01/13/23 13:15 MCH 32.1 pg (27-33) 01/13/23 13:15 MCHC 34.2 g/dL (30-55) 01/13/23 13:15 RDW 12.3 % (12.1-15.1) 01/13/23 13:15 Plt Count 223 10^3/cmm (157-399) 01/13/23 13:15 MPV 10.7 fL (7.4-10.4) H 01/13/23 13:15 Neut % (Auto) 65.8 % 01/13/23 13:15 Lymph % (Auto) 21.4 % 01/13/23 13:15 [place] % (Auto) 8.8 % 01/13/23 13:15 Eos % (Auto) 2.6 % 01/13/23 13:15 Baso % (Auto) 0.8 % 01/13/23 13:15 Neut # (Auto) 4.74 10^3/uL (1.8-7.7) 01/13/23 13:15 Lymph # (Auto) 1.5 10^3/uL (0.8-4.8) 01/13/23 13:15 [place] # (Auto) 0.6 10^3/uL (0.2-0.9) 01/13/23 13:15 Eos # (Auto) 0.2 10^3/uL (0.0-0.8) 01/13/23 13:15 Baso # (Auto) 0.1 10^3/uL (0.0-0.1) 01/13/23 13:15 Nucleated RBC % (auto) 0 % 01/13/23 13:15 Nucleated RBCs # 0.0 /100WBC 01/13/23 13:15 PT 13.10 SECONDS (12.1-14.9) 01/13/23 13:15 INR 0.96 (0.8-1.2) 01/13/23 13:15 Sodium 141 mmol/L (136-145) 01/13/23 13:15 Potassium 4.0 mmol/L (3.5-5.1) 01/13/23 13:15 Chloride 107 mmol/L (98-107) 01/13/23 13:15 Carbon Dioxide 24 mmol/L (22-29) 01/13/23 13:15 Anion Gap 14.0 (5-19) 01/13/23 13:15 BUN 8 mg/dL (6-20) 01/13/23 13:15 Creatinine 0.6 mg/dL (0.5-0.9) 01/13/23 13:15 GFR Calculation 121.8 mL/min (90-130) 01/13/23 13:15 Glucose 82 mg/dL (65-115) 01/13/23 13:15 Calculated Osmolality 289 mOsm/kg (285-295) 01/13/23 13:15 Calcium 9.1 mg/dL (8.5-10.5) 01/13/23 13:15 Total Bilirubin 0.7 mg/dL (0.15-1.2) 01/13/23 13:15 AST 27 U/L (0-32) 01/13/23 13:15 ALT 61 U/L (0-33) H 01/13/23 13:15 Alkaline Phosphatase 69 U/L (35-105) 01/13/23 13:15 Total Protein 7.0 g/dL (6.6-8.7) 01/13/23 13:15 Albumin 4.6 g/dL (3.5-5.2) 01/13/23 13:15 Globulin 2.4 g/dL (1.3-4.6) 01/13/23 13:15 Lipase 20 U/L (13-60) 01/13/23 13:15 Discharge Plan Discharge Patient Disposition: Home Clinical Impression: Hematochezia Nausea & vomiting Qualifiers: Vomiting type: unspecified Qualified Code(s): R11.2 - Nausea with vomiting, unspecified Condition: Stable Prescriptions: No Action (DME) CAM Boot See Rx Instructions .Route .MEDSUPPLY Qty: 1 0RF Rx Instructions: As directed albuterol sulfate 90 mcg/actuation Hfa Aerosol Inhaler 2 puff INHALATION Q4H PRN (Reason: Shortness Of Breath Or Wheezing) metformin 500 mg Tablet 500 mg PO BID Rx Instructions: stop taking 2 weeks ago per pt on 12/22/22 budesonide-formoterol [Symbicort] 80-4.5 mcg/actuation Hfa Aerosol Inhaler 2 puff INHALATION BID acetaminophen [Tylenol Ex Str Rapid Release] 500 mg Tablet 1,000 mg PO Q6H PRN (Reason: Pain) Discharge Orders: Discharge ED (Routine); Ordered 01/13/23 Ordered By: Maverick Monsalve Referrals: Rigoberto Ferguson MD [Primary Care Provider] - 7-10 days Patient Instructions: Rectal Bleeding (ED), Acute Nausea and Vomiting (ED) Activity Restrictions/Additional Instructions: All your blood work was essentially normal. Please follow-up with Dr. Iyer and/or the [place] doctor for the capsule endoscopy. Please return to your family practice clinic for further evaluation and treatment as needed. If symptoms worsen please feel free to return to the ER for evaluation. Coding Level of Care Code ED Tourist Home Keeper for Yamilet De Souza
[2023-01-13 13:51] LABS: Basophils # 0.1 10^3/uL (0.0-0.1); Basophils % 0.8 %; Eosinophils # 0.2 10^3/uL (0.0-0.8); Eosinophils % 2.6 %; Hematocrit 43.3 % (36-47); Lymphocytes # 1.5 10^3/uL (0.8-4.8); Lymphocytes % 21.4 %; Mean Corpuscular HGB Conc 34.2 g/dL (30-55); Mean Corpuscular Hemoglobin 32.1 pg (27-33); Mean Corpuscular Volume 93.9 fl (85-98); Mean Platelet Volume 10.7 fL (7.4-10.4); Monocytes # 0.6 10^3/uL (0.2-0.9); Monocytes % 8.8 %; Neutrophils # 4.74 10^3/uL (1.8-7.7); Neutrophils % 65.8 %; Nucleated Red Blood Cells % 0 %; Platelet Count 223 10^3/cmm (157-399); Red Blood Count 4.61 10^6/uL (3.85-5.65); Red Cell Distribution Width 12.3 % (12.1-15.1)
[2023-01-13 14:17] LABS: Alanine Aminotransferase 61 U/L (0-33); Albumin Level 4.6 g/dL (3.5-5.2); Alkaline Phosphatase 69 U/L (35-105); Aspartate Amino Transferase 27 U/L (0-32); Blood Urea Nitrogen 8 mg/dL (6-20); Calcium 9.1 mg/dL (8.5-10.5); Carbon Dioxide 24 mmol/L (22-29); Chloride 107 mmol/L (98-107); Creatinine Clr Calc Pharmacy 154.4061; Globulin 2.4 g/dL (1.3-4.6); Glomerular Filtration Rate 121.8 mL/min (90-130); Glucose 82 mg/dL (65-115); Lipase 20 U/L (13-60); Osmolality Calculated 289 mOsm/kg (285-295); Sodium 141 mmol/L (136-145); Total Bilirubin 0.7 mg/dL (0.15-1.2)
[2023-01-13 14:33] LABS: INR 0.96 (0.8-1.2)
[2023-01-13 14:46] VITALS: BP 115/81; PULSE 86; RESP 17; O2SAT 96
== END 2023-01-13 14:48 | disposition home or self-care (01) ==
PROVIDERS: Emergency Provider Emergency Medicine; PCP Family Medicine
DX: K92.1 Melena (principal); R11.2 Nausea with vomiting, unspecified
CPT/HCPCS: 36415; 74018; 80053; 83690; 85025; 85610; 99284

== ENCOUNTER → 2023-01-29 08:54 | Outpatient (BNVA) | payer BC, MEDICAID, SELFPAY | PROVIDERS: PCP Family Medicine; Visit Provider Podiatrist Foot & Ankle Surgery | DX: M79.671 Pain in right foot (principal); T84.84XA Pain due to internal orthopedic prosthetic devices, implants and grafts, initial encounter; Y79.8 Miscellaneous orthopedic devices associated with adverse incidents, not elsewhere classified | CPT/HCPCS: 36415; 80323 ==

== ENCOUNTER → 2023-03-12 10:32 | Outpatient (BNVA) | payer BC, MEDICAID, SELFPAY | PROVIDERS: PCP Family Medicine; Visit Provider Podiatrist Foot & Ankle Surgery | DX: M96.0 Pseudarthrosis after fusion or arthrodesis (principal) | CPT/HCPCS: 36415; 80323 ==

== ENCOUNTER 2023-04-28 06:36 | Day surgery (SDC) | payer BC, MEDICAID, SELFPAY ==
--- OUTSIDE RECORDS SUMMARY | 2023-04-28 06:38 | XMS_ITS | Continuity of Care Document ---
Author Name Unknown Organization [facility] Address [address] [place] [address]- Care Team Providers Care Cnc Milling Machine Operator Name Role Phone Rigoberto Ferguson MD Primary Care Physician Encounter [employer] Number [id number] Date(s): 11/25/21 - 12/04/22 [facility] [address] [place] [phone] Attending Physician: Sarwat Dent MD Allergies, Adverse Reactions, Alerts Substance Reaction Severity Status sulfa drugs Rash Moderate Active ciprofloxacin Itching Mild Active contrast media (iodine-based) Palpitatio ns - rapid Shortness of breath Severe Active Rocephin 1 anaphalaxis Severe Active Bactrim Anaphylaxis Severe Active 1tolerated cefoxitin 02/18/21 surgery Assessment and Plan Future Appointments Appointment Date:12/30/2022 10:50:00 AM Scheduled Provider:José Miguel JOHNS [facility] Location:Trauma Surgery Appointment Type:Established Patient Future Scheduled Tests Radiology* XR Foot 3 View Right Routine 09/30/22 Medications calcium (as carbonate) 500 mg oral tablet, chewable 1,000 mg = 2 tab, By mouth, Daily, # 180 tab, Refill(s) 0 Start Date: 07/02/22 Status: Ordered ibuprofen 200 mg oral capsule 400 mg = 2 cap, By mouth, Q4H, PRN pain severe, # 50 cap, Refill(s) 0, other Start Date: 03/14/21 Status: Ordered ProAir HFA 2 puff, Inhalation, Q6H, Wheezing, Refill(s) 0 Start Date: 12/30/20 Status: Ordered Vitamin C 500 mg oral tablet 500 mg = 1 tab, By mouth, Daily, # 42 tab, Refill(s) 0 Start Date: 07/02/22 Status: Ordered Vitamin D3 125 mcg (5000 intl units) oral capsule 125 mcg = 1 cap, By mouth, Daily, with food, # 100 cap, Refill(s) 0 Start Date: 07/02/22 Status: Ordered Problem List Condition Confirmation Course Effective Dates Status Health Status Informant Attenuated familial adenomatous polyposis Confirmed Active Ex-smoker Confirmed Active patient Status post reversal of ileostomy Confirmed Active S/P proctocolectomy Confirmed Active Ileostomy present Confirmed Resolved Small bowel obstruction Confirmed Active Procedures Procedure Date Related Diagnosis Body Site Status Foot 07/02/22 Completed Flexible Sigmoidoscopy 1 03/27/22 Completed Gastroscopy - Endo 2 03/27/22 Comp leted Flexible Sigmoidoscopy 3 06/03/21 Completed Ileostomy 02/2021 Completed Esophagogastroduodenoscopy 4 01/09/21 Completed Flexible Sigmoidoscopy 5 01/09/21 Completed Laparoscopic Cholecystectomy 2020 Completed 1auto-populated from documented surgical case 2auto-populated from documented surgical case 3auto-populated from documented surgical case 4auto-populated from documented surgical case 5auto-populated from documented surgical case Social History Social History Type Response Smoking Status Current every day sm oker; Smokeless tobacco use: Never; Has the patient smoked in the last 365 days, even once? Yes; Type: Cigarettes; Tobacco use per day: 1 Pack entered on: 08/19/22 Sex Female 1before surgery Implantable Device List Procedure Provider Procedure Date Device Type Site Open Reduction Internal Fixation Foot Unknown 07/02/22 Unknown Foot, Right Device Identifier Serial Number Lot or Batch Number Manufacturing Date Expiration Date Distinct Identification Code MRI Safety Implantable Status Assigning Authority Unknown Unknown Unknown Unknown Unknown Unknown Unknown Active Unk nown Unknown Unknown Unknown Unknown Unknown Unknown Unknown Active Unk nown Unknown Unknown Unknown Unknown Unknown Unknown Unknown Active Unk nown Unknown Unknown Unknown Unknown Unknown Unknown Unknown Active Unk nown Unknown Unknown Unknown Unknown Unknown Unknown Unknown Active Unk nown Unknown Unknown Unknown Unknown Unknown Unknown Unknown Active Unk nown Unknown Unknown Unknown Unknown Unknown Unknown Unknown Active Unk nown Unknown Unknown Unknown Unknown Unknown Unknown Unknown Active Unk nown Unknown Unknown Unknown Unknown Unknown Unknown Unknown Active Unk nown Unknown Unknown Unknown Unknown Unknown Unknown Unknown Active Unk nown Unknown Unknown Unknown Unknown Unknown Unknown Unknown Active Unk nown Unknown Unknown Unknown Unknown Unknown Unknown Unknown Active Unk nown Unknown Unknown Unknown Unknown Unknown Unknown Unknown Active Unk nown Unknown Unknown Unknown Unknown Unknown Unknown Unknown Active Unk nown Unknown Unknown Unknown Unknown Unknown Unknown Unknown Active Unk nown Unknown Unknown Unknown Unknown Unknown Unknown Unknown Active Unk nown Unknown Unknown Unknown Unknown Unknown Unknown Unknown Active Unk nown Unknown Unknown Unknown Unknown Unknown Unknown Unknown Active Unk nown Unknown Unknown Unknown Unknown Unknown Unknown Unknown Active Unk nown Unknown Unknown [id number] Unknown 02/14/27 Unknown Unknown Active Unknown Patient Care team information Care Team Related Persons Name: ERICK RANKIN Name: ERICA RAE
[2023-04-28 06:50] VITALS: BP 137/88; PULSE 79; RESP 18; TEMP 36.7; O2SAT 96; BMI 31.8
--- NOTE | 2023-04-28 07:00 | W.PM.OPSUD ---
Surgery/Procedure H&P Update DATE OF PROCEDURE: April 28, 2023 DATE H&P PERFORMED: 03/30/23 H&P UPDATE INFORMATION: I have reviewed H&P completed within last 30 days, I have examined patient prior to procedure and No changes to prior documentation PLANNED PROCEDURE: Operation Date: 04/28/23 07:30 [place] Procedures p [id number] Diagnostic proctoscopy 47232 egd K92.2,K62.89,K21.9(Not Applicable) - DO bella Olivera Proctoscopy(Not Applicable) - Jaxson Iyer DO
[2023-04-28] MEDS: sodium chloride 0.9% 1,000 ML 30 ML IV (07:05)
--- NOTE | 2023-04-28 07:07 | ANES.PREANE2 ---
Pre-Anesthetic Assessment Height/Weight: Height 1.68 m Weight 89.358 kg Temp Pulse Resp BP Pulse Ox O2 Del Method 98.0 F 79 18 137/88 96 Room Air 04/28/23 06:50 04/28/23 06:50 04/28/23 06:50 04/28/23 06:50 04/28/23 06:50 04/28/23 06:50 Operation Date: 04/28/23 07:30 Proposed Procedures p [id number] Diagnostic proctoscopy 08538 egd K92.2,K62.89,K21.9(Not Applicable) - DO bella Olivera Proctoscopy(Not Applicable) - Jaxson Iyer DO Familial anesthetic complications: None Was Beta Dana taken within 24 hours: N/A Was Clonidine taken within 24 hours: N/A Last intake: Intake Last Liquid Date 04/27/23 Last Liquid Time 20:00 Last Solid Date 04/26/23 Last Solid Time 23:00 Social Tobacco and No alcohol Exam alert, oriented x 3, clear to auscultation bilaterally and regular rate & rhythm Airway Mallampati: Class II Dentition: full Pulmonary Asthma CV/HEM Hypertension GI Gastroesophageal Reflux Disease FAP s/p colectomy Anesthetic Plan ASA status: 3 Anesthesia: MAC Risk of > 500 ml blood loss (7ml/kg in children): No Medications/Allergies Home Medications Medication Instructions Recorded Confirmed Last Taken Type budesonide-formoterol HFA 80 2 puff inhalation BID 10/01/22 04/26/23 04/19/23 History mcg-4.5 mcg/actuation aerosol inhaler (Symbicort) metformin 500 mg tablet 500 mg PO BID 10/01/22 04/26/23 04/25/23 History acetaminophen 500 mg tablet 1,000 mg PO Q6H PRN Pain 12/22/22 04/26/23 04/25/23 History albuterol sulfate 90 mcg/actuation 2 puff inhalation Q4H PRN 03/01/23 04/26/23 04/25/23 Rx aerosol inhaler Shortness Of Breath Or Wheezing #6.7 grams calcium carbonate 200 mg calcium 2 ea PO PRN 03/12/23 04/26/23 04/24/23 History (500 mg) chewable tablet (Antacid (calcium carbonate)) pantoprazole 40 mg tablet,delayed 40 mg PO BID 6 weeks #84 tabs 03/30/23 04/26/23 04/25/23 Rx release (Protonix) atenolol 25 mg tablet 25 mg PO DAILY 04/20/23 04/26/23 04/25/23 History Allergies Allergy/AdvReac Type Severity Reaction Status Date / Time Iodinated Contrast Media Allergy Severe ALGY-Anaphy Verified 04/26/23 09:01 laxis ceftriaxone [From Rocephin] Allergy ALGY-Anaphy Verified 04/26/23 09:01 laxis ciprofloxacin [From Cipro] Allergy ADR-Nausea Verified 04/26/23 09:01 ketorolac Allergy anaphylaxis Verified 04/26/23 09:01 Sulfa (Sulfonamide Allergy Unknown Verified 04/26/23 09:01 Antibiotics) sulfamethoxazole Allergy ADR-Nausea Verified 04/26/23 09:01 [From Bactrim] trimethoprim [From Bactrim] Allergy ADR-Nausea Verified 04/26/23 09:01 Current Medications Generic Name Dose Route Start Last Admin Trade Name Freq PRN Reason Stop Dose Admin Sodium Chloride 1,000 mls @ 30 mls/hr 04/28/23 07:00 04/28/23 07:05 Sodium Chloride 0.9% IV 04/29/23 06:59 30 mls/hr .Q24H LESLIE Administration PFSH Anesthesia Medical History Family history of FAP (familial adenomatous polyposis) Surgical History H/O colectomy H/O ileostomy Hx of cholecystectomy Hx of colonoscopy with polypectomy Family History Family/Other Diabetes Maternal uncle Hypertension Maternal uncle Hyperlipidemia Maternal uncle Colon cancer paternal cousins Mother Hypertension Hyperlipidemia Stroke Father Colon cancer Family/Other No problems noted. Other Breast cancer Ovarian cancer Uterine cancer Denies family history of Heart disease Thyroid disease Female Reproductive History Date of last menstrual period: 04/10/23 Data Anesthesia Cardiac Studies: No Data to Display
[2023-04-28 07:30] LABS: Glucose Point of Care 88 mg/dL (70-110)
[2023-04-28 08:38] VITALS: BP 99/66; PULSE 70; RESP 14; TEMP 36.1; O2SAT 95
[2023-04-28 08:53] VITALS: BP 110/76; PULSE 78; RESP 18; O2SAT 94
--- NOTE | 2023-04-28 09:05 | ANE.PACU2 ---
Inpatient post-anesthesia follow up: Airway intact: Yes Vital signs: Temperature 97.0 F Pulse Rate 78 Respiratory Rate 18 Blood Pressure 110/76 Pulse Oximetry 94 Oxygen Delivery Me thod Room Air Oxygen Flow Rate Fraction of Inspir ed Oxygen Hydration adequate: Yes Nausea and vomiting: No Pain level: 1 Mental status: Baseline
== END 2023-04-28 09:06 | disposition home or self-care (01) ==
PROVIDERS: PCP Family Medicine; Visit Provider Surgery
PROC: 0DJ08ZZ Inspection of Upper Intestinal Tract, Via Natural or Artificial Opening Endoscopic (ICD-10-PCS; CPT 43235; principal; 2023-04-28 07:30)
PROC: 0DJD8ZZ Inspection of Lower Intestinal Tract, Via Natural or Artificial Opening Endoscopic (ICD-10-PCS; CPT 45300; 2023-04-28 07:30)
DX: K62.89 Other specified diseases of anus and rectum (principal); K29.80 Duodenitis without bleeding; K21.00 Gastro-esophageal reflux disease with esophagitis, without bleeding; I10 Essential (primary) hypertension; Z79.84 Long term (current) use of oral hypoglycemic drugs; K29.70 Gastritis, unspecified, without bleeding
CPT/HCPCS: 36416; 43239; 45331; 82962; 88305; J2704; J3010; J7030

== ENCOUNTER 2023-05-05 11:47 | Emergency (ER) | payer BC, MEDICAID, SELFPAY ==
[2023-05-05 12:17] VITALS: BP 139/93; PULSE 82; RESP 18; TEMP 36.7; O2SAT 97; BMI 29.0
[2023-05-05 13:05] LABS: Basophils # 0.1 10^3/uL (0.0-0.1); Basophils % 0.6 %; Eosinophils # 0.2 10^3/uL (0.0-0.8); Eosinophils % 2.5 %; Hematocrit 46.6 % (36-47); Lymphocytes # 1.3 10^3/uL (0.8-4.8); Lymphocytes % 15.5 %; Mean Corpuscular HGB Conc 33.7 g/dL (30-55); Mean Corpuscular Hemoglobin 31.6 pg (27-33); Mean Corpuscular Volume 93.8 fl (85-98); Mean Platelet Volume 10.9 fL (7.4-10.4); Monocytes # 0.4 10^3/uL (0.2-0.9); Monocytes % 5.3 %; Neutrophils # 6.12 10^3/uL (1.8-7.7); Neutrophils % 75.7 %; Nucleated Red Blood Cells % 0 %; Platelet Count 212 10^3/cmm (157-399); Red Blood Count 4.97 10^6/uL (3.85-5.65); Red Cell Distribution Width 12.2 % (12.1-15.1); White Blood Count 8.08 10^3/uL (3.29-11.43)
[2023-05-05 13:21] LABS: HCG, Serum Qual Negative (Negative)
[2023-05-05 13:24] LABS: Alanine Aminotransferase 22 U/L (0-33); Albumin Level 4.6 g/dL (3.5-5.2); Alkaline Phosphatase 81 U/L (35-105); Anion Gap 14.9 (5-19); Aspartate Amino Transferase 15 U/L (0-32); Blood Urea Nitrogen 8 mg/dL (6-20); Calcium 9.7 mg/dL (8.5-10.5); Carbon Dioxide 22 mmol/L (22-29); Chloride 105 mmol/L (98-107); Creatinine Clr Calc Pharmacy 132.3481; Globulin 2.6 g/dL (1.3-4.6); Glucose 86 mg/dL (65-115); Lipase 25 U/L (13-60); Osmolality Calculated 284 mOsm/kg (285-295); Potassium 3.9 mmol/L (3.5-5.1); Sodium 138 mmol/L (136-145); Total Bilirubin 0.5 mg/dL (0.15-1.2); Total Protein 7.2 g/dL (6.6-8.7)
--- NOTE | 2023-05-05 14:07 | CT_ITS ---
WS: [id number] CT ABDOMEN PELVIS TECHNIQUE: Noncontrast CT of the abdomen and pelvis with coronal and sagittal reformatted images. CLINICAL INFORMATION: recent procedure, concern for infection COMPARISON: CT 11/01/2022 DLP: 724.[address] scans at [facility] use at least one of these dose optimization techniques: automated e xposure control; mA and/or kV adjustment per patient size (includes targeted exams where dose is matc hed to clinical indication); or iterative reconstruction. FINDINGS: Prior postoperative changes colectomy with rectosigmoid anastomosis. Prior cholecystectomy. Noncontra st liver is normal. Normal GE junction. Noncontrast spleen is normal. Lung bases are well aerated. No rmal lumbar spine. Noncontrast pancreas is normal. Adrenal glands are normal. No hydronephrosis in ei ther kidney. Normal caliber abdominal aorta. Tiny fat-containing umbilical hernia. Prominent lymph no de in the pelvis unchanged over multiple prior examinations measuring 13 mm likely reactive. IMPRESSION: 1. Prior postoperative changes colectomy with rectosigmoid anastomosis. 2. No free fluid in the pelvis. No drainable abscess or fluid collection. 3. Prior cholecystectomy. 4. No hydronephrosis in either kidney. 5. No other suspicious findings.
--- NOTE | 2023-05-05 14:08 | W.ED.ABDPA2 ---
HPI - Abdominal Pain General: Chief Complaint: Abdominal Pain Stated Complaint: abd pain Time Seen by Provider: 05/05/23 14:06 History of Present Illness: 27-year-old female comes in today with nausea vomiting and diarrhea for the last 2 days. 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 Patient reports and over the last 2 days she has had some low-grade fever and some diarrhea. Patient reports some blood in it. Patient appears nontoxic. Patient appears in no acute distress. Patient thinks he may be dehydrated. Associated Symptoms: Reports diarrhea, fever(s), nausea and vomiting Review of Systems General: Reports: 10 or more systems reviewed and unremarkable except in HPI and below Const: Reports: fever(s) Card: Denies: chest pain Resp: Denies: dyspnea GI: Reports: abdominal pain, nausea, vomiting and diarrhea : Denies: difficulty voiding PFSH ED PFSH: Medical History Family history of FAP (familial adenomatous polyposis) Surgical History H/O colectomy H/O ileostomy Hx of cholecystectomy Hx of colonoscopy with polypectomy Family History Family/Other Diabetes Maternal uncle Hypertension Maternal uncle Hyperlipidemia Maternal uncle Colon cancer paternal cousins Mother Hypertension Hyperlipidemia Stroke Father Colon cancer Family/Other No problems noted. Other Breast cancer Ovarian cancer Uterine cancer Denies family history of Heart disease Thyroid disease Physical Exam Const: COMMON NORMALS: alert HENMT: COMMON NORMALS: normocephalic HEAD & SCALP: normocephalic Neck/C-Spine: COMMON NORMALS: full ROM Resp: COMMON NORMALS: normal respiratory effort Cardio: COMMON NORMALS: regular rate RATE: regular rate GI: COMMON NORMALS: Soft to palpation AUSCULTATION: Yes normoactive bowel sounds PALPATION: Yes Soft to palpation and Yes Tenderness to palpation present (GI) (Mild general) Extremity: COMMON NORMALS: full ROM Neuro: SENSORIUM/ORIENTATION: Yes alert Skin: COMMON NORMALS: turgor normal GENERAL SKIN EXAM: turgor normal Course Vital Signs: Vital signs: Vital Signs Temperature 98.0 F 05/05/23 12:17 Pulse Rate 82 05/05/23 12:17 Respiratory Rate 16 05/05/23 14:53 Blood Pressure 139/93 05/05/23 12:17 Pulse Oximetry 97 05/05/23 12:17 Oxygen Delivery Me thod Room Air 05/05/23 12:17 MDM - Abdominal Pain Medical Decision Making 27-year-old female comes in with nausea vomiting diarrhea. Patient had a proctoscopy done 1 week ago. Patient reports 2 to 3 days ago started having some nausea vomiting diarrhea for low-grade fever. On exam abdomen soft with some generalized tenderness. No significant distention or hyperactivity in bowels. Vital signs are normal. Differential diagnosis includes but not limited to abdominal abscess, gastroenteritis, malingering. CBC, CMP were unremarkable. CT of the abdomen pelvis was unremarkable. Patient was given IV fluids and medication for nausea and pain. Reviewed exam with patient with recommendations for further treatment and follow-up with primary care office will need to return to the ER. Patient reported understanding. Lab Data 05/05/23 13:00 05/05/23 13:00 Labs/Radiology: Laboratory Results WBC 8.08 10^3/uL (3.29-11.43) 05/05/23 13:00 RBC 4.97 10^6/uL (3.85-5.65) 05/05/23 13:00 Hgb 15.70 g/dL (11.27-16.99) 05/05/23 13:00 Hct 46.6 % (36-47) 05/05/23 13:00 MCV 93.8 fl (85-98) 05/05/23 13:00 MCH 31.6 pg (27-33) 05/05/23 13:00 MCHC 33.7 g/dL (30-55) 05/05/23 13:00 RDW 12.2 % (12.1-15.1) 05/05/23 13:00 Plt Count 212 10^3/cmm (157-399) 05/05/23 13:00 MPV 10.9 fL (7.4-10.4) H 05/05/23 13:00 Neut % (Auto) 75.7 % 05/05/23 13:00 Lymph % (Auto) 15.5 % 05/05/23 13:00 [place] % (Auto) 5.3 % 05/05/23 13:00 Eos % (Auto) 2.5 % 05/05/23 13:00 Baso % (Auto) 0.6 % 05/05/23 13:00 Neut # (Auto) 6.12 10^3/uL (1.8-7.7) 05/05/23 13:00 Lymph # (Auto) 1.3 10^3/uL (0.8-4.8) 05/05/23 13:00 [place] # (Auto) 0.4 10^3/uL (0.2-0.9) 05/05/23 13:00 Eos # (Auto) 0.2 10^3/uL (0.0-0.8) 05/05/23 13:00 Baso # (Auto) 0.1 10^3/uL (0.0-0.1) 05/05/23 13:00 Nucleated RBC % (auto) 0 % 05/05/23 13:00 Nucleated RBCs # 0.0 /100WBC 05/05/23 13:00 Sodium 138 mmol/L (136-145) 05/05/23 13:00 Potassium 3.9 mmol/L (3.5-5.1) 05/05/23 13:00 Chloride 105 mmol/L (98-107) 05/05/23 13:00 Carbon Dioxide 22 mmol/L (22-29) 05/05/23 13:00 Anion Gap 14.9 (5-19) 05/05/23 13:00 BUN 8 mg/dL (6-20) 05/05/23 13:00 Creatinine 0.7 mg/dL (0.5-0.9) 05/05/23 13:00 GFR Calculation 102.0 mL/min (90-130) 05/05/23 13:00 Glucose 86 mg/dL (65-115) 05/05/23 13:00 Calculated Osmolality 284 mOsm/kg (285-295) L 05/05/23 13:00 Calcium 9.7 mg/dL (8.5-10.5) 05/05/23 13:00 Total Bilirubin 0.5 mg/dL (0.15-1.2) 05/05/23 13:00 AST 15 U/L (0-32) 05/05/23 13:00 ALT 22 U/L (0-33) 05/05/23 13:00 Alkaline Phosphatase 81 U/L (35-105) 05/05/23 13:00 Total Protein 7.2 g/dL (6.6-8.7) 05/05/23 13:00 Albumin 4.6 g/dL (3.5-5.2) 05/05/23 13:00 Globulin 2.6 g/dL (1.3-4.6) 05/05/23 13:00 Lipase 25 U/L (13-60) 05/05/23 13:00 HCG, Qual Negative (Negative) 05/05/23 13:00 All radiology interpretation(s) finalized by discharge Discharge Plan Discharge Patient Disposition: Home Clinical Impression: Gastroenteritis Condition: Stable Prescriptions: New ondansetron 4 mg tablet,disintegrating 4 mg PO Q8H PRN (Reason: nausea and vomiting) Qty: 7 0RF dicyclomine 20 mg tablet 20 mg PO TID PRN (Reason: abdominal pain) Qty: 14 0RF No Action albuterol sulfate 90 mcg/actuation HFA aerosol inhaler 2 puff INHALATION Q4H PRN (Reason: Shortness Of Breath Or Wheezing) Qty: 6.7 0RF pantoprazole [Protonix] 40 mg tablet,delayed release (DR/EC) 40 mg PO BID 42 Days Qty: 84 1RF atenolol 25 mg tablet 25 mg PO DAILY metformin 500 mg Tablet 500 mg PO BID budesonide-formoterol [Symbicort] 80-4.5 mcg/actuation Hfa Aerosol Inhaler 2 puff INHALATION BID PRN (Reason: Shortness Of Breath) acetaminophen 500 mg Tablet 1,000 mg PO Q6H PRN (Reason: Pain) Discharge Orders: Discharge ED (Routine); Ordered 05/05/23 Ordered By: Abdon Warner Referrals: Rigoberto Ferguson MD [Primary Care Provider] - Discharge Diet: Usual diet Discharge Activity: Increase activity as tolerated Patient Instructions: Gastroenteritis (ED) Activity Restrictions/Additional Instructions: Home and rest. Drink plenty of water and fluids. Take medications as directed for pain and nausea. Follow-up with primary care for further instructions. Return to ER for worsening symptoms. Coding Level of Care Code ED Guide Visitor for Yamilet De Souza
[2023-05-05] MEDS: sodium chloride 0.9% 1,000 ML 999 ML IV (14:51)
[2023-05-05] MEDS: ondansetron 2 mg/ML SDV 2 mL 4 MG IVP (14:52)
[2023-05-05 14:53] VITALS: RESP 16
[2023-05-05] MEDS: morphine 4 mg/mL SDV 1 mL IVP (14:53)
[2023-05-05 15:52] VITALS: BP 137/91; PULSE 88; O2SAT 94
== END 2023-05-05 15:54 | disposition home or self-care (01) ==
PROVIDERS: Emergency Medicine; Emergency Provider Nurse Practitioner Family; PCP Family Medicine
DX: K52.9 Noninfective gastroenteritis and colitis, unspecified (principal); Z79.84 Long term (current) use of oral hypoglycemic drugs
CPT/HCPCS: 36415; 74176; 80053; 83690; 84703; 85025; 96361; 96374; 96375; 99285; J2270; J2405; J7030

== ENCOUNTER 2023-06-17 08:50 | Outpatient (CLI) | payer BC, MEDICAID, SELFPAY ==
--- NOTE | 2023-06-17 09:30 | FL_ITS ---
WS: [id number] Modified barium swallow, 06/17/2023 Clinical Data: Heartburn and acid reflux. Comparison: None. Fluoroscopy time: 2min [id number] # of spot films: 1 Findings: The patient had difficulty in oral propulsion. The oral residue did clear with multiple swallows and a head tilt. There was penetration but no aspiration. There is no significant residue in the pharynx. The barium tablet passed normally from the oral cavity into the hypopharynx and esophagus and finall y the stomach. Impression: 1. Difficulty in oral propulsion but clearing with multiple swallows and held tilt. 2. Minimal penetration but no aspiration.
== END 2023-06-17 08:51 | disposition home or self-care (01) ==
LOC: RAD 08:51
PROVIDERS: PCP Family Medicine; Visit Provider Surgery
DX: K21.9 Gastro-esophageal reflux disease without esophagitis (principal)
CPT/HCPCS: 74230; 92611

== ENCOUNTER 2023-06-22 00:21 | Emergency (ER) | payer BC, MEDICAID, SELFPAY ==
[2023-06-22] VITALS (9 sets, daily range): BP systolic 147–178; BP diastolic 95–123; PULSE 74–118; RESP 16–100; TEMP 37; O2SAT 94–100; BMI 31.4
[2023-06-22 00:53] LABS: Basophils % 0.4 %; Eosinophils # 0.3 10^3/uL (0.0-0.8); Hematocrit 40.5 % (36-47); Lymphocytes # 2.9 10^3/uL (0.8-4.8); Mean Corpuscular HGB Conc 35.3 g/dL (30-55); Mean Corpuscular Hemoglobin 32.1 pg (27-33); Mean Platelet Volume 10.8 fL (7.4-10.4); Monocytes # 0.7 10^3/uL (0.2-0.9); Monocytes % 6.7 %; Neutrophils # 6.58 10^3/uL (1.8-7.7); Neutrophils % 62.4 %; Nucleated Red Blood Cells % 0 %; Platelet Count 231 10^3/cmm (157-399); Red Blood Count 4.45 10^6/uL (3.85-5.65); Red Cell Distribution Width 11.9 % (12.1-15.1); White Blood Count 10.55 10^3/uL (3.29-11.43)
--- NOTE | 2023-06-22 00:54 | ED_ITS ---
Documented by User: Maverick Monsalve DO 06/22/23 05:48 HPI - Abdominal Pain 2 General: Chief Complaint: Abdominal Pain Stated Complaint: abd pain Time Seen by Provider: 06/22/23 00:42 History of Present Illness: Patient presents to the ER with abdominal pain. And nausea vomiting. Patient states she went to her PCP during the last week they did an x-ray and said she was backed up with stool. Patient is try to give herself a couple enemas with no results. Patient is now vomiting every time she eats or drinks anything and she says it is brownish in color and looks like stool. Patient has a history of colectomy secondary to familial adenomatous polyposis. Patient says she had to be hospitalized before for bowel obstruction but it spontaneously improved. Review of Systems 2 General: Reports: 10 or more systems reviewed and unremarkable except in HPI and below PFSH ED 2 PFSH: Medical History Family history of FAP (familial adenomatous polyposis) Surgical History Hx of cholecystectomy Hx of colonoscopy with polypectomy H/O colectomy H/O ileostomy Family History Family/Other Diabetes Maternal uncle Hypertension Maternal uncle Hyperlipidemia Maternal uncle Colon cancer paternal cousins Mother Hypertension Hyperlipidemia Stroke Father Colon cancer Family/Other No problems noted. Other Breast cancer Ovarian cancer Uterine cancer Denies family history of Heart disease Thyroid disease Physical Exam 2 Const: COMMON NORMALS: no acute distress, average body habitus, patient oriented x3, no limitations, healthy appearing, alert and well nourished HENMT: COMMON NORMALS: normocephalic, atraumatic, hearing grossly normal bilaterally, external ears normal, Normal external nose present, moist oral mucous membranes and oropharynx normal HEAD & SCALP: normocephalic and atraumatic NOSE: Normal external nose present EXTERNAL EAR: Yes external ears normal Neck/C-Spine: COMMON NORMALS: no JVD Chest: COMMONS NORMALS: normal inspection of the chest and normal palpation of entire chest wall Resp: COMMON NORMALS: normal respiratory effort, No retractions, No use of accessory muscles and clear to auscultation bilaterally AUSCULTATION: clear to auscultation bilaterally Cardio: COMMON NORMALS: no JVD, regular rate, regular rhythm, S1 normal heart sound present, S2 normal heart sound present, No gallops present (Cardio), No clicks present (Cardio), No murmurs present (Cardio) and No rub (Cardio) R ATE: regular rate RHYTHM: regular rhythm HEART SOUNDS: S1 normal heart sound present and S2 normal heart sound present GI: COMMON NORMALS: Normal to inspection, nondistended, normoactive bowel sounds present, Soft to palpation, No hepatosplenomegaly present, no masses and no bruits; negative for non-tender (Diffusely tender) PALPATION: Yes Soft to palpation and Yes No hepatosplenomegaly present Neuro: COMMON NORMALS: patient oriented x3 SENSORIUM/ORIENTATION: Yes alert Course 2 Vital Signs: Vital signs: Vital Signs Temperature 98.6 F 06/22/23 00:22 Pulse Rate 118 H 06/22/23 05:54 Respiratory Rate 16 06/22/23 05:54 Blood Pressure 153/123 06/22/23 05:54 Pulse Oximetry 95 06/22/23 05:54 Oxygen Delivery Me thod Room Air 06/22/23 00:22 MDM - Abdominal Pain Medical Decision Making Lab work was obtained which was essentially unremarkable, urine specimen obtained which was contaminated, abdomen pelvis CT scan with contrast showed status post colectomy findings consistent with 2 possible closed-loop obstructions. was consulted who said the patient needs an NG tube and should go back to the facility that performed her surgery as she will probably need a colorectal surgeon. Will call [facility] colorectal surgery. [facility]: They have no beds. We will try [facility]. Discussed the patient with [facility] coordinator and pushed the images to the cloud, she will be talking to Dr. West and be giving us a call back. Differential Diagnosis Likely abdominal pain; Unlikely acute appendicitis, calculus of kidney, constipation, diverticulitis, endometriosis, gastroenteritis, pancreatitis or small bowel obstruction Medical Records I reviewed the patient's medical records. Lab Data I reviewed the patient's lab results. 06/22/23 00:45 06/22/23 00:45 Labs/Radiology: Radiology Impressions Abdomen/Pelvis CT 06/22/23 01:26 IMPRESSION: 1. Status post colectomy . Constellation of findings compatible with distal ileum obstruction (possible closed loop obstruction) as detailed above. Question also of closed loop obstruction involving the rectosigmoid colon in the region of anastomosis as discussed. Consider emergent surgical consultation. Clinical alert. Findings discussed with Dr. Maverick Monsalve at 5 a.m. on 06/22/2023 2. Other chronic/incidental findings as discussed above Chest X-Ray 06/22/23 05:44 IMPRESSION: No acute findings. Laboratory Results WBC 10.55 10^3/uL (3.29-11.43) 06/22/23 00:45 RBC 4.45 10^6/uL (3.85-5.65) 06/22/23 00:45 Hgb 14.30 g/dL (11.27-16.99) 06/22/23 00:45 Hct 40.5 % (36-47) 06/22/23 00:45 MCV 91.0 fl (85-98) 06/22/23 00:45 MCH 32.1 pg (27-33) 06/22/23 00:45 MCHC 35.3 g/dL (30-55) 06/22/23 00:45 RDW 11.9 % (12.1-15.1) L 06/22/23 00:45 Plt Count 231 10^3/cmm (157-399) 06/22/23 00:45 MPV 10.8 fL (7.4-10.4) H 06/22/23 00:45 Neut % (Auto) 62.4 % 06/22/23 00:45 Lymph % (Auto) 27.0 % 06/22/23 00:45 [place] % (Auto) 6.7 % 06/22/23 00:45 Eos % (Auto) 3.0 % 06/22/23 00:45 Baso % (Auto) 0.4 % 06/22/23 00:45 Neut # (Auto) 6.58 10^3/uL (1.8-7.7) 06/22/23 00:45 Lymph # (Auto) 2.9 10^3/uL (0.8-4.8) 06/22/23 00:45 [place] # (Auto) 0.7 10^3/uL (0.2-0.9) 06/22/23 00:45 Eos # (Auto) 0.3 10^3/uL (0.0-0.8) 06/22/23 00:45 Baso # (Auto) 0.0 10^3/uL (0.0-0.1) 06/22/23 00:45 Nucleated RBC % (auto) 0 % 06/22/23 00:45 Nucleated RBCs # 0.0 /100WBC 06/22/23 00:45 Sodium 137 mmol/L (136-145) 06/22/23 00:45 Potassium 3.5 mmol/L (3.5-5.1) 06/22/23 00:45 Chloride 103 mmol/L (98-107) 06/22/23 00:45 Carbon Dioxide 21 mmol/L (22-29) L 06/22/23 00:45 Anion Gap 16.5 (5-19) 06/22/23 00:45 BUN 12 mg/dL (6-20) 06/22/23 00:45 Creatinine 0.7 mg/dL (0.5-0.9) 06/22/23 00:45 GFR Calculation 102.0 mL/min (90-130) 06/22/23 00:45 Glucose 102 mg/dL (65-115) 06/22/23 00:45 Calculated Osmolality 284 mOsm/kg (285-295) L 06/22/23 00:45 Lactic Acid 1.1 mmol/L (0.5-2.2) 06/22/23 05:22 Calcium 9.9 mg/dL (8.5-10.5) 06/22/23 00:45 Total Bilirubin 0.2 mg/dL (0.15-1.2) 06/22/23 00:45 AST 18 U/L (0-32) 06/22/23 00:45 ALT 25 U/L (0-33) 06/22/23 00:45 Alkaline Phosphatase 72 U/L (35-105) 06/22/23 00:45 Total Protein 7.2 g/dL (6.6-8.7) 06/22/23 00:45 Albumin 4.6 g/dL (3.5-5.2) 06/22/23 00:45 Globulin 2.6 g/dL (1.3-4.6) 06/22/23 00:45 Lipase 28 U/L (13-60) 06/22/23 00:45 HCG, Qual Negative (Negative) 06/22/23 00:40 Urine Color Yellow (Yellow) 06/22/23 00:40 Urine Appearance Sl hazy (CLEAR) A 06/22/23 00:40 Urine pH 5 (5-7) 06/22/23 00:40 Ur Specific Leola 1.030 (1.005-1.030) 06/22/23 00:40 Urine Protein Neg (Negative) 06/22/23 00:40 Urine Glucose (UA) Norm (Normal) 06/22/23 00:40 Urine Ketones 1+ (Negative) H 06/22/23 00:40 Urine Blood Neg (Negative) 06/22/23 00:40 Urine Nitrate Negative (Negative) 06/22/23 00:40 Urine Bilirubin Neg (Negative) 06/22/23 00:40 Urine Urobilinogen Neg mg/dL (Negative) 06/22/23 00:40 Ur Leukocyte Esterase 1+ (Negative) H 06/22/23 00:40 Urine RBC None /hpf (0-2) 06/22/23 00:40 Urine WBC 10-15 /hpf (0-5) H 06/22/23 00:40 Ur Squamous Epith Cells 10-15 /hpf (0-5) H 06/22/23 00:40 Calcium Oxalate Crystal 0-4 /hpf H 06/22/23 00:40 Amorphous Sediment Not Reportable 06/22/23 00:40 Urine Bacteria 1+ /hpf (NONE) H 06/22/23 00:40 Urine Mucus 2+ /hpf 06/22/23 00:40 All radiology interpretation(s) finalized by discharge Discharge Plan Discharge Patient Disposition: Xfer Short-Term Hosp Clinical Impression: Complete small bowel obstruction, History of colectomy Abdominal pain Qualifiers: Abdominal location: generalized Qualified Code(s): R10.84 - Generalized abdominal pain Nausea and vomiting Qualifiers: Vomiting type: vomiting of fecal matter Qualified Code(s): R11.13 - Vomiting of fecal matter Condition: Stable Referrals: Rigoberto Ferguson MD [Primary Care Provider] - Patient Instructions: Abdominal Pain (ED) Coding Level of Care Code ED Professor Of Economics for Chg Fwd Documented by User: Gulshan Vela DO 06/22/23 06:29 HPI - Abdominal Pain 2 General: Chief Complaint: Abdominal Pain Stated Complaint: abd pain Time Seen by Provider: 06/22/23 00:42 PFSH ED 2 PFSH: Medical History Family history of FAP (familial adenomatous polyposis) Surgical History Hx of cholecystectomy Hx of colonoscopy with polypectomy H/O colectomy H/O ileostomy Family History Family/Other Diabetes Maternal uncle Hypertension Maternal uncle Hyperlipidemia Maternal uncle Colon cancer paternal cousins Mother Hypertension Hyperlipidemia Stroke Father Colon cancer Family/Other No problems noted. Other Breast cancer Ovarian cancer Uterine cancer Denies family history of Heart disease Thyroid disease Course 2 Vital Signs: Vital signs: Vital Signs Temperature 98.6 F 06/22/23 00:22 Pulse Rate 118 H 06/22/23 05:54 Respiratory Rate 16 06/22/23 05:54 Blood Pressure 153/123 06/22/23 05:54 Pulse Oximetry 95 06/22/23 05:54 Oxygen Delivery Me thod Room Air 06/22/23 00:22 MDM - Abdominal Pain Medical Decision Making Lab work was obtained which was essentially unremarkable, urine specimen obtained which was contaminated, abdomen pelvis CT scan with contrast showed status post colectomy findings consistent with 2 possible closed-loop obstructions. was consulted who said the patient needs an NG tube and should go back to the facility that performed her surgery as she will probably need a colorectal surgeon. Will call [facility] colorectal surgery. [facility]: They have no beds. We will try [facility]. Discussed the patient with [facility] coordinator and pushed the images to the cloud, she will be talking to Dr. West and be giving us a call back. Care assumed at change of shift. Patient had initial partial colectomy with ileostomy then reversal at [facility] in [place]. Dr. Monsalve had consulted Dr. Wellington on unfortunately we did not have capacity to manage this here at [facility] does not have any bed availability contacted colorectal surgery at [facility] and they have agreed to take the patient Dr. West will be the receiving physician. Patient has an NG in place its positioning could use some improvement will have nursing staff advance by about 6 inches. Transportation arrangements being made. Lab Data 06/22/23 00:45 06/22/23 00:45 Labs/Radiology: Radiology Impressions Abdomen/Pelvis CT 06/22/23 01:26 IMPRESSION: 1. Status post colectomy . Constellation of findings compatible with distal ileum obstruction (possible closed loop obstruction) as detailed above. Question also of closed loop obstruction involving the rectosigmoid colon in the region of anastomosis as discussed. Consider emergent surgical consultation. Clinical alert. Findings discussed with Dr. Maverick Monsalve at 5 a.m. on 06/22/2023 2. Other chronic/incidental findings as discussed above Chest X-Ray 06/22/23 05:44 IMPRESSION: No acute findings. Laboratory Results WBC 10.55 10^3/uL (3.29-11.43) 06/22/23 00:45 RBC 4.45 10^6/uL (3.85-5.65) 06/22/23 00:45 Hgb 14.30 g/dL (11.27-16.99) 06/22/23 00:45 Hct 40.5 % (36-47) 06/22/23 00:45 MCV 91.0 fl (85-98) 06/22/23 00:45 MCH 32.1 pg (27-33) 06/22/23 00:45 MCHC 35.3 g/dL (30-55) 06/22/23 00:45 RDW 11.9 % (12.1-15.1) L 06/22/23 00:45 Plt Count 231 10^3/cmm (157-399) 06/22/23 00:45 MPV 10.8 fL (7.4-10.4) H 06/22/23 00:45 Neut % (Auto) 62.4 % 06/22/23 00:45 Lymph % (Auto) 27.0 % 06/22/23 00:45 [place] % (Auto) 6.7 % 06/22/23 00:45 Eos % (Auto) 3.0 % 06/22/23 00:45 Baso % (Auto) 0.4 % 06/22/23 00:45 Neut # (Auto) 6.58 10^3/uL (1.8-7.7) 06/22/23 00:45 Lymph # (Auto) 2.9 10^3/uL (0.8-4.8) 06/22/23 00:45 [place] # (Auto) 0.7 10^3/uL (0.2-0.9) 06/22/23 00:45 Eos # (Auto) 0.3 10^3/uL (0.0-0.8) 06/22/23 00:45 Baso # (Auto) 0.0 10^3/uL (0.0-0.1) 06/22/23 00:45 Nucleated RBC % (auto) 0 % 06/22/23 00:45 Nucleated RBCs # 0.0 /100WBC 06/22/23 00:45 Sodium 137 mmol/L (136-145) 06/22/23 00:45 Potassium 3.5 mmol/L (3.5-5.1) 06/22/23 00:45 Chloride 103 mmol/L (98-107) 06/22/23 00:45 Carbon Dioxide 21 mmol/L (22-29) L 06/22/23 00:45 Anion Gap 16.5 (5-19) 06/22/23 00:45 BUN 12 mg/dL (6-20) 06/22/23 00:45 Creatinine 0.7 mg/dL (0.5-0.9) 06/22/23 00:45 GFR Calculation 102.0 mL/min (90-130) 06/22/23 00:45 Glucose 102 mg/dL (65-115) 06/22/23 00:45 Calculated Osmolality 284 mOsm/kg (285-295) L 06/22/23 00:45 Lactic Acid 1.1 mmol/L (0.5-2.2) 06/22/23 05:22 Calcium 9.9 mg/dL (8.5-10.5) 06/22/23 00:45 Total Bilirubin 0.2 mg/dL (0.15-1.2) 06/22/23 00:45 AST 18 U/L (0-32) 06/22/23 00:45 ALT 25 U/L (0-33) 06/22/23 00:45 Alkaline Phosphatase 72 U/L (35-105) 06/22/23 00:45 Total Protein 7.2 g/dL (6.6-8.7) 06/22/23 00:45 Albumin 4.6 g/dL (3.5-5.2) 06/22/23 00:45 Globulin 2.6 g/dL (1.3-4.6) 06/22/23 00:45 Lipase 28 U/L (13-60) 06/22/23 00:45 HCG, Qual Negative (Negative) 06/22/23 00:40 Urine Color Yellow (Yellow) 06/22/23 00:40 Urine Appearance Sl hazy (CLEAR) A 06/22/23 00:40 Urine pH 5 (5-7) 06/22/23 00:40 Ur Specific [place] 1.030 (1.005-1.030) 06/22/23 00:40 Urine Protein Neg (Negative) 06/22/23 00:40 Urine Glucose (UA) Norm (Normal) 06/22/23 00:40 Urine Ketones 1+ (Negative) H 06/22/23 00:40 Urine Blood Neg (Negative) 06/22/23 00:40 Urine Nitrate Negative (Negative) 06/22/23 00:40 Urine Bilirubin Neg (Negative) 06/22/23 00:40 Urine Urobilinogen Neg mg/dL (Negative) 06/22/23 00:40 Ur Leukocyte Esterase 1+ (Negative) H 06/22/23 00:40 Urine RBC None /hpf (0-2) 06/22/23 00:40 Urine WBC 10-15 /hpf (0-5) H 06/22/23 00:40 Ur Squamous Epith Cells 10-15 /hpf (0-5) H 06/22/23 00:40 Calcium Oxalate Crystal 0-4 /hpf H 06/22/23 00:40 Amorphous Sediment Not Reportable 06/22/23 00:40 Urine Bacteria 1+ /hpf (NONE) H 06/22/23 00:40 Urine Mucus 2+ /hpf 06/22/23 00:40 Discharge Plan Discharge Patient Disposition: Xfer Short-Term Hosp Clinical Impression: Complete small bowel obstruction, History of colectomy Abdominal pain Qualifiers: Abdominal location: generalized Qualified Code(s): R10.84 - Generalized abdominal pain Nausea and vomiting Qualifiers: Vomiting type: vomiting of fecal matter Qualified Code(s): R11.13 - Vomiting of fecal matter Condition: Stable Referrals: Rigoberto Ferguson MD [Primary Care Provider] - Patient Instructions: Abdominal Pain (ED) Coding Level of Care Code ED Professor Of Economics for Yamilet De Souza
[2023-06-22 01:04] LABS: Alanine Aminotransferase 25 U/L (0-33); Albumin Level 4.6 g/dL (3.5-5.2); Alkaline Phosphatase 72 U/L (35-105); Anion Gap 16.5 (5-19); Aspartate Amino Transferase 18 U/L (0-32); Blood Urea Nitrogen 12 mg/dL (6-20); Calcium 9.9 mg/dL (8.5-10.5); Carbon Dioxide 21 mmol/L (22-29); Chloride 103 mmol/L (98-107); Globulin 2.6 g/dL (1.3-4.6); Glucose 102 mg/dL (65-115); Lipase 28 U/L (13-60); Osmolality Calculated 284 mOsm/kg (285-295); Potassium 3.5 mmol/L (3.5-5.1); Sodium 137 mmol/L (136-145); Total Bilirubin 0.2 mg/dL (0.15-1.2); Total Protein 7.2 g/dL (6.6-8.7)
[2023-06-22 01:26] LABS: HCG Qualitative Urine. Negative (Negative)
--- NOTE | 2023-06-22 01:26 | CTR_ITS ---
PROCEDURE INFORMATION: Exam: CT Abdomen And Pelvis Without Contrast Exam date and time: 06/22/2023 1:33 AM Age: 27 years old Clinical indication: Constipation and nausea and vomiting; Prior surgery; Surgery date: 6+ months; Surgery type: HX of colectomy, ileostomy/reverse; Additional info: N/v abd pain constipation, HX of colectomy TECHNIQUE: Imaging protocol: Computed tomography of the abdomen and pelvis without contrast. Radiation optimization: All CT scans at this facility use at least one of these dose optimization techniques: automated exposure control; mA and/or kV adjustment per patient size (includes targeted exams where dose is matched to clinical indication); or iterative reconstruction. COMPARISON: CT abdomen pelvis wo con [id number] 05/05/2023 2:23 PM RADIATION DOSE METRICS: Total DLP (mGy-cm): 734.31 FINDINGS: Lungs: Visualized lung bases demonstrate a small amount of RML basilar patchy subsegmental versus less likely developing infiltrate; this has slightly increased in the interval. Very mild nonspecific. patchy left basilar lung ground-glass opacities. Liver: Normal. No mass. No findings of portal venous gas Gallbladder and bile ducts: Cholecystectomy clips Pancreas: Normal. No ductal dilation. Spleen: Normal. No splenomegaly. Adrenal glands: Normal. No mass. Kidneys and ureters: Normal. No hydronephrosis. Stomach and bowel: A long loop of S shaped distal ileum is prominently distended up to 54 mm diameter at the right lower quadrant, and contains multiple step ladder air-fluid levels as well as small bowel feces sign ( compatible with delayed intestinal transit).; transition point to normal caliber ileum is suspected to be approximately 7 cm from the ileum/rectosigmoid anastomosis. There is also a transition point seen proximal to the site of obstruction, on series 3, image 156 . Question of closed loop obstruction involving an approximate 10 cm segment of rectosigmoid colon; the rectosigmoid colon is distended with liquid stool and gas bubbles up to 42 mm diameter, with surgical sutures seen at the distal end of the obstruction , as well as suggestion of surgical sutures at the proximal end of the instruction as seen on series 3, image 1 59 -161. Appendix: Patient history includes appendectomy Intraperitoneal space: No free air. Mild surrounding mesenteric congestion. No portal venous gas seen. No pneumatosis intestinalis. Vasculature: Mild mesenteric congestion Lymph nodes: Re-identified enlarged pelvic lymph nodes measuring up to 11 mm short axis . Shotty periaortic nodes. Urinary bladder: Unremarkable as visualized. Reproductive: Unremarkable as visualized. Bones/joints: [id number] bilateral SI joint DJD. Soft tissues: Unremarkable. CT/CT abdomen pelvis wo con [id number] IMPRESSION: 1. Status post colectomy . Constellation of findings compatible with distal ileum obstruction (possible closed loop obstruction) as detailed above. Question also of closed loop obstruction involving the rectosigmoid colon in the region of anastomosis as discussed. Consider emergent surgical consultation. Clinical alert. Findings discussed with Dr. Maverick Monsalve at 5 a.m. on 06/22/2023 2. Other chronic/incidental findings as discussed above
[2023-06-22 01:29] LABS: Bilirubin Urine Neg (Negative); Blood Urine Neg (Negative); Glucose Urine UA Norm (Normal); Ketones Urine 1+ (Negative); Nitrate Urine Negative (Negative); Protein Urine Neg (Negative); Urine Appearance SL Hazy (CLEAR); Urine Color Yellow (Yellow); pH Urine 5 (5-7)
[2023-06-22 01:30] LABS: Add Urine Culture? No; Add Urine Microscopic? YES; Bacteria Urine 1+ /hpf; Calcium Oxalate Crystals Urine 0-4 /hpf; Leukocyte Esterase Urine 1+ (Negative); Mucus Urine 2+ /hpf; Urobilinogen Urine Neg (Negative)
[2023-06-22] MEDS: morphine 4 mg/mL SDV 1 mL IVP ×4 (01:30→13:30)
[2023-06-22 05:44] LABS: Lactic Sepsis W/Reflex 1.1 mmol/L (0.5-2.2)
--- NOTE | 2023-06-22 05:44 | XRR_ITS ---
PROCEDURE INFORMATION: Exam: XR Chest Exam date and time: 06/22/2023 5:46 AM Age: 27 years old Clinical indication: Device placement; Ng tube; Additional info: Ng tube placement TECHNIQUE: Imaging protocol: Radiologic exam of the chest. Views: 1 view. COMPARISON: CR XR chest 1V portable [id number] 10/16/2022 11:24 PM FINDINGS: Tubes, catheters and devices: NG tube is in place with the tip overlying the gastric fundus. Lungs: Unremarkable. No consolidation. Pleural spaces: Unremarkable. No pleural effusion. No pneumothorax. Heart/Mediastinum: Unremarkable. No cardiomegaly. Bones/joints: Unremarkable. XR/XR chest 1V portable [id number] IMPRESSION: No acute findings.
[2023-06-22] MEDS: LORazepam 2 mg/mL INJ 10 mL MDV 1 MG IVP (05:48)
[2023-06-22] MEDS: cetacaine Spray 20 gm Can 1 SPRAY TOPICAL (06:00)
--- NOTE | 2023-06-22 08:16 | PC.NURSE ---
crop supervisor Lucero called down to OPS at 0545 for Cetacaine spray for pt care this nurse pulled med from pyxis and handed it over to the packing house laborer to take to the ED
[2023-06-22] MEDS: ondansetron 2 mg/ML SDV 2 mL 4 MG IVP (13:30)
== END 2023-06-22 14:40 | disposition short-term general hospital (02) ==
PROVIDERS: Emergency Medicine; Emergency Provider Family Medicine; PCP Family Medicine
DX: R10.84 Generalized abdominal pain (principal); R11.13 Vomiting of fecal matter; K56.601 Complete intestinal obstruction, unspecified as to cause; Z90.49 Acquired absence of other specified parts of digestive tract
CPT/HCPCS: 71045; 74176; 80053; 81001; 81025; 83605; 83690; 85025; 96374; 96375; 96376; 99285; J2060; J2270; J2405

== ENCOUNTER 2023-06-26 18:41 | Emergency (ER) | payer BC, MEDICAID, SELFPAY ==
[2023-06-26 18:47] VITALS: BP 155/105; PULSE 92; RESP 18; TEMP 37; O2SAT 96; BMI 31.1
--- NOTE | 2023-06-26 19:23 | XRR_ITS ---
PROCEDURE INFORMATION: Exam: XR Abdomen Exam date and time: 06/26/2023 7:31 PM Age: 27 years old Clinical indication: Abdominal pain; Generalized; Prior surgery; Surgery date: 6+ months; Surgery type: Ileostomy reversal. Colectomy. Gb. Patient HX: Diffuse abd pain with nausea TECHNIQUE: Imaging protocol: Radiologic exam of the abdomen. Views: 2 Views. Upright and supine views. COMPARISON: CT abdomen pelvis [facility] [id number] 06/22/2023 1:33 AM FINDINGS: Gastrointestinal tract: There is gaseous distension of the bowel in the right hemiabdomen measuring up to 5.6 cm in diameter, similar to appearance from recent CT of the abdomen and pelvis from June 22, 2023. Intraperitoneal space: No gross evidence of free air or pneumatosis. Bones/joints: No evidence of acute osseous abnormality. XR/XR abdomen min 2V [id number] IMPRESSION: 1. Gaseous distension of the bowel in the right hemiabdomen measuring up to 5.6 cm in diameter, similar to appearance from recent CT of the abdomen and pelvis from June 22, 2023. If there are worsening clinical findings, consider follow-up exam.
[2023-06-26] MEDS: sodium chloride 0.9% 1,000 ML 999 ML IV (19:50)
[2023-06-26 19:53] LABS: Basophils # 0.1 10^3/uL (0.0-0.1); Basophils % 0.6 %; Eosinophils # 0.3 10^3/uL (0.0-0.8); Eosinophils % 3.5 %; Hematocrit 41.3 % (36-47); Lymphocytes # 1.7 10^3/uL (0.8-4.8); Lymphocytes % 16.9 %; Mean Corpuscular HGB Conc 34.9 g/dL (30-55); Mean Corpuscular Hemoglobin 31.7 pg (27-33); Mean Platelet Volume 10.7 fL (7.4-10.4); Monocytes # 0.7 10^3/uL (0.2-0.9); Monocytes % 7.1 %; Neutrophils # 6.98 10^3/uL (1.8-7.7); Neutrophils % 71.3 %; Nucleated Red Blood Cells % 0 %; Platelet Count 231 10^3/cmm (157-399); Red Blood Count 4.54 10^6/uL (3.85-5.65); Red Cell Distribution Width 11.9 % (12.1-15.1); White Blood Count 9.78 10^3/uL (3.29-11.43)
[2023-06-26 20:15] LABS: Alanine Aminotransferase 48 U/L (0-33); Albumin Level 4.3 g/dL (3.5-5.2); Alkaline Phosphatase 84 U/L (35-105); Anion Gap 16.8 (5-19); Aspartate Amino Transferase 25 U/L (0-32); Blood Urea Nitrogen 13 mg/dL (6-20); Calcium 9.2 mg/dL (8.5-10.5); Carbon Dioxide 20 mmol/L (22-29); Chloride 106 mmol/L (98-107); Globulin 2.9 g/dL (1.3-4.6); Glucose 83 mg/dL (65-115); Lipase 38 U/L (13-60); Osmolality Calculated 287 mOsm/kg (285-295); Potassium 3.8 mmol/L (3.5-5.1); Sodium 139 mmol/L (136-145); Total Bilirubin 0.2 mg/dL (0.15-1.2); Total Protein 7.2 g/dL (6.6-8.7)
[2023-06-26] MEDS: ondansetron 2 mg/ML SDV 2 mL 4 MG IVP (20:36)
--- NOTE | 2023-06-26 20:37 | ED_ITS ---
HPI - Abdominal Pain 2 General: Chief Complaint: Abdominal Pain Stated Complaint: abd pain Time Seen by Provider: 06/26/23 18:56 History of Present Illness: This patient is a 27-year-old white female who presents to the emergency department complaining of diffuse abdominal pain. Patient states she was here on Wednesday at which time she was diagnosed with a small bowel obstruction. She was sent to [facility] in [place]. She states they repeated the CAT scan there and she was told that she does not have a bowel obstruction and she was sent home. She has had some nausea but no vomiting. She states she does have loose stools. This is chronic. No dysuria. No fever. Past medical history is significant for familial polyposis. She has had a bowel resection with ileostomy and then had a reversal. Review of Systems 2 General: Reports: 10 or more systems reviewed and unremarkable except in HPI and below PFSH ED 2 PFSH: Medical History Family history of FAP (familial adenomatous polyposis) Surgical History Hx of cholecystectomy Hx of colonoscopy with polypectomy H/O colectomy H/O ileostomy Family History Family/Other Diabetes Maternal uncle Hypertension Maternal uncle Hyperlipidemia Maternal uncle Colon cancer paternal cousins Mother Hypertension Hyperlipidemia Stroke Father Colon cancer Family/Other No problems noted. Other Breast cancer Ovarian cancer Uterine cancer Denies family history of Heart disease Thyroid disease Physical Exam 2 Const: COMMON NORMALS: patient oriented x3 and no limitations GENERAL APPEARANCE: cooperative, comfortable and in distress (mild) HENMT: COMMON NORMALS: normocephalic, atraumatic, Normal nasal mucous membranes and turbinates present, moist oral mucous membranes and oropharynx normal HEAD & SCALP: normal to inspection, normocephalic and atraumatic F LAZARUS & SINUS: normal facial exam NOSE: Normal nasal mucous membranes and turbinates present Eye: COMMON NORMALS: Equal, round and reactive pupils present, EOMs intact bilaterally and conjunctivae normal GENERAL EYE: appearance normal, both eyes and all related structures CONJUNCTIVA: Yes conjunctivae normal PUPIL: Yes Equal, round and reactive pupils present Neck/C-Spine: COMMON NORMALS: supple and no JVD Chest: COMMONS NORMALS: normal inspection of the chest Resp: COMMON NORMALS: normal respiratory effort and clear to auscultation bilaterally AUSCULTATION: clear to auscultation bilaterally Cardio: COMMON NORMALS: no JVD, regular rate, regular rhythm, No gallops present (Cardio), No murmurs present (Cardio) and No rub (Cardio) RATE: r egular rate RHYTHM: regular rhythm GI: COMMON NORMALS: Soft to palpation AUSCULTATION: Yes normoactive bowel sounds PALPATION: Yes Soft to palpation, Yes Tenderness to palpation present (GI), No Guarding due to palpation present (GI) and No Rebound tenderness present : COMMON NORMALS: Yes no CVA tenderness BLADDER/KIDNEY EXAM: Yes no CVA tenderness Back/Pelvis: COMMON NORMALS: no CVA tenderness and thoracic and lumbar spine normal to inspection Extremity: COMMON NORMALS: normal to inspection Neuro: COMMON NORMALS: patient oriented x3 and CN's II-XII intact bilaterally Psych: COMMON NORMALS: mental status grossly normal, Normal thought process present and cooperative THOUGHT PROCESS: Normal thought process present Skin: COMMON NORMALS: no rashes or lesions noted, turgor normal and no jaundice GENERAL SKIN EXAM: no rashes or lesions noted and turgor normal Course 2 Vital Signs: Vital signs: Vital Signs Temperature 98.6 F 06/26/23 18:47 Pulse Rate 92 06/26/23 18:47 Respiratory Rate 18 06/26/23 18:47 Blood Pressure 155/105 06/26/23 18:47 Pulse Oximetry 96 06/26/23 18:47 Oxygen Delivery Me thod Room Air 06/26/23 18:47 MDM - Abdominal Pain Medical Decision Making CBC, CMP and lipase were normal. Abdominal flatplate and upright films reveal gaseous distention of the bowel in the right hemisphere. This appears to be consistent with the CT scan done several days ago. No complete obstruction. I discussed all of the results with the patient. She states she is had symptoms like this ever since she had the ileostomy and reversal a couple of years ago. I do not think she needs to be admitted. I will place her on Bentyl for the cramping. Recommended she push clear liquids. I recommended she contact her surgeon on Wednesday. She was discharged in stable condition. Lab Data I reviewed the patient's lab results. 06/26/23 19:45 06/26/23 19:45 Labs/Radiology: Radiology Impressions Abdomen X-Ray 06/26/23 19:23 IMPRESSION: 1. Gaseous distension of the bowel in the right hemiabdomen measuring up to 5.6 cm in diameter, similar to appearance from recent CT of the abdomen and pelvis from June 22, 2023. If there are worsening clinical findings, consider follow-up exam. Laboratory Results WBC 9.78 10^3/uL (3.29-11.43) 06/26/23 19:45 RBC 4.54 10^6/uL (3.85-5.65) 06/26/23 19:45 Hgb 14.40 g/dL (11.27-16.99) 06/26/23 19:45 Hct 41.3 % (36-47) 06/26/23 19:45 MCV 91.0 fl (85-98) 06/26/23 19:45 MCH 31.7 pg (27-33) 06/26/23 19:45 MCHC 34.9 g/dL (30-55) 06/26/23 19:45 RDW 11.9 % (12.1-15.1) L 06/26/23 19:45 Plt Count 231 10^3/cmm (157-399) 06/26/23 19:45 MPV 10.7 fL (7.4-10.4) H 06/26/23 19:45 Neut % (Auto) 71.3 % 06/26/23 19:45 Lymph % (Auto) 16.9 % 06/26/23 19:45 [place] % (Auto) 7.1 % 06/26/23 19:45 Eos % (Auto) 3.5 % 06/26/23 19:45 Baso % (Auto) 0.6 % 06/26/23 19:45 Neut # (Auto) 6.98 10^3/uL (1.8-7.7) 06/26/23 19:45 Lymph # (Auto) 1.7 10^3/uL (0.8-4.8) 06/26/23 19:45 [place] # (Auto) 0.7 10^3/uL (0.2-0.9) 06/26/23 19:45 Eos # (Auto) 0.3 10^3/uL (0.0-0.8) 06/26/23 19:45 Baso # (Auto) 0.1 10^3/uL (0.0-0.1) 06/26/23 19:45 Nucleated RBC % (auto) 0 % 06/26/23 19:45 Nucleated RBCs # 0.0 /100WBC 06/26/23 19:45 Sodium 139 mmol/L (136-145) 06/26/23 19:45 Potassium 3.8 mmol/L (3.5-5.1) 06/26/23 19:45 Chloride 106 mmol/L (98-107) 06/26/23 19:45 Carbon Dioxide 20 mmol/L (22-29) L 06/26/23 19:45 Anion Gap 16.8 (5-19) 06/26/23 19:45 BUN 13 mg/dL (6-20) 06/26/23 19:45 Creatinine 0.7 mg/dL (0.5-0.9) 06/26/23 19:45 GFR Calculation 102.0 mL/min (90-130) 06/26/23 19:45 Glucose 83 mg/dL (65-115) 06/26/23 19:45 Calculated Osmolality 287 mOsm/kg (285-295) 06/26/23 19:45 Calcium 9.2 mg/dL (8.5-10.5) 06/26/23 19:45 Total Bilirubin 0.2 mg/dL (0.15-1.2) 06/26/23 19:45 AST 25 U/L (0-32) 06/26/23 19:45 ALT 48 U/L (0-33) H 06/26/23 19:45 Alkaline Phosphatase 84 U/L (35-105) 06/26/23 19:45 Total Protein 7.2 g/dL (6.6-8.7) 06/26/23 19:45 Albumin 4.3 g/dL (3.5-5.2) 06/26/23 19:45 Globulin 2.9 g/dL (1.3-4.6) 06/26/23 19:45 Lipase 38 U/L (13-60) 06/26/23 19:45 All radiology interpretation(s) finalized by discharge Discharge Plan Discharge Patient Disposition: Home Clinical Impression: Abdominal pain Qualifiers: Abdominal location: generalized Qualified Code(s): R10.84 - Generalized abdominal pain Condition: Stable Prescriptions: New dicyclomine 20 mg tablet 20 mg PO QID Qty: 20 1RF No Action albuterol sulfate 90 mcg/actuation HFA aerosol inhaler 2 puff INHALATION Q4H PRN (Reason: Shortness Of Breath Or Wheezing) Qty: 6.7 0RF atenolol 25 mg tablet 25 mg PO DAILY dicyclomine 20 mg tablet 20 mg PO TID PRN (Reason: abdominal pain) Qty: 14 0RF acetaminophen 500 mg Tablet 1,000 mg PO Q6H PRN (Reason: Pain) Discharge Orders: Discharge ED (Routine); Ordered 06/26/23 Ordered By: Jayme Gould Referrals: Rigoberto Ferguson MD [Primary Care Provider] - Discharge Diet: Clear Liquid Patient Instructions: Abdominal Pain (ED), Pain Management Activity Restrictions/Additional Instructions: Call your local surgeon or your surgeon at [facility] on Wednesday to schedule an appointment for ongoing management. Coding Level of Care Code ED Desktop Analyst for Yamilet De Souza
[2023-06-26] MEDS: HYDROmorphone 1 mg/mL INJ 1 mL 0.5 MG IVP (20:39)
[2023-06-26 21:16] VITALS: BP 155/105; PULSE 92; RESP 18; TEMP 37; O2SAT 96
== END 2023-06-26 21:17 | disposition home or self-care (01) ==
PROVIDERS: Emergency Provider Emergency Medicine; PCP Family Medicine
DX: R10.84 Generalized abdominal pain (principal)
CPT/HCPCS: 74019; 80053; 83690; 85025; 96361; 96374; 96375; 99284; J1170; J2405; J7030

== ENCOUNTER 2023-07-25 19:04 | Emergency (ER) | payer BC, MEDICAID, SELFPAY ==
[2023-07-25 19:12] VITALS: BP 137/109; PULSE 89; RESP 16; TEMP 36.7; O2SAT 98; BMI 29.0
--- NOTE | 2023-07-25 19:29 | XRR_ITS ---
PROCEDURE INFORMATION: Exam: XR Abdomen Exam date and time: 07/25/2023 7:54 PM Age: 27 years old Clinical indication: Abdominal tenderness; Prior surgery; Surgery date: 6+ months; Surgery type: Colon resection/reversal; Patient HX: Abdomen pain TECHNIQUE: Imaging protocol: Radiologic exam of the abdomen. Views: Frontal supine view of the abdomen. 1 View. COMPARISON: CT abdomen pelvis w con* [id number] 07/25/2023 7:23 PM FINDINGS: Gastrointestinal tract: Normal. No bowel dilation. Bones/joints: Unremarkable. XR/XR KUB [id number] IMPRESSION: No acute findings.
--- NOTE | 2023-07-25 19:43 | W.ED.ABDPA2 ---
HPI - Abdominal Pain General: Chief Complaint: Abdominal Pain Stated Complaint: abdomen pain, rash Time Seen by Provider: 07/25/23 19:25 Source: patient Mode of arrival: ambulatory Limitations: no limitations History of Present Illness: 27-year-old female states that she has had abdominal pain throughout the night she states she has been constipated she had a history of constipation in the past. She also states she has pain underneath her abdomen fold does have a rash consistent with yeast. She denies any vomiting denies any fevers rates her pain a 5 out of 10 currently Associated Symptoms: Reports constipation; Denies chills, diarrhea, dysuria, fever(s), nausea and vomiting Review of Systems Const: Denies: fever(s), chills, body aches or change in appetite ENMT: Denies: throat pain or dental pain Card: Denies: chest pain Resp: Denies: dyspnea GI: Reports: abdominal pain and constipation; Denies: nausea, vomiting or diarrhea : Denies: dysuria Musc: Denies: neck pain or back pain Skin/Breast: Reports: rash Neuro: Denies: headache(s) PFSH ED PFSH: Medical History Family history of FAP (familial adenomatous polyposis) Surgical History Hx of cholecystectomy Hx of colonoscopy with polypectomy H/O colectomy H/O ileostomy Family History Family/Other Diabetes Maternal uncle Hypertension Maternal uncle Hyperlipidemia Maternal uncle Colon cancer paternal cousins Mother Hypertension Hyperlipidemia Stroke Father Colon cancer Family/Other No problems noted. Other Breast cancer Ovarian cancer Uterine cancer Denies family history of Heart disease Thyroid disease Physical Exam Const: COMMON NORMALS: no acute distress, patient oriented x3 and healthy appearing HENMT: COMMON NORMALS: normocephalic and atraumatic HEAD & SCALP: normocephalic and atraumatic Neck/C-Spine: COMMON NORMALS: full ROM and supple Chest: COMMONS NORMALS: normal inspection of the chest Resp: COMMON NORMALS: normal respiratory effort Cardio: COMMON NORMALS: regular rate, regular rhythm and No murmurs present (Cardio) RATE: regular rate RHYTHM: regular rhythm GI: COMMON NORMALS: Normal to inspection, nondistended, normoactive bowel sounds present, Soft to palpation, non-tender and no masses PALPATION: Yes Soft to palpation OTHER: Candidal yeast rash to abdomen fold Extremity: COMMON NORMALS: normal to inspection and full ROM Neuro: COMMON NORMALS: patient oriented x3, moves all extremities and no focal motor deficits Psych: COMMON NORMALS: mental status grossly normal, Normal thought process present and cooperative THOUGHT PROCESS: Normal thought process present Course Vital Signs: Vital signs: Vital Signs Temperature 98.0 F 07/25/23 19:12 Pulse Rate 89 07/25/23 21:33 Respiratory Rate 16 07/25/23 21:33 Blood Pressure 112/70 07/25/23 21:33 Pulse Oximetry 98 07/25/23 21:33 Oxygen Delivery Me thod Room Air 07/25/23 19:12 MDM - Abdominal Pain Medical Decision Making Patient presents abdominal pain constipation CT showed no acute findings besides constipation I did give her lactulose she did not have a bowel movement I did discuss disimpaction with her and she refused she states she wants to try to go on her own at home we will give her GoLytely for home she is to follow-up with her PCP and return if worsening. Medical Records I reviewed the patient's medical records. Lab Data I reviewed the patient's lab results. 07/25/23 19:55 07/25/23 20:43 Labs/Radiology: Radiology Impressions KUB X-Ray 07/25/23 19:29 IMPRESSION: No acute findings. Abdomen/Pelvis CT 07/25/23 20:05 IMPRESSION: 1. Large amount of stool in the rectal vault, please correlate for fecal impaction. Surgical sutures are also seen in the region of the rectal vault. 2. Hepatic steatosis. 3. Cholecystectomy. Laboratory Results WBC 15.66 10^3/uL (3.29-11.43) H 07/25/23 19:55 RBC 4.63 10^6/uL (3.85-5.65) 07/25/23 19:55 Hgb 14.60 g/dL (11.27-16.99) 07/25/23 19:55 Hct 43.3 % (36-47) 07/25/23 19:55 MCV 93.5 fl (85-98) 07/25/23 19:55 MCH 31.5 pg (27-33) 07/25/23 19:55 MCHC 33.7 g/dL (30-55) 07/25/23 19:55 RDW 12.7 % (12.1-15.1) 07/25/23 19:55 Plt Count 206 10^3/cmm (157-399) 07/25/23 19:55 MPV 10.9 fL (7.4-10.4) H 07/25/23 19:55 Neut % (Auto) 83.3 % 07/25/23 19:55 Lymph % (Auto) 8.4 % 07/25/23 19:55 [place] % (Auto) 4.8 % 07/25/23 19:55 Eos % (Auto) 2.6 % 07/25/23 19:55 Baso % (Auto) 0.4 % 07/25/23 19:55 Neut # (Auto) 13.05 10^3/uL (1.8-7.7) H 07/25/23 19:55 Lymph # (Auto) 1.3 10^3/uL (0.8-4.8) 07/25/23 19:55 [place] # (Auto) 0.8 10^3/uL (0.2-0.9) 07/25/23 19:55 Eos # (Auto) 0.4 10^3/uL (0.0-0.8) 07/25/23 19:55 Baso # (Auto) 0.1 10^3/uL (0.0-0.1) 07/25/23 19: Nucleated RBC % (auto) 0 % 07/25/23 19:55 Nucleated RBCs # 0.0 /100WBC 07/25/23 19:55 Sodium 138 mmol/L (136-145) 07/25/23 20:43 Potassium 3.8 mmol/L (3.5-5.1) 07/25/23 20:43 Chloride 108 mmol/L (98-107) H 07/25/23 20:43 Carbon Dioxide 22 mmol/L (22-29) 07/25/23 20:43 Anion Gap 11.8 (5-19) 07/25/23 20:43 BUN 11 mg/dL (6-20) 07/25/23 20:43 Creatinine 0.7 mg/dL (0.5-0.9) 07/25/23 20:43 GFR Calculation 102.0 mL/min (90-130) 07/25/23 20:43 Glucose 73 mg/dL (65-115) 07/25/23 20:43 Calculated Osmolality 284 mOsm/kg (285-295) L 07/25/23 20:43 Calcium 8.6 mg/dL (8.5-10.5) 07/25/23 20:43 Total Bilirubin 0.6 mg/dL (0.15-1.2) 07/25/23 20:43 AST 22 U/L (0-32) 07/25/23 20:43 ALT 32 U/L (0-33) 07/25/23 20:43 Alkaline Phosphatase 74 U/L (35-105) 07/25/23 20:43 Total Protein 6.2 g/dL (6.6-8.7) L 07/25/23 20:43 Albumin 3.9 g/dL (3.5-5.2) 07/25/23 20:43 Globulin 2.3 g/dL (1.3-4.6) 07/25/23 20:43 Lipase 18 U/L (13-60) 07/25/23 20:43 HCG, Qual Negative (Negative) 07/25/23 19:55 Urine Color Yellow (Yellow) 07/25/23 20:05 Urine Appearance Clear (CLEAR) 07/25/23 20:05 Urine pH 5 (5-7) 07/25/23 20:05 Ur Specific [place] 1.025 (1.005-1.030) 07/25/23 20:05 Urine Protein Neg (Negative) 07/25/23 20:05 Urine Glucose (UA) Norm (Normal) 07/25/23 20:05 Urine Ketones Negative (Negative) 07/25/23 20:05 Urine Blood Neg (Negative) 07/25/23 20:05 Urine Nitrate Negative (Negative) 07/25/23 20:05 Urine Bilirubin Neg (Negative) 07/25/23 20:05 Urine Urobilinogen Neg mg/dL (Negative) 07/25/23 20:05 Ur Leukocyte Esterase Negative (Negative) 07/25/23 20:05 All radiology interpretation(s) finalized by discharge Discharge Plan Discharge Patient Disposition: Home Clinical Impression: Constipation Condition: Stable Prescriptions: New Golytely 236-22.74-6.74 -5.86 gram recon soln 30 ml PO Q1M Qty: 4000 0RF Rx Instructions: until fecal effluent is clear No Action albuterol sulfate 90 mcg/actuation HFA aerosol inhaler 2 puff INHALATION Q4H PRN (Reason: Shortness Of Breath Or Wheezing) Qty: 6.7 0RF atenolol 25 mg tablet 25 mg PO DAILY pantoprazole [Protonix] 40 mg tablet,delayed release (DR/EC) 40 mg PO BID 42 Days Qty: 84 1RF dicyclomine 20 mg tablet 20 mg PO TID PRN (Reason: abdominal pain) Qty: 14 0RF acetaminophen 500 mg Tablet 1,000 mg PO Q6H PRN (Reason: Pain) dicyclomine 20 mg tablet 20 mg PO QID Qty: 20 1RF Discharge Orders: Discharge ED (Routine); Ordered 07/25/23 Ordered By: Herman Guerrero Referrals: Rigoberto Ferguson MD [Primary Care Provider] - 1-3 days Discharge Diet: Advance as tolerated Discharge Activity: Resume usual activity Patient Instructions: Constipation (ED) Coding Level of Care Code ED Granite Setter for Yamilet De Souza
[2023-07-25 20:02] LABS: Basophils # 0.1 10^3/uL (0.0-0.1); Basophils % 0.4 %; Eosinophils # 0.4 10^3/uL (0.0-0.8); Eosinophils % 2.6 %; Hematocrit 43.3 % (36-47); Lymphocytes # 1.3 10^3/uL (0.8-4.8); Lymphocytes % 8.4 %; Mean Corpuscular HGB Conc 33.7 g/dL (30-55); Mean Corpuscular Hemoglobin 31.5 pg (27-33); Mean Corpuscular Volume 93.5 fl (85-98); Mean Platelet Volume 10.9 fL (7.4-10.4); Monocytes # 0.8 10^3/uL (0.2-0.9); Monocytes % 4.8 %; Neutrophils # 13.05 10^3/uL (1.8-7.7); Neutrophils % 83.3 %; Nucleated Red Blood Cells % 0 %; Platelet Count 206 10^3/cmm (157-399); Red Blood Count 4.63 10^6/uL (3.85-5.65); Red Cell Distribution Width 12.7 % (12.1-15.1); White Blood Count 15.66 10^3/uL (3.29-11.43)
[2023-07-25] MEDS: ondansetron 2 mg/ML SDV 2 mL 4 MG IVP (20:02)
[2023-07-25] MEDS: morphine 4 mg/mL SDV 1 mL IVP (20:02)
--- NOTE | 2023-07-25 20:05 | CTR_ITS ---
PROCEDURE INFORMATION: Exam: CT Abdomen And Pelvis With Contrast Exam date and time: 07/25/2023 7:23 PM Age: 27 years old Clinical indication: Pain and abnormal findings; Abnormal lab test; Elevated wbc; Abdominal pain; Generalized; Prior surgery; Surgery date: 6+ months; Surgery type: Gb. Ileostomy. Colectomy. Patient HX: C/O abd pain with fever and wbc of 15k. Resections due to obstruction. TECHNIQUE: Imaging protocol: Computed tomography of the abdomen and pelvis with contrast. Radiation optimization: All CT scans at this facility use at least one of these dose optimization techniques: automated exposure control; mA and/or kV adjustment per patient size (includes targeted exams where dose is matched to clinical indication); or iterative reconstruction. Contrast material: OMNI 350; Contrast volume: 75 ml; Contrast route: INTRAVENOUS (IV); COMPARISON: CT abdomen pelvis wo con [id number] 06/22/2023 1:33 AM RADIATION DOSE METRICS: Total DLP (mGy-cm): 709.93 FINDINGS: Liver: Hepatic steatosis. Gallbladder and bile ducts: Cholecystectomy. Pancreas: Normal. No ductal dilation. Spleen: Normal. No splenomegaly. Adrenal glands: Normal. No mass. Kidneys and ureters: Normal. No hydronephrosis. Stomach and bowel: Large amount of stool in the rectal vault, please correlate for fecal impaction. Surgical sutures are also seen in the region of the rectal vault. Appendix: No evidence of appendicitis. Intraperitoneal space: Unremarkable. No free air. No significant fluid collection. Vasculature: Unremarkable. No abdominal aortic aneurysm. Lymph nodes: Unremarkable. No enlarged lymph nodes. Urinary bladder: Unremarkable as visualized. Reproductive: Unremarkable as visualized. Bones/joints: Unremarkable. No acute fracture. Soft tissues: Unremarkable. CT/CT abdomen pelvis w con* [id number] IMPRESSION: 1. Large amount of stool in the rectal vault, please correlate for fecal impaction. Surgical sutures are also seen in the region of the rectal vault. 2. Hepatic steatosis. 3. Cholecystectomy.
[2023-07-25] MEDS: diphenhydrAMINE 50 mg/mL SDV 1mL IVP (20:18)
[2023-07-25] MEDS: methylPREDNISolone sod succ 40 mg/mL INJ IVP (20:18)
[2023-07-25 20:19] LABS: HCG, Serum Qual Negative (Negative)
[2023-07-25 20:23] VITALS: BP 161/104; PULSE 91; RESP 16; O2SAT 97
[2023-07-25 20:24] LABS: Add Urine Microscopic? NO; Charge for UA Resulting for Rev
[2023-07-25] MEDS: iohexol 350 mg/mL 500 mL Btl (per mL) IV (20:28)
[2023-07-25 20:35] LABS: Bilirubin Urine Neg (Negative); Blood Urine Neg (Negative); Glucose Urine UA Norm (Normal); Ketones Urine Negative (Negative); Leukocyte Esterase Urine Negative (Negative); Nitrate Urine Negative (Negative); Protein Urine Neg (Negative); Specific Gravity, Urine 1.025 (1.005-1.030); Urine Appearance Clear (CLEAR); Urine Color Yellow (Yellow); Urobilinogen Urine Neg (Negative); pH Urine 5 (5-7)
[2023-07-25 21:13] LABS: Alanine Aminotransferase 32 U/L (0-33); Albumin Level 3.9 g/dL (3.5-5.2); Alkaline Phosphatase 74 U/L (35-105); Anion Gap 11.8 (5-19); Aspartate Amino Transferase 22 U/L (0-32); Blood Urea Nitrogen 11 mg/dL (6-20); Calcium 8.6 mg/dL (8.5-10.5); Carbon Dioxide 22 mmol/L (22-29); Chloride 108 mmol/L (98-107); Creatinine Clr Calc Pharmacy 132.3481; Globulin 2.3 g/dL (1.3-4.6); Glucose 73 mg/dL (65-115); Lipase 18 U/L (13-60); Osmolality Calculated 284 mOsm/kg (285-295); Potassium 3.8 mmol/L (3.5-5.1); Sodium 138 mmol/L (136-145); Total Bilirubin 0.6 mg/dL (0.15-1.2); Total Protein 6.2 g/dL (6.6-8.7)
[2023-07-25] MEDS: lactulose oral liq 20 gm/30 mL UDC 30 GM PO (21:31)
[2023-07-25 21:33] VITALS: BP 112/70; PULSE 89; RESP 16; O2SAT 98
[2023-07-25] MEDS: glycerin adult supp 1 EACH PR (21:33)
[2023-07-25 22:43] VITALS: BP 112/70; PULSE 89; RESP 16; TEMP 36.7; O2SAT 98
== END 2023-07-25 22:46 | disposition home or self-care (01) ==
PROVIDERS: Emergency Provider Emergency Medicine; PCP Family Medicine
DX: K59.00 Constipation, unspecified (principal)
CPT/HCPCS: 74018; 74177; 80053; 81003; 83690; 84703; 85025; 96374; 96375; 99285; J1200; J2270; J2405; J2920; Q9967

== ENCOUNTER → 2023-07-26 18:55 | Outpatient (BNVA) | payer BC, MEDICAID, SELFPAY | PROVIDERS: PCP Family Medicine; Visit Provider Nurse Practitioner | DX: J02.9 Acute pharyngitis, unspecified (principal) | CPT/HCPCS: 87880 ==

== ENCOUNTER 2023-08-25 14:30 | Emergency (ER) | payer SELFPAY ==
[2023-08-25 14:43] VITALS: BP 129/86; PULSE 86; RESP 16; TEMP 36.9; O2SAT 98; BMI 29.8
--- NOTE | 2023-08-25 14:57 | W.ED.EXTPRO ---
HPI - Extremity Problem General: Chief complaint: Extremity Injury, Lower Stated complaint: rigth foot pain, swelling Time Seen by Provider: 08/25/23 14:57 History of Present Illness: 27-year-old female comes in today with increased right foot pain. Patient has seen Dr. Amanda sandoval in May and was told that she was going to need to have surgery for fusion due to a prior injury. Patient was strongly encouraged to stop smoking prior to completion of surgery. Patient appears nontoxic. Patient appears in no acute distress. Patient reports increased pain and discomfort as not being controlled with Tylenol or ibuprofen. Patient is also having to wear her boot more often due to the poor control of pain. Patient denies any new injury. Review of Systems General: Reports: 10 or more systems reviewed and unremarkable except in HPI and below Musc: Reports: extremity pain [facility] ED PFSH: Medical History Family history of FAP (familial adenomatous polyposis) Surgical History Hx of cholecystectomy Hx of colonoscopy with polypectomy H/O colectomy H/O ileostomy Family History Family/Other Diabetes Maternal uncle Hypertension Maternal uncle Hyperlipidemia Maternal uncle Colon cancer paternal cousins Mother Hypertension Hyperlipidemia Stroke Father Colon cancer Family/Other No problems noted. Other Breast cancer Ovarian cancer Uterine cancer Denies family history of Heart disease Thyroid disease Physical Exam Const: COMMON NORMALS: alert HENMT: COMMON NORMALS: normocephalic HEAD & SCALP: normocephalic Neck/C-Spine: COMMON NORMALS: full ROM Resp: COMMON NORMALS: normal respiratory effort Cardio: COMMON NORMALS: regular rate RATE: regular rate Back/Pelvis: COMMON NORMALS: thoracic and lumbar spine normal to inspection Extremity: RIGHT LOWER EXTREMITY: Yes foot & digits (Persistent foot pain) Neuro: SENSORIUM/ORIENTATION: Yes alert Skin: COMMON NORMALS: turgor normal GENERAL SKIN EXAM: turgor normal Course Vital Signs: Vital signs: Vital Signs Temperature 98.4 F 08/25/23 14:43 Pulse Rate 86 08/25/23 14:43 Respiratory Rate 16 08/25/23 14:43 Blood Pressure 129/86 08/25/23 14:43 Pulse Oximetry 98 08/25/23 14:43 Oxygen Delivery Mo thod Room Air 08/25/23 14:43 MDM - Extremity (Nontraumatic) Medical Decision Making Patient comes into ER for worse foot pain that is poorly controlled with Tylenol and ibuprofen. Pain is due to poor fusion after an injury 1 year ago. Patient appears nontoxic. Skin is warm and dry. Vital signs are normal. Differential diagnosis includes arthritis, fracture, contusion, malingering. X-ray noted no acute abnormalities. Patient does have a a couple of her hardware screws that appear to be broken. I recommended patient be started on some steroids to help with pain and inflammation. Recommend follow-up with Dr. Patel for continuation of plan of care with surgical treatment of her foot pain. Patient reports understanding of care plan and need for follow-up or return to the ER. 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, Pain in right foot Condition: Stable Prescriptions: New prednisone 20 mg tablet 20 mg PO DAILY Qty: 10 0RF No Action albuterol sulfate 90 mcg/actuation HFA aerosol inhaler 2 puff INHALATION Q4H PRN (Reason: Shortness Of Breath Or Wheezing) Qty: 6.7 0RF pantoprazole [Protonix] 40 mg tablet,delayed release (DR/EC) 40 mg PO BID 42 Days Qty: 84 1RF fluconazole 150 mg tablet 150 mg PO Q3D Qty: 2 0RF Rx Instructions: may repeat second dose 72 hrs after first dose if symptoms persist amoxicillin 875 mg tablet 875 mg PO BID 7 Days Qty: 14 0RF dicyclomine 20 mg tablet 20 mg PO TID PRN (Reason: abdominal pain) Qty: 14 0RF Gol[place] 236-22.74-6.74 -5.86 gram recon soln 30 ml PO Q1M Qty: 4000 0RF Rx Instructions: until fecal effluent is clear acetaminophen 500 mg Tablet 1,000 mg PO Q6H PRN (Reason: Pain) dicyclomine 20 mg tablet 20 mg PO QID Qty: 20 1RF Discharge Orders: Discharge ED (Routine); Ordered 08/25/23 Ordered By: Abdon Warner Referrals: Rigoberto Ferguson MD [Primary Care Provider] - Discharge Diet: Usual diet Discharge Activity: Increase activity as tolerated Patient Instructions: Arthralgia (ED) Activity Restrictions/Additional Instructions: Take steroids as directed to help with pain and inflammation. Continue with acetaminophen otherwise for pain. Use ice or heat as needed for further pain relief. Drink plenty of water with medication. Follow-up with supply assistant, Dr. Patel, for further recommendations for pain control. Coding Level of Care Code ED Kettle Fry Cook Operator for Yamilet De Souza
--- NOTE | 2023-08-25 15:02 | XRR_ITS ---
PROCEDURE INFORMATION: Exam: XR Right Foot Exam date and time: 08/25/2023 3:48 PM Age: 27 years old Clinical indication: Injury or trauma; Fall; Blunt trauma; Foot; Right; Additional info: Foot pain TECHNIQUE: Imaging protocol: Radiologic exam of the right foot. Views: 3 or more views. COMPARISON: CR XR foot RT min 3V* [id number] 12/22/2022 2:04 PM FINDINGS: Bones/joints: A fractured distal end of a trans tarsal screw is again seen at the level of the proximal kidney a forms. There is otherwise stable intact arthrodesis hardware in the intertarsal and 1st, 2nd, and 3rd tarsal metatarsal articulations. No deformities are seen. There are no acute abnormalities. Visualized joint spaces are normal. Soft tissues: Normal. XR/XR foot RT min 3V* [id number] IMPRESSION: Stable postoperative right foot.
[2023-08-25 16:15] VITALS: BP 129/86; PULSE 86; RESP 16; TEMP 36.9; O2SAT 98
== END 2023-08-25 16:16 | disposition home or self-care (01) ==
PROVIDERS: Emergency Provider Nurse Practitioner Family; PCP Family Medicine
DX: M96.0 Pseudarthrosis after fusion or arthrodesis (principal); M79.671 Pain in right foot
CPT/HCPCS: 73630; 99284; J1100

== ENCOUNTER 2023-09-01 07:04 | Emergency (ER) | payer SELFPAY ==
[2023-09-01 07:13] VITALS: BP 136/95; PULSE 75; TEMP 36.6; O2SAT 96; BMI 29.0
--- NOTE | 2023-09-01 07:39 | ED_ITS ---
HPI - Abdominal Pain 2 General: Chief Complaint: Abdominal Pain Stated Complaint: Abd pain Time Seen by Provider: 09/01/23 07:11 Source: patient Mode of arrival: ambulatory History of Present Illness: 27-year-old female with a long history o f GI issues. She had history of familial polyposis had a colon resection that required a colostomy which was eventually reversed. She continues for the last several months having chronic abdominal pain she has seen GI in [place] and is scheduled for a pill endoscopy sometime soon. She denies any medic easy melena hematemesis cough cramps has had increased abdominal discomfort and vomiting the last several days. States she feels like her colon is coming up. No fever sweats chills no dysuria urgency or frequency MD elicited complaint: abdominal pain Pertinent past history: other (Familial adenomatosis polyposis) Pain Consistency: constant Location: Diffuse Quality: cramping Exacerbating factors: nothing Relieving factors: nothing Associated Symptoms: Reports nausea, poor appetite and vomiting; Denies anorexia, belching, bloating, change in bowel habits, change in stool character, chills, coffee ground emesis, constipation, GI cramping, diarrhea, dyspepsia, dysuria, excessive flatus, fever(s), heartburn, hematochezia, hematuria, hematemesis, fecal incontinence, loose stools, melena and syncope Review of Systems 2 Const: Denies: fever(s) or chills Card: Denies: chest pain or syncope Resp: Denies: dyspnea GI: Reports: abdominal pain, nausea and vomiting; Denies: hematemesis, coffee ground emesis, heartburn, diarrhea, constipation, bloating, GI cramping, belching, excessive flatus, fecal incontinence, change in bowel habits, change in stool character, hematochezia or melena : Denies: flank pain, dysuria, urinary frequency, urinary urgency or hematuria Musc: Denies: neck pain or back pain Skin/Breast: Denies: rash PFSH ED 2 PFSH: Medical History Family history of FAP (familial adenomatous polyposis) Surgical History Hx of cholecystectomy Hx of colonoscopy with polypectomy H/O colectomy H/O ileostomy Family History Family/Other Diabetes Maternal uncle Hypertension Maternal uncle Hyperlipidemia Maternal uncle Colon cancer paternal cousins Mother Hypertension Hyperlipidemia Stroke Father Colon cancer Family/Other No problems noted. Other Breast cancer Ovarian cancer Uterine cancer Denies family history of Heart disease Thyroid disease Physical Exam 2 Const: GENERAL APPEARANCE: cooperative and comfortable O RIENTATION/CONSCIOUSNESS: Yes awake, Yes oriented to person, Yes oriented to place and Yes oriented to time HENMT: COMMON NORMALS: normocephalic, atraumatic and hearing grossly normal bilaterally HEAD & SCALP: normocephalic and atraumatic Resp: COMMON NORMALS: normal respiratory effort, No retractions, No use of accessory muscles and clear to auscultation bilaterally AUSCULTATION: clear to auscultation bilaterally Cardio: COMMON NORMALS: regular rate, regular rhythm and No murmurs present (Cardio) RATE: regular rate RHYTHM: regular rhythm GI: COMMON NORMALS: No hepatosplenomegaly present AUSCULTATION: Yes Hypoactive bowel sounds present PALPATION: Yes Tenderness to palpation present (GI) (Diffuse), No Guarding due to palpation present (GI) and Yes No hepatosplenomegaly present Extremity: COMMON NORMALS: normal to inspection, capillary refill normal, no clubbing, cyanosis or edema, no calf tenderness and no pedal edema Neuro: SENSORIUM/ORIENTATION: Yes oriented to person, Yes oriented to place and Yes oriented to time Skin: COMMON NORMALS: no rashes or lesions noted GENERAL SKIN EXAM: no rashes or lesions noted Course 2 Vital Signs: Vital signs: Vital Signs Temperature 97.9 F 09/01/23 07:13 Pulse Rate 68 09/01/23 08:30 Respiratory Rate 15 09/01/23 07:46 Blood Pressure 111/73 09/01/23 08:30 Pulse Oximetry 97 09/01/23 08:30 Oxygen Delivery Me thod Room Air 09/01/23 07:13 MDM - Abdominal Pain Medical Decision Making CT negative. No leukocytosis CMP does not show significant abnormality UA shows contamination but no clear signs of infection. Patient has long complicated history with her GI tract. Encouraged she continue to follow-up with gastroenterology as previously scheduled. Medical Records I reviewed the patient's medical records. Lab Data I reviewed the patient's lab results. 09/01/23 07:43 09/01/23 07:43 Labs/Radiology: Radiology Impressions Abdomen/Pelvis CT 09/01/23 08:04 IMPRESSION: No acute findings. Laboratory Results WBC 5.81 10^3/uL (3.29-11.43) 09/01/23 07:43 RBC 4.31 10^6/uL (3.85-5.65) 09/01/23 07:43 Hgb 13.60 g/dL (11.27-16.99) 09/01/23 07:43 Hct 39.3 % (36-47) 09/01/23 07:43 MCV 91.2 fl (85-98) 09/01/23 07:43 MCH 31.6 pg (27-33) 09/01/23 07:43 MCHC 34.6 g/dL (30-55) 09/01/23 07:43 RDW 12.3 % (12.1-15.1) 09/01/23 07:43 Plt Count 220 10^3/cmm (157-399) 09/01/23 07:43 MPV 11.0 fL (7.4-10.4) H 09/01/23 07:43 Neut % (Auto) 67.5 % 09/01/23 07:43 Lymph % (Auto) 22.0 % 09/01/23 07:43 [place] % (Auto) 6.0 % 09/01/23 07:43 Eos % (Auto) 3.6 % 09/01/23 07:43 Baso % (Auto) 0.7 % 09/01/23 07:43 Neut # (Auto) 3.92 10^3/uL (1.8-7.7) 09/01/23 07:43 Lymph # (Auto) 1.3 10^3/uL (0.8-4.8) 09/01/23 07:43 [place] # (Auto) 0.4 10^3/uL (0.2-0.9) 09/01/23 07:43 Eos # (Auto) 0.2 10^3/uL (0.0-0.8) 09/01/23 07:43 Baso # (Auto) 0.0 10^3/uL (0.0-0.1) 09/01/23 07:43 Nucleated RBC % (auto) 0 % 09/01/23 07:43 Nucleated RBCs # 0.0 /100WBC 09/01/23 07:43 Sodium 138 mmol/L (136-145) 09/01/23 07:43 Potassium 3.7 mmol/L (3.5-5.1) 09/01/23 07:43 Chloride 107 mmol/L (98-107) 09/01/23 07:43 Carbon Dioxide 21 mmol/L (22-29) L 09/01/23 07:43 Anion Gap 13.7 (5-19) 09/01/23 07:43 BUN 8 mg/dL (6-20) 09/01/23 07:43 Creatinine 0.7 mg/dL (0.5-0.9) 09/01/23 07:43 GFR Calculation 102.0 mL/min (90-130) 09/01/23 07:43 Glucose 92 mg/dL (65-115) 09/01/23 07:43 Calculated Osmolality 284 mOsm/kg (285-295) L 09/01/23 07:43 Calcium 8.8 mg/dL (8.5-10.5) 09/01/23 07:43 Total Bilirubin 0.3 mg/dL (0.15-1.2) 09/01/23 07:43 AST 15 U/L (0-32) 09/01/23 07:43 ALT 20 U/L (0-33) 09/01/23 07:43 Alkaline Phosphatase 65 U/L (35-105) 09/01/23 07:43 Total Protein 7.1 g/dL (6.6-8.7) 09/01/23 07:43 Albumin 4.3 g/dL (3.5-5.2) 09/01/23 07:43 Globulin 2.8 g/dL (1.3-4.6) 09/01/23 07:43 Lipase 23 U/L (13-60) 09/01/23 07:43 HCG, Qual Negative (Negative) 09/01/23 07:43 Urine Color Dark yellow (Yellow) 09/01/23 07:29 Urine Appearance Hazy (CLEAR) A 09/01/23 07:29 Urine pH 5 (5-7) 09/01/23 07:29 Ur Specific [place] 1.030 (1.005-1.030) 09/01/23 07:29 Urine Protein Neg (Negative) 09/01/23 07:29 Urine Glucose (UA) Norm (Normal) 09/01/23 07:29 Urine Ketones Negative (Negative) 09/01/23 07:29 Urine Blood Neg (Negative) 09/01/23 07:29 Urine Nitrate Negative (Negative) 09/01/23 07:29 Urine Bilirubin Neg (Negative) 09/01/23 07:29 Urine Urobilinogen Norm mg/dL (Negative) 09/01/23 07:29 Ur Leukocyte Esterase Negative (Negative) 09/01/23 07:29 Urine RBC 0-4 /hpf (0-2) H 09/01/23 07:29 Urine WBC 0-4 /hpf (0-5) H 09/01/23 07:29 Ur Squamous Epith Cells 10-15 /hpf (0-5) H 09/01/23 07:29 Amorphous Sediment Not Reportable 09/01/23 07:29 Urine Bacteria 1+ /hpf (NONE) H 09/01/23 07:29 Urine Mucus 2+ /hpf 09/01/23 07:29 All radiology interpretation(s) finalized by discharge Discharge Plan Discharge Patient Disposition: Home Clinical Impression: Chronic abdominal pain, Familial adenomatous polyposis Condition: Stable Prescriptions: No Action albuterol sulfate 90 mcg/actuation HFA aerosol inhaler 2 puff INHALATION Q4H PRN (Reason: Shortness Of Breath Or Wheezing) Qty: 6.7 0RF acetaminophen 500 mg Tablet 1,000 mg PO Q6H PRN (Reason: Pain) prednisone 20 mg tablet 20 mg PO DAILY Qty: 10 0RF ibuprofen 200 mg Tablet 800 mg PO Q6H PRN (Reason: Pain) Denta 5000 Plus 1.1 % cream See Rx Instructions .ROUTE .COMPLEX Rx Instructions: BRUSH ON ONCE DAILY BEFORE BED INSTRUCTED BY DENTIST Symbicort 80-4.5 mcg/actuation HFA aerosol inhaler 2 puff INHALATION BID Discharge Orders: Discharge ED (Routine); Ordered 09/01/23 Ordered By: Gulshan Vela Referrals: Rigoberto Ferguson MD [Primary Care Provider] - Discharge Diet: Usual diet Discharge Activity: Increase activity as tolerated Patient Instructions: Abdominal Pain (ED), Opioid Safety, Pain Management Activity Restrictions/Additional Instructions: Thank you for choosing [facility] for your healthcare needs today. Please realize this is an emergency room and that we are providing you with a medical screening exam and this may not be complete and all inclusive of all the testing and or work up that you may need to determine your ailment or severity of your illness. It is very important that you follow up as instructed or that you return to the Emergency Department should you have concerns or if your condition changes or worsens in any way. You are seen today for chronic abdominal pain. Your laboratory studies do not show significant abnormalities the urine was normal. CT of your abdomen did not show any acute pathology there is some moderate constipation recommend [id number] laxatives to relieve symptoms. Follow-up with your primary care doctor or gastroenterology as planned. Coding Level of Care Code ED Medical Library Assistant for Yamilet De Souza
[2023-09-01 07:46] VITALS: BP 137/91; PULSE 73; RESP 15; O2SAT 98
[2023-09-01 07:51] LABS: Basophils % 0.7 %; Eosinophils # 0.2 10^3/uL (0.0-0.8); Eosinophils % 3.6 %; Hematocrit 39.3 % (36-47); Lymphocytes # 1.3 10^3/uL (0.8-4.8); Mean Corpuscular HGB Conc 34.6 g/dL (30-55); Mean Corpuscular Hemoglobin 31.6 pg (27-33); Mean Corpuscular Volume 91.2 fl (85-98); Monocytes # 0.4 10^3/uL (0.2-0.9); Neutrophils # 3.92 10^3/uL (1.8-7.7); Neutrophils % 67.5 %; Nucleated Red Blood Cells % 0 %; Platelet Count 220 10^3/cmm (157-399); Red Blood Count 4.31 10^6/uL (3.85-5.65); Red Cell Distribution Width 12.3 % (12.1-15.1); White Blood Count 5.81 10^3/uL (3.29-11.43)
[2023-09-01] MEDS: sodium chloride 0.9% 1,000 ML 999 ML IV (07:52)
--- NOTE | 2023-09-01 07:56 | PC.PHAR ---
pt states she takes care of her own medications-pt states she no longer takes trazodone 50mg hs filled 05/21/23 30d/s,atenolol 25mg daily filled 04/15/23 30d/s,metoprolol succ er 25mg daily filled 04/12/23 30d/s,metformin 500mg po bid filled 09/03/22 30d/s and protonix 40mg bid written 07/05/23 pt states not taken for months-pt states she still uses her symbicort 80-4.5mch 2p bid ext shows last filled 09/03/22-pt states she is still taking the prednisone 20mg daily written on 08/25/23 saud pascal primary therapist ext doesnt show when filled-
--- NOTE | 2023-09-01 08:04 | CTR_ITS ---
PROCEDURE INFORMATION: Exam: CT Abdomen And Pelvis Without Contrast Exam date and time: 09/01/2023 8:33 AM Age: 27 years old Clinical indication: Abdominal pain; Prior surgery; Surgery date: 6+ months; Surgery type: Colon resection; Additional info: Abd pain/history of colon resection for familial adenomatous, allergy to iodine- changed to wo TECHNIQUE: Imaging protocol: Computed tomography of the abdomen and pelvis without contrast. Radiation optimization: All CT scans at this facility use at least one of these dose optimization techniques: automated exposure control; mA and/or kV adjustment per patient size (includes targeted exams where dose is matched to clinical indication); or iterative reconstruction. COMPARISON: CT abdomen pelvis w con* [id number] 07/25/2023 7:23 PM RADIATION DOSE METRICS: Total DLP (mGy-cm): 674.28 FINDINGS: Liver: Normal. No mass. Gallbladder and bile ducts: Cholecystectomy. Pancreas: Normal. No ductal dilation. Spleen: 12 cm borderline splenomegaly. Adrenal glands: Normal. No mass. Kidneys and ureters: Normal. No hydronephrosis. Stomach and bowel: Prior rectucto sigmoid surgery. Mild chronic distension of the rectum now containing soft stool. Appendix: No evidence of appendicitis. Intraperitoneal space: Unremarkable. No free air. No significant fluid collection. Vasculature: Unremarkable. No abdominal aortic aneurysm. Lymph nodes: Unremarkable. No enlarged lymph nodes. Urinary bladder: Unremarkable as visualized. Reproductive: Unremarkable as visualized. Bones/joints: Unremarkable. No acute fracture. Soft tissues: Unremarkable. CT/CT abdomen pelvis wo con [id number] IMPRESSION: No acute findings.
[2023-09-01 08:06] LABS: Add Urine Microscopic? YES; Bilirubin Urine Neg (Negative); Blood Urine Neg (Negative); Glucose Urine UA Norm (Normal); Ketones Urine Negative (Negative); Leukocyte Esterase Urine Negative (Negative); Nitrate Urine Negative (Negative); Protein Urine Neg (Negative); Urine Appearance Hazy (CLEAR); Urine Color Dark Yellow (Yellow); Urobilinogen Urine Norm (Negative); pH Urine 5 (5-7)
[2023-09-01 08:09] LABS: Alanine Aminotransferase 20 U/L (0-33); Albumin Level 4.3 g/dL (3.5-5.2); Alkaline Phosphatase 65 U/L (35-105); Anion Gap 13.7 (5-19); Aspartate Amino Transferase 15 U/L (0-32); Blood Urea Nitrogen 8 mg/dL (6-20); Calcium 8.8 mg/dL (8.5-10.5); Carbon Dioxide 21 mmol/L (22-29); Chloride 107 mmol/L (98-107); Creatinine Clr Calc Pharmacy 132.3481; Globulin 2.8 g/dL (1.3-4.6); Glucose 92 mg/dL (65-115); Lipase 23 U/L (13-60); Osmolality Calculated 284 mOsm/kg (285-295); Potassium 3.7 mmol/L (3.5-5.1); Sodium 138 mmol/L (136-145); Total Bilirubin 0.3 mg/dL (0.15-1.2); Total Protein 7.1 g/dL (6.6-8.7)
[2023-09-01 08:11] LABS: HCG, Serum Qual Negative (Negative)
[2023-09-01 08:17] LABS: Add Urine Culture? No; Bacteria Urine 1+ /hpf; Mucus Urine 2+ /hpf; RBC Urine 0-4 /hpf (0-2); WBC Urine 0-4 /hpf (0-5)
[2023-09-01 08:30] VITALS: BP 111/73; PULSE 68; O2SAT 97
[2023-09-01 09:34] VITALS: BP 103/74; PULSE 59; O2SAT 94
== END 2023-09-01 09:39 | disposition home or self-care (01) ==
PROVIDERS: Emergency Provider Family Medicine; PCP Family Medicine
DX: G89.29 Other chronic pain (principal); R10.9 Unspecified abdominal pain; D13.91 Familial adenomatous polyposis
CPT/HCPCS: 74176; 80053; 81001; 83690; 84703; 85025; 99284; J7030

== ENCOUNTER 2023-10-18 20:31 | Emergency (ER) | payer SELFPAY ==
[2023-10-18 20:32] VITALS: BP 139/84; PULSE 89; RESP 15; TEMP 36.8; O2SAT 98
--- NOTE | 2023-10-18 20:53 | ED_ITS ---
HPI - Abdominal Pain 2 General: Chief Complaint: Abdominal Pain Stated Complaint: abd pain Time Seen by Provider: 10/18/23 20:45 Source: patient Mode of arrival: ambulatory Limitations: no limitations History of Present Illness: 28-year-old female has had a history of chronic abdominal pain she has familial polyposis. Patient's had imaging here has been seen by surgery she is been referred to GI in [place] she states she has not been able to make appointment because she does not have insurance states she has been having some increasing pain through the last week with nausea pain is diffuse in nature and cramping. Denies any fever Associated Symptoms: Denies chills, diarrhea, dysuria, fever(s), nausea and vomiting Review of Systems 2 Const: Denies: fever(s), chills, body aches or change in appetite ENMT: Denies: throat pain or dental pain Card: Denies: chest pain Resp: Denies: dyspnea GI: Reports: abdominal pain; Denies: nausea, vomiting or diarrhea : Denies: dysuria Musc: Denies: neck pain or back pain Skin/Breast: Denies: rash Neuro: Denies: headache(s) PFSH ED 2 PFSH: Medical History Family history of FAP (familial adenomatous polyposis) Surgical History Hx of cholecystectomy Hx of colonoscopy with polypectomy H/O colectomy H/O ileostomy Family History Family/Other Diabetes Maternal uncle Hypertension Maternal uncle Hyperlipidemia Maternal uncle Colon cancer paternal cousins Mother Hypertension Hyperlipidemia Stroke Father Colon cancer Family/Other No problems noted. Other Breast cancer Ovarian cancer Uterine cancer Denies family history of Heart disease Thyroid disease Physical Exam 2 Const: COMMON NORMALS: no acute distress, patient oriented x3 and healthy appearing HENMT: COMMON NORMALS: normocephalic and atraumatic HEAD & SCALP: n ormocephalic and atraumatic Eye: COMMON NORMALS: conjunctivae normal CONJUNCTIVA: Yes conjunctivae normal Neck/C-Spine: COMMON NORMALS: full ROM and supple Chest: COMMONS NORMALS: normal inspection of the chest Resp: COMMON NORMALS: normal respiratory effort Cardio: COMMON NORMALS: regular rate, regular rhythm and No murmurs present (Cardio) RATE: regular rate RHYTHM: regular rhythm GI: COMMON NORMALS: Normal to inspection, nondistended, normoactive bowel sounds present, Soft to palpation, non-tender and no masses PALPATION: Yes Soft to palpation Extremity: COMMON NORMALS: normal to inspection and full ROM Neuro: COMMON NORMALS: patient oriented x3, moves all extremities and no focal motor deficits Psych: COMMON NORMALS: mental status grossly normal, Normal thought process present and cooperative THOUGHT PROCESS: Normal thought process present Skin: COMMON NORMALS: no rashes or lesions noted and no wounds GENERAL SKIN EXAM: no rashes or lesions noted Course 2 Vital Signs: Vital signs: Vital Signs Temperature 98.2 F 10/18/23 20:32 Pulse Rate 89 10/18/23 20:32 Respiratory Rate 15 10/18/23 20:32 Blood Pressure 139/84 10/18/23 20:32 Pulse Oximetry 98 10/18/23 20:32 Oxygen Delivery Me thod Room Air 10/18/23 20:32 MDM - Abdominal Pain Medical Decision Making Patient presents here with abdominal pain blood work here shows no acute abnormality she feels improved after Reglan Benadryl she had multiple CTs in the past last 1 in August do not believe she needs any CT at this point this is her chronic pain and GI issues we will get her follow-up with surgery she needs to follow-up with a GI physician as well return if worsening she understands agrees to plan Medical Records I reviewed the patient's medical records. Lab Data I reviewed the patient's lab results. 10/18/23 21:14 10/18/23 22:00 Labs/Radiology: Laboratory Results WBC 13.89 10^3/uL (3.29-11.43) H 10/18/23 21:14 RBC 4.68 10^6/uL (3.85-5.65) 10/18/23 21:14 Hgb 14.60 g/dL (11.27-16.99) 10/18/23 21:14 Hct 43.0 % (36-47) 10/18/23 21:14 MCV 91.9 fl (85-98) 10/18/23 21:14 MCH 31.2 pg (27-33) 10/18/23 21:14 MCHC 34.0 g/dL (30-55) 10/18/23 21:14 RDW 12.6 % (12.1-15.1) 10/18/23 21:14 Plt Count 220 10^3/cmm (157-399) 10/18/23 21:14 MPV 11.5 fL (7.4-10.4) H 10/18/23 21:14 Neut % (Auto) 69.1 % 10/18/23 21:14 Lymph % (Auto) 20.2 % 10/18/23 21:14 [place] % (Auto) 5.8 % 10/18/23 21:14 Eos % (Auto) 3.6 % 10/18/23 21:14 Baso % (Auto) 0.5 % 10/18/23 21:14 Neut # (Auto) 9.60 10^3/uL (1.8-7.7) H 10/18/23 21:14 Lymph # (Auto) 2.8 10^3/uL (0.8-4.8) 10/18/23 21:14 [place] # (Auto) 0.8 10^3/uL (0.2-0.9) 10/18/23 21:14 Eos # (Auto) 0.5 10^3/uL (0.0-0.8) 10/18/23 21:14 Baso # (Auto) 0.1 10^3/uL (0.0-0.1) 10/18/23 21:14 Nucleated RBC % (auto) 0 % 10/18/23 21:14 Nucleated RBCs # 0.0 /100WBC 10/18/23 21:14 Sodium 137 mmol/L (136-145) 10/18/23 22:00 Potassium Cancelled 10/18/23 21:14 Chloride 105 mmol/L (98-107) 10/18/23 22:00 Carbon Dioxide Cancelled 10/18/23 21:14 Anion Gap Cancelled 10/18/23 21:14 BUN 9 mg/dL (6-20) 10/18/23 22:00 Creatinine 0.8 mg/dL (0.5-0.9) 10/18/23 22:00 GFR Calculation Cancelled 10/18/23 21:14 Glucose 77 mg/dL (65-115) 10/18/23 22:00 Calculated Osmolality Cancelled 10/18/23 21:14 Calcium 9.0 mg/dL (8.5-10.5) 10/18/23 22:00 Total Bilirubin 0.2 mg/dL (0.15-1.2) 10/18/23 22:00 AST 14 U/L (0-32) 10/18/23 22:00 ALT 16 U/L (0-33) 10/18/23 22:00 Alkaline Phosphatase 83 U/L (35-105) 10/18/23 22:00 Total Protein 6.9 g/dL (6.6-8.7) 10/18/23 22:00 Albumin 4.3 g/dL (3.5-5.2) 10/18/23 22:00 Globulin 2.6 g/dL (1.3-4.6) 10/18/23 22:00 Lipase 29 U/L (13-60) 10/18/23 22:00 HCG, Qual Negative (Negative) 10/18/23 22:00 No radiology studies performed this visit Discharge Plan Discharge Patient Disposition: Home Clinical Impression: Abdominal pain Condition: Stable Prescriptions: New ondansetron 4 mg tablet,disintegrating 4 mg PO Q6H PRN (Reason: nausea and vomiting) Qty: 14 0RF No Action albuterol sulfate 90 mcg/actuation HFA aerosol inhaler 2 puff INHALATION Q4H PRN (Reason: Shortness Of Breath Or Wheezing) Qty: 6.7 0RF acetaminophen 500 mg Tablet 1,000 mg PO Q6H PRN (Reason: Pain) prednisone 20 mg tablet 20 mg PO DAILY Qty: 10 0RF ibuprofen 200 mg Tablet 800 mg PO Q6H PRN (Reason: Pain) Denta 5000 Plus 1.1 % cream See Rx Instructions .ROUTE .COMPLEX Rx Instructions: BRUSH ON ONCE DAILY BEFORE BED INSTRUCTED BY DENTIST Symbicort 80-4.5 mcg/actuation HFA aerosol inhaler 2 puff INHALATION BID Discharge Orders: Discharge ED (Routine); Ordered 10/18/23 Ordered By: Herman Guerrero Referrals: Jaxson Iyer DO [Physician] - 1-3 days Rigoberto Ferguson MD [Primary Care Provider] - Discharge Diet: Advance as tolerated Discharge Activity: Resume usual activity Patient Instructions: Abdominal Pain (ED) Coding Level of Care Code ED White Sugar Pan Tank Operator for Chg Fwd
[2023-10-18 21:35] VITALS: BP 145/107; PULSE 75; RESP 14; O2SAT 96
[2023-10-18] MEDS: diphenhydrAMINE 50 mg/mL SDV 1mL IVP (21:39)
[2023-10-18] MEDS: metoclopramide 5 mg/mL SDV 2 mL 10 MG IVP (21:40)
[2023-10-18 21:43] LABS: Basophils # 0.1 10^3/uL (0.0-0.1); Basophils % 0.5 %; Eosinophils # 0.5 10^3/uL (0.0-0.8); Eosinophils % 3.6 %; Lymphocytes # 2.8 10^3/uL (0.8-4.8); Lymphocytes % 20.2 %; Mean Corpuscular Hemoglobin 31.2 pg (27-33); Mean Corpuscular Volume 91.9 fl (85-98); Mean Platelet Volume 11.5 fL (7.4-10.4); Monocytes # 0.8 10^3/uL (0.2-0.9); Monocytes % 5.8 %; Neutrophils % 69.1 %; Nucleated Red Blood Cells % 0 %; Platelet Count 220 10^3/cmm (157-399); Red Blood Count 4.68 10^6/uL (3.85-5.65); Red Cell Distribution Width 12.6 % (12.1-15.1); White Blood Count 13.89 10^3/uL (3.29-11.43)
[2023-10-18 22:05] VITALS: BP 130/94; PULSE 81; RESP 14; O2SAT 99
[2023-10-18 22:16] LABS: HCG, Serum Qual Negative (Negative)
[2023-10-18 22:30] VITALS: BP 133/84; PULSE 78; RESP 14; O2SAT 96
[2023-10-18 22:36] LABS: Alanine Aminotransferase 16 U/L (0-33); Albumin Level 4.3 g/dL (3.5-5.2); Alkaline Phosphatase 83 U/L (35-105); Aspartate Amino Transferase 14 U/L (0-32); Blood Urea Nitrogen 9 mg/dL (6-20); Carbon Dioxide 18 mmol/L (22-29); Chloride 105 mmol/L (98-107); Creatinine Clr Calc Pharmacy 116.3237; Globulin 2.6 g/dL (1.3-4.6); Glomerular Filtration Rate 86.7 mL/min (90-130); Glucose 77 mg/dL (65-115); Lipase 29 U/L (13-60); Osmolality Calculated 281 mOsm/kg (285-295); Sodium 137 mmol/L (136-145); Total Bilirubin 0.2 mg/dL (0.15-1.2); Total Protein 6.9 g/dL (6.6-8.7)
[2023-10-18] MEDS: HYDROcodone-acetaminophen 5-325 mg Tablet 1 TAB PO (22:57)
[2023-10-18 23:00] VITALS: BP 101/74; PULSE 74; RESP 14; O2SAT 97
[2023-10-18 23:04] LABS: Add Urine Microscopic? NO; Charge for UA Resulting for Rev
[2023-10-18 23:09] LABS: Bilirubin Urine Neg (Negative); Blood Urine Neg (Negative); Glucose Urine UA Norm (Normal); Ketones Urine 1+ (Negative); Leukocyte Esterase Urine Negative (Negative); Nitrate Urine Negative (Negative); Protein Urine Neg (Negative); Urine Appearance Clear (CLEAR); Urine Color Yellow (Yellow); Urobilinogen Urine Norm (Negative); pH Urine 6 (5-7)
== END 2023-10-18 23:14 | disposition home or self-care (01) ==
PROVIDERS: Emergency Provider Emergency Medicine; PCP Family Medicine
DX: R10.9 Unspecified abdominal pain (principal)
CPT/HCPCS: 36415; 80053; 81003; 83690; 84703; 85025; 96374; 96375; 99284; J1200; J2765

== ENCOUNTER 2023-11-02 16:28 | Emergency (ER) | payer SELFPAY ==
[2023-11-02 16:30] VITALS: BP 155/98; PULSE 89; RESP 16; TEMP 37.1; O2SAT 97
--- NOTE | 2023-11-02 16:41 | ED_ITS ---
Documented by User: AMADOU Vick 11/02/23 16:55 HPI - Abdominal Pain 2 General: Chief Complaint: Abdominal Pain Stated Complaint: stomach pain Time Seen by Provider: 11/02/23 16:30 Source: patient Mode of arrival: ambulatory Limitations: no limitations History of Present Illness: Patient is a 28-year-old female with a longstanding history of GI issues. She states she has a history of familial polyposis and had a colon resection that required a colostomy which was eventually reversed. She has been seen here in our emergency department several times for abdominal pain. She reportedly is supposed to be undergoing pill endoscopy but states this will be in [place] but has yet to see any type of specialty provider there at this time. She states she normally has 6-8 bowel movements daily but this has decreased over the past few days. She states she does have a history of bowel obstruction and is concerned about this. She has not had any vomiting. Of note, since [address] patient has had 17 [address] scans of her abdomen and pelvis just through [facility]. She admits to having others as well through other facilities. MD elicited complaint: abdominal pain Pertinent past history: other (bowel obstruction, colon resection) Onset (ago): day(s) Pain Consistency: constant Location: Diffuse Severity: moderate Quality: cramping and fullness Radiation: none Migration to: no migration Exacerbating factors: nothing Relieving factors: nothing Associated Symptoms: Reports GI cramping and nausea; Denies chills, dysuria, fever(s), hematochezia, hematuria, hematemesis, melena and vomiting Related Data: Patient : No Review of Systems 2 Const: Denies: fever(s), chills, body aches, fatigue or malaise Card: Denies: chest pain Resp: Denies: dyspnea GI: Reports: abdominal pain, nausea and GI cramping; Denies: vomiting, hematemesis, rectal pain, hematochezia or melena : Denies: flank pain, dysuria or hematuria Musc: Denies: back pain PFSH ED 2 PFSH: Medical History Family history of FAP (familial adenomatous polyposis) Surgical History Hx of cholecystectomy Hx of colonoscopy with polypectomy H/O colectomy H/O ileostomy Family History Family/Other Diabetes Maternal uncle Hypertension Maternal uncle Hyperlipidemia Maternal uncle Colon cancer paternal cousins Mother Hypertension Hyperlipidemia Stroke Father Colon cancer Family/Other No problems noted. Other Breast cancer Ovarian cancer Uterine cancer Denies family history of Heart disease Thyroid disease Physical Exam 2 Const: COMMON NORMALS: no acute distress, patient oriented x3, no limitations, alert and well nourished GENERAL APPEARANCE: cooperative NUTRITIONAL APPEARANCE: overweight ORIENTATION/CONSCIOUSNESS: Yes awake, Yes oriented to person, Yes oriented to place and Yes oriented to time Eye: COMMON NORMALS: no scleral icterus Resp: COMMON NORMALS: normal respiratory effort and clear to auscultation bilaterally AUSCULTATION: clear to auscultation bilaterally Cardio: COMMON NORMALS: regular rate and regular rhythm RATE: regular rate RHYTHM: regular rhythm GI: COMMON NORMALS: Soft to palpation and no masses INSPECTION: Yes normal to inspection PALPATION: Yes Soft to palpation, Yes Tenderness to palpation present (GI) (throughout abdomen), No Guarding due to palpation present (GI) and No Rigid due to palpation : COMMON NORMALS: Yes no CVA tenderness BLADDER/KIDNEY EXAM: Yes no CVA tenderness Back/Pelvis: COMMON NORMALS: no CVA tenderness Extremity: GENERAL: Yes normal exam except as noted Neuro: ANDREAS COMA SCALE: document GCS findings Andreas coma scale eye opening: Spontaneous Andreas coma scale verbal response: Orientated [place] coma scale motor response: Obey commands [place] coma scale total score: 15 COMMON NORMALS: patient oriented x3 SENSORIUM/ORIENTATION: Yes alert, Yes oriented to person, Yes oriented to place and Yes oriented to time Skin: COMMON NORMALS: no rashes or lesions noted GENERAL SKIN EXAM: no rashes or lesions noted Course 2 Vital Signs: Vital signs: Vital Signs Temperature 98.7 F 11/02/23 16:30 Pulse Rate 89 11/02/23 16:30 Respiratory Rate 16 11/02/23 17:02 Blood Pressure 155/98 11/02/23 16:30 Pulse Oximetry 97 11/02/23 17:02 Oxygen Delivery Me thod Room Air 11/02/23 16:30 MDM - Abdominal Pain Lab Data 11/02/23 16:45 11/02/23 16:45 Labs/Radiology: Radiology Impressions Abdomen X-Ray 11/02/23 16:48 IMPRESSION: 1 prominent segment of bowel in the upper abdomen. Laboratory Results WBC 9.41 10^3/uL (3.29-11.43) 11/02/23 16:45 RBC 4.93 10^6/uL (3.85-5.65) 11/02/23 16:45 Hgb 15.60 g/dL (11.27-16.99) 11/02/23 16:45 Hct 45.4 % (36-47) 11/02/23 16:45 MCV 92.1 fl (85-98) 11/02/23 16:45 MCH 31.6 pg (27-33) 11/02/23 16:45 MCHC 34.4 g/dL (30-55) 11/02/23 16:45 RDW 12.4 % (12.1-15.1) 11/02/23 16:45 Plt Count 249 10^3/cmm (157-399) 11/02/23 16:45 MPV 11.1 fL (7.4-10.4) H 11/02/23 16:45 Neut % (Auto) 65.4 % 11/02/23 16:45 Lymph % (Auto) 22.3 % 11/02/23 16:45 Webb % (Auto) 5.8 % 11/02/23 16:45 Eos % (Auto) 5.5 % 11/02/23 16:45 Baso % (Auto) 0.7 % 11/02/23 16:45 Neut # (Auto) 6.14 10^3/uL (1.8-7.7) 11/02/23 16:45 Lymph # (Auto) 2.1 10^3/uL (0.8-4.8) 11/02/23 16:45 Webb # (Auto) 0.6 10^3/uL (0.2-0.9) 11/02/23 16:45 Eos # (Auto) 0.5 10^3/uL (0.0-0.8) 11/02/23 16:45 Baso # (Auto) 0.1 10^3/uL (0.0-0.1) 11/02/23 16:45 Nucleated RBC % (auto) 0 % 11/02/23 16:45 Nucleated RBCs # 0.0 /100WBC 11/02/23 16:45 Sodium 138 mmol/L (136-145) 11/02/23 16:45 Potassium 4.1 mmol/L (3.5-5.1) 11/02/23 16:45 Chloride 106 mmol/L (98-107) 11/02/23 16:45 Carbon Dioxide 22 mmol/L (22-29) 11/02/23 16:45 Anion Gap 14.1 (5-19) 11/02/23 16:45 BUN 7 mg/dL (6-20) 11/02/23 16:45 Creatinine 0.7 mg/dL (0.5-0.9) 11/02/23 16:45 GFR Calculation 101.1 mL/min (90-130) 11/02/23 16:45 Glucose 91 mg/dL (65-115) 11/02/23 16:45 Calculated Osmolality 284 mOsm/kg (285-295) L 11/02/23 16:45 Calcium 9.3 mg/dL (8.5-10.5) 11/02/23 16:45 Total Bilirubin 0.4 mg/dL (0.15-1.2) 11/02/23 16:45 AST 17 U/L (0-32) 11/02/23 16:45 ALT 24 U/L (0-33) 11/02/23 16:45 Alkaline Phosphatase 90 U/L (35-105) 11/02/23 16:45 Total Protein 7.7 g/dL (6.6-8.7) 11/02/23 16:45 Albumin 4.6 g/dL (3.5-5.2) 11/02/23 16:45 Globulin 3.1 g/dL (1.3-4.6) 11/02/23 16:45 Lipase 20 U/L (13-60) 11/02/23 16:45 HCG, Qual Negative (Negative) 11/02/23 16:45 Urine Color Yellow (Yellow) 11/02/23 17:43 Urine Appearance Slightly cloudy (CLEAR) 11/02/23 17:43 Urine pH 5 (5-7) 11/02/23 17:43 Ur Specific [place] 1.025 (1.005-1.030) 11/02/23 17:43 Urine Protein Neg (Negative) 11/02/23 17:43 Urine Glucose (UA) Norm (Normal) 11/02/23 17:43 Urine Ketones Negative (Negative) 11/02/23 17:43 Urine Blood Neg (Negative) 11/02/23 17:43 Urine Nitrate Negative (Negative) 11/02/23 17:43 Urine Bilirubin Neg (Negative) 11/02/23 17:43 Urine Urobilinogen Norm mg/dL (Negative) 11/02/23 17:43 Ur Leukocyte Esterase Negative (Negative) 11/02/23 17:43 Urine RBC 0-4 /hpf (0-2) H 11/02/23 17:43 Urine WBC 0-4 /hpf (0-5) H 11/02/23 17:43 Ur Squamous Epith Cells 5-10 /hpf (0-5) H 11/02/23 17:43 Amorphous Sediment Not Reportable 11/02/23 17:43 Urine Bacteria 1+ /hpf (NONE) H 11/02/23 17:43 Urine Mucus 1+ /hpf 11/02/23 17:43 Discharge Plan Discharge Patient Disposition: Home Clinical Impression: Abdominal pain Qualifiers: Abdominal location: generalized Qualified Code(s): R10.84 - Generalized abdominal pain Condition: Stable Prescriptions: No Action albuterol sulfate 90 mcg/actuation HFA aerosol inhaler 2 puff INHALATION Q4H PRN (Reason: Shortness Of Breath Or Wheezing) Qty: 6.7 0RF acetaminophen 500 mg Tablet 1,000 mg PO Q6H PRN (Reason: Pain) prednisone 20 mg tablet 20 mg PO DAILY Qty: 10 0RF ibuprofen 200 mg Tablet 800 mg PO Q6H PRN (Reason: Pain) Denta 5000 Plus 1.1 % cream See Rx Instructions .ROUTE .COMPLEX Rx Instructions: BRUSH ON ONCE DAILY BEFORE BED INSTRUCTED BY DENTIST Symbicort 80-4.5 mcg/actuation HFA aerosol inhaler 2 puff INHALATION BID ondansetron 4 mg tablet,disintegrating 4 mg PO Q6H PRN (Reason: nausea and vomiting) Qty: 14 0RF Discharge Orders: Discharge ED (Routine); Ordered 11/02/23 Ordered By: Ji Byrne Referrals: Rigoberto Ferguson MD [Primary Care Provider] - Discharge Diet: As Directed Discharge Activity: Increase activity as tolerated Patient Instructions: Abdominal Pain (ED), Opioid Safety, Pain Management Activity Restrictions/Additional Instructions: Clear liquid diet for the next 48 hours as instructed. Continue home medications. Please return if your condition does not improve or worsens. Follow-up with your primary care provider. Sign Out Sign Out Data: Patient Sign Out occurred on 11/02/23 at 17:02. Patient's care was discussed, and care was transferred from AMADOU Vick to AMADOU Watkins. Coding Level of Care Code ED High Risk Case Manager for Chg Fwd Documented by User: AMADOU Watkins 11/02/23 18:27 HPI - Abdominal Pain 2 General: Chief Complaint: Abdominal Pain Stated Complaint: stomach pain Time Seen by Provider: 11/02/23 16:30 PFSH ED 2 PFSH: Medical History Family history of FAP (familial adenomatous polyposis) Surgical History Hx of cholecystectomy Hx of colonoscopy with polypectomy H/O colectomy H/O ileostomy Family History Family/Other Diabetes Maternal uncle Hypertension Maternal uncle Hyperlipidemia Maternal uncle Colon cancer paternal cousins Mother Hypertension Hyperlipidemia Stroke Father Colon cancer Family/Other No problems noted. Other Breast cancer Ovarian cancer Uterine cancer Denies family history of Heart disease Thyroid disease Physical Exam 2 Neuro: ANDREAS COMA SCALE: document GCS findings Andreas coma scale total score: 15 Course 2 Vital Signs: Vital signs: Vital Signs Temperature 98.7 F 11/02/23 16:30 Pulse Rate 89 11/02/23 16:30 Respiratory Rate 16 11/02/23 17:02 Blood Pressure 155/98 11/02/23 16:30 Pulse Oximetry 97 11/02/23 17:02 Oxygen Delivery Va thod Room Air 11/02/23 16:30 MDM - Abdominal Pain Medical Decision Making Care of patient transferred to de at shift change. Patient has numerous ER visits for abdominal pain, of which she has been scanned via CT multiple times. Her complaints today were some acute on chronic generalized abdominal pain. Her vitals on arrival unremarkable and condition has remained stable throughout ED course. She was given dose of IV morphine for her pain as well as Zofran for nausea. Her lab work is all unremarkable, including a normal urinalysis. Abdominal x-ray did comment on a prominent segment of bowel in the right upper quadrant, however when reviewing prior KUBs this was also evident there. There were no air-fluid level or other signs of a bowel obstruction. Patient is rechecked and states that she is feeling better though does request 1 more dose of morphine. Patient is instructed to enact a clear liquid diet and strict return precautions are given. Patient's case is discussed with supervising ED physician, Dr. Monsalve, who agrees with disposition. Lab Data 11/02/23 16:45 11/02/23 16:45 Labs/Radiology: Radiology Impressions Abdomen X-Ray 11/02/23 16:48 IMPRESSION: 1 prominent segment of bowel in the upper abdomen. Laboratory Results WBC 9.41 10^3/uL (3.29-11.43) 11/02/23 16:45 RBC 4.93 10^6/uL (3.85-5.65) 11/02/23 16:45 Hgb 15.60 g/dL (11.27-16.99) 11/02/23 16:45 Hct 45.4 % (36-47) 11/02/23 16:45 MCV 92.1 fl (85-98) 11/02/23 16:45 MCH 31.6 pg (27-33) 11/02/23 16:45 MCHC 34.4 g/dL (30-55) 11/02/23 16:45 RDW 12.4 % (12.1-15.1) 11/02/23 16:45 Plt Count 249 10^3/cmm (157-399) 11/02/23 16:45 MPV 11.1 fL (7.4-10.4) H 11/02/23 16:45 Neut % (Auto) 65.4 % 11/02/23 16:45 Lymph % (Auto) 22.3 % 11/02/23 16:45 Webb % (Auto) 5.8 % 11/02/23 16:45 Eos % (Auto) 5.5 % 11/02/23 16:45 Baso % (Auto) 0.7 % 11/02/23 16:45 Neut # (Auto) 6.14 10^3/uL (1.8-7.7) 11/02/23 16:45 Lymph # (Auto) 2.1 10^3/uL (0.8-4.8) 11/02/23 16:45 Webb # (Auto) 0.6 10^3/uL (0.2-0.9) 11/02/23 16:45 Eos # (Auto) 0.5 10^3/uL (0.0-0.8) 11/02/23 16:45 Baso # (Auto) 0.1 10^3/uL (0.0-0.1) 11/02/23 16:45 Nucleated RBC % (auto) 0 % 11/02/23 16:45 Nucleated RBCs # 0.0 /100WBC 11/02/23 16:45 Sodium 138 mmol/L (136-145) 11/02/23 16:45 Potassium 4.1 mmol/L (3.5-5.1) 11/02/23 16:45 Chloride 106 mmol/L (98-107) 11/02/23 16:45 Carbon Dioxide 22 mmol/L (22-29) 11/02/23 16:45 Anion Gap 14.1 (5-19) 11/02/23 16:45 BUN 7 mg/dL (6-20) 11/02/23 16:45 Creatinine 0.7 mg/dL (0.5-0.9) 11/02/23 16:45 GFR Calculation 101.1 mL/min (90-130) 11/02/23 16:45 Glucose 91 mg/dL (65-115) 11/02/23 16:45 Calculated Osmolality 284 mOsm/kg (285-295) L 11/02/23 16:45 Calcium 9.3 mg/dL (8.5-10.5) 11/02/23 16:45 Total Bilirubin 0.4 mg/dL (0.15-1.2) 11/02/23 16:45 AST 17 U/L (0-32) 11/02/23 16:45 ALT 24 U/L (0-33) 11/02/23 16:45 Alkaline Phosphatase 90 U/L (35-105) 11/02/23 16:45 Total Protein 7.7 g/dL (6.6-8.7) 11/02/23 16:45 Albumin 4.6 g/dL (3.5-5.2) 11/02/23 16:45 Globulin 3.1 g/dL (1.3-4.6) 11/02/23 16:45 Lipase 20 U/L (13-60) 11/02/23 16:45 HCG, Qual Negative (Negative) 11/02/23 16:45 Urine Color Yellow (Yellow) 11/02/23 17:43 Urine Appearance Slightly cloudy (CLEAR) 11/02/23 17:43 Urine pH 5 (5-7) 11/02/23 17:43 Ur Specific [place] 1.025 (1.005-1.030) 11/02/23 17:43 Urine Protein Neg (Negative) 11/02/23 17:43 Urine Glucose (UA) Norm (Normal) 11/02/23 17:43 Urine Ketones Negative (Negative) 11/02/23 17:43 Urine Blood Neg (Negative) 11/02/23 17:43 Urine Nitrate Negative (Negative) 11/02/23 17:43 Urine Bilirubin Neg (Negative) 11/02/23 17:43 Urine Urobilinogen Norm mg/dL (Negative) 11/02/23 17:43 Ur Leukocyte Esterase Negative (Negative) 11/02/23 17:43 Urine RBC 0-4 /hpf (0-2) H 11/02/23 17:43 Urine WBC 0-4 /hpf (0-5) H 11/02/23 17:43 Ur Squamous Epith Cells 5-10 /hpf (0-5) H 11/02/23 17:43 Amorphous Sediment Not Reportable 11/02/23 17:43 Urine Bacteria 1+ /hpf (NONE) H 11/02/23 17:43 Urine Mucus 1+ /hpf 11/02/23 17:43 All radiology interpretation(s) finalized by discharge Discharge Plan Discharge Patient Disposition: Home Clinical Impression: Abdominal pain Qualifiers: Abdominal location: generalized Qualified Code(s): R10.84 - Generalized abdominal pain Condition: Stable Prescriptions: No Action albuterol sulfate 90 mcg/actuation HFA aerosol inhaler 2 puff INHALATION Q4H PRN (Reason: Shortness Of Breath Or Wheezing) Qty: 6.7 0RF acetaminophen 500 mg Tablet 1,000 mg PO Q6H PRN (Reason: Pain) prednisone 20 mg tablet 20 mg PO DAILY Qty: 10 0RF ibuprofen 200 mg Tablet 800 mg PO Q6H PRN (Reason: Pain) Denta 5000 Plus 1.1 % cream See Rx Instructions .ROUTE .COMPLEX Rx Instructions: BRUSH ON ONCE DAILY BEFORE BED INSTRUCTED BY DENTIST Symbicort 80-4.5 mcg/actuation HFA aerosol inhaler 2 puff INHALATION BID ondansetron 4 mg tablet,disintegrating 4 mg PO Q6H PRN (Reason: nausea and vomiting) Qty: 14 0RF Discharge Orders: Discharge ED (Routine); Ordered 11/02/23 Ordered By: Ji Byrne Referrals: Rigoberto Ferguson MD [Primary Care Provider] - Discharge Diet: As Directed Discharge Activity: Increase activity as tolerated Patient Instructions: Abdominal Pain (ED), Opioid Safety, Pain Management Activity Restrictions/Additional Instructions: Clear liquid diet for the next 48 hours as instructed. Continue home medications. Please return if your condition does not improve or worsens. Follow-up with your primary care provider. Sign Out Sign Out Data: Patient Sign Out occurred on 11/02/23 at 17:02. Patient's care was discussed, and care was transferred from AMADOU Vick to AMADOU Watkins. Coding Level of Care Code ED High Risk Case Manager for Yamilet De Souza
--- NOTE | 2023-11-02 16:48 | XRR_ITS ---
PROCEDURE INFORMATION: Exam: XR Abdomen Exam date and time: 11/02/2023 4:54 PM Age: 28 years old Clinical indication: Abdominal pain; Acute; Prior surgery; Surgery date: 6+ months; Surgery type: Colon resection ileostomy reversal gb rectum; Additional info: Abd pain; HX of obstructions TECHNIQUE: Imaging protocol: Radiologic exam of the abdomen. Views: 2 Views. Upright and supine views. COMPARISON: CT abdomen pelvis con [id number] 09/01/2023 8:33 AM FINDINGS: Gastrointestinal tract: Normal. No bowel dilation. Nonspecific bowel gas pattern. One prominent segment of bowel in the upper abdomen is nonspecific in appearance. No gas fluid levels are observed. Intraperitoneal space: Normal. No free air. Bones/joints: Unremarkable for age. XR/XR abdomen min 2V [id number] IMPRESSION: 1 prominent segment of bowel in the upper abdomen.
[2023-11-02 16:51] LABS: Basophils # 0.1 10^3/uL (0.0-0.1); Basophils % 0.7 %; Eosinophils # 0.5 10^3/uL (0.0-0.8); Eosinophils % 5.5 %; Hematocrit 45.4 % (36-47); Lymphocytes # 2.1 10^3/uL (0.8-4.8); Lymphocytes % 22.3 %; Mean Corpuscular HGB Conc 34.4 g/dL (30-55); Mean Corpuscular Hemoglobin 31.6 pg (27-33); Mean Corpuscular Volume 92.1 fl (85-98); Mean Platelet Volume 11.1 fL (7.4-10.4); Monocytes # 0.6 10^3/uL (0.2-0.9); Monocytes % 5.8 %; Neutrophils # 6.14 10^3/uL (1.8-7.7); Neutrophils % 65.4 %; Nucleated Red Blood Cells % 0 %; Platelet Count 249 10^3/cmm (157-399); Red Blood Count 4.93 10^6/uL (3.85-5.65); Red Cell Distribution Width 12.4 % (12.1-15.1); White Blood Count 9.41 10^3/uL (3.29-11.43)
[2023-11-02] MEDS: ondansetron 2 mg/ML SDV 2 mL 4 MG IVP (17:01)
[2023-11-02 17:02] VITALS: RESP 16; O2SAT 97
[2023-11-02] MEDS: morphine 4 mg/mL SDV 1 mL IVP ×2 (17:02→18:32)
[2023-11-02 17:12] LABS: HCG, Serum Qual Negative (Negative)
[2023-11-02 17:32] LABS: Alanine Aminotransferase 24 U/L (0-33); Albumin Level 4.6 g/dL (3.5-5.2); Alkaline Phosphatase 90 U/L (35-105); Anion Gap 14.1 (5-19); Aspartate Amino Transferase 17 U/L (0-32); Blood Urea Nitrogen 7 mg/dL (6-20); Calcium 9.3 mg/dL (8.5-10.5); Carbon Dioxide 22 mmol/L (22-29); Chloride 106 mmol/L (98-107); Creatinine Clr Calc Pharmacy 131.1972; Globulin 3.1 g/dL (1.3-4.6); Glomerular Filtration Rate 101.1 mL/min (90-130); Glucose 91 mg/dL (65-115); Lipase 20 U/L (13-60); Osmolality Calculated 284 mOsm/kg (285-295); Potassium 4.1 mmol/L (3.5-5.1); Sodium 138 mmol/L (136-145); Total Bilirubin 0.4 mg/dL (0.15-1.2); Total Protein 7.7 g/dL (6.6-8.7)
[2023-11-02 18:14] LABS: Add Urine Microscopic? YES; Bilirubin Urine Neg (Negative); Blood Urine Neg (Negative); Glucose Urine UA Norm (Normal); Ketones Urine Negative (Negative); Leukocyte Esterase Urine Negative (Negative); Nitrate Urine Negative (Negative); Protein Urine Neg (Negative); Specific Gravity, Urine 1.025 (1.005-1.030); Urine Appearance Slightly Cloudy (CLEAR); Urine Color Yellow (Yellow); Urobilinogen Urine Norm (Negative); pH Urine 5 (5-7)
[2023-11-02 18:21] LABS: Add Urine Culture? No; Bacteria Urine 1+ /hpf; Mucus Urine 1+ /hpf; RBC Urine 0-4 /hpf (0-2); WBC Urine 0-4 /hpf (0-5)
[2023-11-02 18:29] VITALS: BP 129/80; PULSE 98; O2SAT 98
== END 2023-11-02 18:44 | disposition home or self-care (01) ==
PROVIDERS: Emergency Medicine; Emergency Provider Physician Assistant; PCP Family Medicine
DX: R10.84 Generalized abdominal pain (principal)
CPT/HCPCS: 36415; 74019; 80053; 81001; 83690; 84703; 85025; 96374; 96375; 96376; 99284; J2270; J2405

== ENCOUNTER 2023-12-08 21:00 | Emergency (ER) | payer SELFPAY ==
[2023-12-08 21:03] VITALS: BP 151/108; PULSE 89; RESP 15; TEMP 36.7; O2SAT 98
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
== END 2023-12-08 21:56 | disposition home or self-care (01) ==
PROVIDERS: Emergency Provider Physician Assistant; PCP Family Medicine
DX: S01.01XA Laceration without foreign body of scalp, initial encounter (principal); W22.09XA Striking against other stationary object, initial encounter
CPT/HCPCS: 12002; 99282

== ENCOUNTER 2023-12-14 06:35 | Emergency (ER) | payer SELFPAY ==
[2023-12-14 06:38] VITALS: BP 136/97; PULSE 84; RESP 16; TEMP 37; O2SAT 99
--- NOTE | 2023-12-14 06:45 | W.ED.GENADLT ---
HPI - General Adult General: Chief complaint: General Medical Stated complaint: needs kendell removed Time Seen by Provider: 12/14/23 06:39 Source: patient Mode of arrival: ambulatory Limitations: no limitations History of Present Illness: 28-year-old female who states she did hit her head on the [place] of her car last week she had had 4 kendell placed here here is for staple removal. She has no complaints at this time Associated symptoms: Deny headache(s) Review of Systems Const: Denies: fever(s) Skin/Breast: Denies: erythema Neuro: Denies: headache(s) PFSH ED PFSH: Medical History Family history of FAP (familial adenomatous polyposis) Surgical History Hx of cholecystectomy Hx of colonoscopy with polypectomy H/O colectomy H/O ileostomy Family History Family/Other Diabetes Maternal uncle Hypertension Maternal uncle Hyperlipidemia Maternal uncle Colon cancer paternal cousins Mother Hypertension Hyperlipidemia Stroke Father Colon cancer Family/Other No problems noted. Other Breast cancer Ovarian cancer Uterine cancer Denies family history of Heart disease Thyroid disease Physical Exam Const: COMMON NORMALS: no acute distress, patient oriented x3 and healthy appearing HENMT: COMMON NORMALS: normocephalic HEAD & SCALP: normocephalic OTHER: 4 kendell noted to the crown of the head wounds clean dry intact Eye: COMMON NORMALS: conjunctivae normal CONJUNCTIVA: Yes conjunctivae normal Neck/C-Spine: COMMON NORMALS: full ROM and supple Chest: COMMONS NORMALS: normal inspection of the chest Resp: COMMON NORMALS: normal respiratory effort Extremity: COMMON NORMALS: normal to inspection and full ROM Neuro: COMMON NORMALS: patient oriented x3, moves all extremities and no focal motor deficits Psych: COMMON NORMALS: mental status grossly normal, Normal thought process present and cooperative THOUGHT PROCESS: Normal thought process present Skin: COMMON NORMALS: no rashes or lesions noted and no wounds GENERAL SKIN EXAM: no rashes or lesions noted Course Vital Signs: Vital signs: Vital Signs Temperature 98.6 F 12/14/23 06:38 Pulse Rate 84 12/14/23 06:38 Respiratory Rate 16 12/14/23 06:38 Blood Pressure 136/97 12/14/23 06:38 Pulse Oximetry 99 12/14/23 06:38 Oxygen Delivery Me thod Room Air 12/14/23 06:38 MDM - General Adult Medical Decision Making Patient presents here for staple removal did remove 4 kendell wounds clean dry and intact she is stable for discharge Medical Records I reviewed the patient's medical records. No radiology studies performed this visit Discharge Plan Discharge Patient Disposition: Home Clinical Impression: Removal of staple Condition: Stable Prescriptions: No Action albuterol sulfate 90 mcg/actuation HFA aerosol inhaler 2 puff INHALATION Q4H PRN (Reason: Shortness Of Breath Or Wheezing) Qty: 6.7 0RF acetaminophen 500 mg Tablet 1,000 mg PO Q6H PRN (Reason: Pain) prednisone 20 mg tablet 20 mg PO DAILY Qty: 10 0RF ibuprofen 200 mg Tablet 800 mg PO Q6H PRN (Reason: Pain) Denta 5000 Plus 1.1 % cream See Rx Instructions .ROUTE .COMPLEX Rx Instructions: BRUSH ON ONCE DAILY BEFORE BED INSTRUCTED BY DENTIST Symbicort 80-4.5 mcg/actuation HFA aerosol inhaler 2 puff INHALATION BID ondansetron 4 mg tablet,disintegrating 4 mg PO Q6H PRN (Reason: nausea and vomiting) Qty: 14 0RF Discharge Orders: Discharge ED (Routine); Ordered 12/14/23 Ordered By: Herman Guerrero Referrals: Rigoberto Ferguson MD [Primary Care Provider] - Discharge Diet: Advance as tolerated Discharge Activity: Resume usual activity Patient Instructions: Stitches and Kendell Care Coding Level of Care Code ED Rn First Assistant for Yamilet De Souza
[2023-12-14 06:46] VITALS: BP 136/97; PULSE 81; RESP 16; O2SAT 97
== END 2023-12-14 06:50 | disposition home or self-care (01) ==
PROVIDERS: Emergency Provider Emergency Medicine; PCP Family Medicine
DX: Z48.02 Encounter for removal of sutures (principal)
CPT/HCPCS: 99281

== ENCOUNTER 2023-12-20 17:39 | Emergency (ER) | payer SELFPAY ==
[2023-12-20 17:55] VITALS: BP 135/90; PULSE 82; TEMP 37; O2SAT 98; BMI 30.3
--- NOTE | 2023-12-20 18:10 | W.ED.ALLEREA ---
HPI - Allergic Reaction General: Chief complaint: Allergic Reaction Stated complaint: Allergic Reaction Time Seen by Provider: 12/20/23 18:05 Source: patient Mode of arrival: ambulatory Limitations: no limitations History of Present Illness: HPI narrative: 28-year-old female states that today she noticed a rash to her arms some slight to her face. States been very pruritic in nature is taken some Benadryl with minimal relief states she had felt anxious but had no other dyspnea besides that denies any difficulty swallowing. Associated symptoms: Deny abdominal pain, nausea or vomiting Review of Systems Const: Denies: fever(s), chills, body aches or change in appetite ENMT: Denies: throat pain or dental pain Card: Denies: chest pain Resp: Denies: dyspnea GI: Denies: abdominal pain, nausea, vomiting or diarrhea Musc: Denies: neck pain or back pain Skin/Breast: Reports: rash and pruritus Neuro: Denies: headache(s) PFSH ED PFSH: Medical History Family history of FAP (familial adenomatous polyposis) Surgical History Hx of cholecystectomy Hx of colonoscopy with polypectomy H/O colectomy H/O ileostomy Family History Family/Other Diabetes Maternal uncle Hypertension Maternal uncle Hyperlipidemia Maternal uncle Colon cancer paternal cousins Mother Hypertension Hyperlipidemia Stroke Father Colon cancer Family/Other No problems noted. Other Breast cancer Ovarian cancer Uterine cancer Denies family history of Heart disease Thyroid disease Physical Exam Const: COMMON NORMALS: no acute distress, patient oriented x3 and healthy appearing HENMT: COMMON NORMALS: normocephalic and atraumatic HEAD & SCALP: normocephalic and atraumatic Eye: COMMON NORMALS: Equal, round and reactive pupils present and EOMs intact bilaterally PUPIL: Yes Equal, round and reactive pupils present Neck/C-Spine: COMMON NORMALS: full ROM and supple Chest: COMMONS NORMALS: normal inspection of the chest Resp: COMMON NORMALS: normal respiratory effort Cardio: COMMON NORMALS: regular rate, regular rhythm and No murmurs present (Cardio) RATE: regular rate RHYTHM: regular rhythm Extremity: COMMON NORMALS: full ROM Neuro: COMMON NORMALS: patient oriented x3, moves all extremities and no focal motor deficits Psych: COMMON NORMALS: mental status grossly normal, Normal thought process present and cooperative THOUGHT PROCESS: Normal thought process present Skin: COMMON NORMALS: no wounds NARRATIVE SKIN EXAM: Maculopapular rash noted to arms Course Vital Signs: Vital signs: Vital Signs Temperature 98.6 F 12/20/23 17:55 Pulse Rate 82 12/20/23 17:55 Blood Pressure 135/90 12/20/23 17:55 Pulse Oximetry 98 12/20/23 17:55 Oxygen Delivery Me thod Room Air 12/20/23 17:55 MDM - Allergic Reaction Medical Decision Making Patient presents with a rash to her arms that is likely allergic reaction contact dermatitis we will give patient steroids here she is taking Benadryl Pepcid at home she has no airway involvement she is stable for discharge. No radiology studies performed this visit Discharge Plan Discharge Patient Disposition: Home Clinical Impression: Allergic reaction, Contact dermatitis Condition: Stable Prescriptions: No Action albuterol sulfate 90 mcg/actuation HFA aerosol inhaler 2 puff INHALATION Q4H PRN (Reason: Shortness Of Breath Or Wheezing) Qty: 6.7 0RF acetaminophen 500 mg Tablet 1,000 mg PO Q6H PRN (Reason: Pain) prednisone 20 mg tablet 20 mg PO DAILY Qty: 10 0RF ibuprofen 200 mg Tablet 800 mg PO Q6H PRN (Reason: Pain) Denta 5000 Plus 1.1 % cream See Rx Instructions .ROUTE .COMPLEX Rx Instructions: BRUSH ON ONCE DAILY BEFORE BED INSTRUCTED BY DENTIST Symbicort 80-4.5 mcg/actuation HFA aerosol inhaler 2 puff INHALATION BID ondansetron 4 mg tablet,disintegrating 4 mg PO Q6H PRN (Reason: nausea and vomiting) Qty: 14 0RF Discharge Orders: Discharge ED (Routine); Ordered 12/20/23 Ordered By: Herman Guerrero Referrals: Rigoberto Ferguson MD [Primary Care Provider] - 1-3 days Discharge Diet: Advance as tolerated Discharge Activity: Resume usual activity Patient Instructions: Contact Dermatitis (ED), General Allergic Reaction (ED) Coding Level of Care Code ED Mineral Economist for Yamilet De Souza
[2023-12-20] MEDS: dexamethasone 10 mg/mL INJ IM (18:13)
[2023-12-20] MEDS: triamcinolone 40 mg/mL SDV 80 MG IM (18:13)
[2023-12-20 18:22] VITALS: PULSE 88; RESP 16; O2SAT 99
== END 2023-12-20 18:24 | disposition home or self-care (01) ==
PROVIDERS: Emergency Provider Emergency Medicine; PCP Family Medicine
DX: L23.9 Allergic contact dermatitis, unspecified cause (principal)
CPT/HCPCS: 96372; 99284; J1100; J3301

== ENCOUNTER 2023-12-24 20:20 | Emergency (ER) | payer SELFPAY ==
[2023-12-24 20:22] VITALS: BP 147/89; PULSE 95; RESP 16; TEMP 37.1; O2SAT 98; BMI 29.8
--- NOTE | 2023-12-24 23:20 | ED_ITS ---
HPI - Skin/Abscess/Foreign Bdy General: Chief complaint: Allergic Reaction Stated complaint: allergic reaction skin itchy and purple legs Time Seen by Provider: 12/24/23 22:02 Source: patient Mode of arrival: ambulatory Limitations: no limitations History of Present Illness: Patient is a 28-year-old female presents to ED today with continued concerns of a pruritic rash to her bilateral arms and lateral thighs. She was seen here approximately 4 days ago with similar symptoms. She states rash at that time involved her face and neck as well. She was given IM steroids. She feels like the rash to her face and neck have subsided but the other areas have continued to itch significantly. She states she is scratching them to the point where they are bleeding and bruising. She has no involvement of her wrists, hands, feet, or webbings. No other individuals with similar rashes. She has no systemic symptoms. Denies any new household, chemical, environmental exposures. No new medications. MD complaint: rash Onset (ago): day(s) Tetanus up to date: yes Location: LUE, RUE, LLE and RLE Severity: moderate Quality: pruritic Relieving factors: other (Benadryl helps with the itching) Exacerbating factors: none Context: none Associated symptoms: Reports no associated symptoms; Deny chills, fever(s), nausea or vomiting Related Data Home Medications Medication Instructions Recorded Confirmed acetaminophen 500 mg tablet 1,000 mg PO Q6H PRN Pain 12/22/22 09/01/23 budesonide-formoterol HFA 80 2 puff inhalation BID 09/01/23 09/01/23 mcg-4.5 mcg/actuation aerosol inhaler (Symbicort) fluoride (sodium) 1.1 % dental See Rx Instructions .Route .COMPLEX 09/01/23 09/01/23 cream (Denta 5000 Plus) ibuprofen 200 mg tablet 800 mg PO Q6H PRN Pain 09/01/23 09/01/23 Previous Rx's Medication Instructions Recorded albuterol sulfate 90 mcg/actuation 2 puff inhalation Q4H PRN 03/01/23 aerosol inhaler Shortness Of Breath Or Wheezing #6.7 grams prednisone 20 mg tablet 20 mg PO DAILY #10 tabs 08/25/23 ondansetron 4 mg disintegrating 4 mg PO Q6H PRN nausea and 10/18/23 tablet vomiting #14 tabs Allergies Allergy/AdvReac Type Severity Reaction Status Date / Time Iodinated Contrast Media Allergy Severe ALGY-Anaphy Verified 12/20/23 17:59 laxis ceftriaxone [From Rocephin] Allergy ALGY-Anaphy Verified 12/20/23 17:59 laxis ciprofloxacin [From Cipro] Allergy ADR-Nausea Verified 12/20/23 17:59 ketorolac Allergy anaphylaxis Verified 12/20/23 17:59 Sulfa (Sulfonamide Allergy Unknown Verified 12/20/23 17:59 Antibiotics) sulfamethoxazole Allergy ADR-Nausea Verified 12/20/23 17:59 [From Bactrim] trimethoprim [From Bactrim] Allergy ADR-Nausea Verified 12/20/23 17:59 Review of Systems Const: Denies: fever(s), chills, body aches, fatigue or malaise Card: Denies: chest pain Resp: Denies: dyspnea GI: Denies: abdominal pain, nausea, vomiting or diarrhea Musc: Denies: neck pain, back pain, extremity pain or joint pain Skin/Breast: Reports: rash and pruritus Neuro: Denies: headache(s), numbness in extremities, weakness in extremities or sensory changes PFSH ED PFSH: Medical History Family history of FAP (familial adenomatous polyposis) Surgical History Hx of cholecystectomy Hx of colonoscopy with polypectomy H/O colectomy H/O ileostomy Family History Family/Other Diabetes Maternal uncle Hypertension Maternal uncle Hyperlipidemia Maternal uncle Colon cancer paternal cousins Mother Hypertension Hyperlipidemia Stroke Father Colon cancer Family/Other No problems noted. Other Breast cancer Ovarian cancer Uterine cancer Denies family history of Heart disease Thyroid disease Physical Exam Const: COMMON NORMALS: no acute distress, average body habitus, patient oriented x3, no limitations, alert and well nourished HENMT: MOUTH: Normal oral and palatal mucosa present and lip normal Eye: GENERAL EYE: appearance normal, both eyes and all related structures Neck/C-Spine: COMMON NORMALS: no lymphadenopathy Resp: COMMON NORMALS: normal respiratory effort Extremity: COMMON NORMALS: full ROM, capillary refill normal, no joint enlargement, no clubbing, cyanosis or edema, no calf tenderness and no pedal edema GENERAL: Yes normal exam except as noted Neuro: COMMON NORMALS: patient oriented x3, moves all extremities, no focal motor deficits and no sensory deficits noted SENSORIUM/ORIENTATION: Yes alert Skin: NARRATIVE SKIN EXAM: erythematous diffuse papular rash affecting mainly bilateral upper arms and lateral thighs; no lesions noted to back/trunk, face, or neck RASHES: rashes noted Course Vital Signs: Vital signs: Vital Signs Temperature 98.8 F 12/24/23 20:22 Pulse Rate 95 12/24/23 20:22 Respiratory Rate 16 12/24/23 20:22 Blood Pressure 147/89 12/24/23 20:22 Pulse Oximetry 98 12/24/23 20:22 Oxygen Delivery Me thod Room Air 12/24/23 20:22 MDM - Skin/Abscess/Foreign Bdy Medicial Decision Making Patient here with a pruritic rash. This does not appear infectious. Does not appear to be an infestation rash. Ultimately rash is non-emergent appearing. Recommend she follow-up with her primary care provider. They can refer to derm from there if rash does not begin to improve. She has tried OTC topical therapies such as hydrocortisone cream, calamine lotion without benefit. Medical Records I reviewed the patient's medical records. No radiology studies performed this visit Discharge Plan Discharge Patient Disposition: Home Clinical Impression: Pruritic rash Condition: Stable Prescriptions: No Action albuterol sulfate 90 mcg/actuation HFA aerosol inhaler 2 puff INHALATION Q4H PRN (Reason: Shortness Of Breath Or Wheezing) Qty: 6.7 0RF acetaminophen 500 mg Tablet 1,000 mg PO Q6H PRN (Reason: Pain) prednisone 20 mg tablet 20 mg PO DAILY Qty: 10 0RF ibuprofen 200 mg Tablet 800 mg PO Q6H PRN (Reason: Pain) Denta 5000 Plus 1.1 % cream See Rx Instructions .ROUTE .COMPLEX Rx Instructions: BRUSH ON ONCE DAILY BEFORE BED INSTRUCTED BY DENTIST Symbicort 80-4.5 mcg/actuation HFA aerosol inhaler 2 puff INHALATION BID ondansetron 4 mg tablet,disintegrating 4 mg PO Q6H PRN (Reason: nausea and vomiting) Qty: 14 0RF Discharge Orders: Discharge ED (Routine); Ordered 12/24/23 Ordered By: Mirtha Eid Referrals: Rigoberto Ferguson MD [Primary Care Provider] - Coding Level of Care Code ED Interior Systems Carpenter for Chg Nolvia
[2023-12-24] MEDS: methylPREDNISolone sod succ 125 mg/2 mL INJ IM (23:29)
[2023-12-24] MEDS: diphenhydrAMINE 50 mg/mL SDV 1mL IM (23:30)
== END 2023-12-24 23:46 | disposition home or self-care (01) ==
PROVIDERS: Emergency Provider Physician Assistant; PCP Family Medicine
DX: L29.9 Pruritus, unspecified (principal)
CPT/HCPCS: 96372; 99284; J1200; J2919

== ENCOUNTER 2024-01-13 06:28 | Emergency (ER) | payer SELFPAY ==
[2024-01-13 06:30] VITALS: BP 151/109; PULSE 90; RESP 16; TEMP 36.8; O2SAT 97; BMI 29.8
--- NOTE | 2024-01-13 06:36 | ED_ITS ---
HPI - Abdominal Pain 2 General: Chief Complaint: Abdominal Pain Stated Complaint: abdominal pain Time Seen by Provider: 01/13/24 06:30 History of Present Illness: 28-year-old female presents emergency ro om complaining of abdominal pain with some hematochezia. She has a history of familial polyposis. She previously had a colectomy now has a J-pouch she was reanastomosed no longer has the colostomy. She goes every few hours usually it is relatively watery. Last 3 days she has had blood associated with it as well. She denies any fever sweats or chills she has had some nausea but no vomiting. Denies dysuria urgency or frequency no hematuria Associated Symptoms: Reports bloating, GI cramping and diarrhea (Chronic: hx of colectomy with reanastomosis and J-pouch); Denies chills, dysuria and fever(s) Related Data Home Medications Medication Instructions Recorded Confirmed acetaminophen 500 mg tablet 1,000 mg PO Q6H PRN Pain 12/22/22 09/01/23 budesonide-formoterol HFA 80 2 puff inhalation BID 09/01/23 09/01/23 mcg-4.5 mcg/actuation aerosol inhaler (Symbicort) fluoride (sodium) 1.1 % dental See Rx Instructions .Route .COMPLEX 09/01/23 09/01/23 cream (Denta 5000 Plus) ibuprofen 200 mg tablet 800 mg PO Q6H PRN Pain 09/01/23 09/01/23 Previous Rx's Medication Instructions Recorded albuterol sulfate 90 mcg/actuation 2 puff inhalation Q4H PRN 03/01/23 aerosol inhaler Shortness Of Breath Or Wheezing #6.7 grams prednisone 20 mg tablet 20 mg PO DAILY #10 tabs 08/25/23 ondansetron 4 mg disintegrating 4 mg PO Q6H PRN nausea and 10/18/23 tablet vomiting #14 tabs amoxicillin 875 mg-potassium 1 tab PO BID #14 tabs 01/13/24 clavulanate 125 mg tablet Allergies Allergy/AdvReac Type Severity Reaction Status Date / Time Iodinated Contrast Media Allergy Severe ALGY-Anaphy Verified 12/20/23 17:59 laxis ceftriaxone [From Rocephin] Allergy ALGY-Anaphy Verified 12/20/23 17:59 laxis ciprofloxacin [From Cipro] Allergy ADR-Nausea Verified 12/20/23 17:59 ketorolac Allergy anaphylaxis Verified 12/20/23 17:59 Sulfa (Sulfonamide Allergy Unknown Verified 12/20/23 17:59 Antibiotics) sulfamethoxazole Allergy ADR-Nausea Verified 12/20/23 17:59 [From Bactrim] trimethoprim [From Bactrim] Allergy ADR-Nausea Verified 12/20/23 17:59 Review of Systems 2 Const: Denies: fever(s) or chills Card: Denies: chest pain Resp: Denies: dyspnea GI: Reports: abdominal pain, diarrhea (Chronic: hx of colectomy with reanastomosis and J-pouch), bloating and GI cramping : Denies: dysuria, urinary frequency or urinary urgency Musc: Denies: neck pain or back pain Skin/Breast: Denies: rash PFSH ED 2 PFSH: Medical History (Updated 01/13/24 @ 08:17 by Gulshan Vela DO) Familial adenomatous polyposis GERD (gastroesophageal reflux disease) Family history of FAP (familial adenomatous polyposis) Surgical History (Updated 01/13/24 @ 06:44 by Gulshan Vela DO) H/O esophagogastroduodenoscopy Hx of cholecystectomy Hx of colonoscopy with polypectomy H/O colectomy H/O ileostomy Family History Family/Other Diabetes Maternal uncle Hypertension Maternal uncle Hyperlipidemia Maternal uncle Colon cancer paternal cousins Mother Hypertension Hyperlipidemia Stroke Father Colon cancer Family/Other No problems noted. Other Breast cancer Ovarian cancer Uterine cancer Denies family history of Heart disease Thyroid disease Physical Exam 2 Const: COMMON NORMALS: no acute distress GENERAL APPEARANCE: cooperative and comfortable ORIENTATION/CONSCIOUSNESS: Yes awake, Yes oriented to person, Yes oriented to place and Yes oriented to time HENMT: COMMON NORMALS: normocephalic, atraumatic and hearing grossly normal bilaterally HEAD & SCALP: normocephalic and atraumatic Resp: COMMON NORMALS: normal respiratory effort, No retractions, No use of accessory muscles and clear to auscultation bilaterally AUSCULTATION: clear to auscultation bilaterally Cardio: COMMON NORMALS: regular rate, regular rhythm and No murmurs present (Cardio) RATE: regular rate RHYTHM: regular rhythm GI: COMMON NORMALS: Soft to palpation and No hepatosplenomegaly present A USCULTATION: Yes normoactive bowel sounds PALPATION: Yes Soft to palpation, No Tenderness to palpation present (GI), No Guarding due to palpation present (GI) and Yes No hepatosplenomegaly present Extremity: COMMON NORMALS: normal to inspection, capillary refill normal, no clubbing, cyanosis or edema, no calf tenderness and no pedal edema Neuro: SENSORIUM/ORIENTATION: Yes oriented to person, Yes oriented to place and Yes oriented to time Skin: COMMON NORMALS: no rashes or lesions noted GENERAL SKIN EXAM: no rashes or lesions noted Course 2 Vital Signs: Vital signs: Vital Signs Temperature 98.2 F 01/13/24 06:30 Pulse Rate 80 01/13/24 08:36 Respiratory Rate 16 01/13/24 06:30 Blood Pressure 118/74 01/13/24 08:36 Pulse Oximetry 98 01/13/24 08:36 Oxygen Delivery Me thod Room Air 01/13/24 06:30 MDM - Abdominal Pain Medical Decision Making Labs and imaging reviewed no leukocytosis. Liver function shows slight elevation in the ALT AST T. bili and alk phos are all negative. . She does have a cystitis. Will start her on some oral antibiotics for the cystitis. CT of the abdomen did not show any acute findings. Will discharge patient home clear liquid diet advance as tolerated antibiotics for the cystitis and follow- up with your primary care doctor Lab Data 01/13/24 07:02 01/13/24 07:02 Labs/Radiology: Radiology Impressions Abdomen/Pelvis CT 01/13/24 06:42 IMPRESSION: 1. Postoperative changes status post partial colon resection and cholecystectomy. 2. No acute intra-abdominal findings. Laboratory Results WBC 10.82 10^3/uL (3.29-11.43) 01/13/24 07:02 RBC 4.72 10^6/uL (3.85-5.65) 01/13/24 07:02 Hgb 14.80 g/dL (11.27-16.99) 01/13/24 07:02 Hct 44.1 % (36-47) 01/13/24 07:02 MCV 93.4 fl (85-98) 01/13/24 07:02 MCH 31.4 pg (27-33) 01/13/24 07:02 MCHC 33.6 g/dL (30-55) 01/13/24 07:02 RDW 12.5 % (12.1-15.1) 01/13/24 07:02 Plt Count 248 10^3/cmm (157-399) 01/13/24 07:02 MPV 10.7 fL (7.4-10.4) H 01/13/24 07:02 Neut % (Auto) 64.4 % 01/13/24 07:02 Lymph % (Auto) 23.0 % 01/13/24 07:02 [place] % (Auto) 6.3 % 01/13/24 07:02 Eos % (Auto) 5.2 % 01/13/24 07:02 Baso % (Auto) 0.6 % 01/13/24 07:02 Neut # (Auto) 6.97 10^3/uL (1.8-7.7) 01/13/24 07:02 Lymph # (Auto) 2.5 10^3/uL (0.8-4.8) 01/13/24 07:02 [place] # (Auto) 0.7 10^3/uL (0.2-0.9) 01/13/24 07:02 Eos # (Auto) 0.6 10^3/uL (0.0-0.8) 01/13/24 07:02 Baso # (Auto) 0.1 10^3/uL (0.0-0.1) 01/13/24 07:02 Nucleated RBC % (auto) 0 % 01/13/24 07:02 Nucleated RBCs # 0.0 /100WBC 01/13/24 07:02 Sodium 138 mmol/L (136-145) 01/13/24 07:02 Potassium 3.6 mmol/L (3.5-5.1) 01/13/24 07:02 Chloride 103 mmol/L (98-107) 01/13/24 07:02 Carbon Dioxide 22 mmol/L (22-29) 01/13/24 07:02 Anion Gap 16.6 (5-19) 01/13/24 07:02 BUN 14 mg/dL (6-20) 01/13/24 07:02 Creatinine 0.8 mg/dL (0.5-0.9) 01/13/24 07:02 GFR Calculation 86.7 mL/min (90-130) L 01/13/24 07:02 Glucose 105 mg/dL (65-115) 01/13/24 07:02 Calculated Osmolality 287 mOsm/kg (285-295) 01/13/24 07:02 Calcium 9.2 mg/dL (8.5-10.5) 01/13/24 07:02 Total Bilirubin 0.2 mg/dL (0.15-1.2) 01/13/24 07:02 AST 20 U/L (0-32) 01/13/24 07:02 ALT 36 U/L (0-33) H 01/13/24 07:02 Alkaline Phosphatase 85 U/L (35-105) 01/13/24 07:02 Total Protein 7.4 g/dL (6.6-8.7) 01/13/24 07:02 Albumin 4.6 g/dL (3.5-5.2) 01/13/24 07:02 Globulin 2.8 g/dL (1.3-4.6) 01/13/24 07:02 Lipase 30 U/L (13-60) 01/13/24 07:02 HCG, Qual Negative (Negative) 01/13/24 07:02 Urine Color Yellow (Yellow) 01/13/24 07:02 Urine Appearance Clear (CLEAR) 01/13/24 07:02 Urine pH 5.0 (5-7) 01/13/24 07:02 Ur Specific [place] 1.034 (1.005-1.030) H 01/13/24 07:02 Urine Protein Trace (Negative) A 01/13/24 07:02 Urine Glucose (UA) Negative (Normal) 01/13/24 07:02 Urine Ketones Negative (Negative) 01/13/24 07:02 Urine Blood 3+ (Negative) A 01/13/24 07:02 Urine Nitrate Negative (Negative) 01/13/24 07:02 Urine Bilirubin Negative (Negative) 01/13/24 07:02 Urine Urobilinogen 1.0 mg/dL (Negative) 01/13/24 07:02 Ur Leukocyte Esterase Trace (Negative) A 01/13/24 07:02 Urine RBC 0-2 /hpf (0-2) 01/13/24 07:02 Urine WBC 21-50 /hpf (0-5) H 01/13/24 07:02 Ur Squamous Epith Cells 6-10 /hpf (0-5) 01/13/24 07:02 Amorphous Sediment Not Reportable 01/13/24 07:02 Urine Bacteria 2+ /hpf (NONE) H 01/13/24 07:02 Hyaline Casts 0.81 /lpf 01/13/24 07:02 All radiology interpretation(s) finalized by discharge Discharge Plan Discharge Patient Disposition: Home Clinical Impression: Cystitis Condition: Stable Prescriptions: New amoxicillin-pot clavulanate 875-125 mg tablet 1 tab PO BID Qty: 14 0RF No Action albuterol sulfate 90 mcg/actuation HFA aerosol inhaler 2 puff INHALATION Q4H PRN (Reason: Shortness Of Breath Or Wheezing) Qty: 6.7 0RF acetaminophen 500 mg Tablet 1,000 mg PO Q6H PRN (Reason: Pain) prednisone 20 mg tablet 20 mg PO DAILY Qty: 10 0RF ibuprofen 200 mg Tablet 800 mg PO Q6H PRN (Reason: Pain) Denta 5000 Plus 1.1 % cream See Rx Instructions .ROUTE .COMPLEX Rx Instructions: BRUSH ON ONCE DAILY BEFORE BED INSTRUCTED BY DENTIST Symbicort 80-4.5 mcg/actuation HFA aerosol inhaler 2 puff INHALATION BID ondansetron 4 mg tablet,disintegrating 4 mg PO Q6H PRN (Reason: nausea and vomiting) Qty: 14 0RF Discharge Orders: Discharge ED (Routine); Ordered 01/13/24 Ordered By: Gulshan Vela Referrals: Rigoberto Ferguson MD [Primary Care Provider] - Discharge Diet: Usual diet Discharge Activity: Increase activity as tolerated Patient Instructions: Opioid Safety, Pain Management Activity Restrictions/Additional Instructions: Thank you for choosing [facility] for your healthcare needs today. It is very important that you follow up as instructed or that you return to the Emergency Department should you have concerns or if your condition changes or worsens in any way. You were seen in the emergency room with complaints of abdominal discomfort. Your urine did show signs of infection and CT did not show any acute pathology. Will discharge you home with a prescription for an oral antibiotic 1 pill twice a day for 7 days. Coding Level of Care Code ED Dryer Feeder for Yamilet De Souza
--- NOTE | 2024-01-13 06:42 | CTR_ITS ---
PROCEDURE INFORMATION: Exam: CT Abdomen And Pelvis With Contrast Exam date and time: 01/13/2024 7:30 AM Age: 28 years old Clinical indication: Abdominal pain; Prior surgery; Surgery date: 6+ months; Surgery type: Gb, colon resection, ileostomy reversal; Additional info: Abd pain TECHNIQUE: Imaging protocol: Computed tomography of the abdomen and pelvis with contrast. Radiation optimization: All CT scans at this facility use at least one of these dose optimization techniques: automated exposure control; mA and/or kV adjustment per patient size (includes targeted exams where dose is matched to clinical indication); or iterative reconstruction. Contrast material: [id number]; Contrast volume: 100 ml; Contrast route: INTRAVENOUS (IV); COMPARISON: CT abdomen pelvis wo con [id number] 09/01/2023 8:33 AM RADIATION DOSE METRICS: Total DLP (mGy-cm): 675 FINDINGS: Lungs: Lung bases are clear as visualized. Liver: Normal. No mass. Gallbladder and biliary ducts: There are surgical clips within the gallbladder fossa. Pancreas: Normal. No ductal dilation. Spleen: Normal. No splenomegaly. Adrenal glands: Normal. No mass. Kidneys and ureters: Normal. No hydronephrosis. Stomach and bowel: There is surgical suture involving the rectosigmoid junction. There are postoperative changes status post partial colon resection. No dilated loops of large or small bowel is appreciated. Appendix: The appendix is not identified. Intraperitoneal space: Unremarkable. No free air. No significant fluid collection. Vasculature: Unremarkable. No abdominal aortic aneurysm. Lymph nodes: Unremarkable. No enlarged lymph nodes. Urinary bladder: Unremarkable as visualized. Reproductive: Unremarkable as visualized. Bones/joints: Unremarkable. No acute fracture. Soft tissues: Unremarkable. CT/CT abdomen pelvis w con* [id number] IMPRESSION: 1. Postoperative changes status post partial colon resection and cholecystectomy. 2. No acute intra-abdominal findings.
[2024-01-13 06:50] VITALS: BP 151/109
[2024-01-13 07:14] LABS: Basophils # 0.1 10^3/uL (0.0-0.1); Basophils % 0.6 %; Eosinophils # 0.6 10^3/uL (0.0-0.8); Eosinophils % 5.2 %; Hematocrit 44.1 % (36-47); Lymphocytes # 2.5 10^3/uL (0.8-4.8); Mean Corpuscular HGB Conc 33.6 g/dL (30-55); Mean Corpuscular Hemoglobin 31.4 pg (27-33); Mean Corpuscular Volume 93.4 fl (85-98); Mean Platelet Volume 10.7 fL (7.4-10.4); Monocytes # 0.7 10^3/uL (0.2-0.9); Monocytes % 6.3 %; Neutrophils # 6.97 10^3/uL (1.8-7.7); Neutrophils % 64.4 %; Nucleated Red Blood Cells % 0 %; Platelet Count 248 10^3/cmm (157-399); Red Blood Count 4.72 10^6/uL (3.85-5.65); Red Cell Distribution Width 12.5 % (12.1-15.1); White Blood Count 10.82 10^3/uL (3.29-11.43)
[2024-01-13] MEDS: methylPREDNISolone sod succ 40 mg/mL INJ IVP (07:15)
[2024-01-13] MEDS: diphenhydrAMINE 50 mg/mL SDV 1mL IVP (07:15)
[2024-01-13 07:16] VITALS: BP 139/99; PULSE 96; O2SAT 98
[2024-01-13 07:18] LABS: Charge for UA Resulting for Rev
[2024-01-13 07:22] LABS: HCG, Serum Qual Negative (Negative)
[2024-01-13 07:23] LABS: Bilirubin Urine Negative (Negative); Blood Urine 3+ (Negative); Glucose Urine UA Negative (Normal); Ketones Urine Negative (Negative); Leukocyte Esterase Urine Trace (Negative); Nitrate Urine Negative (Negative); Protein Urine Trace (Negative); Urine Appearance Clear (CLEAR); Urine Color Yellow (Yellow)
[2024-01-13 07:27] LABS: Alanine Aminotransferase 36 U/L (0-33); Albumin Level 4.6 g/dL (3.5-5.2); Alkaline Phosphatase 85 U/L (35-105); Anion Gap 16.6 (5-19); Aspartate Amino Transferase 20 U/L (0-32); Blood Urea Nitrogen 14 mg/dL (6-20); Calcium 9.2 mg/dL (8.5-10.5); Carbon Dioxide 22 mmol/L (22-29); Chloride 103 mmol/L (98-107); Creatinine Clr Calc Pharmacy 116.3237; Globulin 2.8 g/dL (1.3-4.6); Glomerular Filtration Rate 86.7 mL/min (90-130); Glucose 105 mg/dL (65-115); Lipase 30 U/L (13-60); Osmolality Calculated 287 mOsm/kg (285-295); Potassium 3.6 mmol/L (3.5-5.1); Sodium 138 mmol/L (136-145); Total Bilirubin 0.2 mg/dL (0.15-1.2); Total Protein 7.4 g/dL (6.6-8.7)
[2024-01-13 07:28] LABS: Bacteria Urine 2+ /hpf; Hyaline Casts Urine 0.81 /lpf; RBC Urine 0-2 /hpf (0-2); WBC Urine 21-50 /hpf (0-5)
[2024-01-13 07:33] LABS: Specific Gravity, Urine 1.034 (1.005-1.030)
[2024-01-13 07:34] LABS: Add Urine Culture? Yes
[2024-01-13] MEDS: iohexol 350 mg/mL 500 mL Btl (per mL) IV (07:34)
[2024-01-13 08:12] VITALS: BP 128/67; PULSE 80; O2SAT 96
[2024-01-13 08:14] VITALS: BP 118/74
[2024-01-13 08:36] VITALS: BP 118/74; PULSE 80; O2SAT 98
== END 2024-01-13 08:36 | disposition home or self-care (01) ==
PROVIDERS: Emergency Provider Family Medicine; PCP Family Medicine
DX: N30.90 Cystitis, unspecified without hematuria (principal)
CPT/HCPCS: 74177; 80053; 81003; 81015; 83690; 84703; 85025; 87086; 96374; 96375; 99285; J1200; J2919; Q9967

== ENCOUNTER 2024-04-04 07:31 | Emergency (ER) | payer SELFPAY ==
[2024-04-04 07:44] VITALS: BP 145/90; PULSE 78; RESP 18; TEMP 36.7; O2SAT 95; BMI 30.7
[2024-04-04 08:48] VITALS: BP 134/90; PULSE 85; RESP 18; O2SAT 100
--- NOTE | 2024-04-04 08:58 | W.ED.ABDPA2 ---
HPI - Abdominal Pain General: Chief Complaint: Abdominal Pain Stated Complaint: stomach pain, vomiting Time Seen by Provider: 04/04/24 07:39 Source: patient Mode of arrival: ambulatory Limitations: no limitations History of Present Illness: Patient is a 28-year-old female presents to ED today complaining of abdominal pain over the past few days. She has also noticed a small amount of hematochezia. Patient states she has had the symptoms intermittently and chronic over the past several years. She has a longstanding history of abdominal symptoms. She has a family history of familial polyposis. Several years ago she required a colectomy because of this and now has a J-pouch. She has not been running fevers. No vomiting. She arrives to the ED today with normal vital signs appearing in no acute distress. She states she currently does not have a GI provider that she follows up with. I have seen patient previously and at 1 point I did note her previous CT scans. Since 2020 she has had 17+ CT scans through [facility]. She admits to having additional CT scans at other facilities. elicited complaint: abdominal pain Pertinent past history: other (familial polyposis, previous J pouch colectomy) Onset (ago): day(s) Pain Consistency: intermittent Location: Diffuse Severity: moderate Quality: cramping Radiation: back Migration to: no migration Exacerbating factors: nothing Relieving factors: nothing Associated Symptoms: Reports diarrhea (chronic), hematochezia (small amount of bright red) and nausea; Denies chills, dysuria, fever(s), hematemesis, melena and vomiting Related Data Home Medications Medication Instructions Recorded Confirmed acetaminophen 500 mg tablet 1,000 mg PO Q6H PRN Pain 12/22/22 02/12/24 budesonide-formoterol HFA 80 2 puff inhalation BID 09/01/23 02/12/24 mcg-4.5 mcg/actuation aerosol inhaler (Symbicort) fluoride (sodium) 1.1 % dental See Rx Instructions .Route .COMPLEX 09/01/23 02/12/24 cream (Denta 5000 Plus) ibuprofen 200 mg tablet 800 mg PO Q6H PRN Pain 09/01/23 02/12/24 Previous Rx's Medication Instructions Recorded albuterol sulfate 90 mcg/actuation 2 puff inhalation Q4H PRN 03/01/23 aerosol inhaler Shortness Of Breath Or Wheezing #6.7 grams ondansetron 4 mg disintegrating 4 mg PO Q6H PRN nausea and 10/18/23 tablet vomiting #14 tabs doxycycline hyclate 100 mg capsule 100 mg PO BID 7 days #14 caps 02/10/24 clindamycin HCl 300 mg capsule 600 mg (2 x 300 mg) PO Q8H 7 days 02/12/24 #42 caps mupirocin 2 % topical ointment 1 applic topical TID #22 grams 02/12/24 Allergies Allergy/AdvReac Type Severity Reaction Status Date / Time Iodinated Contrast Media Allergy Severe ALGY-Anaphy Verified 02/12/24 18:00 laxis ceftriaxone [From Rocephin] Allergy ALGY-Anaphy Verified 02/12/24 18:00 laxis ciprofloxacin [From Cipro] Allergy ADR-Nausea Verified 02/12/24 18:00 ketorolac Allergy anaphylaxis Verified 02/12/24 18:00 Sulfa (Sulfonamide Allergy Unknown Verified 02/12/24 18:00 Antibiotics) sulfamethoxazole Allergy ADR-Nausea Verified 02/12/24 18:00 [From Bactrim] trimethoprim [From Bactrim] Allergy ADR-Nausea Verified 02/12/24 18:00 Review of Systems Const: Denies: fever(s), chills, body aches, fatigue or malaise Card: Denies: chest pain Resp: Denies: dyspnea GI: Reports: abdominal pain, nausea, diarrhea (chronic) and hematochezia (small amount of bright red); Denies: vomiting, hematemesis or melena : Denies: flank pain, difficulty voiding, dysuria, urinary frequency, urinary urgency or urinary hesitancy Musc: Denies: neck pain, back pain, extremity pain, extremity swelling, joint pain or joint swelling Skin/Breast: Denies: rash Neuro: Denies: headache(s), numbness in extremities, weakness in extremities, sensory changes or dizziness PFSH ED PFSH: Medical History Familial adenomatous polyposis GERD (gastroesophageal reflux disease) Family history of FAP (familial adenomatous polyposis) Surgical History H/O esophagogastroduodenoscopy Hx of cholecystectomy Hx of colonoscopy with polypectomy H/O colectomy H/O ileostomy Family History Family/Other Diabetes Maternal uncle Hypertension Maternal uncle Hyperlipidemia Maternal uncle Colon cancer paternal cousins Mother Hypertension Hyperlipidemia Stroke Father Colon cancer Family/Other No problems noted. Other Breast cancer Ovarian cancer Uterine cancer Denies family history of Heart disease Thyroid disease Social History Smoking and tobacco/nicotine status: never used tobacco/nicotine Course Vital Signs: Vital signs: Vital Signs Temperature 98.0 F 04/04/24 07:44 Pulse Rate 83 04/04/24 09:37 Respiratory Rate 18 04/04/24 09:34 Blood Pressure 134/90 04/04/24 09:37 Pulse Oximetry 100 04/04/24 09:37 Oxygen Delivery Me thod Room Air 04/04/24 09:37 MDM - Abdominal Pain Medical Decision Making Patient is a 28-year-old female with a longstanding history of chronic abdominal pain. She arrives today in no acute distress with stable vital signs. Her blood work today is completely unremarkable. UA without evidence of infection. As previously noted in HPI, patient has had at least 17-18 CT scans since 2020 through [facility]. She admitting only has had additional scans at outlying facilities. At this time I will try to forego further CT imaging if it would be unlikely to change overall management. I would like her to eventually get established with a GI provider-she is aware she needs to do this. In the meantime she will follow-up with her primary care provider. Return to ED precautions given. Medical Records I reviewed the patient's medical records. Lab Data I reviewed the patient's lab results. 04/04/24 08:50 04/04/24 09:46 Labs/Radiology: Laboratory Results WBC 10.51 10^3/uL (3.29-11.43) 04/04/24 08:50 RBC 4.45 10^6/uL (3.85-5.65) 04/04/24 08:50 Hgb 14.10 g/dL (11.27-16.99) 04/04/24 08:50 Hct 41.3 % (36-47) 04/04/24 08:50 MCV 92.8 fl (85-98) 04/04/24 08:50 MCH 31.7 pg (27-33) 04/04/24 08:50 MCHC 34.1 g/dL (30-55) 04/04/24 08:50 RDW 12.2 % (12.1-15.1) 04/04/24 08:50 Plt Count 209 10^3/cmm (157-399) 04/04/24 08:50 MPV 10.7 fL (7.4-10.4) H 04/04/24 08:50 Neut % (Auto) 69.8 % 04/04/24 08:50 Lymph % (Auto) 19.2 % 04/04/24 08:50 [place] % (Auto) 6.5 % 04/04/24 08:50 Eos % (Auto) 2.9 % 04/04/24 08:50 Baso % (Auto) 0.6 % 04/04/24 08:50 Neut # (Auto) 7.35 10^3/uL (1.8-7.7) 04/04/24 08:50 Lymph # (Auto) 2.0 10^3/uL (0.8-4.8) 04/04/24 08:50 [place] # (Auto) 0.7 10^3/uL (0.2-0.9) 04/04/24 08:50 Eos # (Auto) 0.3 10^3/uL (0.0-0.8) 04/04/24 08:50 Baso # (Auto) 0.1 10^3/uL (0.0-0.1) 04/04/24 08:50 Nucleated RBC % (auto) 0 % 04/04/24 08:50 Nucleated RBCs # 0.0 /100WBC 04/04/24 08:50 Sodium 137 mmol/L (136-145) 04/04/24 09:46 Potassium 3.7 mmol/L (3.5-5.1) 04/04/24 09:46 Chloride 106 mmol/L (98-107) 04/04/24 09:46 Carbon Dioxide 22 mmol/L (22-29) 04/04/24 09:46 Anion Gap 12.7 (5-19) 04/04/24 09:46 BUN 10 mg/dL (6-20) 04/04/24 09:46 Creatinine 0.6 mg/dL (0.5-0.9) 04/04/24 09:46 GFR Calculation 120.8 mL/min (90-130) 04/04/24 09:46 Glucose 97 mg/dL (65-115) 04/04/24 09:46 Calculated Osmolality 283 mOsm/kg (285-295) L 04/04/24 09:46 Calcium 8.4 mg/dL (8.5-10.5) L 04/04/24 09:46 Total Bilirubin 0.2 mg/dL (0.15-1.2) 04/04/24 09:46 AST 13 U/L (0-32) 04/04/24 09:46 ALT 18 U/L (0-33) 04/04/24 09:46 Alkaline Phosphatase 81 U/L (35-105) 04/04/24 09:46 Total Protein 6.7 g/dL (6.6-8.7) 04/04/24 09:46 Albumin 4.4 g/dL (3.5-5.2) 04/04/24 09:46 Globulin 2.3 g/dL (1.3-4.6) 04/04/24 09:46 Lipase 29 U/L (13-60) 04/04/24 09:46 HCG, Qual Negative (Negative) 04/04/24 08:50 Urine Color Yellow (Yellow) 04/04/24 08:50 Urine Appearance Clear (CLEAR) 04/04/24 08:50 Urine pH 5.5 (5-7) 04/04/24 08:50 Ur Specific [place] 1.015 (1.005-1.030) 04/04/24 08:50 Urine Protein Negative (Negative) 04/04/24 08:50 Urine Glucose (UA) Negative (Normal) 04/04/24 08:50 Urine Ketones Negative (Negative) 04/04/24 08:50 Urine Blood Trace (Negative) A 04/04/24 08:50 Urine Nitrate Negative (Negative) 04/04/24 08:50 Urine Bilirubin Negative (Negative) 04/04/24 08:50 Urine Urobilinogen 0.2 mg/dL (Negative) 04/04/24 08:50 Ur Leukocyte Esterase Negative (Negative) 04/04/24 08:50 Urine RBC 0-2 /hpf (0-2) 04/04/24 08:50 Urine WBC 0-5 /hpf (0-5) 04/04/24 08:50 Ur Squamous Epith Cells 0-5 /hpf (0-5) 04/04/24 08:50 Amorphous Sediment Not Reportable 04/04/24 08:50 Urine Bacteria None seen /hpf (NONE) 04/04/24 08:50 Hyaline Casts 0-4 /lpf H 04/04/24 08:50 No radiology studies performed this visit Discharge Plan Discharge Patient Disposition: Home Clinical Impression: Familial adenomatous polyposis Abdominal pain Qualifiers: Abdominal location: unspecified location Qualified Code(s): R10.9 - Unspecified abdominal pain Condition: Stable Prescriptions: No Action albuterol sulfate 90 mcg/actuation HFA aerosol inhaler 2 puff INHALATION Q4H PRN (Reason: Shortness Of Breath Or Wheezing) Qty: 6.7 0RF doxycycline hyclate 100 mg capsule 100 mg PO BID 7 Days Qty: 14 0RF clindamycin HCl 300 mg capsule 600 mg PO Q8H 7 Days Qty: 42 0RF mupirocin 2 % ointment 1 applic topical TID Qty: 22 0RF acetaminophen 500 mg Tablet 1,000 mg PO Q6H PRN (Reason: Pain) ibuprofen 200 mg Tablet 800 mg PO Q6H PRN (Reason: Pain) Denta 5000 Plus 1.1 % cream See Rx Instructions .ROUTE .COMPLEX Rx Instructions: BRUSH ON ONCE DAILY BEFORE BED INSTRUCTED BY DENTIST Symbicort 80-4.5 mcg/actuation HFA aerosol inhaler 2 puff INHALATION BID ondansetron 4 mg tablet,disintegrating 4 mg PO Q6H PRN (Reason: nausea and vomiting) Qty: 14 0RF Discharge Orders: Discharge ED (Routine); Ordered 04/04/24 Ordered By: Mirtha Eid Referrals: Rigoberto Ferguson MD [Primary Care Provider] - Patient Instructions: Abdominal Pain (ED) Activity Restrictions/Additional Instructions: As we discussed, your vital signs are completely normal. Blood work showing a normal white count with the remainder of your labs being completely unremarkable. UA without evidence for infection. At this time we will attempt to forego additional CT imaging as you have had multiple CT scans over the past few years for your chronic abdominal pain. Please follow-up with your primary care provider by the end of the week. You need to return to the emergency department for worsening abdominal pain, generally feeling worse or unwell, fevers, worsening bloody stools, or any other concerns you may have. Coding Level of Care Code ED Heel Trimmer for Yamilet De Souza
[2024-04-04 09:00] LABS: Basophils # 0.1 10^3/uL (0.0-0.1); Basophils % 0.6 %; Eosinophils # 0.3 10^3/uL (0.0-0.8); Eosinophils % 2.9 %; Hematocrit 41.3 % (36-47); Lymphocytes % 19.2 %; Mean Corpuscular HGB Conc 34.1 g/dL (30-55); Mean Corpuscular Hemoglobin 31.7 pg (27-33); Mean Corpuscular Volume 92.8 fl (85-98); Mean Platelet Volume 10.7 fL (7.4-10.4); Monocytes # 0.7 10^3/uL (0.2-0.9); Monocytes % 6.5 %; Neutrophils # 7.35 10^3/uL (1.8-7.7); Neutrophils % 69.8 %; Nucleated Red Blood Cells % 0 %; Platelet Count 209 10^3/cmm (157-399); Red Blood Count 4.45 10^6/uL (3.85-5.65); Red Cell Distribution Width 12.2 % (12.1-15.1); White Blood Count 10.51 10^3/uL (3.29-11.43)
[2024-04-04 09:02] LABS: Bilirubin Urine Negative (Negative); Blood Urine Trace (Negative); Glucose Urine UA Negative (Normal); Ketones Urine Negative (Negative); Leukocyte Esterase Urine Negative (Negative); Nitrate Urine Negative (Negative); Protein Urine Negative (Negative); Specific Gravity, Urine 1.015 (1.005-1.030); Urine Appearance Clear (CLEAR); Urine Color Yellow (Yellow); Urobilinogen Urine 0.2 mg/dL (Negative); pH Urine 5.5 (5-7)
[2024-04-04 09:05] LABS: Add Urine Microscopic? YES; Bacteria Urine None Seen /hpf; Hyaline Casts Urine 0-4 /lpf; RBC Urine 0-2 /hpf (0-2); Squamous Epithelial Cell Urine 0-5 /hpf (0-5); WBC Urine 0-5 /hpf (0-5)
[2024-04-04 09:17] LABS: HCG, Serum Qual Negative (Negative)
[2024-04-04 09:34] VITALS: RESP 18
[2024-04-04] MEDS: ondansetron 2 mg/ML SDV 2 mL 4 MG IVP (09:34)
[2024-04-04] MEDS: morphine 4 mg/mL SDV 1 mL IVP (09:34)
[2024-04-04 09:37] VITALS: BP 134/90; PULSE 83; O2SAT 100
[2024-04-04 10:28] LABS: Alanine Aminotransferase 18 U/L (0-33); Albumin Level 4.4 g/dL (3.5-5.2); Alkaline Phosphatase 81 U/L (35-105); Anion Gap 12.7 (5-19); Aspartate Amino Transferase 13 U/L (0-32); Blood Urea Nitrogen 10 mg/dL (6-20); Calcium 8.4 mg/dL (8.5-10.5); Carbon Dioxide 22 mmol/L (22-29); Chloride 106 mmol/L (98-107); Creatinine Clr Calc Pharmacy 157.1332; Globulin 2.3 g/dL (1.3-4.6); Glomerular Filtration Rate 120.8 mL/min (90-130); Glucose 97 mg/dL (65-115); Lipase 29 U/L (13-60); Osmolality Calculated 283 mOsm/kg (285-295); Potassium 3.7 mmol/L (3.5-5.1); Sodium 137 mmol/L (136-145); Total Bilirubin 0.2 mg/dL (0.15-1.2); Total Protein 6.7 g/dL (6.6-8.7)
[2024-04-04 11:17] VITALS: BP 126/91; PULSE 69; O2SAT 100
== END 2024-04-04 11:19 | disposition home or self-care (01) ==
PROVIDERS: Family Medicine; Emergency Provider Physician Assistant; PCP Family Medicine
DX: D13.91 Familial adenomatous polyposis (principal); R10.9 Unspecified abdominal pain
CPT/HCPCS: 36415; 80053; 81001; 83690; 84703; 85025; 96374; 96375; 99284; J2270; J2405

== ENCOUNTER 2024-04-09 21:07 | Emergency (ER) | payer SELFPAY ==
[2024-04-09 21:13] VITALS: BP 145/87; PULSE 100; RESP 18; TEMP 37; O2SAT 97; BMI 30.7
--- NOTE | 2024-04-09 21:21 | CTR_ITS ---
PROCEDURE INFORMATION: Exam: CT Abdomen And Pelvis With Contrast Exam date and time: 04/09/2024 9:59 PM Age: 28 years old Clinical indication: Abdominal pain; Generalized; Prior surgery; Surgery date: 6+ months; Surgery type: Gb. Colon resection. Ileostomy reversal. Patient HX: Diffuse abd pain x 1 week. TECHNIQUE: Imaging protocol: Computed tomography of the abdomen and pelvis with contrast. Radiation optimization: All CT scans at this facility use at least one of these dose optimization techniques: automated exposure control; mA and/or kV adjustment per patient size (includes targeted exams where dose is matched to clinical indication); or iterative reconstruction. Contrast material: OMNI 350; Contrast volume: 80 ml; Contrast route: INTRAVENOUS (IV); COMPARISON: CT abdomen pelvis w con* [id number] 01/13/2024 7:30 AM RADIATION DOSE METRICS: Total DLP (mGy-cm): 798.53 FINDINGS: Liver: Normal. No mass. Gallbladder and biliary ducts: The gallbladder is surgically absent distended stomach. Pancreas: Normal. No ductal dilation. Spleen: Normal. No splenomegaly. Adrenal glands: Normal. No mass. Kidneys and ureters: Normal. No hydronephrosis. Stomach and bowel: No bowel obstruction. Postsurgical changes related to partial colon resection. Appendix: No evidence of appendicitis. Intraperitoneal space: Unremarkable. No free air. No significant fluid collection. Vasculature: Unremarkable. No abdominal aortic aneurysm. Lymph nodes: Unremarkable. No enlarged lymph nodes. Urinary bladder: Unremarkable as visualized. Reproductive: Bilateral ovarian cystic changes. Bones/joints: Unremarkable. No acute fracture. Soft tissues: Unremarkable. CT/CT abdomen pelvis w con* [id number] IMPRESSION: No acute process. Chronic/incidental findings.
--- NOTE | 2024-04-09 21:27 | W.ED.ABDPA2 ---
HPI - Abdominal Pain General: Chief Complaint: Abdominal Pain Stated Complaint: ABD Pain Time Seen by Provider: 04/09/24 21:08 Source: patient Mode of arrival: ambulatory Limitations: no limitations History of Present Illness: 28-year-old female states she been having abdominal pain for the last week. She was seen here a week ago states she had increased pain did not have a CT scan was getting concerns states pain is diffuse cramping rates it a 6 out of 10 denies any vomiting or diarrhea or fevers. Associated Symptoms: Denies chills, diarrhea, dysuria, fever(s), nausea and vomiting Related Data Date of Last Menstrual Period: 04/09/24 Home Medications Medication Instructions Recorded Confirmed acetaminophen 500 mg tablet 1,000 mg PO Q6H PRN Pain 12/22/22 02/12/24 budesonide-formoterol HFA 80 2 puff inhalation BID 09/01/23 02/12/24 mcg-4.5 mcg/actuation aerosol inhaler (Symbicort) fluoride (sodium) 1.1 % dental See Rx Instructions .Route .COMPLEX 09/01/23 02/12/24 cream (Denta 5000 Plus) ibuprofen 200 mg tablet 800 mg PO Q6H PRN Pain 09/01/23 02/12/24 Previous Rx's Medication Instructions Recorded albuterol sulfate 90 mcg/actuation 2 puff inhalation Q4H PRN 03/01/23 aerosol inhaler Shortness Of Breath Or Wheezing #6.7 grams ondansetron 4 mg disintegrating 4 mg PO Q6H PRN nausea and 10/18/23 tablet vomiting #14 tabs doxycycline hyclate 100 mg capsule 100 mg PO BID 7 days #14 caps 02/10/24 clindamycin HCl 300 mg capsule 600 mg (2 x 300 mg) PO Q8H 7 days 02/12/24 #42 caps mupirocin 2 % topical ointment 1 applic topical TID #22 grams 02/12/24 Allergies Allergy/AdvReac Type Severity Reaction Status Date / Time Iodinated Contrast Media Allergy Severe ALGY-Anaphy Verified 04/09/24 21:17 laxis ceftriaxone [From Rocephin] Allergy ALGY-Anaphy Verified 04/09/24 21:17 laxis ciprofloxacin [From Cipro] Allergy ADR-Nausea Verified 04/09/24 21:17 ketorolac Allergy anaphylaxis Verified 04/09/24 21:17 Sulfa (Sulfonamide Allergy Unknown Verified 04/09/24 21:17 Antibiotics) sulfamethoxazole Allergy ADR-Nausea Verified 04/09/24 21:17 [From Bactrim] trimethoprim [From Bactrim] Allergy ADR-Nausea Verified 04/09/24 21:17 Review of Systems Const: Denies: fever(s), chills, body aches or change in appetite ENMT: Denies: throat pain or dental pain Card: Denies: chest pain Resp: Denies: dyspnea GI: Reports: abdominal pain; Denies: nausea, vomiting or diarrhea : Denies: dysuria Musc: Denies: neck pain or back pain Skin/Breast: Denies: rash Neuro: Denies: headache(s) PFSH ED PFSH: Medical History Familial adenomatous polyposis GERD (gastroesophageal reflux disease) Family history of FAP (familial adenomatous polyposis) Surgical History H/O esophagogastroduodenoscopy Hx of cholecystectomy Hx of colonoscopy with polypectomy H/O colectomy H/O ileostomy Family History Family/Other Diabetes Maternal uncle Hypertension Maternal uncle Hyperlipidemia Maternal uncle Colon cancer paternal cousins Mother Hypertension Hyperlipidemia Stroke Father Colon cancer Family/Other No problems noted. Other Breast cancer Ovarian cancer Uterine cancer Denies family history of Heart disease Thyroid disease Social History Smoking and tobacco/nicotine status: never used tobacco/nicotine Female Reproductive History: Date of last menstrual period: 04/09/24 Physical Exam Const: COMMON NORMALS: no acute distress, patient oriented x3 and healthy appearing HENMT: COMMON NORMALS: normocephalic and atraumatic HEAD & SCALP: normocephalic and atraumatic Eye: COMMON NORMALS: conjunctivae normal CONJUNCTIVA: Yes conjunctivae normal Neck/C-Spine: COMMON NORMALS: full ROM and supple Chest: COMMONS NORMALS: normal inspection of the chest Resp: COMMON NORMALS: normal respiratory effort, No retractions, No use of accessory muscles and clear to auscultation bilaterally AUSCULTATION: clear to auscultation bilaterally Cardio: COMMON NORMALS: regular rate, regular rhythm and No murmurs present (Cardio) RATE: regular rate RHYTHM: regular rhythm GI: COMMON NORMALS: Normal to inspection, nondistended, normoactive bowel sounds present, Soft to palpation, non-tender and no masses PALPATION: Yes Soft to palpation Extremity: COMMON NORMALS: normal to inspection and full ROM Neuro: COMMON NORMALS: patient oriented x3, moves all extremities and no focal motor deficits Psych: COMMON NORMALS: mental status grossly normal, Normal thought process present and cooperative THOUGHT PROCESS: Normal thought process present Skin: COMMON NORMALS: no rashes or lesions noted and no wounds GENERAL SKIN EXAM: no rashes or lesions noted Course Vital Signs: Vital signs: Vital Signs Temperature 98.6 F 04/09/24 21:13 Pulse Rate 100 04/09/24 21:13 Respiratory Rate 18 04/09/24 21:13 Blood Pressure 145/87 04/09/24 21:13 Pulse Oximetry 97 04/09/24 21:13 Oxygen Delivery Me thod Room Air 04/09/24 21:13 MDM - Abdominal Pain Medical Decision Making Patient presents here with abdominal pain CT here is negative blood works normal as well her exam at discharge is benign she stable for discharge follow-up with PCP and return if worse Medical Records I reviewed the patient's medical records. Lab Data I reviewed the patient's lab results. 04/09/24 21:55 04/09/24 21:55 Labs/Radiology: Radiology Impressions Abdomen/Pelvis CT 04/09/24 21:21 IMPRESSION: No acute process. Chronic/incidental findings. Laboratory Results WBC 10.62 10^3/uL (3.29-11.43) 04/09/24 21:55 RBC 4.74 10^6/uL (3.85-5.65) 04/09/24 21:55 Hgb 15.40 g/dL (11.27-16.99) 04/09/24 21:55 Hct 45.0 % (36-47) 04/09/24 21:55 MCV 94.9 fl (85-98) 04/09/24 21:55 MCH 32.5 pg (27-33) 04/09/24 21:55 MCHC 34.2 g/dL (30-55) 04/09/24 21:55 RDW 12.1 % (12.1-15.1) 04/09/24 21:55 Plt Count 235 10^3/cmm (157-399) 04/09/24 21:55 MPV 10.8 fL (7.4-10.4) H 04/09/24 21:55 Neut % (Auto) 69.0 % 04/09/24 21:55 Lymph % (Auto) 22.1 % 04/09/24 21:55 [place] % (Auto) 4.7 % 04/09/24 21:55 Eos % (Auto) 2.7 % 04/09/24 21:55 Baso % (Auto) 0.8 % 04/09/24 21:55 Neut # (Auto) 7.33 10^3/uL (1.8-7.7) 04/09/24 21:55 Lymph # (Auto) 2.4 10^3/uL (0.8-4.8) 04/09/24 21:55 [place] # (Auto) 0.5 10^3/uL (0.2-0.9) 04/09/24 21:55 Eos # (Auto) 0.3 10^3/uL (0.0-0.8) 04/09/24 21:55 Baso # (Auto) 0.1 10^3/uL (0.0-0.1) 04/09/24 21:55 Nucleated RBC % (auto) 0 % 04/09/24 21:55 Nucleated RBCs # 0.0 /100WBC 04/09/24 21:55 Sodium 141 mmol/L (136-145) 04/09/24 21:55 Potassium 3.8 mmol/L (3.5-5.1) 04/09/24 21:55 Chloride 107 mmol/L (98-107) 04/09/24 21:55 Carbon Dioxide 21 mmol/L (22-29) L 04/09/24 21:55 Anion Gap 16.8 (5-19) 04/09/24 21:55 BUN 10 mg/dL (6-20) 04/09/24 21:55 Creatinine 0.9 mg/dL (0.5-0.9) 04/09/24 21:55 GFR Calculation 75.7 mL/min (90-130) L 04/09/24 21:55 Glucose 114 mg/dL (65-115) 04/09/24 21:55 Calculated Osmolality 292 mOsm/kg (285-295) 04/09/24 21:55 Calcium 9.0 mg/dL (8.5-10.5) 04/09/24 21:55 Total Bilirubin 0.2 mg/dL (0.15-1.2) 04/09/24 21:55 AST 15 U/L (0-32) 04/09/24 21:55 ALT 22 U/L (0-33) 04/09/24 21:55 Alkaline Phosphatase 70 U/L (35-105) 04/09/24 21:55 Total Protein 6.7 g/dL (6.6-8.7) 04/09/24 21:55 Albumin 4.3 g/dL (3.5-5.2) 04/09/24 21:55 Globulin 2.4 g/dL (1.3-4.6) 04/09/24 21:55 Lipase 36 U/L (13-60) 04/09/24 21:55 HCG, Qual Negative (Negative) 04/09/24 21:55 All radiology interpretation(s) finalized by discharge Discharge Plan Discharge Patient Disposition: Home Clinical Impression: Abdominal pain Condition: Stable Prescriptions: No Action albuterol sulfate 90 mcg/actuation HFA aerosol inhaler 2 puff INHALATION Q4H PRN (Reason: Shortness Of Breath Or Wheezing) Qty: 6.7 0RF doxycycline hyclate 100 mg capsule 100 mg PO BID 7 Days Qty: 14 0RF clindamycin HCl 300 mg capsule 600 mg PO Q8H 7 Days Qty: 42 0RF mupirocin 2 % ointment 1 applic topical TID Qty: 22 0RF acetaminophen 500 mg Tablet 1,000 mg PO Q6H PRN (Reason: Pain) ibuprofen 200 mg Tablet 800 mg PO Q6H PRN (Reason: Pain) Denta 5000 Plus 1.1 % cream See Rx Instructions .ROUTE .COMPLEX Rx Instructions: BRUSH ON ONCE DAILY BEFORE BED INSTRUCTED BY DENTIST Symbicort 80-4.5 mcg/actuation HFA aerosol inhaler 2 puff INHALATION BID ondansetron 4 mg tablet,disintegrating 4 mg PO Q6H PRN (Reason: nausea and vomiting) Qty: 14 0RF Discharge Orders: Discharge ED (Routine); Ordered 04/09/24 Ordered By: Herman Guerrero Referrals: Rigoberto Ferguson MD [Primary Care Provider] - 4-7 days Discharge Diet: Advance as tolerated Discharge Activity: Resume usual activity Patient Instructions: Abdominal Pain (ED) Coding Level of Care Code ED [employer] Service Representative for Yamilet De Souza
[2024-04-09] MEDS: iohexol 350 mg/mL 500 mL Btl (per mL) IV (21:58)
[2024-04-09] MEDS: diphenhydrAMINE 50 mg/mL SDV 1mL IVP (21:59)
[2024-04-09] MEDS: metoclopramide 5 mg/mL SDV 2 mL 10 MG IVP (21:59)
[2024-04-09 22:02] LABS: Basophils # 0.1 10^3/uL (0.0-0.1); Basophils % 0.8 %; Eosinophils # 0.3 10^3/uL (0.0-0.8); Eosinophils % 2.7 %; Lymphocytes # 2.4 10^3/uL (0.8-4.8); Lymphocytes % 22.1 %; Mean Corpuscular HGB Conc 34.2 g/dL (30-55); Mean Corpuscular Hemoglobin 32.5 pg (27-33); Mean Corpuscular Volume 94.9 fl (85-98); Mean Platelet Volume 10.8 fL (7.4-10.4); Monocytes # 0.5 10^3/uL (0.2-0.9); Monocytes % 4.7 %; Neutrophils # 7.33 10^3/uL (1.8-7.7); Nucleated Red Blood Cells % 0 %; Platelet Count 235 10^3/cmm (157-399); Red Blood Count 4.74 10^6/uL (3.85-5.65); Red Cell Distribution Width 12.1 % (12.1-15.1); White Blood Count 10.62 10^3/uL (3.29-11.43)
[2024-04-09 22:22] LABS: HCG, Serum Qual Negative (Negative)
[2024-04-09 22:25] LABS: Alanine Aminotransferase 22 U/L (0-33); Albumin Level 4.3 g/dL (3.5-5.2); Alkaline Phosphatase 70 U/L (35-105); Anion Gap 16.8 (5-19); Aspartate Amino Transferase 15 U/L (0-32); Blood Urea Nitrogen 10 mg/dL (6-20); Carbon Dioxide 21 mmol/L (22-29); Chloride 107 mmol/L (98-107); Creatinine Clr Calc Pharmacy 104.7555; Globulin 2.4 g/dL (1.3-4.6); Glomerular Filtration Rate 75.7 mL/min (90-130); Glucose 114 mg/dL (65-115); Lipase 36 U/L (13-60); Osmolality Calculated 292 mOsm/kg (285-295); Potassium 3.8 mmol/L (3.5-5.1); Sodium 141 mmol/L (136-145); Total Bilirubin 0.2 mg/dL (0.15-1.2); Total Protein 6.7 g/dL (6.6-8.7)
[2024-04-09 22:52] VITALS: BP 116/63; PULSE 73; O2SAT 98
== END 2024-04-09 22:53 | disposition home or self-care (01) ==
PROVIDERS: Emergency Provider Emergency Medicine; PCP Family Medicine
DX: R10.9 Unspecified abdominal pain (principal)
CPT/HCPCS: 74177; 80053; 83690; 84703; 85025; 96374; 96375; 99285; J1200; J2765

== ENCOUNTER 2024-04-17 07:32 | Emergency (ER) | payer SELFPAY ==
[2024-04-17 07:57] VITALS: BP 141/98; PULSE 84; RESP 18; TEMP 36.8; O2SAT 100; BMI 30.7
--- NOTE | 2024-04-17 08:06 | W.ED.ABDPA2 ---
HPI - Abdominal Pain General: Chief Complaint: Abdominal Pain Stated Complaint: abd pain Time Seen by Provider: 04/17/24 07:38 History of Present Illness: 28-year-old female who presents to the emergency room with complaints of upper abdominal pain. Patient has had multiple bowel obstructions in the past several years ago she had a sigmoid colon resection for familial polyposis. Since then she has had several bowel obstructions they have all resolved with conservative management with an NG tube. This morning around 4 AM she started having abdominal pain has been very nauseous she has not had any vomiting shift last several days she has had blood with bowel movements. She has had it in the past as well. She denies any fever sweats or chills. She has not had any diarrhea. Associated Symptoms: Denies chills, dysuria and fever(s) Related Data Home Medications Medication Instructions Recorded Confirmed budesonide-formoterol HFA 80 2 puff inhalation BID 09/01/23 04/17/24 mcg-4.5 mcg/actuation aerosol inhaler (Symbicort) Previous Rx's Medication Instructions Recorded albuterol sulfate 90 mcg/actuation 2 puff inhalation Q4H PRN 03/01/23 aerosol inhaler Shortness Of Breath Or Wheezing #6.7 grams promethazine 25 mg tablet 25 mg PO Q6H PRN nausea and 04/17/24 vomiting #20 tabs Allergies Allergy/AdvReac Type Severity Reaction Status Date / Time Iodinated Contrast Media Allergy Severe ALGY-Anaphy Verified 04/09/24 21:17 laxis ceftriaxone [From Rocephin] Allergy ALGY-Anaphy Verified 04/09/24 21:17 laxis ciprofloxacin [From Cipro] Allergy ADR-Nausea Verified 04/09/24 21:17 ketorolac Allergy anaphylaxis Verified 04/09/24 21:17 Sulfa (Sulfonamide Allergy Unknown Verified 04/09/24 21:17 Antibiotics) sulfamethoxazole Allergy ADR-Nausea Verified 04/09/24 21:17 [From Bactrim] trimethoprim [From Bactrim] Allergy ADR-Nausea Verified 04/09/24 21:17 Review of Systems Const: Denies: fever(s) or chills Card: Denies: chest pain Resp: Denies: dyspnea GI: Denies: abdominal pain : Denies: dysuria, urinary frequency or urinary urgency Musc: Denies: neck pain or back pain Skin/Breast: Denies: rash PFSH ED PFSH: Medical History Familial adenomatous polyposis GERD (gastroesophageal reflux disease) Family history of FAP (familial adenomatous polyposis) Surgical History H/O esophagogastroduodenoscopy Hx of cholecystectomy Hx of colonoscopy with polypectomy H/O colectomy H/O ileostomy Family History Family/Other Diabetes Maternal uncle Hypertension Maternal uncle Hyperlipidemia Maternal uncle Colon cancer paternal cousins Mother Hypertension Hyperlipidemia Stroke Father Colon cancer Family/Other No problems noted. Other Breast cancer Ovarian cancer Uterine cancer Denies family history of Heart disease Thyroid disease Social History Smoking and tobacco/nicotine status: never used tobacco/nicotine Physical Exam Const: GENERAL APPEARANCE: cooperative ORIENTATION/CONSCIOUSNESS: Yes awake, Yes oriented to person, Yes oriented to place and Yes oriented to time HENMT: COMMON NORMALS: normocephalic, atraumatic and hearing grossly normal bilaterally HEAD & SCALP: normocephalic and atraumatic Resp: COMMON NORMALS: normal respiratory effort, No retractions, No use of accessory muscles and clear to auscultation bilaterally AUSCULTATION: clear to auscultation bilaterally Cardio: COMMON NORMALS: regular rate, regular rhythm and No murmurs present (Cardio) RATE: regular rate RHYTHM: regular rhythm GI: COMMON NORMALS: Soft to palpation and No hepatosplenomegaly present AUSCULTATION: Yes normoactive bowel sounds PALPATION: Yes Soft to palpation, No Tenderness to palpation present (GI), No Guarding due to palpation present (GI) and Yes No hepatosplenomegaly present Extremity: COMMON NORMALS: normal to inspection, capillary refill normal, no clubbing, cyanosis or edema, no calf tenderness and no pedal edema Neuro: SENSORIUM/ORIENTATION: Yes oriented to person, Yes oriented to place and Yes oriented to time Skin: COMMON NORMALS: no rashes or lesions noted GENERAL SKIN EXAM: no rashes or lesions noted Course Vital Signs: Vital signs: Vital Signs Temperature 98.3 F 04/17/24 07:57 Pulse Rate 98 04/17/24 11:44 Respiratory Rate 17 04/17/24 11:44 Blood Pressure 138/91 04/17/24 11:44 Pulse Oximetry 97 04/17/24 11:44 Oxygen Delivery Me thod Room Air 04/17/24 11:32 MDM - Abdominal Pain Medical Decision Making Labs and imaging reviewed. Medical Records Note that the patient's does not have an ileostomy she did have a colectomy and is reanastomosed. See the CT report. Patient does have some rectosigmoid constipation. No sign of bowel obstruction. Reviewed findings with the patient discharged home can use promethazine as needed for nausea and vomiting also can use magnesium citrate to relieve constipation follow-up with primary care Lab Data 04/17/24 09:03 04/17/24 09:03 Labs/Radiology: Radiology Impressions Abdomen/Pelvis CT 04/17/24 08:13 IMPRESSION: 1. Prior postoperative changes colectomy with sigmoid anastomosis. 2. No evidence of high-grade bowel obstruction. 3. Mild air distention of the sigmoid with rectal constipation. Sigmoid anastomosis appears patent. 4. Prior cholecystectomy. 5. No other acute findings. Laboratory Results WBC 10.80 10^3/uL (3.29-11.43) 04/17/24 09:03 RBC 4.53 10^6/uL (3.85-5.65) 04/17/24 09:03 Hgb 14.60 g/dL (11.27-16.99) 04/17/24 09:03 Hct 42.1 % (36-47) 04/17/24 09:03 MCV 92.9 fl (85-98) 04/17/24 09:03 MCH 32.2 pg (27-33) 04/17/24 09:03 MCHC 34.7 g/dL (30-55) 04/17/24 09:03 RDW 12.1 % (12.1-15.1) 04/17/24 09:03 Plt Count 210 10^3/cmm (157-399) 04/17/24 09:03 MPV 11.0 fL (7.4-10.4) H 04/17/24 09:03 Neut % (Auto) 70.1 % 04/17/24 09:03 Lymph % (Auto) 20.3 % 04/17/24 09:03 [place] % (Auto) 6.1 % 04/17/24 09:03 Eos % (Auto) 2.3 % 04/17/24 09:03 Baso % (Auto) 0.6 % 04/17/24 09:03 Neut # (Auto) 7.57 10^3/uL (1.8-7.7) 04/17/24 09:03 Lymph # (Auto) 2.2 10^3/uL (0.8-4.8) 04/17/24 09:03 [place] # (Auto) 0.7 10^3/uL (0.2-0.9) 04/17/24 09:03 Eos # (Auto) 0.3 10^3/uL (0.0-0.8) 04/17/24 09:03 Baso # (Auto) 0.1 10^3/uL (0.0-0.1) 04/17/24 09:03 Nucleated RBC % (auto) 0 % 04/17/24 09:03 Nucleated RBCs # 0.0 /100WBC 04/17/24 09:03 Sodium 134 mmol/L (136-145) L 04/17/24 09:03 Potassium 4.2 mmol/L (3.5-5.1) 04/17/24 09:03 Chloride 101 mmol/L (98-107) 04/17/24 09:03 Carbon Dioxide 22 mmol/L (22-29) 04/17/24 09:03 Anion Gap 15.2 (5-19) 04/17/24 09:03 BUN 12 mg/dL (6-20) 04/17/24 09:03 Creatinine 0.7 mg/dL (0.5-0.9) 04/17/24 09:03 GFR Calculation 101.1 mL/min (90-130) 04/17/24 09:03 Glucose 90 mg/dL (65-115) 04/17/24 09:03 Calculated Osmolality 277 mOsm/kg (285-295) L 04/17/24 09:03 Calcium 9.3 mg/dL (8.5-10.5) 04/17/24 09:03 Total Bilirubin 0.2 mg/dL (0.15-1.2) 04/17/24 09:03 AST 19 U/L (0-32) 04/17/24 09:03 ALT 27 U/L (0-33) 04/17/24 09:03 Alkaline Phosphatase 76 U/L (35-105) 04/17/24 09:03 Total Protein 6.8 g/dL (6.6-8.7) 04/17/24 09:03 Albumin 4.4 g/dL (3.5-5.2) 04/17/24 09:03 Globulin 2.4 g/dL (1.3-4.6) 04/17/24 09:03 Lipase 34 U/L (13-60) 04/17/24 09:03 HCG, Qual Negative (Negative) 04/17/24 09:03 Urine Color Yellow (Yellow) 04/17/24 09:25 Urine Appearance Clear (CLEAR) 04/17/24 09:25 Urine pH 5.0 (5-7) 04/17/24 09:25 Ur Specific [place] 1.020 (1.005-1.030) 04/17/24 09:25 Urine Protein Negative (Negative) 04/17/24 09:25 Urine Glucose (UA) Negative (Normal) 04/17/24 09:25 Urine Ketones Negative (Negative) 04/17/24 09:25 Urine Blood Negative (Negative) 04/17/24 09:25 Urine Nitrate Negative (Negative) 04/17/24 09:25 Urine Bilirubin Negative (Negative) 04/17/24 09:25 Urine Urobilinogen 0.2 mg/dL (Negative) 04/17/24 09:25 Ur Leukocyte Esterase Trace (Negative) A 04/17/24 09:25 Urine RBC 0-2 /hpf (0-2) 04/17/24 09:25 Urine WBC 6-10 /hpf (0-5) 04/17/24 09:25 Ur Squamous Epith Cells 6-10 /hpf (0-5) 04/17/24 09:25 Amorphous Sediment Not Reportable 04/17/24 09:25 Urine Bacteria 2+ /hpf (NONE) H 04/17/24 09:25 Hyaline Casts 0.40 /lpf 04/17/24 09:25 All radiology interpretation(s) finalized by discharge Discharge Plan Discharge Patient Disposition: Home Clinical Impression: Gastroenteritis, Constipation Condition: Stable Prescriptions: New promethazine 25 mg tablet 25 mg PO Q6H PRN (Reason: nausea and vomiting) Qty: 20 0RF No Action albuterol sulfate 90 mcg/actuation HFA aerosol inhaler 2 puff INHALATION Q4H PRN (Reason: Shortness Of Breath Or Wheezing) Qty: 6.7 0RF budesonide-formoterol [Symbicort] 80-4.5 mcg/actuation HFA aerosol inhaler 2 puff INHALATION BID Discharge Orders: Discharge ED (Routine); Ordered 04/17/24 Ordered By: Gulshan Vela Referrals: Rigoberto Ferguson MD [Primary Care Provider] - Discharge Diet: Clear Liquid Discharge Activity: Increase activity as tolerated Patient Instructions: Gastroenteritis (ED), Opioid Safety, Pain Management Activity Restrictions/Additional Instructions: Thank you for choosing [facility] for your healthcare needs today. It is very important that you follow up as instructed or that you return to the Emergency Department should you have concerns or if your condition changes or worsens in any way. You are seen today for complaints of nausea and abdominal cramping. CT showed evidence of gastroenteritis but there is no sign of bowel obstruction urine was normal. Recommend that you stick to a clear liquid diet use of promethazine as needed advance your diet as tolerated. If you have worsening changes symptoms return to the emergency room Coding Level of Care Code ED Research Management Associate for Yamilet De Souza
--- NOTE | 2024-04-17 08:13 | CT_ITS ---
WS: [id number] CT ABDOMEN PELVIS TECHNIQUE: Noncontrast CT of the abdomen and pelvis with coronal and sagittal reformatted images. CLINICAL INFORMATION: Abdominal pain COMPARISON: 04/09/2024 DLP: 789.[address] scans at [facility] use at least one of these dose optimization techniques: automated e xposure control; mA and/or kV adjustment per patient size (includes targeted exams where dose is matc hed to clinical indication); or iterative reconstruction. FINDINGS: Cholecystectomy. Prior postoperative colectomy with sigmoid anastomosis. No evidence of high-grade sm all or large bowel obstruction. Tiny fat-containing umbilical hernia. No significant umbilical hernia or herniated bowel. Air-fluid level in the stomach. Mild gaseous distention of the residual sigmoid with rectal constipation. No evidence of high-grade obstruction at the anastomosis. Lung bases are well aerated. Noncontrast liver is normal. Normal noncontrast pancreas. Adrenal glands are normal. Normal caliber abdominal aorta.. CT/CT abdomen pelvis con [id number] IMPRESSION: 1. Prior postoperative changes colectomy with sigmoid anastomosis. 2. No evidence of high-grade bowel obstruction. 3. Mild air distention of the sigmoid with rectal constipation. Sigmoid anasto mosis appears patent. 4. Prior cholecystectomy. 5. No other acute findings.
[2024-04-17 09:10] LABS: Basophils # 0.1 10^3/uL (0.0-0.1); Basophils % 0.6 %; Eosinophils # 0.3 10^3/uL (0.0-0.8); Eosinophils % 2.3 %; Hematocrit 42.1 % (36-47); Lymphocytes # 2.2 10^3/uL (0.8-4.8); Lymphocytes % 20.3 %; Mean Corpuscular HGB Conc 34.7 g/dL (30-55); Mean Corpuscular Hemoglobin 32.2 pg (27-33); Mean Corpuscular Volume 92.9 fl (85-98); Monocytes # 0.7 10^3/uL (0.2-0.9); Monocytes % 6.1 %; Neutrophils # 7.57 10^3/uL (1.8-7.7); Neutrophils % 70.1 %; Nucleated Red Blood Cells % 0 %; Platelet Count 210 10^3/cmm (157-399); Red Blood Count 4.53 10^6/uL (3.85-5.65); Red Cell Distribution Width 12.1 % (12.1-15.1)
[2024-04-17 09:31] LABS: HCG, Serum Qual Negative (Negative)
[2024-04-17 09:37] LABS: Alanine Aminotransferase 27 U/L (0-33); Albumin Level 4.4 g/dL (3.5-5.2); Alkaline Phosphatase 76 U/L (35-105); Blood Urea Nitrogen 12 mg/dL (6-20); Calcium 9.3 mg/dL (8.5-10.5); Carbon Dioxide 22 mmol/L (22-29); Chloride 101 mmol/L (98-107); Creatinine Clr Calc Pharmacy 134.6856; Globulin 2.4 g/dL (1.3-4.6); Glomerular Filtration Rate 101.1 mL/min (90-130); Glucose 90 mg/dL (65-115); Lipase 34 U/L (13-60); Osmolality Calculated 277 mOsm/kg (285-295); Sodium 134 mmol/L (136-145); Total Bilirubin 0.2 mg/dL (0.15-1.2); Total Protein 6.8 g/dL (6.6-8.7)
[2024-04-17 09:40] LABS: Anion Gap 15.2 (5-19); Aspartate Amino Transferase 19 U/L (0-32); Potassium 4.2 mmol/L (3.5-5.1)
[2024-04-17] MEDS: lidocaine 2% viscous 15 ML, aluminum-mag hydrox-simethicon 30 ML, sucralfate oral liq 1 GM PO (09:53)
[2024-04-17 09:56] VITALS: BP 107/70; PULSE 90; RESP 18; O2SAT 97
[2024-04-17 10:05] LABS: Bilirubin Urine Negative (Negative); Blood Urine Negative (Negative); Glucose Urine UA Negative (Normal); Ketones Urine Negative (Negative); Leukocyte Esterase Urine Trace (Negative); Nitrate Urine Negative (Negative); Protein Urine Negative (Negative); Urine Appearance Clear (CLEAR); Urine Color Yellow (Yellow); Urobilinogen Urine 0.2 mg/dL (Negative)
[2024-04-17 10:11] LABS: Add Urine Microscopic? YES; Bacteria Urine 2+ /hpf; RBC Urine 0-2 /hpf (0-2)
[2024-04-17 10:20] LABS: Add Urine Culture? No
[2024-04-17 11:32] VITALS: BP 138/91; PULSE 98; RESP 18; O2SAT 98
[2024-04-17 11:44] VITALS: BP 138/91; PULSE 98; RESP 17; O2SAT 97
== END 2024-04-17 11:45 | disposition home or self-care (01) ==
PROVIDERS: Emergency Provider Family Medicine; PCP Family Medicine
DX: K52.9 Noninfective gastroenteritis and colitis, unspecified (principal); K59.00 Constipation, unspecified
CPT/HCPCS: 36415; 74176; 80053; 81001; 83690; 84703; 85025; 99284

== ENCOUNTER 2024-04-27 07:01 | Emergency (ER) | payer OTHER, SELFPAY ==
[2024-04-27 07:07] VITALS: BP 130/81; PULSE 83; RESP 18; TEMP 36.9; O2SAT 98
--- NOTE | 2024-04-27 07:37 | XR_ITS ---
WS: [id number] Exam: XR foot RT min 3V* [id number] Date/Time of Exam: 04/27/2024 7:41 AM Reason For Exam: Trauma No acute fracture. Again noted is arthrodesis with extensive hardware involving the first second and third metatarsal cuneiform joints. There is also hardware in the tarsal navicular. Again noted is a f racture of a single transverse screw through the first second and third metatarsals. Overall, no gastelum ge. Normal soft tissues. There is also fracture of a staple that bridges the third metatarsal cuneifo rm articulation. XR/XR foot RT min 3V* [id number] IMPRESSION: 1. Stable appearing postoperative changes of the midfoot as noted above. 2. No acute fracture noted.
--- NOTE | 2024-04-27 08:21 | W.ED.EXTPRO ---
HPI - Extremity Problem General: Chief complaint: Extremity Injury, Lower Stated complaint: R foot injury/pain Time Seen by Provider: 04/27/24 07:06 History of Present Illness: 28-year-old female inversion injury of her right foot. She is complaining of pain along the second and third metatarsals. Inversion injury just prior to arrival previous surgery on the foot although patient cannot describe for me. She is able to partially weight-bear on the foot. She says she has chronic pain in her foot but it is worse after the fall this morning. Related Data Home Medications Medication Instructions Recorded Confirmed budesonide-formoterol HFA 80 2 puff inhalation BID 09/01/23 04/27/24 mcg-4.5 mcg/actuation aerosol inhaler (Symbicort) Previous Rx's Medication Instructions Recorded albuterol sulfate 90 mcg/actuation 2 puff inhalation Q4H PRN 03/01/23 aerosol inhaler Shortness Of Breath Or Wheezing #6.7 grams promethazine 25 mg tablet 25 mg PO Q6H PRN nausea and 04/17/24 vomiting #20 tabs Allergies Allergy/AdvReac Type Severity Reaction Status Date / Time Iodinated Contrast Media Allergy Severe ALGY-Anaphy Verified 04/09/24 21:17 laxis ceftriaxone [From Rocephin] Allergy ALGY-Anaphy Verified 04/09/24 21:17 laxis ciprofloxacin [From Cipro] Allergy ADR-Nausea Verified 04/09/24 21:17 ketorolac Allergy anaphylaxis Verified 04/09/24 21:17 Sulfa (Sulfonamide Allergy Unknown Verified 04/09/24 21:17 Antibiotics) sulfamethoxazole Allergy ADR-Nausea Verified 04/09/24 21:17 [From Bactrim] trimethoprim [From Bactrim] Allergy ADR-Nausea Verified 04/09/24 21:17 Review of Systems Musc: Reports: extremity pain and joint pain PFSH ED PFSH: Medical History Familial adenomatous polyposis GERD (gastroesophageal reflux disease) Family history of FAP (familial adenomatous polyposis) Surgical History H/O esophagogastroduodenoscopy Hx of cholecystectomy Hx of colonoscopy with polypectomy H/O colectomy H/O ileostomy Family History Family/Other Diabetes Maternal uncle Hypertension Maternal uncle Hyperlipidemia Maternal uncle Colon cancer paternal cousins Mother Hypertension Hyperlipidemia Stroke Father Colon cancer Family/Other No problems noted. Other Breast cancer Ovarian cancer Uterine cancer Denies family history of Heart disease Thyroid disease Social History Smoking and tobacco/nicotine status: never used tobacco/nicotine Physical Exam Extremity: OTHER: No deformity of the ankle or foot no swelling dorsalis pedis posterior tibialis pulse normal sensation normal neurovascularly intact. No laceration or abrasion scar from previous surgery is well-healed no inflammation no induration redness or erythema Course Vital Signs: Vital signs: Vital Signs Temperature 98.4 F 04/27/24 07:07 Pulse Rate 68 04/27/24 09:13 Respiratory Rate 18 04/27/24 07:07 Blood Pressure 130/81 04/27/24 09:13 Pulse Oximetry 98 04/27/24 09:13 MDM - Extremity (Nontraumatic) Medical Decision Making X-ray of the foot is negative physical exam normal she is complaining of some pain likely soft tissue injury. I had recommended an x-ray of the ankle as well patient declined she says her ankle does not hurt. Advised her it could be referred to pain if she still prefers not to have it x-rayed she will return if she has further problems she states. Recommend she follow-up with podiatry as seen your previously. Lab Data Radiology Impressions Foot X-Ray 04/27/24 07:37 IMPRESSION: 1. Stable appearing postoperative changes of the midfoot as noted above. 2. No acute fracture noted. All radiology interpretation(s) finalized by discharge Discharge Plan Discharge Patient Disposition: Home Clinical Impression: Pain in right foot Condition: Stable Prescriptions: No Action albuterol sulfate 90 mcg/actuation HFA aerosol inhaler 2 puff INHALATION Q4H PRN (Reason: Shortness Of Breath Or Wheezing) Qty: 6.7 0RF budesonide-formoterol [Symbicort] 80-4.5 mcg/actuation HFA aerosol inhaler 2 puff INHALATION BID promethazine 25 mg tablet 25 mg PO Q6H PRN (Reason: nausea and vomiting) Qty: 20 0RF Discharge Orders: Discharge ED (Routine); Ordered 04/27/24 Ordered By: Gulshan Vela Referrals: Rigoberto Ferguson MD [Primary Care Provider] - Discharge Diet: Usual diet Discharge Activity: Increase activity as tolerated Patient Instructions: Opioid Safety, Pain Management Activity Restrictions/Additional Instructions: Thank you for choosing [facility] for your healthcare needs today. It is very important that you follow up as instructed or that you return to the Emergency Department should you have concerns or if your condition changes or worsens in any way. You were seen in the emergency room with complaints of right foot pain. X-rays did not show any acute fracture we have recommended a right ankle x-ray as well which you declined. If pain persists or worsens follow-up with podiatry. Coding Level of Care Code ED Bulk Coolers Installer for Yamilet De Souza
[2024-04-27 09:13] VITALS: BP 130/81; PULSE 68; O2SAT 98
== END 2024-04-27 09:14 | disposition home or self-care (01) ==
PROVIDERS: Emergency Provider Family Medicine; PCP Family Medicine
DX: M79.671 Pain in right foot (principal)
CPT/HCPCS: 73630; 99283

== ENCOUNTER 2024-05-05 03:49 | Emergency (ER) | payer OTHER, SELFPAY ==
[2024-05-05 03:56] VITALS: BP 141/100; PULSE 103; RESP 20; TEMP 36.6; O2SAT 96; BMI 31.9
[2024-05-05 06:00] VITALS: BP 135/95; PULSE 88; O2SAT 96
--- NOTE | 2024-05-05 06:00 | W.ED.ABDPA2 ---
HPI - Abdominal Pain General: Chief Complaint: Abdominal Pain Stated Complaint: abd pain n/v/d Time Seen by Provider: 05/05/24 05:13 History of Present Illness: 28-year-old female presents emergency room with complaints of nausea and vomiting. Patient previously had a sigmoid colon resection for familial polyposis. She has had multiple bowel obstructions since then but has not required repeat surgery. Patient is reporting now having watery stools. She was seen earlier this month with complaint of constipation. She also continues to have blood in the stool which has been a chronic issue. She was given promethazine at her last visit and advised to use magnesium citrate to relieve constipation this was 18 days ago. She states that she has not seen the surgeon who did the sigmoidectomy in a year. This was done in [place]. She has been in contact with them and was advised that she would need to have endoscopy done. She has been nauseous but has not been vomiting any blood. Associated Symptoms: Denies chills, dysuria and fever(s) Related Data Home Medications Medication Instructions Recorded Confirmed budesonide-formoterol HFA 80 2 puff inhalation BID shortness of 09/01/23 05/05/24 mcg-4.5 mcg/actuation aerosol breath inhaler (Symbicort) Previous Rx's Medication Instructions Recorded albuterol sulfate 90 mcg/actuation 2 puff inhalation Q4H PRN 03/01/23 aerosol inhaler Shortness Of Breath Or Wheezing #6.7 grams promethazine 25 mg tablet 25 mg PO Q6H PRN nausea and 04/17/24 vomiting #20 tabs nitrofurantoin 100 mg PO BID 7 days #14 caps 05/05/24 monohydrate/macrocrystals 100 mg capsule (Macrobid) promethazine 25 mg tablet 25 mg PO Q6H PRN nausea and 05/05/24 vomiting #20 tabs Allergies Allergy/AdvReac Type Severity Reaction Status Date / Time Iodinated Contrast Media Allergy Severe ALGY-Anaphy Verified 04/09/24 21:17 laxis ceftriaxone [From Rocephin] Allergy ALGY-Anaphy Verified 04/09/24 21:17 laxis ciprofloxacin [From Cipro] Allergy ADR-Nausea Verified 04/09/24 21:17 ketorolac Allergy anaphylaxis Verified 04/09/24 21:17 Sulfa (Sulfonamide Allergy Unknown Verified 04/09/24 21:17 Antibiotics) sulfamethoxazole Allergy ADR-Nausea Verified 04/09/24 21:17 [From Bactrim] trimethoprim [From Bactrim] Allergy ADR-Nausea Verified 04/09/24 21:17 Review of Systems Const: Denies: fever(s) or chills Eyes: Denies: photophobia Card: Denies: chest pain Resp: Denies: dyspnea GI: Denies: abdominal pain : Denies: dysuria, urinary frequency or urinary urgency Musc: Denies: neck pain or back pain Skin/Breast: Denies: rash PFSH ED PFSH: Medical History Familial adenomatous polyposis GERD (gastroesophageal reflux disease) Family history of FAP (familial adenomatous polyposis) Surgical History H/O esophagogastroduodenoscopy Hx of cholecystectomy Hx of colonoscopy with polypectomy H/O colectomy H/O ileostomy Family History Family/Other Diabetes Maternal uncle Hypertension Maternal uncle Hyperlipidemia Maternal uncle Colon cancer paternal cousins Mother Hypertension Hyperlipidemia Stroke Father Colon cancer Family/Other No problems noted. Other Breast cancer Ovarian cancer Uterine cancer Denies family history of Heart disease Thyroid disease Social History Smoking and tobacco/nicotine status: never used tobacco/nicotine Physical Exam Const: COMMON NORMALS: no acute distress GENERAL APPEARANCE: cooperative and comfortable ORIENTATION/CONSCIOUSNESS: Yes awake, Yes oriented to person, Yes oriented to place and Yes oriented to time HENMT: COMMON NORMALS: normocephalic, atraumatic and hearing grossly normal bilaterally HEAD & SCALP: normocephalic and atraumatic Resp: COMMON NORMALS: normal respiratory effort, No retractions, No use of accessory muscles and clear to auscultation bilaterally AUSCULTATION: clear to auscultation bilaterally Cardio: COMMON NORMALS: regular rate, regular rhythm and No murmurs present (Cardio) RATE: regular rate RHYTHM: regular rhythm GI: COMMON NORMALS: Soft to palpation and No hepatosplenomegaly present AUSCULTATION: Yes normoactive bowel sounds PALPATION: Yes Soft to palpation, No Tenderness to palpation present (GI), No Guarding due to palpation present (GI) and Yes No hepatosplenomegaly present Extremity: COMMON NORMALS: normal to inspection, capillary refill normal, no clubbing, cyanosis or edema, no calf tenderness and no pedal edema Neuro: SENSORIUM/ORIENTATION: Yes oriented to person, Yes oriented to place and Yes oriented to time Skin: COMMON NORMALS: no rashes or lesions noted GENERAL SKIN EXAM: no rashes or lesions noted Course Vital Signs: Vital signs: Vital Signs Temperature 98 F 05/05/24 03:56 Pulse Rate 68 05/05/24 09:13 Respiratory Rate 20 H 05/05/24 03:56 Blood Pressure 107/68 05/05/24 09:13 Pulse Oximetry 96 05/05/24 09:13 MDM - Abdominal Pain Medical Decision Making Abdominal pain improved. The report of rectal bleeding has been chronic her hemoglobin is stable. She has an incidental finding of cystitis. Will start on oral antibiotics. Encourage patient follow-up with her surgeon from [place] she tells me she has talked to them before they are planning on repeating some endoscopy. Medical Records I reviewed the patient's medical records. Lab Data I reviewed the patient's lab results. 05/05/24 06:25 05/05/24 06:25 Labs/Radiology: Radiology Impressions Chest/Abdomen X-ray 05/05/24 06:13 IMPRESSION: Air distended loops of large bowel. This is a nonspecific finding but can be seen with an ileus. Laboratory Results WBC 9.84 10^3/uL (3.29-11.43) 05/05/24 06:25 RBC 4.53 10^6/uL (3.85-5.65) 05/05/24 06:25 Hgb 14.30 g/dL (11.27-16.99) 05/05/24 06:25 Hct 42.2 % (36-47) 05/05/24 06:25 MCV 93.2 fl (85-98) 05/05/24 06:25 MCH 31.6 pg (27-33) 05/05/24 06:25 MCHC 33.9 g/dL (30-55) 05/05/24 06:25 RDW 12.1 % (12.1-15.1) 05/05/24 06:25 Plt Count 213 10^3/cmm (157-399) 05/05/24 06:25 MPV 10.9 fL (7.4-10.4) H 05/05/24 06:25 Neut % (Auto) 65.2 % 05/05/24 06:25 Lymph % (Auto) 23.6 % 05/05/24 06:25 [place] % (Auto) 6.5 % 05/05/24 06:25 Eos % (Auto) 3.2 % 05/05/24 06:25 Baso % (Auto) 0.6 % 05/05/24 06:25 Neut # (Auto) 6.42 10^3/uL (1.8-7.7) 05/05/24 06:25 Lymph # (Auto) 2.3 10^3/uL (0.8-4.8) 05/05/24 06:25 [place] # (Auto) 0.6 10^3/uL (0.2-0.9) 05/05/24 06:25 Eos # (Auto) 0.3 10^3/uL (0.0-0.8) 05/05/24 06:25 Baso # (Auto) 0.1 10^3/uL (0.0-0.1) 05/05/24 06:25 Nucleated RBC % (auto) 0 % 05/05/24 06:25 Nucleated RBCs # 0.0 /100WBC 05/05/24 06:25 Sodium 142 mmol/L (136-145) 05/05/24 06:25 Potassium 4.0 mmol/L (3.5-5.1) 05/05/24 06:25 Chloride 107 mmol/L (98-107) 05/05/24 06:25 Carbon Dioxide 22 mmol/L (22-29) 05/05/24 06:25 Anion Gap 17.0 (5-19) 05/05/24 06:25 BUN 12 mg/dL (6-20) 05/05/24 06:25 Creatinine 0.7 mg/dL (0.5-0.9) 05/05/24 06:25 GFR Calculation 101.1 mL/min (90-130) 05/05/24 06:25 Glucose 111 mg/dL (65-115) 05/05/24 06:25 Calculated Osmolality 294 mOsm/kg (285-295) 05/05/24 06:25 Lactic Acid 1.1 mmol/L (0.5-2.2) 05/05/24 06:25 Calcium 8.9 mg/dL (8.5-10.5) 05/05/24 06:25 Total Bilirubin 0.2 mg/dL (0.15-1.2) 05/05/24 06:25 AST 23 U/L (0-32) 05/05/24 06:25 ALT 36 U/L (0-33) H 05/05/24 06:25 Alkaline Phosphatase 77 U/L (35-105) 05/05/24 06:25 C-Reactive Protein 3.0 mg/L (0.0-4.9) 05/05/24 06:25 Total Protein 6.6 g/dL (6.6-8.7) 05/05/24 06:25 Albumin 4.1 g/dL (3.5-5.2) 05/05/24 06:25 Globulin 2.5 g/dL (1.3-4.6) 05/05/24 06:25 Lipase 32 U/L (13-60) 05/05/24 06:25 HCG, Qual Negative (Negative) 05/05/24 07:02 Urine Color Yellow (Yellow) 05/05/24 07:02 Urine Appearance Turbid (CLEAR) A 05/05/24 07:02 Urine pH 5.0 (5-7) 05/05/24 07:02 Ur Specific [place] 1.030 (1.005-1.030) 05/05/24 07:02 Urine Protein Negative (Negative) 05/05/24 07:02 Urine Glucose (UA) Negative (Normal) 05/05/24 07:02 Urine Ketones Negative (Negative) 05/05/24 07:02 Urine Blood 1+ (Negative) A 05/05/24 07:02 Urine Nitrate Negative (Negative) 05/05/24 07:02 Urine Bilirubin Negative (Negative) 05/05/24 07:02 Urine Urobilinogen 1.0 mg/dL (Negative) 05/05/24 07:02 Ur Leukocyte Esterase Negative (Negative) 05/05/24 07:02 Urine RBC 0-2 /hpf (0-2) 05/05/24 07:02 Urine WBC 6-10 /hpf (0-5) 05/05/24 07:02 Ur Squamous Epith Cells 0-5 /hpf (0-5) 05/05/24 07:02 Amorphous Sediment Not Reportable 05/05/24 07:02 Urine Bacteria None seen /hpf (NONE) 05/05/24 07:02 Hyaline Casts 2.05 /lpf 05/05/24 07:02 Urine Opiates Screen Negative ng/mL (Negative) 05/05/24 07:02 Ur Barbiturates Screen Negative ng/mL (Negative) 05/05/24 07:02 Ur Phencyclidine Scrn Negative ng/mL (Negative) 05/05/24 07:02 Ur Amphetamines Screen Negative ng/mL (Negative) 05/05/24 07:02 U Benzodiazepines Scrn Negative ng/mL (Negative) 05/05/24 07:02 Urine Cocaine Screen Negative ng/mL (Negative) 05/05/24 07:02 U Marijuana (THC) Screen Negative ng/mL (Negative) 05/05/24 07:02 All radiology interpretation(s) finalized by discharge Discharge Plan Discharge Patient Disposition: Home Clinical Impression: Gastroenteritis, Hematochezia, Cystitis Condition: Stable Prescriptions: New promethazine 25 mg tablet 25 mg PO Q6H PRN (Reason: nausea and vomiting) Qty: 20 0RF nitrofurantoin monohyd/m-cryst [Macrobid] 100 mg capsule 100 mg PO BID 7 Days Qty: 14 0RF Rx Instructions: must administer with a meal/food No Action albuterol sulfate 90 mcg/actuation HFA aerosol inhaler 2 puff INHALATION Q4H PRN (Reason: Shortness Of Breath Or Wheezing) Qty: 6.7 0RF budesonide-formoterol [Symbicort] 80-4.5 mcg/actuation HFA aerosol inhaler 2 puff INHALATION BID promethazine 25 mg tablet 25 mg PO Q6H PRN (Reason: nausea and vomiting) Qty: 20 0RF Discharge Orders: Discharge ED (Routine); Ordered 05/05/24 Ordered By: Gulshan Vela Referrals: Rigoberto Ferguson MD [Primary Care Provider] - Discharge Diet: Clear Liquid Discharge Activity: Resume usual activity Patient Instructions: Opioid Safety, Pain Management Activity Restrictions/Additional Instructions: Thank you for choosing [facility] for your healthcare needs today. It is very important that you follow up as instructed or that you return to the Emergency Department should you have concerns or if your condition changes or worsens in any way. You are seen today with complaints of nausea vomiting abdominal pain. Abdominal pain has been chronic. There is no acute findings today no signs of a bowel obstruction. You report having blood in the stool which is been ongoing issue for some time. Your hemoglobin is stable there is no sign of acute GI bleed. Would recommend that you follow-up with the surgeon who previously did your surgery to reevaluate and consider endoscopy. You were noted to have a mild bladder infection recommend you start on antibiotics 1 pill twice a day for a week. Coding Level of Care Code ED Telepathist for Yamilet De Souza
--- NOTE | 2024-05-05 06:13 | XRR_ITS ---
PROCEDURE INFORMATION: Exam: XR Complete Acute Abdomen Series Including Chest Exam date and time: 05/05/2024 6:37 AM Age: 28 years old Clinical indication: Abdominal pain; Generalized; Additional info: Abd pain TECHNIQUE: Imaging protocol: Radiologic exam. Complete acute abdomen series, including 2 or more views of the abdomen and a single view chest. COMPARISON: CT abdomen pelvis con [id number] 04/17/2024 8:45 AM FINDINGS: Lungs: Normal. No consolidation. Pleural spaces: Normal. No pleural effusions. No pneumothorax. Heart/Mediastinum: Normal. No cardiomegaly. Gastrointestinal tract: There are air distended loops of what appear to be large bowel. This is nonspecific but could be related to an ileus. No small bowel dilatation is appreciated. There are surgical clips within the right upper quadrant. Intraperitoneal space: Normal. No free air. Bones/joints: Normal. No acute fracture. Soft tissues: Normal. XR/XR acute abdomen series [id number] IMPRESSION: Air distended loops of large bowel. This is a nonspecific finding but can be seen with an ileus.
[2024-05-05 06:30] VITALS: BP 129/95; PULSE 83; O2SAT 96
[2024-05-05 06:30] LABS: Basophils # 0.1 10^3/uL (0.0-0.1); Basophils % 0.6 %; Eosinophils # 0.3 10^3/uL (0.0-0.8); Eosinophils % 3.2 %; Hematocrit 42.2 % (36-47); Lymphocytes # 2.3 10^3/uL (0.8-4.8); Lymphocytes % 23.6 %; Mean Corpuscular HGB Conc 33.9 g/dL (30-55); Mean Corpuscular Hemoglobin 31.6 pg (27-33); Mean Corpuscular Volume 93.2 fl (85-98); Mean Platelet Volume 10.9 fL (7.4-10.4); Monocytes # 0.6 10^3/uL (0.2-0.9); Monocytes % 6.5 %; Neutrophils # 6.42 10^3/uL (1.8-7.7); Neutrophils % 65.2 %; Nucleated Red Blood Cells % 0 %; Platelet Count 213 10^3/cmm (157-399); Red Blood Count 4.53 10^6/uL (3.85-5.65); Red Cell Distribution Width 12.1 % (12.1-15.1); White Blood Count 9.84 10^3/uL (3.29-11.43)
[2024-05-05] MEDS: ondansetron 2 mg/ML SDV 2 mL 8 MG IVP (06:37)
[2024-05-05 06:48] LABS: Lactic Sepsis W/Reflex 1.1 mmol/L (0.5-2.2)
[2024-05-05 06:49] LABS: Alanine Aminotransferase 36 U/L (0-33); Albumin Level 4.1 g/dL (3.5-5.2); Alkaline Phosphatase 77 U/L (35-105); Aspartate Amino Transferase 23 U/L (0-32); Blood Urea Nitrogen 12 mg/dL (6-20); Calcium 8.9 mg/dL (8.5-10.5); Carbon Dioxide 22 mmol/L (22-29); Chloride 107 mmol/L (98-107); Creatinine Clr Calc Pharmacy 137.4757; Globulin 2.5 g/dL (1.3-4.6); Glomerular Filtration Rate 101.1 mL/min (90-130); Glucose 111 mg/dL (65-115); Lipase 32 U/L (13-60); Osmolality Calculated 294 mOsm/kg (285-295); Sodium 142 mmol/L (136-145); Total Bilirubin 0.2 mg/dL (0.15-1.2); Total Protein 6.6 g/dL (6.6-8.7)
[2024-05-05 07:10] LABS: HCG Qualitative Urine. Negative (Negative)
[2024-05-05 08:13] LABS: Bilirubin Urine Negative (Negative); Blood Urine 1+ (Negative); Glucose Urine UA Negative (Normal); Ketones Urine Negative (Negative); Leukocyte Esterase Urine Negative (Negative); Nitrate Urine Negative (Negative); Protein Urine Negative (Negative); Urine Appearance Turbid (CLEAR); Urine Color Yellow (Yellow)
[2024-05-05 08:15] LABS: Bacteria Urine None Seen /hpf; Hyaline Casts Urine 2.05 /lpf; RBC Urine 0-2 /hpf (0-2); Squamous Epithelial Cell Urine 0-5 /hpf (0-5)
[2024-05-05 08:20] LABS: Amphetamines Screen Urine Negative (Negative); Barbiturates Screen Urine Negative (Negative); Benzodiazepines Screen Urine Negative (Negative); Cocaine Screen Urine Negative (Negative); Opiate Screen Urine Negative (Negative); PCP Screen Urine Negative (Negative); THC Screen Urine Negative (Negative)
[2024-05-05 09:13] VITALS: BP 107/68; PULSE 68; O2SAT 96
== END 2024-05-05 09:14 | disposition home or self-care (01) ==
PROVIDERS: Emergency Medicine; Emergency Provider Family Medicine; PCP Family Medicine
DX: K52.9 Noninfective gastroenteritis and colitis, unspecified (principal); K92.1 Melena; N30.90 Cystitis, unspecified without hematuria
CPT/HCPCS: 36415; 74022; 80053; 80306; 81001; 81025; 83605; 83690; 85025; 86140; 96374; 99284; J2405

== ENCOUNTER → 2024-05-14 18:41 | Outpatient (BNVA) | payer OTHER, SELFPAY | PROVIDERS: PCP Family Medicine; Visit Provider Nurse Practitioner | DX: J02.9 Acute pharyngitis, unspecified (principal) | CPT/HCPCS: 87880 ==

== ENCOUNTER 2024-07-14 02:49 | Emergency (ER) | payer OTHER, SELFPAY ==
[2024-07-14 02:53] VITALS: BP 143/104; PULSE 104; RESP 18; TEMP 36.8; O2SAT 97; BMI 30.7
--- NOTE | 2024-07-14 03:02 | XRR_ITS ---
PROCEDURE INFORMATION: Exam: XR Right Foot Exam date and time: 07/14/2024 3:06 AM Age: 28 years old Clinical indication: Injury or trauma; Fall; Blunt trauma; Foot; Right; Injury details: Fell today HX of surgery 2 years ago; Prior surgery; Surgery date: 6+ months; Surgery type: Plates and screws; Additional info: Fall, foot pain TECHNIQUE: Imaging protocol: Radiologic exam of the right foot. Views: 3 or more views. COMPARISON: CR XR foot RT min 3V* [id number] 04/27/2024 7:48 AM FINDINGS: Bones/joints: No acute fracture. Extensive hardware from midfoot arthrodesis, unchanged from prior. Normal alignment. Soft tissues: Normal. XR/XR foot RT min 3V* [id number] IMPRESSION: No acute fracture. No acute osseous abnormality.
--- NOTE | 2024-07-14 03:36 | ED_ITS ---
HPI - Extremity Problem General: Chief complaint: Extremity Injury, Lower Stated complaint: Fell and hurt R foot Time Seen by Provider: 07/14/24 02:58 History of Present Illness: 28-year-old female with a history of chris t fracture with extensive hardware who presents emergency room after she injured her foot at work. She is having some pain on top of her foot in the area where she had had surgery in the past. No obvious deformities. Neurovascular intact Related Data Home Medications ?Medication ?Instructions ?Recorded ?Confirmed budesonide-formoterol HFA 80 2 puff inhalation BID aneta rtness of 09/01/23 06/20/24 mcg-4.5 mcg/actuation aerosol breath inhaler (Symbicort) Previous Rx's ?Medication ?Instructions ?Recorded amoxicillin 500 mg tablet 500 mg PO BID 10 days #20 ta bs 05/14/24 ibuprofen 800 mg tablet 800 mg PO Q8H PRN pain #30 t abs 05/19/24 albuterol sulfate 90 mcg/actuation 2 puff inhalation Q 4H PRN 06/20/24 aerosol inhaler Shortness Of Breath Or Wheez ing #6.7 grams prednisone 20 mg tablet 20 mg PO BID 5 days #10 tabs 06/20/24 Allergies Allergy/AdvReac Type Severity Reaction Status Date / Time Iodinated Contrast Media Allergy Severe ALGY-Anaphy Verified 06/20/24 13:37 laxis ceftriaxone (From Rocephin) Allergy ALGY-Anaphy Verified 06/20/24 13:37 laxis ciprofloxacin (From Cipro) Allergy ADR-Nausea Verified 06/20/24 13:37 ketorolac Allergy anaphylaxis Verified 06/20/24 13:37 Sulfa (Sulfonamide Allergy Unknown Verified 06/20/24 13:37 Antibiotics) sulfamethoxazole (From Allergy ADR-Nausea Verified 06/20/24 13:37 Bactrim) trimethoprim (From Bactrim) Allergy ADR-Nausea Verified 06/20/24 13:37 Review of Systems Narrative: Constitutional symptoms: Negative except as documented in HPI. Skin symptoms: Negative except as documented in HPI. Eye symptoms: Negative except as documented in HPI. ENMT symptoms: Negative except as documented in HPI. Respiratory symptoms: Negative except as documented in HPI. Cardiovascular symptoms: Negative except as documented in HPI. Gastrointestinal symptoms: Negative except as documented in HPI. Genitourinary symptoms: Negative except as documented in HPI. Musculoskeletal symptoms: Negative except as documented in HPI. Neurologic symptoms: Negative except as documented in HPI. Psychiatric symptoms: Negative except as documented in HPI. Endocrine symptoms: Negative except as documented in HPI. PFSH ED PFSH: Medical History Familial adenomatous polyposis GERD (gastroesophageal reflux disease) Family history of FAP (familial adenomatous polyposis) Surgical History H/O esophagogastroduodenoscopy Hx of cholecystectomy Hx of colonoscopy with polypectomy H/O colectomy H/O ileostomy Family History Family/Other Diabetes Maternal uncle Hypertension Maternal uncle Hyperlipidemia Maternal uncle Colon cancer paternal cousins Mother Hypertension Hyperlipidemia Stroke Father Colon cancer Family/Other No problems noted. Other Breast cancer Ovarian cancer Uterine cancer Denies family history of Heart disease Thyroid disease Social History Smoking and tobacco/nicotine status: current every day tobacco/nicotine user Female Reproductive History: Date of last menstrual period: 07/14/24 Physical Exam Narrative: EXAM NARRATIVE: General: Alert, no acute distress. Skin: warm and dry Head: Normocephalic Neck: Trachea midline Eye: Extraocular movements are intact. Ears, nose, mouth and throat: Oral mucosa moist Respiratory: Respirations are non-labored Musculoskeletal: Normal ROM, no obvious deformity. No bruising. No swelling. Neurovascularly intact. Neurological: Alert and oriented, No focal neurological deficit observed. Psychiatric: Cooperative, appropriate mood & affect. Course Vital Signs: Vital signs: Vital Signs Temperature 98.2 F 07/14/24 02:53 Pulse Rate 104 H 07/14/24 02:53 Respiratory Rate 18 07/14/24 02:53 Blood Pressure 143/104 07/14/24 02:53 Pulse Oximetry 97 07/14/24 02:53 Oxygen Delivery Me thod Room Air 07/14/24 02:53 MDM - Extremity (Nontraumatic) Medical Decision Making X-ray of the foot: No acute process. There is hardware in place. This appears similar to previous x-ray.This was reviewed and interpreted by myself the emergency room physician. I also reviewed the radiology report. Assessment and plan: Foot injury - Discharged home - Discussed plan with patient. Answered any questions. - Evaluation and treatment of this problem were appropriate in the emergency setting. Lab Data Radiology Impressions Foot X-Ray 07/14/24 03:02 IMPRESSION: No acute fracture. No acute osseous abnormality. All radiology interpretation(s) finalized by discharge Discharge Plan Discharge Patient Disposition: Home Clinical Impression: Foot injury Condition: Stable Prescriptions: No Action amoxicillin 500 mg tablet 500 mg PO BID 10 Days Qty: 20 0RF prednisone 20 mg tablet 20 mg PO BID 5 Days Qty: 10 0RF albuterol sulfate 90 mcg/actuation HFA aerosol inhaler 2 puff INHALATION Q4H PRN (Reason: Shortness Of Breath Or Wheezing) Qty: 6.7 0RF ibuprofen 800 mg tablet 800 mg PO Q8H PRN (Reason: pain) Qty: 30 0RF budesonide-formoterol [Symbicort] 80-4.5 mcg/actuation HFA aerosol inhaler 2 puff INHALATION BID Discharge Orders: Discharge ED (Routine); Ordered 07/14/24 Ordered By: Regla Gtz Referrals: Rigoberto Ferguson MD [Primary Care Provider] - Discharge Diet: Usual diet Discharge Activity: Increase activity as tolerated Patient Instructions: Opioid Safety, Pain Management Activity Restrictions/Additional Instructions: The Thank you for choosing [facility] for your healthcare needs today. Please realize this is an emergency room and that we are providing you with a medical screening exam and this may not be complete and all inclusive of all the testing and or work up that you may need to determine your ailment or severity of your illness. You have been screened and evaluated and felt safe for discharge. Health conditions do change or evolve sometimes and as such it is important that you follow up with your Primary Doctor to be re checked, 3-5 days is a general good time frame for follow up. You are always welcome to return to the ED for re assessment if your symptoms are worsening or you have new concerns Print Language: Luxembourgish Coding Level of Care Code ED Hazardous Materials Handler for Yamilet De Souza
[2024-07-14 03:49] VITALS: BP 139/98; PULSE 99; O2SAT 97
== END 2024-07-14 03:50 | disposition home or self-care (01) ==
PROVIDERS: Emergency Provider Emergency Medicine; PCP Family Medicine
DX: S99.921A Unspecified injury of right foot, initial encounter (principal); Z72.0 Tobacco use; X58.XXXA Exposure to other specified factors, initial encounter
CPT/HCPCS: 73630; 99283

== ENCOUNTER 2024-07-16 19:49 | Emergency (ER) | payer OTHER, SELFPAY ==
[2024-07-16 19:53] VITALS: BP 143/93; PULSE 97; RESP 17; TEMP 36.9; O2SAT 97; BMI 32.3
--- NOTE | 2024-07-16 19:58 | ED_ITS ---
HPI - Abdominal Pain 2 General: Chief Complaint: Abdominal Pain Stated Complaint: ABD Pain Time Seen by Provider: 07/16/24 19:57 History of Present Illness: 28-year-old female with history of prior colectomy. She has had small bowel obstructions in the past. She presents with abdominal pain. She says that she has been on a fog brain crum for a couple of days. No fever. No vomiting. Related Data Home Medications ?Medication ?Instructions ?Recorded ?Confirmed budesonide-formoterol HFA 80 2 puff inhalation BID aneta rtness of 09/01/23 07/16/24 mcg-4.5 mcg/actuation aerosol breath inhaler (Symbicort) Previous Rx's ?Medication ?Instructions ?Recorded ibuprofen 800 mg tablet 800 mg PO Q8H PRN pain #30 t abs 05/19/24 albuterol sulfate 90 mcg/actuation 2 puff inhalation Q 4H PRN 06/20/24 aerosol inhaler Shortness Of Breath Or Wheez ing #6.7 grams Allergies Allergy/AdvReac Type Severity Reaction Status Date / Time Iodinated Contrast Media Allergy Severe ALGY-Anaphy Verified 07/16/24 19:56 laxis ceftriaxone (From Rocephin) Allergy ALGY-Anaphy Verified 07/16/24 19:56 laxis ciprofloxacin (From Cipro) Allergy ADR-Nausea Verified 07/16/24 19:56 ketorolac Allergy anaphylaxis Verified 07/16/24 19:56 Sulfa (Sulfonamide Allergy Unknown Verified 07/16/24 19:56 Antibiotics) sulfamethoxazole (From Allergy ADR-Nausea Verified 07/16/24 19:56 Bactrim) trimethoprim (From Bactrim) Allergy ADR-Nausea Verified 07/16/24 19:56 PFSH ED 2 PFSH: Medical History Familial adenomatous polyposis GERD (gastroesophageal reflux disease) Family history of FAP (familial adenomatous polyposis) Surgical History H/O esophagogastroduodenoscopy Hx of cholecystectomy Hx of colonoscopy with polypectomy H/O colectomy H/O ileostomy Family History Family/Other Diabetes Maternal uncle Hypertension Maternal uncle Hyperlipidemia Maternal uncle Colon cancer paternal cousins Mother Hypertension Hyperlipidemia Stroke Father Colon cancer Family/Other No problems noted. Other Breast cancer Ovarian cancer Uterine cancer Denies family history of Heart disease Thyroid disease Social History Smoking and tobacco/nicotine status: current every day tobacco/nicotine user Physical Exam 2 Const: COMMON NORMALS: no acute distress GENERAL APPEARANCE: cooperative; not ill appearing and not frail appearing HENMT: COMMON NORMALS: normocephalic, atraumatic and Normal external nose present HEAD & SCALP: normocephalic and atraumatic FACE & SINUS: normal facial exam and face symmetric NOSE: Normal external nose present Eye: COMMON NORMALS: Equal, round and reactive pupils present and EOMs intact bilaterally PUPIL: Yes Equal, round and reactive pupils present Neck/C-Spine: GENERAL: Yes trachea midline Chest: CHEST: Yes Symmetrical chest wall rise Resp: COMMON NORMALS: normal respiratory effort, No retractions, No use of accessory muscles and clear to auscultation bilaterally AUSCULTATION: clear to auscultation bilaterally Cardio: COMMON NORMALS: regular rate and regular rhythm RATE: regular rate RHYTHM: regular rhythm GI: COMMON NORMALS: Normal to inspection, nondistended, normoactive bowel sounds present PALPATION: Yes Tenderness to palpation present (GI) (generalized ) and No Guarding due to palpation present (GI) Extremity: COMMON NORMALS: no pedal edema Neuro: KIANA COMA SCALE: document GCS findings [place] coma scale eye opening: Spontaneous [place] coma scale verbal response: Orientated [place] coma scale motor response: Obey commands [place] coma scale total score: 15 S ENSORY EXAM: Yes extremities (intact) Psych: COMMON NORMALS: speech normal SPEECH: Yes normal speech Skin: COMMON NORMALS: no rashes or lesions noted GENERAL SKIN EXAM: no rashes or lesions noted Course 2 Vital Signs: Vital signs: Vital Signs Temperature 98.4 F 07/16/24 19:53 Pulse Rate 78 07/16/24 23:16 Respiratory Rate 18 07/16/24 23:16 Blood Pressure 128/74 07/16/24 23:16 Pulse Oximetry 97 07/16/24 23:16 Oxygen Delivery Me thod Room Air 07/16/24 23:15 MDM - Abdominal Pain Medical Decision Making Laboratories essentially normal. No urinary tract infection or blood. CT is negative. Pain is improved after morphine here. Will allow discharge. To return for any problems. Lab Data 07/16/24 20:33 07/16/24 20:33 Labs/Radiology: Radiology Impressions Abdomen/Pelvis CT 07/16/24 20:19 IMPRESSION: 1. No acute findings in the abdomen/pelvis. 2. Prior subtotal colectomy with sigmoid anastomosis. No evidence of bowel obstruction. Laboratory Results WBC 10.61 10^3/uL (3.29-11.43) 07/16/24 20: RBC 4.82 10^6/uL (3.85-5.65) 07/16/24 20:33 Hgb 15.20 g/dL (11.27-16.99) 07/16/24 20: Hct 45.2 % (36-47) 07/16/24 20: MCV 93.8 fl (85-98) 07/16/24 20: MCH 31.5 pg (27-33) 07/16/24 20: MCHC 33.6 g/dL (30-55) 07/16/24 20: RDW 12.3 % (12.1-15.1) 07/16/24 20: Plt Count 255 10^3/cmm (157-399) 07/16/24 20: MPV 10.9 fL (7.4-10.4) H 07/16/24 20:33 Neut % (Auto) 73.6 % 07/16/24 20:33 Lymph % (Auto) 15.3 % 07/16/24 20:33 [place] % (Auto) 5.6 % 07/16/24 20: Eos % (Auto) 4.3 % 07/16/24 20:33 Baso % (Auto) 0.6 % 07/16/24 20:33 Neut # (Auto) 7.82 10^3/uL (1.8-7.7) H 07/16/24 20: Lymph # (Auto) 1.6 10^3/uL (0.8-4.8) 07/16/24 20:33 Harmon # (Auto) 0.6 10^3/uL (0.2-0.9) 07/16/24 20:33 Eos # (Auto) 0.5 10^3/uL (0.0-0.8) 07/16/24 20:33 Baso # (Auto) 0.1 10^3/uL (0.0-0.1) 07/16/24 20:33 Nucleated RBC % (auto) 0 % 07/16/24 20: Nucleated RBCs # 0.0 /100WBC 07/16/24 20:33 Sodium 138 mmol/L (136-145) 07/16/24 20:33 Potassium 4.2 mmol/L (3.5-5.1) 07/16/24 20:33 Chloride 105 mmol/L (98-107) 07/16/24 20:33 Carbon Dioxide 23 mmol/L (22-29) 07/16/24 20:33 Anion Gap 14.2 (5-19) 07/16/24 20:33 BUN 8 mg/dL (6-20) 07/16/24 20:33 Creatinine 0.8 mg/dL (0.5-0.9) 07/16/24 20:33 GFR Calculation 86.7 mL/min (90-130) L 07/16/24 20:33 Glucose 97 mg/dL (65-115) 07/16/24: Calculated Osmolality 284 mOsm/kg (285-295) L 07/16/24: Lactic Acid 1.4 mmol/L (0.5-2.2) 07/16/24: Calcium 9.6 mg/dL (8.5-10.5) 07/16/24 20:33 Total Bilirubin 0.2 mg/dL (0.15-1.2) 07/16/24 20:33 AST 19 U/L (0-32) 07/16/24 20:33 ALT 25 U/L (0-33) 07/16/24 20:33 Alkaline Phosphatase 76 U/L (35-105) 07/16/24 20:33 Total Protein 7.2 g/dL (6.6-8.7) 07/16/24 20: Albumin 4.4 g/dL (3.5-5.2) 07/16/24 20: Globulin 2.8 g/dL (1.3-4.6) 07/16/24 20:33 Lipase 29 U/L (13-60) 07/16/24 20:33 HCG, Qual Negative (Negative) 07/16/24 20:33 Urine Color Yellow (Yellow) 07/16/24 21:00 Urine Appearance Clear (CLEAR) 07/16/24 21:00 Urine pH 7.5 (5-7) 07/16/24 21:00 Ur Specific [place] 1.014 (1.005-1.030) 07/16/24 21:00 Urine Protein Negative (Negative) 07/16/24 21:00 Urine Glucose (UA) Negative (Normal) 07/16/24 21:00 Urine Ketones Negative (Negative) 07/16/24 21:00 Urine Blood Negative (Negative) 07/16/24 21:00 Urine Nitrate Negative (Negative) 07/16/24 21:00 Urine Bilirubin Negative (Negative) 07/16/24 21:00 Urine Urobilinogen 1.0 mg/dL (Negative) 07/16/24 21:00 Ur Leukocyte Esterase Negative (Negative) 07/16/24 21:00 Amorphous Sediment Not Reportable 07/16/24 21:00 Urine Opiates Screen Negative ng/mL (Negative) 07/16/24 21:00 Ur Barbiturates Screen Negative ng/mL (Negative) 07/16/24 21:00 Ur Phencyclidine Scrn Negative ng/mL (Negative) 07/16/24 21:00 Ur Amphetamines Screen Negative ng/mL (Negative) 07/16/24 21:00 U Benzodiazepines Scrn Negative ng/mL (Negative) 07/16/24 21:00 Urine Cocaine Screen Negative ng/mL (Negative) 07/16/24 21:00 U Marijuana (THC) Screen Negative ng/mL (Negative) 07/16/24 21:00 Ethyl Alcohol < 10 mg/dL (0-10) 07/16/24 20:33 All radiology interpretation(s) finalized by discharge Discharge Plan Discharge Patient Disposition: Home Clinical Impression: Abdominal pain Condition: Stable Prescriptions: No Action albuterol sulfate 90 mcg/actuation HFA aerosol inhaler 2 puff INHALATION Q4H PRN (Reason: Shortness Of Breath Or Wheezing) Qty: 6.7 0RF ibuprofen 800 mg tablet 800 mg PO Q8H PRN (Reason: pain) Qty: 30 0RF budesonide-formoterol [Symbicort] 80-4.5 mcg/actuation HFA aerosol inhaler 2 puff INHALATION BID Discharge Orders: Discharge ED (Routine); Ordered 07/16/24 Ordered By: Anthony Patterson Referrals: Rigoberto Ferguson MD [Primary Care Provider] - 1-3 days Patient Instructions: Abdominal Pain (ED), Opioid Safety, Pain Management Activity Restrictions/Additional Instructions: Return for worsening pain, vomiting liquids or medications, fever, worsening mental status, any other concerning symptoms. Call your doctor in the morning to make a follow-up appointment. Print Language: Kittitian Coding Level of Care Code ED Straightener Hand for Yamilet De Souza
--- NOTE | 2024-07-16 20:19 | CTR_ITS ---
PROCEDURE INFORMATION: Exam: CT Abdomen And Pelvis Without Contrast Exam date and time: 07/16/2024 8:40 PM Age: 28 years old Clinical indication: Abdominal pain; Generalized; Prior surgery; Surgery date: 6+ months; Surgery type: Gb. Ileostomy. Colectomy; C/O diffuse abd pain; Additional info: Abd pain, HX of j pouch TECHNIQUE: Imaging protocol: Computed tomography of the abdomen and pelvis without contrast. Radiation optimization: All CT scans at this facility use at least one of these dose optimization techniques: automated exposure control; mA and/or kV adjustment per patient size (includes targeted exams where dose is matched to clinical indication); or iterative reconstruction. COMPARISON: CT abdomen pelvis con [id number] 04/17/2024 8:45 AM RADIATION DOSE METRICS: Total DLP (mGy-cm): 791.53 FINDINGS: Lungs: Mild left basilar atelectasis. Liver: Normal. No mass. Gallbladder and biliary ducts: Status post cholecystectomy. Pancreas: Normal. No ductal dilation. Spleen: Normal. No splenomegaly. Adrenal glands: Normal. No mass. Kidneys and ureters: Normal. No hydronephrosis. Stomach and bowel: Stable changes of subtotal colectomy with sigmoid anastomosis. No evidence of bowel obstruction. Appendix: No evidence of appendicitis. Intraperitoneal space: Unremarkable. No free air. No significant fluid collection. Vasculature: Unremarkable. No abdominal aortic aneurysm. Lymph nodes: Unremarkable. No enlarged lymph nodes. Urinary bladder: Unremarkable as visualized. Reproductive: Unremarkable as visualized. Bones/joints: Unremarkable. No acute fracture. Soft tissues: Unremarkable. CT/CT abdomen pelvis con [id number] IMPRESSION: 1. No acute findings in the abdomen/pelvis. 2. Prior subtotal colectomy with sigmoid anastomosis. No evidence of bowel obstruction.
[2024-07-16 20:40] LABS: Basophils # 0.1 10^3/uL (0.0-0.1); Basophils % 0.6 %; Eosinophils # 0.5 10^3/uL (0.0-0.8); Eosinophils % 4.3 %; Hematocrit 45.2 % (36-47); Lymphocytes # 1.6 10^3/uL (0.8-4.8); Lymphocytes % 15.3 %; Mean Corpuscular HGB Conc 33.6 g/dL (30-55); Mean Corpuscular Hemoglobin 31.5 pg (27-33); Mean Corpuscular Volume 93.8 fl (85-98); Mean Platelet Volume 10.9 fL (7.4-10.4); Monocytes # 0.6 10^3/uL (0.2-0.9); Monocytes % 5.6 %; Neutrophils # 7.82 10^3/uL (1.8-7.7); Neutrophils % 73.6 %; Nucleated Red Blood Cells % 0 %; Platelet Count 255 10^3/cmm (157-399); Red Blood Count 4.82 10^6/uL (3.85-5.65); Red Cell Distribution Width 12.3 % (12.1-15.1); White Blood Count 10.61 10^3/uL (3.29-11.43)
[2024-07-16 20:54] LABS: HCG, Serum Qual Negative (Negative)
[2024-07-16 21:01] LABS: Lactic Sepsis W/Reflex 1.4 mmol/L (0.5-2.2)
[2024-07-16 21:02] LABS: Alanine Aminotransferase 25 U/L (0-33); Albumin Level 4.4 g/dL (3.5-5.2); Alkaline Phosphatase 76 U/L (35-105); Anion Gap 14.2 (5-19); Aspartate Amino Transferase 19 U/L (0-32); Blood Urea Nitrogen 8 mg/dL (6-20); Calcium 9.6 mg/dL (8.5-10.5); Carbon Dioxide 23 mmol/L (22-29); Chloride 105 mmol/L (98-107); Creatinine Clr Calc Pharmacy 120.9016; Globulin 2.8 g/dL (1.3-4.6); Glomerular Filtration Rate 86.7 mL/min (90-130); Glucose 97 mg/dL (65-115); Lipase 29 U/L (13-60); Osmolality Calculated 284 mOsm/kg (285-295); Potassium 4.2 mmol/L (3.5-5.1); Sodium 138 mmol/L (136-145); Total Bilirubin 0.2 mg/dL (0.15-1.2); Total Protein 7.2 g/dL (6.6-8.7)
[2024-07-16 21:04] VITALS: PULSE 85; O2SAT 98
[2024-07-16 21:05] LABS: Add Urine Microscopic? NO
[2024-07-16 21:07] LABS: Alcohol Level < 10 mg/dL (0-10)
[2024-07-16 21:11] LABS: Bilirubin Urine Negative (Negative); Blood Urine Negative (Negative); Glucose Urine UA Negative (Normal); Ketones Urine Negative (Negative); Leukocyte Esterase Urine Negative (Negative); Nitrate Urine Negative (Negative); Protein Urine Negative (Negative); Specific Gravity, Urine 1.014 (1.005-1.030); Urine Appearance Clear (CLEAR); Urine Color Yellow (Yellow); pH Urine 7.5 (5-7)
[2024-07-16 21:19] LABS: Amphetamines Screen Urine Negative (Negative); Barbiturates Screen Urine Negative (Negative); Benzodiazepines Screen Urine Negative (Negative); Cocaine Screen Urine Negative (Negative); Opiate Screen Urine Negative (Negative); PCP Screen Urine Negative (Negative); THC Screen Urine Negative (Negative)
[2024-07-16 21:24] LABS: Charge for UA Resulting for Rev
[2024-07-16] MEDS: morphine 4 mg/mL SDV 1 mL IVP (22:48)
[2024-07-16] MEDS: sodium chloride 0.9% 1,000 ML 999 ML IV (22:48)
[2024-07-16] MEDS: ondansetron 2 mg/ML SDV 2 mL 4 MG IVP (22:48)
[2024-07-16 23:15] VITALS: BP 128/74; PULSE 75; RESP 18; O2SAT 97
[2024-07-16 23:16] VITALS: BP 128/74; PULSE 78; RESP 18; O2SAT 97
== END 2024-07-16 23:26 | disposition home or self-care (01) ==
PROVIDERS: Emergency Provider Emergency Medicine; PCP Family Medicine
DX: R10.9 Unspecified abdominal pain (principal); Z98.890 Other specified postprocedural states; Z72.0 Tobacco use
CPT/HCPCS: 36415; 74176; 80053; 80306; 80307; 81003; 83605; 83690; 84703; 85025; 96361; 96374; 96375; 99285; J2270; J2405; J7030

== ENCOUNTER 2024-07-18 22:04 | Emergency (ER) | payer OTHER, SELFPAY ==
[2024-07-18 22:08] VITALS: BP 145/87; PULSE 98; RESP 16; TEMP 36.8; O2SAT 98
--- NOTE | 2024-07-18 22:25 | XRR_ITS ---
PROCEDURE INFORMATION: Exam: XR Chest Exam date and time: 07/18/2024 10:28 PM Age: 28 years old Clinical indication: Other: Dizzy TECHNIQUE: Imaging protocol: Radiologic exam of the chest. Views: 1 view. COMPARISON: CR XR chest 1V portable [id number] 06/22/2023 5:46 AM FINDINGS: Lungs: Unremarkable. No consolidation. Pleural spaces: Unremarkable. No pleural effusion. No pneumothorax. Heart/Mediastinum: Unremarkable. No cardiomegaly. Bones/joints: Unremarkable. XR/XR chest 1V portable [id number] IMPRESSION: No acute findings.
--- NOTE | 2024-07-18 22:25 | ECG_ITS ---
[facility] Date: 2024-07[facility]18 Pat Name: Shayla Taylor Department: Room: Gender: Female Dyeing Machine Feeder: : 1995 Requested By: Ji Cardona Order Number: [id number] Oswald MD: Yosvany Mendoza M.D. Measurements Intervals [place] Rate: 72 P: 12 [place]: 230 QRS: 58 QRSD: 105 T: 16 QT: 366 QTc: 402 Interpretive Statements SINUS RHYTHM WITH FIRST DEGREE AV BLOCK Compared to ECG 03/10/2022 19:14:01 Sinus arrhythmia no longer present Electronically Signed On 07-22-2024 19:43:01 BLINDSTITCH MACHINE OPERATOR by Yosvany Mendoza M.D. [email or web address] [id number]
--- NOTE | 2024-07-18 22:46 | ED_ITS ---
HPI - Dizziness 2 General: Chief Complaint: Dizziness Stated Complaint: Dizzy\SOB Time Seen by Provider: 07/18/24 22:14 Source: patient Mode of arrival: ambulatory Limitations: no limitations History of Present Illness: HPI Narrative: Patient is a 28-year-old female with multiple prior visits here to the emergency department complaining of dizziness for the past 4 days. She was seen here in the ED just 2 days ago, states that she did not mention her dizziness at that time and was worked up for something else ultimately discharged home. She states that she feels that she is going in and out of it and sleeping more. Also noting a headache. No gait disturbances reported, no focal neurological deficits otherwise. No visual changes. Vitals within normal limits at this time. She states that the dizziness feels like a lightheadedness and that she is going to pass out. Has not tried any [id number] medications for this. MD elicited complaint: dizziness and lightheadedness Onset (ago): day(s) (4) Timing: gradual onset Severity: moderate Description: lightheadedness Exacerbating factors: movement/ambulation and change in body position Relieving factors: remaining still Associated symptoms: Reports headache(s); Denies change in hearing, chest pain, chills, ear discharge, nausea, palpitations, tinnitus or vomiting Associated neuro symptoms: Deny numbness in extremities Related Data Home Medications ?Medication ?Instructions ?Recorded ?Confirmed budesonide-formoterol HFA 80 2 puff inhalation BID aneta rtness of 09/01/23 07/16/24 mcg-4.5 mcg/actuation aerosol breath inhaler (Symbicort) Previous Rx's ?Medication ?Instructions ?Recorded ibuprofen 800 mg tablet 800 mg PO Q8H PRN pain #30 t abs 05/19/24 albuterol sulfate 90 mcg/actuation 2 puff inhalation Q 4H PRN 06/20/24 aerosol inhaler Shortness Of Breath Or Wheez ing #6.7 grams Allergies Allergy/AdvReac Type Severity Reaction Status Date / Time Iodinated Contrast Media Allergy Severe ALGY-Anaphy Verified 07/18/24 22:14 laxis ceftriaxone (From Rocephin) Allergy ALGY-Anaphy Verified 07/18/24 22:14 laxis ciprofloxacin (From Cipro) Allergy ADR-Nausea Verified 07/18/24 22:14 ketorolac Allergy anaphylaxis Verified 07/18/24 22:14 Sulfa (Sulfonamide Allergy Unknown Verified 07/18/24 22:14 Antibiotics) sulfamethoxazole (From Allergy ADR-Nausea Verified 07/18/24 22:14 Bactrim) trimethoprim (From Bactrim) Allergy ADR-Nausea Verified 07/18/24 22:14 Review of Systems 2 General: Reports: 10 or more systems reviewed and unremarkable except in HPI and below Const: Denies: fever(s), chills or fatigue Eyes: Denies: change in vision ENMT: Denies: throat pain, ear or mastoid pain, ear discharge, change in hearing, tinnitus, disequilibrium or nasal discharge Card: Reports: lightheadedness; Denies: chest pain, palpitations or swelling of feet/ankles Resp: Denies: dyspnea, productive cough or wheezing GI: Denies: abdominal pain, nausea, vomiting, diarrhea or constipation : Denies: flank pain, difficulty voiding, dysuria or urinary frequency Musc: Denies: neck pain, back pain or joint pain Skin/Breast: Denies: rash Neuro: Reports: headache(s) and dizziness; Denies: numbness in extremities, weakness in extremities, sensory changes, frequent falls, Slurred speech present or seizure-like activity PFSH ED 2 PFSH: Medical History Familial adenomatous polyposis GERD (gastroesophageal reflux disease) Family history of FAP (familial adenomatous polyposis) Surgical History H/O esophagogastroduodenoscopy Hx of cholecystectomy Hx of colonoscopy with polypectomy H/O colectomy H/O ileostomy Family History Family/Other Diabetes Maternal uncle Hypertension Maternal uncle Hyperlipidemia Maternal uncle Colon cancer paternal cousins Mother Hypertension Hyperlipidemia Stroke Father Colon cancer Family/Other No problems noted. Other Breast cancer Ovarian cancer Uterine cancer Denies family history of Heart disease Thyroid disease Social History Smoking and tobacco/nicotine status: current every day tobacco/nicotine user Physical Exam 2 Const: COMMON NORMALS: no acute distress, patient oriented x3 and no limitations GENERAL APPEARANCE: cooperative, comfortable and well developed ORIENTATION/CONSCIOUSNESS: Yes awake, Yes oriented to person, Yes oriented to place and Yes oriented to time HENMT: COMMON NORMALS: normocephalic, atraumatic and hearing grossly normal bilaterally HEAD & SCALP: normocephalic and atraumatic Eye: COMMON NORMALS: Equal, round and reactive pupils present, EOMs intact bilaterally and conjunctivae normal CONJUNCTIVA: Yes conjunctivae normal P UPIL: Yes Equal, round and reactive pupils present OTHER: Eyes track midline Neck/C-Spine: COMMON NORMALS: full ROM, supple and no JVD Resp: COMMON NORMALS: normal respiratory effort, No retractions, No use of accessory muscles and clear to auscultation bilaterally AUSCULTATION: clear to auscultation bilaterally Cardio: COMMON NORMALS: no JVD, regular rate, regular rhythm, No clicks present (Cardio), No murmurs present (Cardio) and No rub (Cardio) RATE: r egular rate RHYTHM: regular rhythm GI: COMMON NORMALS: Normal to inspection, nondistended, normoactive bowel sounds present, Soft to palpation and non-tender AUSCULTATION: Yes normoactive bowel sounds PALPATION: Yes Soft to palpation RECTAL EXAM: d eferred Extremity: COMMON NORMALS: normal to inspection, full ROM and capillary refill normal Neuro: COMMON NORMALS: patient oriented x3, CN's II-XII intact bilaterally, moves all extremities, no focal motor deficits and no sensory deficits noted SENSORIUM/ORIENTATION: Yes oriented to person, Yes oriented to place and Yes oriented to time SPEECH: speech normal GAIT: Yes Normal gait present M OTOR EXAM: 5/5 motor strength present throughout, Pronator motor function not present, no tremor noted and no asterixis Psych: COMMON NORMALS: mental status grossly normal and Normal thought process present THOUGHT PROCESS: Normal thought process present Skin: COMMON NORMALS: no rashes or lesions noted GENERAL SKIN EXAM: no rashes or lesions noted Course 2 Vital Signs: Vital signs: Vital Signs Temperature 98.2 F 07/18/24 22:08 Pulse Rate 98 07/18/24 22:08 Respiratory Rate 16 07/18/24 22:08 Blood Pressure 145/87 07/18/24 22:08 Pulse Oximetry 98 07/18/24 22:08 Oxygen Delivery Me thod Room Air 07/18/24 22:08 [facility] - Dizziness Medical Decision Making This patient presented for dizziness, has been seen here multiple times in the emergency department recently. States that the dizziness has been for 4 days yet she was seen here 2 days ago in the ED but did not mention it. Neurologically intact on physical exam. Vitals have been within normal limits. Her lab work was all unchanged from prior obtained. Was given meclizine here and I suspect benign dizziness, will have her take meclizine [id number] and drink plenty fluids. Return precautions given, will be discharged home at this time. Lab Data 07/18/24 22:37 07/18/24 22:37 Radiology Impressions Chest X-Ray 07/18/24 22: IMPRESSION: No acute findings. Laboratory Results WBC 9.45 10^3/uL (3.29-11.43) 07/18/24 22: RBC 5.07 10^6/uL (3.85-5.65) 07/18/24 22: Hgb 15.80 g/dL (11.27-16.99) 07/18/24 22:37 Hct 46.6 % (36-47) 07/18/24 22:37 MCV 91.9 fl (85-98) 07/18/24 22: MCH 31.2 pg (27-33) 07/18/24 22: MCHC 33.9 g/dL (30-55) 07/18/24 22:37 RDW 12.1 % (12.1-15.1) 07/18/24 22:37 Plt Count 236 10^3/cmm (157-399) 07/18/24 22:37 MPV 10.7 fL (7.4-10.4) H 07/18/24 22:37 Neut % (Auto) 74.6 % 07/18/24 22:37 Lymph % (Auto) 16.1 % 07/18/24 22:37 [place] % (Auto) 4.8 % 07/18/24 22:37 Eos % (Auto) 3.2 % 07/18/24 22:37 Baso % (Auto) 0.6 % 07/18/24 22:37 Neut # (Auto) 7.05 10^3/uL (1.8-7.7) 07/18/24 22:37 Lymph # (Auto) 1.5 10^3/uL (0.8-4.8) 07/18/24 22:37 [place] # (Auto) 0.5 10^3/uL (0.2-0.9) 07/18/24 22:37 Eos # (Auto) 0.3 10^3/uL (0.0-0.8) 07/18/24 22:37 Baso # (Auto) 0.1 10^3/uL (0.0-0.1) 07/18/24 22:37 Nucleated RBC % (auto) 0 % 07/18/24 22:37 Nucleated RBCs # 0.0 /100WBC 07/18/24 22:37 Sodium 138 mmol/L (136-145) 07/18/24 22:37 Potassium 4.3 mmol/L (3.5-5.1) 07/18/24 22:37 Chloride 104 mmol/L (98-107) 07/18/24 22:37 Carbon Dioxide 22 mmol/L (22-29) 07/18/24 22:37 Anion Gap 16.3 (5-19) 07/18/24 22:37 BUN 8 mg/dL (6-20) 07/18/24 22:37 Creatinine 0.8 mg/dL (0.5-0.9) 07/18/24 22:37 GFR Calculation 86.7 mL/min (90-130) L 07/18/24 22:37 Glucose 91 mg/dL (65-115) 07/18/24 22:37 Calculated Osmolality 284 mOsm/kg (285-295) L 07/18/24 22:37 Calcium 9.8 mg/dL (8.5-10.5) 07/18/24 22:37 Total Bilirubin 0.4 mg/dL (0.15-1.2) 07/18/24 22:37 AST 26 U/L (0-32) 07/18/24 22:37 ALT 34 U/L (0-33) H 07/18/24 22:37 Alkaline Phosphatase 88 U/L (35-105) 07/18/24 22:37 Total Protein 7.7 g/dL (6.6-8.7) 07/18/24 22:37 Albumin 4.6 g/dL (3.5-5.2) 07/18/24 22:37 Globulin 3.1 g/dL (1.3-4.6) 07/18/24 22:37 HCG, Qual Negative (Negative) 07/18/24 22:37 Urine Color Yellow (Yellow) 07/18/24 23:50 Urine Appearance Cloudy (CLEAR) A 07/18/24 23:50 Urine pH 5.5 (5-7) 07/18/24 23:50 Ur Specific [place] 1.013 (1.005-1.030) 07/18/24 23:50 Urine Protein Negative (Negative) 07/18/24 23:50 Urine Glucose (UA) Negative (Normal) 07/18/24 23:50 Urine Ketones Negative (Negative) 07/18/24 23:50 Urine Blood Negative (Negative) 07/18/24 23:50 Urine Nitrate Negative (Negative) 07/18/24 23:50 Urine Bilirubin Negative (Negative) 07/18/24 23:50 Urine Urobilinogen 0.2 mg/dL (Negative) 07/18/24 23:50 Ur Leukocyte Esterase Negative (Negative) 07/18/24 23:50 Amorphous Sediment Not Reportable 07/18/24 23:50 All radiology interpretation(s) finalized by discharge Discharge Plan Discharge Patient Disposition: Home Clinical Impression: Benign paroxysmal positional vertigo Condition: Stable Prescriptions: No Action albuterol sulfate 90 mcg/actuation HFA aerosol inhaler 2 puff INHALATION Q4H PRN (Reason: Shortness Of Breath Or Wheezing) Qty: 6.7 0RF ibuprofen 800 mg tablet 800 mg PO Q8H PRN (Reason: pain) Qty: 30 0RF budesonide-formoterol [Symbicort] 80-4.5 mcg/actuation HFA aerosol inhaler 2 puff INHALATION BID Discharge Orders: Discharge ED (Routine); Ordered 07/19/24 Ordered By: Ji Byrne Referrals: Rigoberto Ferguson MD [Primary Care Provider] - Patient Instructions: Benign Paroxysmal Positional Vertigo (ED), Dizziness (ED) Activity Restrictions/Additional Instructions: Take [id number] meclizine as discussed. Drink plenty of fluids. Follow- up with your primary care provider. Return with any new or worsening. Print Language: [place]ian Coding Level of Care Code ED Advanced Manufacturing Consultant for Chg Nolvia
[2024-07-18 22:49] LABS: Basophils # 0.1 10^3/uL (0.0-0.1); Basophils % 0.6 %; Eosinophils # 0.3 10^3/uL (0.0-0.8); Eosinophils % 3.2 %; Hematocrit 46.6 % (36-47); Lymphocytes # 1.5 10^3/uL (0.8-4.8); Lymphocytes % 16.1 %; Mean Corpuscular HGB Conc 33.9 g/dL (30-55); Mean Corpuscular Hemoglobin 31.2 pg (27-33); Mean Corpuscular Volume 91.9 fl (85-98); Mean Platelet Volume 10.7 fL (7.4-10.4); Monocytes # 0.5 10^3/uL (0.2-0.9); Monocytes % 4.8 %; Neutrophils # 7.05 10^3/uL (1.8-7.7); Neutrophils % 74.6 %; Nucleated Red Blood Cells % 0 %; Platelet Count 236 10^3/cmm (157-399); Red Blood Count 5.07 10^6/uL (3.85-5.65); Red Cell Distribution Width 12.1 % (12.1-15.1); White Blood Count 9.45 10^3/uL (3.29-11.43)
[2024-07-18 23:00] LABS: HCG, Serum Qual Negative (Negative)
[2024-07-18 23:07] LABS: Alanine Aminotransferase 34 U/L (0-33); Albumin Level 4.6 g/dL (3.5-5.2); Alkaline Phosphatase 88 U/L (35-105); Anion Gap 16.3 (5-19); Aspartate Amino Transferase 26 U/L (0-32); Blood Urea Nitrogen 8 mg/dL (6-20); Calcium 9.8 mg/dL (8.5-10.5); Carbon Dioxide 22 mmol/L (22-29); Chloride 104 mmol/L (98-107); Creatinine Clr Calc Pharmacy 120.9016; Globulin 3.1 g/dL (1.3-4.6); Glomerular Filtration Rate 86.7 mL/min (90-130); Glucose 91 mg/dL (65-115); Osmolality Calculated 284 mOsm/kg (285-295); Potassium 4.3 mmol/L (3.5-5.1); Sodium 138 mmol/L (136-145); Total Bilirubin 0.4 mg/dL (0.15-1.2); Total Protein 7.7 g/dL (6.6-8.7)
[2024-07-18 23:43] VITALS: BP 123/100; PULSE 79; O2SAT 93
[2024-07-18 23:57] LABS: Bilirubin Urine Negative (Negative); Blood Urine Negative (Negative); Glucose Urine UA Negative (Normal); Ketones Urine Negative (Negative); Leukocyte Esterase Urine Negative (Negative); Nitrate Urine Negative (Negative); Protein Urine Negative (Negative); Specific Gravity, Urine 1.013 (1.005-1.030); Urine Appearance Cloudy (CLEAR); Urine Color Yellow (Yellow); Urobilinogen Urine 0.2 mg/dL (Negative); pH Urine 5.5 (5-7)
[2024-07-19] MEDS: sodium chloride 0.9% 1,000 ML 999 ML IV (00:01)
[2024-07-19] MEDS: meclizine 25 mg tablet PO (00:01)
[2024-07-19 00:19] LABS: Add Urine Microscopic? YES; UA Manual Slide Review YES; UA Slide Review UA Slide Review Perf; WBC Urine 0-4 /hpf (0-5)
[2024-07-19 00:20] LABS: Bacteria Urine TRACE /hpf
[2024-07-19 00:45] VITALS: BP 135/79; PULSE 88; RESP 16; O2SAT 96
== END 2024-07-19 00:29 | disposition home or self-care (01) ==
PROVIDERS: Emergency Provider Physician Assistant; PCP Family Medicine
DX: R42 Dizziness and giddiness (principal); Z72.0 Tobacco use
CPT/HCPCS: 36415; 71045; 80053; 81001; 84703; 85025; 93005; 96360; 99285; J7030; J8597

== ENCOUNTER 2024-10-20 22:13 | Emergency (ER) | payer OTHER, SELFPAY ==
[2024-10-20 22:20] VITALS: BP 134/87; PULSE 89; RESP 16; TEMP 36.7; O2SAT 96; BMI 30.7
[2024-10-20 23:11] LABS: Basophils # 0.1 10^3/uL (0.0-0.1); Basophils % 0.5 %; Eosinophils # 0.2 10^3/uL (0.0-0.8); Eosinophils % 2.1 %; Hematocrit 43.4 % (36-47); Lymphocytes # 1.3 10^3/uL (0.8-4.8); Lymphocytes % 13.2 %; Mean Corpuscular HGB Conc 34.1 g/dL (30-55); Mean Corpuscular Hemoglobin 31.4 pg (27-33); Mean Corpuscular Volume 92.1 fl (85-98); Monocytes # 0.4 10^3/uL (0.2-0.9); Monocytes % 3.7 %; Neutrophils # 8.03 10^3/uL (1.8-7.7); Neutrophils % 79.5 %; Nucleated Red Blood Cells % 0 %; Platelet Count 216 10^3/cmm (157-399); Red Blood Count 4.71 10^6/uL (3.85-5.65); Red Cell Distribution Width 12.2 % (12.1-15.1); White Blood Count 10.09 10^3/uL (3.29-11.43)
[2024-10-20 23:26] LABS: Alanine Aminotransferase 18 U/L (0-33); Albumin Level 4.2 g/dL (3.5-5.2); Alkaline Phosphatase 74 U/L (35-105); Anion Gap 13.5 (5-19); Aspartate Amino Transferase 13 U/L (0-32); Blood Urea Nitrogen 10 mg/dL (6-20); Calcium 9.3 mg/dL (8.5-10.5); Carbon Dioxide 22 mmol/L (22-29); Chloride 106 mmol/L (98-107); Creatinine Clr Calc Pharmacy 155.7549; Globulin 2.8 g/dL (1.3-4.6); Glomerular Filtration Rate 119.9 mL/min (90-130); Glucose 144 mg/dL (65-115); Osmolality Calculated 288 mOsm/kg (285-295); Potassium 3.5 mmol/L (3.5-5.1); Sodium 138 mmol/L (136-145); Total Bilirubin 0.4 mg/dL (0.15-1.2)
[2024-10-21 00:46] LABS: HCG, Serum Qual Negative (Negative)
[2024-10-21 01:33] VITALS: BP 113/90; PULSE 79; O2SAT 98
[2024-10-21 01:47] LABS: Bilirubin Urine Negative (Negative); Blood Urine 3+ (Negative); Glucose Urine UA Negative (Normal); Ketones Urine Trace (Negative); Leukocyte Esterase Urine Trace (Negative); Nitrate Urine Negative (Negative); Protein Urine Negative (Negative); Specific Gravity, Urine 1.022 (1.005-1.030); Urine Appearance Clear (CLEAR); Urine Color Yellow (Yellow); pH Urine 5.5 (5-7)
[2024-10-21 01:52] LABS: Add Urine Microscopic? YES; Bacteria Urine None Seen /hpf; Hyaline Casts Urine 0.81 /lpf; RBC Urine 0-2 /hpf (0-2); Squamous Epithelial Cell Urine 0-5 /hpf (0-5); WBC Urine 0-5 /hpf (0-5)
--- NOTE | 2024-10-21 01:56 | ED_ITS ---
HPI - General Adult 2 General: Chief complaint: Vaginal Bleeding Stated complaint: abd pain Time Seen by Provider: 10/20/24 23:36 History of Present Illness: Patient comes in with vaginal bleeding and abdominal pain that started last night. States that her last menstrual cycle was 2 weeks ago. States has a history of PCOS but her cycles usually regular. States she is also having abdominal cramping. States she had some vomiting associated with that. Denies fever, or diarrhea. On physical exam she does have mild generalized tenderness to palpation of her abdomen with right lower quadrant tenderness to palpation. Will check labs, CT abdomen pelvis with IV contrast, give p.o. Motrin which she takes at home, even though she has a Toradol allergy, and reassess. Associated symptoms: Reports vomiting Related Data Home Medications ?Medication ?Instructions ?Recorded ?Confirmed budesonide-formoterol HFA 80 2 puff inhalation BID aneta rtness of 09/01/23 09/27/24 mcg-4.5 mcg/actuation aerosol breath inhaler (Symbicort) Previous Rx's ?Medication ?Instructions ?Recorded albuterol sulfate 90 mcg/actuation 2 puff inhalation Q 4H PRN 06/20/24 aerosol inhaler Shortness Of Breath Or Wheez ing #6.7 grams doxycycline hyclate 100 mg tablet 100 mg PO BID 7 days #14 tabs 09/27/24 prednisone 20 mg tablet 40 mg (2 x 20 mg) PO DAILY 5 days 09/27/24 #10 tabs Allergies Allergy/AdvReac Type Severity Reaction Status Date / Time Iodinated Contrast Media Allergy Severe ALGY-Anaphy Verified 09/27/24 15:45 laxis ceftriaxone (From Rocephin) Allergy ALGY-Anaphy Verified 09/27/24 15:45 laxis ciprofloxacin (From Cipro) Allergy ADR-Nausea Verified 09/27/24 15:45 ketorolac Allergy anaphylaxis Verified 09/27/24 15:45 Sulfa (Sulfonamide Allergy Unknown Verified 09/27/24 15:45 Antibiotics) sulfamethoxazole (From Allergy ADR-Nausea Verified 09/27/24 15:45 Bactrim) trimethoprim (From Bactrim) Allergy ADR-Nausea Verified 09/27/24 15:45 Review of Systems 2 GI: Reports: abdominal pain and vomiting : Reports: vaginal bleeding [facility] ED 2 PFSH: Medical History (Updated 10/21/24 @ 03:37 by Roddy Young MD) Smoking addiction Familial adenomatous polyposis GERD (gastroesophageal reflux disease) Family history of FAP (familial adenomatous polyposis) Surgical History H/O esophagogastroduodenoscopy Hx of cholecystectomy Hx of colonoscopy with polypectomy H/O colectomy H/O ileostomy Family History Family/Other Diabetes Maternal uncle Hypertension Maternal uncle Hyperlipidemia Maternal uncle Colon cancer paternal cousins Mother Hypertension Hyperlipidemia Stroke Father Colon cancer Family/Other No problems noted. Other Breast cancer Ovarian cancer Uterine cancer Denies family history of Heart disease Thyroid disease Social History Smoking and tobacco/nicotine status: current every day tobacco/nicotine user Female Reproductive History: Date of last menstrual period: 10/02/24 Physical Exam 2 Const: COMMON NORMALS: no acute distress, patient oriented x3, healthy appearing and alert HENMT: COMMON NORMALS: normocephalic and atraumatic HEAD & SCALP: n ormocephalic and atraumatic Neck/C-Spine: COMMON NORMALS: full ROM and supple Resp: COMMON NORMALS: normal respiratory effort, No retractions and No use of accessory muscles Cardio: COMMON NORMALS: regular rate and regular rhythm RATE: regular rate RHYTHM: regular rhythm : OTHER: Generalized abdominal tenderness to palpation worse in the right lower quadrant Extremity: COMMON NORMALS: normal to inspection and full ROM Neuro: COMMON NORMALS: patient oriented x3 SENSORIUM/ORIENTATION: Yes alert Skin: COMMON NORMALS: no rashes or lesions noted and no wounds GENERAL SKIN EXAM: no rashes or lesions noted Course 2 Vital Signs: Vital signs: Vital Signs Temperature 98.1 F 10/20/24 22:20 Pulse Rate 76 10/21/24 02:35 Respiratory Rate 16 10/20/24 22:20 Blood Pressure 113/90 10/21/24 01:33 Pulse Oximetry 98 10/21/24 02:35 Oxygen Delivery Me thod Room Air 10/21/24 02:35 MDM - General Adult Medical Decision Making On reassessment I talked to the patient about her test results. Her hemoglobin is normal at 14.8. Her CT scan shows a left ovarian cyst with no other acute intra-abdominal pathology. She is resting comfortably in the gurney at this time. We discussed follow-up with her primary care physician if she continues to have bleeding. Will discharge at this time with precautions to return for worsening or changing symptoms. Lab Data 10/20/24 23:05 10/20/24 23:05 Radiology Impressions Abdomen/Pelvis CT 10/21/24 02:31 IMPRESSION: 1. 4 cm left ovarian/adnexal cyst.No further imaging is recommended. (Reference: Ritchie) 2. Postoperative changes status post subtotal colectomy with sigmoid anastomosis. Please see above comments. 3. Possible mild wall thickening without adjacent fat stranding involving a few small bowel loops within the right lower quadrant. This could potentially represent a mild enteritis. Recommend clinical correlation. References: Ritchie et al. Management of Incidental Adnexal Findings on CT and MRI: A White Paper of the ACR Incidental Findings Committee, J Am Rahul Radiol. 2019;17(2):248-254. Laboratory Results WBC 10.09 10^3/uL (3.29-11.43) 10/20/24 23:05 RBC 4.71 10^6/uL (3.85-5.65) 10/20/24 23:05 Hgb 14.80 g/dL (11.27-16.99) 10/20/24 23:05 Hct 43.4 % (36-47) 10/20/24 23:05 MCV 92.1 fl (85-98) 10/20/24 23:05 MCH 31.4 pg (27-33) 10/20/24 23:05 MCHC 34.1 g/dL (30-55) 10/20/24 23:05 RDW 12.2 % (12.1-15.1) 10/20/24 23:05 Plt Count 216 10^3/cmm (157-399) 10/20/24 23:05 MPV 11.0 fL (7.4-10.4) H 10/20/24 23:05 Neut % (Auto) 79.5 % 10/20/24 23:05 Lymph % (Auto) 13.2 % 10/20/24 23:05 [place] % (Auto) 3.7 % 10/20/24 23:05 Eos % (Auto) 2.1 % 10/20/24 23:05 Baso % (Auto) 0.5 % 10/20/24 23:05 Neut # (Auto) 8.03 10^3/uL (1.8-7.7) H 10/20/24 23:05 Lymph # (Auto) 1.3 10^3/uL (0.8-4.8) 10/20/24 23:05 [place] # (Auto) 0.4 10^3/uL (0.2-0.9) 10/20/24 23:05 Eos # (Auto) 0.2 10^3/uL (0.0-0.8) 10/20/24 23:05 Baso # (Auto) 0.1 10^3/uL (0.0-0.1) 10/20/24 23:05 Nucleated RBC % (auto) 0 % 10/20/24 23:05 Nucleated RBCs # 0.0 /100WBC 10/20/24 23:05 Sodium 138 mmol/L (136-145) 10/20/24 23:05 Potassium 3.5 mmol/L (3.5-5.1) 10/20/24 23:05 Chloride 106 mmol/L (98-107) 10/20/24 23:05 Carbon Dioxide 22 mmol/L (22-29) 10/20/24 23:05 Anion Gap 13.5 (5-19) 10/20/24 23:05 BUN 10 mg/dL (6-20) 10/20/24 23:05 Creatinine 0.6 mg/dL (0.5-0.9) 10/20/24 23:05 GFR Calculation 119.9 mL/min (90-130) 10/20/24 23:05 Glucose 144 mg/dL (65-115) H 10/20/24 23:05 Calculated Osmolality 288 mOsm/kg (285-295) 10/20/24 23:05 Calcium 9.3 mg/dL (8.5-10.5) 10/20/24 23:05 Total Bilirubin 0.4 mg/dL (0.15-1.2) 10/20/24 23:05 AST 13 U/L (0-32) 10/20/24 23:05 ALT 18 U/L (0-33) 10/20/24 23:05 Alkaline Phosphatase 74 U/L (35-105) 10/20/24 23:05 Total Protein 7.0 g/dL (6.6-8.7) 10/20/24 23:05 Albumin 4.2 g/dL (3.5-5.2) 10/20/24 23:05 Globulin 2.8 g/dL (1.3-4.6) 10/20/24 23:05 HCG, Qual Negative (Negative) 10/20/24 23:05 Urine Color Yellow (Yellow) 10/21/24 01:34 Urine Appearance Clear (CLEAR) 10/21/24 01:34 Urine pH 5.5 (5-7) 10/21/24 01:34 Ur Specific [place] 1.022 (1.005-1.030) 10/21/24 01:34 Urine Protein Negative (Negative) 10/21/24 01:34 Urine Glucose (UA) Negative (Normal) 10/21/24 01:34 Urine Ketones Trace (Negative) 10/21/24 01:34 Urine Blood 3+ (Negative) A 10/21/24 01:34 Urine Nitrate Negative (Negative) 10/21/24 01:34 Urine Bilirubin Negative (Negative) 10/21/24 01:34 Urine Urobilinogen 1.0 mg/dL (Negative) 10/21/24 01:34 Ur Leukocyte Esterase Trace (Negative) A 10/21/24 01:34 Urine RBC 0-2 /hpf (0-2) 10/21/24 01:34 Urine WBC 0-5 /hpf (0-5) 10/21/24 01:34 Ur Squamous Epith Cells 0-5 /hpf (0-5) 10/21/24 01:34 Amorphous Sediment Not Reportable 10/21/24 01:34 Urine Bacteria None seen /hpf (NONE) 10/21/24 01:34 Hyaline Casts 0.81 /lpf 10/21/24 01:34 All radiology interpretation(s) finalized by discharge Discharge Plan Discharge Patient Disposition: Home Clinical Impression: Vaginal bleeding Condition: Stable Prescriptions: No Action albuterol sulfate 90 mcg/actuation HFA aerosol inhaler 2 puff INHALATION Q4H PRN (Reason: Shortness Of Breath Or Wheezing) Qty: 6.7 0RF prednisone 20 mg tablet 40 mg PO DAILY 5 Days Qty: 10 0RF doxycycline hyclate 100 mg tablet 100 mg PO BID 7 Days Qty: 14 0RF budesonide-formoterol [Symbicort] 80-4.5 mcg/actuation HFA aerosol inhaler 2 puff INHALATION BID Discharge Orders: Discharge ED (Routine); Ordered 10/21/24 Ordered By: Roddy Young Referrals: Rigoberto Ferguson MD [Primary Care Provider, Family Practice] Patient Instructions: Abnormal (Dysfunctional) Uterine Bleeding (ED), Pain Management Print Language: Yoruba Coding Level of Care Code ED Crushing Foreman for Yamilet De Souza
--- NOTE | 2024-10-21 02:31 | CTR_ITS ---
PROCEDURE INFORMATION: Exam: CT Abdomen And Pelvis Without Contrast Exam date and time: 10/21/2024 2:59 AM Age: 29 years old Clinical indication: Abdominal pain; Localized; Right lower quadrant (rlq); Prior surgery; Surgery date: 6+ months; Surgery type: Gb. Ileostomy. Colectomy; C/O rlq pain. ; Additional info: Roq abd pain, contrast allergy TECHNIQUE: Imaging protocol: Computed tomography of the abdomen and pelvis without contrast. Radiation optimization: All CT scans at this facility use at least one of these dose optimization techniques: automated exposure control; mA and/or kV adjustment per patient size (includes targeted exams where dose is matched to clinical indication); or iterative reconstruction. COMPARISON: CT abdomen pelvis wo con [id number] 07/16/2024 8:40 PM RADIATION DOSE METRICS: Total DLP (mGy-cm): 661.15 FINDINGS: Lungs: Lung bases are clear as visualized. Diaphragm: There may be a small hiatal hernia. Liver: Normal. No mass. Gallbladder and biliary ducts: There are surgical clips within the gallbladder fossa. Pancreas: Normal. No ductal dilation. Spleen: Normal. No splenomegaly. Adrenal glands: Normal. No mass. Kidneys and ureters: Normal. No hydronephrosis. Stomach and bowel: There are postoperative changes status post subtotal colectomy with sigmoid anastomosis. The bowel just proximal to the anastomosis is mildly narrow. This could represent collapsed bowel. It is possible this could represent a mild stricture. This is similar to that seen on prior exam. The bowel just proximal to this area of narrowing is minimally distended. There may be mild wall thickening involving distal small bowel loops. No adjacent fat stranding is identified. Appendix: The appendix is absent. Intraperitoneal space: Unremarkable. No free air. No significant fluid collection. Vasculature: Unremarkable. No abdominal aortic aneurysm. Lymph nodes: Unremarkable. No enlarged lymph nodes. Urinary bladder: Unremarkable as visualized. Reproductive: There is a left adnexal/ovarian cyst measuring 4 cm in size. Bones/joints: Unremarkable. No acute fracture. Soft tissues: Unremarkable. CT/CT kidney stone [id number] IMPRESSION: 1. 4 cm left ovarian/adnexal cyst.No further imaging is recommended. (Reference: Ritchie) 2. Postoperative changes status post subtotal colectomy with sigmoid anastomosis. Please see above comments. 3. Possible mild wall thickening without adjacent fat stranding involving a few small bowel loops within the right lower quadrant. This could potentially represent a mild enteritis. Recommend clinical correlation. References: Ritchie et al. Management of Incidental Adnexal Findings on CT and MRI: A White Paper of the ACR Incidental Findings Committee, J Am Rahul Radiol. 2019;17(2):248-254.
[2024-10-21] MEDS: ibuprofen 200 mg Tablet 400 MG PO (02:34)
[2024-10-21 02:35] VITALS: PULSE 76; O2SAT 98
== END 2024-10-21 03:45 | disposition home or self-care (01) ==
PROVIDERS: Physician Assistant; Emergency Provider Emergency Medicine; PCP Family Medicine
DX: N93.9 Abnormal uterine and vaginal bleeding, unspecified (principal); Z72.0 Tobacco use
CPT/HCPCS: 36415; 74176; 80053; 81001; 84703; 85025; 99284; J9999

== ENCOUNTER 2024-11-22 00:02 | Emergency (ER) | payer OTHER, SELFPAY ==
--- OUTSIDE RECORDS SUMMARY | 2024-11-22 00:09 | XMS_ITS | Clinical Summary ---
Author Organization [facility] Address [address] [place] [address] Phone Care Team Providers Care Flight Paramedic Name Role Phone Unavailable Primary Care Provider Unavailabl e Allergies Active Allergy Reactions Criticality Noted Date Comments Sulfa (Sulfonamide Antibiotics) Rash Low 05/19 Medications albuterol HFA 90 mcg inhaler Take 2 Puffs by inhalation. Active nicotine (NICODERM CQ) 21 mg/24 hr patch Apply 1 Patch to skin as directed daily. 28 Patch 10/30/2016 Active promethazine-de xtromethorphan (PHENERGAN-DM) 6.25-15 mg/5 mL syrup Take 5 mL by mouth every 4 hours as needed for Cough (every 4-6 hours PRN for cough). 120 mL 02/28/2018 Active amoxicillin-cla vulanate (AUGMENTIN) 875-125 mg tablet Take 1 Tablet by mouth every 12 hours. 20 Tablet None 04/02/2018 Active methylPREDNISol one (MEDROL, ELPIDIO,) 4 mg Tablets, Dose Pack Per package directions. 1 Package None 04/02/2018 Active ibuprofen (MOTRIN) 800 mg tablet Take 1 Tablet (800 mg) by mouth every 8 hours as needed for Pain, Mild. 20 Tablet 1 10/25/2018 Active ondansetron (ZOFRAN) 4 mg Tablet Take 1 Tablet (4 mg) by mouth every 8 hours as needed for Nausea. 20 Tablet 1 10/25/2018 Active Active Problems Problem Noted Date Diagnosed Date Suicide gesture 10/29/2016 Adjustment disorder with mixed anxiety and depre ssed mood 10/29/2016 Methamphetamine abuse 10/29/2016 Benzodiazepine abuse 10/29/2016 Opioid abuse 10/29/2016 Alcohol abuse 10/29/2016 Moderate persistent asthma with acute exacerbati on 10/29/2016 Tobacco use 10/29/2016 Family History Medical History Relation Name Comments Colon Cancer Father Respiratory Disease Father Asthma Mother Hypertension Mother Respiratory Disease Mother Depression Sister Relation Name Status Comments Brother Alive Father Alive Maternal Grandfather Maternal Grandmother Mother Alive Paternal Grandfather Paternal Grandmother Alive Sister Alive Social History Tobacco Use Types Packs/Day Years Used Date Smoking Tobacco: Every Day Cigarettes 0.5 1 Smokeless Tobacco: Never Tobacco Cessation:Ready to Q uit: Yes; Counseling Given: Yes Alcohol Use Standard Drinks/Week Comments No 0 (1 standard drink = 0.6 oz pur e alcohol) Comments Unknown Sex and Gender Information Value Date Recorded Sex Assigned at Not on file 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 Gender Identity Not on file Sexual Orientation Not on file Last Filed Vital Signs Vital Sign Reading Time Taken Comments Blood Pressure 132/97 10/25/2018 2:30 AM CDT Pulse 80 10/25/2018 2:30 AM CDT Temperature 36.7 C (98.1 F) 10/25/2018 12:05 AM CDT Respiratory Rate 16 10/25/2018 12:05 AM CDT Oxygen Saturation 99% 10/25/2018 2:30 AM CDT Inhaled Oxygen Concentration - - Weight 81.6 kg (180 lb) 10/24/2018 8:07 PM CDT Height 167.6 cm (5' 6 ) 10/24/2018 8:07 PM CDT Body Mass Index 29.05 10/24/2018 8:07 PM CDT Plan of Treatment Health Maintenance Due Date Last Done Comments DTAP/TDAP/TD VACCINES (1 - Tdap) 2016 HEPATITIS B VACCINES (1 of 3 - 19+ 3-dose series) 2016 CERVICAL CANCER SCREENING 2018 HPV/Cotest (21-29) 2018 PAP SMEAR 2018 INFLUENZA VACCINE (#1) 2024 HPV VACCINES Aged Out No longer eligi ble based on patient's age to complete this topic Insurance [employer] Advance Directives For more information, please contact: [phone] * Full Code (Latest Code Status on File) Date Activated Date Inactivated Comments 10/29/2016 12:56 PM 10/29/2016 12:56 PM * Full Code Date Activated Date Inactivated Comments 10/29/2016 12:56 PM 10/29/2016 12:56 PM
--- OUTSIDE RECORDS SUMMARY | 2024-11-22 00:09 | XMS_ITS | Clinical Summary ---
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 14 Capsule 1 Active HYDROcodone-gregorio taminophen (NORCO) 5-325 mg tabletIndicatio ns:Lower abdominal pain Take 1 Tablet by mouth every 4 hours as needed for Pain. Max Daily Amount: 6 Tablets 20 Tablet 1 Active naloxone (NARCAN) 4 mg/spray [place], Non-Aerosol EMERGENCY USE ONLY: Administer 1 spray (4 mg) in one nostril one time. May repeat in alternating nostrils every 2-3 min until responsive or EMS arrives. 2 Each 3 1 Active methylPREDNISol one (MEDROL DOSPACK) 4 mg Tablets, Dose Pack Per package directions. 1 Package None 8 Active ondansetron (ZOFRAN) 4 mg Tablet Take 1 Tablet (4 mg) by mouth every 8 hours as needed for Nausea. 20 Tablet 1 9 Active amoxicillin-cla vulanate (AUGMENTIN) 875-125 mg tablet Take 1 Tablet by mouth every 12 hours. 20 Tablet None 8 Active ibuprofen (MOTRIN) 800 mg tablet Take 1 Tablet (800 mg) by mouth every 8 hours as needed for Pain, Mild. 20 Tablet 1 9 Active promethazine-de xtromethorphan (PHENERGAN-DM) 6.25-15 mg/5 mL syrup Take 5 mL by mouth every 4 hours as needed for Cough (every 4-6 hours PRN for cough). 120 mL 0 8 Active albuterol sulfate 90 mcg/Actuation inhaler Take 2 Puffs by inhalation. 7 Active nicotine (NICODERM CQ) 21 mg/24 hr patch Apply 1 Patch to skin as directed daily. 28 Patch 0 7 Active ondansetron (ZOFRAN ODT) 4 mg Tablet, Rapid Dissolve Take 1 Tablet (4 mg) by mouth every 8 hours as needed for Nausea/Emesis. Dissolve tablet on top of tongue, then swallow with saliva. 20 Tablet 4 Active Active Problems Problem Noted Date Diagnosed Date Small bowel obstruction 06/22/2023 History of total colectomy 06/22/2023 Adjustment disorder with mixed anxiety and depre ssed mood 10/29/2016 Opioid abuse 10/29/2016 Benzodiazepine abuse 10/29/2016 Alcohol abuse 10/29/2016 Tobacco use 10/29/2016 Suicide gesture 10/29/2016 Methamphetamine abuse 10/29/2016 Moderate persistent asthma with acute exacerbati on 10/29/2016 Family History Medical History Relation Name Comments Colon Cancer Father Respiratory Disease Father Asthma Mother Hypertension Mother Respiratory Disease Mother Depression Sister Relation Name Status Comments Brother Alive Father Alive Maternal Grandfather Maternal Grandmother Mother Alive Paternal Grandfather Paternal Grandmother Alive Sister Alive Social History Tobacco Use Types Packs/Day Years Used Date Smoking Tobacco: Every Day Cigarettes Smokeless Tobacco: Never Tobacco Cessation:Ready to Q uit: No; Counseling Given: Yes Alcohol Use Standard Drinks/Week Comments No 0 (1 standard drink = 0.6 oz pur e alcohol) Feeling Safe Answer Date Recorded Are you in a relationship wi th someone who hurts you emotionally and/or physically? 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 Gender Identity Not on file Sexual Orientation Not on file Last Filed Vital Signs Vital Sign Reading Time Taken Comments Blood Pressure 129/81 06/24/2023 8:20 AM FINANCIAL OPERATIONS ANALYST Pulse 86 06/24/2023 8:20 AM FINANCIAL OPERATIONS ANALYST Temperature 36.6 C (97.9 F) 06/24/2023 8:20 AM FINANCIAL OPERATIONS ANALYST Respiratory Rate 17 06/24/2023 8:20 AM FINANCIAL OPERATIONS ANALYST Oxygen Saturation 92% 06/24/2023 8:20 AM FINANCIAL OPERATIONS ANALYST Inhaled Oxygen Concentration - - Weight 87.8 kg (193 lb 9.6 oz) 06/23/2023 4:06 A M FINANCIAL OPERATIONS ANALYST Height 167.6 cm (5' 6 ) 06/22/2023 4:44 PM FINANCIAL OPERATIONS ANALYST Body Mass Index 31.25 06/22/2023 4:44 PM FINANCIAL OPERATIONS ANALYST Plan of Treatment Health Maintenance Due Date Last Done Comments CERVICAL CANCER SCREENING 2018 HPV/Cotest (21-29) 2018 PAP SMEAR 2018 DTAP/TDAP/TD VACCINES (7 - T d or Tdap) 03/15/2022 03/15/2012, 12/13/2001, 10/09/1998, Additional history exists INFLUENZA VACCINE (#1) 2024 HEPATITIS B VACCINES Completed 04/02/1998, 1997, 1997 HPV VACCINES Completed 10/20/2012, 12/08/2011, 03/15/2012 Insurance [facility] MEDICA[facility] Advance Directives For more information, please contact: [phone] * Full Code (Latest Code Status on File) Date Activated Date Inactivated Comments 06/22/2023 3:50 PM 06/24/2023 10:26 PM Care Teams Automobile Lights Assembler Relationship Specialty Start Date End Date Vidya Moore MD [address] [place] [id number] PCP - General Family Practice 05/08/21
[2024-11-22 00:10] VITALS: BP 141/94; PULSE 82; RESP 17; TEMP 36.7; O2SAT 100; BMI 31.0
--- OUTSIDE RECORDS SUMMARY | 2024-11-22 00:10 | XMS_ITS | Data Portability ---
Author Organization [facility] Víctor Cornejo [facility], [facility] Address [address] [facility] [address] [place] [address] Care Team Providers Care Director Trade Name Role Phone HARIKA FERGUSON Primary Care Provider [phone] Assessment No assessment recorded. Plan of Treatment Reminders Order Date Submit Date Provider Last Modified By Organization Details Last Modified Time Details Appointments None recorded. Lab hepatitis C virus Ab, serum [address] ([facility]), [address] [place] [address], [phone], 5 18:31:33 HBsAg (hepatitis B surface Ag), serum [address] ([facility]), [address] [place] [address], [phone], 5 18:31:32 HIV 1+2 AB + HIV 1 p24 Ag, qualitative immunoassay , serum [address] ([facility]), [address] [place] [address], [phone], 5 18:31:33 Referral None recorded. Procedures None recorded. Surgeries None recorded. Imaging XR, abdomen 2023 024 [facility] ([facility]), [address] [place] [address], [phone], 4 14:07:23 Medication Orders fluticasone propionate 50 mcg/actuati on nasal spray,suspe nsion 2024 [facility] [place] [facility] #[id number], [address], [place], [place], [id number], 5 18:03:52 budesonide- formoterol HFA 160 mcg-4.5 mcg/actuati on aerosol inhaler 2024 [facility] [place] [facility] #[id number], [address], [place], [place], [id number], 5 18:03:52 amoxicillin 875 mg-potassiu m clavulanate 125 mg tablet 2024 [facility] [place] [facility] #[id number], [address], [place], [place], [id number], 17:57:07 sertraline 25 mg tablet 2024 [facility] [place] [facility] #30620, [address], [place], [place], [id number], 15:45:57 tizanidine 2 mg tablet 2024 [facility] [place] [facility] #06291, [address], [place], [place], [id number], 15:47:19 ondansetron 4 mg disintegrat ing tablet 2024 025 [facility] [place] [facility] #28350, [address], [place], [place], [id number], 5 17:57:21 lisinopril 20 mg tablet 2024 025 [facility] [place] [facility] #15088, [address], [place], [place], [id number], 5 11:08:07 clonidine HCl 0.1 mg tablet 2024 025 [email or web address] Not available 5 15:18:53 Patient TargetsNo targets recorded. Patient InstructionsNo instructions recorded. Reason for Referral None Reported. Results Created Date Observation Date Name Description Value Unit Range Abnormal Flag Note LastModifiedBy Organization Detail LastModifiedTime Result Notes None recorded. Problems Name Problem SNOMED Code Status Onset Date Resolution Date Notes Provider Name and Address Organization Details Recorded Time Cyst of right ovary 78404898783 196820 Active 2022 OLYASA THAI hayes [facility] 4 12:34:40 Irregula r periods 98704185 Active 2022 OLYASA THAI hayes [facility] 4 12:33:43 Prematur e of 622042441 Completed 202107/23/2024 Prematur e ; 04/01/20 22 1:02PM by Mp Auguste, Office Visit; Promoted ; acuity set as *; Helen Sabillon freddy [facility] 5 14:58:10 Anal and rectal polyp 307809866 Active 2021 Colonic Polyps; 04/01/20 22 1:02PM by Mp Auguste, Office Visit; Promoted ; acuity set as *; OLYA ZENGEfren hayes [facility] 4 12:33:22 Exercise induced bronchos pasm 279111977 Active 2021 EXERCISE -INDUCED ASTHMA; Impressi on: refills provided for her inhaler. ; Recorded 04/22/20 4:36PM by Harika Ferguson MD, Office Visit; Promoted ; acuity set as *; OLYA ZENGEfren hayes [facility] 4 12:34:45 Asthma 356773680 Active 2022 Asthma; Recorded 06/19/19 10:58AM by Sal Franco al Summary; Promoted ; acuity set as *; Asthma - Status is Inactive ; 02/28/20 14 2:48PM by Nataly Walker LPN, Office Visit; Promoted ; acuity set as *; ; Start Date : 02/28/20 OLYA hayes [facility] 4 12:33:32 Intermit tent palpitat ions 311959776 Completed 202207/23/2024 Helen hayes, [facility] 5 14:58:38 [facility] hyperten ricardo 12463345 Active 2022 OLYA hayes, [facility] 4 12:34:23 Insomnia 817969288 [facility] 12:33:37 Abdomina l pain 87608736 Completed 202307/23/2024 Helen hayes [facility] 5 14:48:41 Abdomina l bloating 479777229 Completed 07/23/2024 Heeln hayes [facility] 5 14:48:26 Cellulit is 016674084 Completed 07/23/2024 Helen hayes [facility] 5 14:50:19 Complete obstruct ion of lumen of small intestin e 00407327088 750204 Completed 07/23/2024 Helen hayes [facility] 5 14:50:32 Fall Completed 07/23/2024 Helen hayes [facility] 5 14:52:11 Anorecta l pain 598845251 Completed 07/23/2024 Helen hayes, [facility] 5 14:50:06 Gastroes ophageal reflux disease 929598326 Active Helen hayes, [facility] 5 14:53:30 Acute asthma 666450087 Completed 07/23/2024 Helenjose Sabillon null, [facility] 5 14:49:24 Melena 9210972 Completed 07/23/2024 Helenjose Sabillon null, [facility] 5 14:57:15 Postoper ative abdomina l wall wound abscess 559718912 Completed 07/23/2024 Helen Ridge hayes, [facility] 14:55:33 Hematoch ezia 616285242 Completed 07/23/2024 Helenjose Sabillon null, [facility] 5 14:57:46 Dysphagi a 15111727 Completed 07/23/2024 Helen Ridge null, [facility] 14:51:30 Altered mental status 124597119 Completed 07/23/2024 Helen Ridge hayes, [facility] 5 14:49:51 History of colectom y 091585082 Completed 07/23/2024 Helen Ridge null, [facility] 14:54:12 Enteriti s of small intestin e 74363962 Completed 07/23/2024 Helen Sabillon null, [facility] 14:58:28 Familial multiple polyposi s syndrome 61072718 Active Helen Sabillon null, [facility] 14:52:25 Abscess of peritone um 17516543 Active Helenjose hayes [facility] 5 14:48:57 Gastroin testinal hemorrha ge 36114813 Completed 07/23/2024 Heeln Ridge freddy [facility] 5 14:53:58 Injury of right foot 733915501 Completed 07/23/2024 Helen hayes [facility] 5 14:54:24 Nonunion followin g arthrode sis 581506703 Completed 07/23/2024 Helen hayes [facility] 5 14:56:43 Cyst of ovary 42712191 Completed 07/23/2024 Helen hayes [facility] 5 14:50:56 Abscess of abdomina l wall 98527481 Active Helenjose hayes [facility] 5 14:49:05 Dislocat ion of joint of foot 367566745 Completed 07/23/2024 Helen hayes [facility] 5 14:51:14 Major depressi ve disorder 637167248 Active 2024 Ji hayes [facility] 5 12:39:15 Migraine 46928140 Active 2024 Ji hayes [facility] 5 12:39:28 Tension- type headache 291347314 Active 2024 Ji hayes [facility] 12:39:31 Allergic rhinitis 10705116 Active 2024 Harika Ferguson MD [address] [place] [address], [phone], [facility] 18:01:57 Uncompli cated moderate persiste nt asthma 406778406 Active 2024 Harika Ferguson MD [address] [place] [address], [phone], [facility] 18:03:11 Nicotine withdraw al 42577865 Active 2024 Harika Ferguson MD [address] [place], [phone], [facility] 13:41:04 Problem Notes None recorded. Procedures Surgical History Date Name Laterality Status Provider Name and Address Organization Details Recorded Time 04/28/20 flexible fiberoptic sigmoidoscopy completed Ji Finney [facility] 08/25/2024 12:40:15 04/28/20 endoscopy completed OLYA ANDRE [facility] 04/30/2023 11:55:07 Cholecystectomy completed Helen Sabillon [facility] 07/28/2024 15:21:44 Imaging Results None recorded. Procedure Notes None recorded. Medical Equipment None Reported. Allergies Allergen ID Allergen Name Allergen Category Reaction Reaction Severity Criticality Documentation Date Start Date Code Code System Note Provider Name and Address Organization Details Recorded Time 1608 Cipro medicatio n Not available Not available Not available 08/30/202236219 3 RxNorm DUSTIN hayes [facility] 15:55:29 1609 Bactrim medicatio n Not available Not available Not available 08/30/2022 78322 9 RxNorm DUSTIN hayes [facility] 15:55:36 1610 Rocephin medicatio n Not available Not available Not available 08/30/2022 9449 RxNorm DUSTIN hayes [facility] 15:55:44 1861 Substance with sulfonami de structure and antibacte rial mechanism of action (substanc e) medicatio n Not available Not available Not available 09/03/2022 03812 8003 SNOMED OLYA THAIEfren hayes [facility] 3 10:05:20 1862 iodine medicatio n Not available Not available Not available 09/03/2022 5933 RxNorm OLYA hayes [facility] JaneLRiyaCRiya 3 10:05:27 72132 metoprolo l Not available itching mild low 04/15/2023 6918 RxNorm OLYA hayes [facility], JaneLAlexander 3 16:23:40 Medications Name Sig Start Date Stop Date Status Note LastModified by Organization Details LastModified Time gnp vitamin c 500 mg tabs 09/03 completed Not Available Not Available Not Available metformin 500 mg tablet TAKE 1 TABLET BY MOUTH TWICE DAILY 07/21 completed Not Available Not Available Not Available promethaz ine-DM 6.25 mg-15 mg/5 mL oral syrup TAKE 5 ML BY MOUTH EVERY 4 HOURS NEEDED FOR COUGH. DO NOT EXCEED MORE THAN 30 ML / 24 HOUR PERIOD 6 DOSES 04/12 completed Not Available Not Available Not Available clonidine HCl 0.1 mg tablet Take 1 tablet by oral route. 07/28 completed Not Available Not Available Not Available doxycycli ne hyclate 100 mg capsule TAKE 1 CAPSULE BY MOUTH TWICE DAILY FOR 7 DAYS 09/03 completed Not Available Not Available Not Available tizanidin e 2 mg tablet Take 1 tablet every 8 hours by oral route. active Not Available Not Available No t Available clindamyc in HCl 300 mg capsule TAKE 1 CAPSULE BY MOUTH THREE TIMES DAILY FOR 7 DAYS (START TOMORROW ) 09/03 completed Not Available Not Available Not Available trazodone 50 mg tablet Take 1 tablet every day by oral route at bedtime. 07/21 completed Not Available Not Available Not Available azithromy avtar 250 mg tablet TAKE 2 TABLETS (500 MG) BY ORAL ROUTE ONCE DAILY FOR 1 DAY THEN 1 TABLET (250 MG) BY ORAL ROUTE ONCE DAILY FOR 4 DAYS 04/12 completed Not Available Not Available Not Available ibuprofen 800 mg tablet TAKE 1 TABLET BY MOUTH EVERY 8 HOURS NEEDED FOR PAIN 07/21 completed Not Available Not Available Not Available fluconazo le 150 mg tablet TAKE 1 TABLET BY MOUTH EVERY 3 DAYS FOR 2 DOSES. MAY REPEAT SECOND DOSE 72 HOURS AFTER FOR 1 DOSE IF SYMPTOMS PERSIST 07/21 completed Not Available Not Available Not Available hydrocodo ne 5 mg-acetam inophen 325 mg tablet TAKE 1 TABLET BY MOUTH EVERY 6 HOURS NEEDED FOR PAIN 10/30 completed Not Available Not Available Not Available lisinopri l 20 mg tablet TAKE 1 TABLET BY MOUTH EVERY DAY active Not Available Not Available No t Available ondansetr on HCl 4 mg tablet TAKE 1 TABLET BY MOUTH EVERY 6 HOURS FOR 5 DAYS NEEDED FOR NAUSEA OR VOMITING 09/03 completed Not Available Not Available Not Available prednison e 20 mg tablet TAKE 1 TABLET BY MOUTH TWICE DAILY FOR 5 DAYS 07/21 completed Not Available Not Available Not Available atenolol 25 mg tablet Take 1 tablet every day by oral route. 07/21 completed Not Available Not Available Not Available metronida zole 500 mg tablet Take 1 tablet every 8 hours by oral route for 7 days. 09/03 completed Not Available Not Available Not Available tramadol 50 mg tablet TAKE 1 TABLET BY MOUTH EVERY 8 HOURS NEEDED FOR PAIN 09/03 completed Not Available Not Available Not Available triamcino lone acetonide 0.1 % topical cream APPLY TOPICALL Y TO THE AFFECTED AREA THREE TIMES DAILY 04/12 completed Not Available Not Available Not Available amoxicill in 500 mg tablet 07/21 completed Not Available Not Available Not Available meloxicam 7.5 mg tablet TAKE 1 TABLET BY MOUTH ONCE DAILY 09/03 completed Not Available Not Available Not Available amoxicill in 875 mg tablet TAKE 1 TABLET BY MOUTH TWICE DAILY FOR 7 DAYS 07/21 completed Not Available Not Available Not Available methocarb debbie 750 mg tablet TAKE 1 TABLET BY MOUTH EVERY 8 HOURS NEEDED FOR PAIN 07/21 completed Not Available Not Available Not Available hydrocodo ne 7.5 mg-acetam inophen 325 mg tablet TAKE 1 TABLET BY MOUTH EVERY 4 HOURS NEEDED FOR PAIN 07/21 completed Not Available Not Available Not Available sertralin e 25 mg tablet Take 1 tablet every day by oral route. active Not Available Not Available No t Available mont[address] st 10 mg tablet Take 1 tablet by mouth once daily active Not Available Not Available No t Available metoprolo l succinate ER 25 mg tablet,ex tended release 24 hr Take 1 tablet every day by oral route. 07/21 completed Not Available Not Available Not Available ibuprofen 600 mg tablet TAKE 1 TABLET BY MOUTH EVERY 8 HOURS 09/03 completed Not Available Not Available Not Available albuterol sulfate HFA 90 mcg/actua tion aerosol inhaler INHALE 2 PUFFS BY MOUTH EVERY 4 HOURS NEEDED FOR SHORTNES S OF BREATH OR WHEEZING active Not Available Not Available No t Available ondansetr on 4 mg disintegr ating tablet DISSOLVE 1 TABLET ON THE TONGUE TWICE DAILY NEEDED FOR NAUSEA 10/03 completed Not Available Not Available Not Available fluticaso ne propionat e 50 mcg/actua tion nasal spray,sue pension [place] 2 sprays every day by intranas al route. 2024 active Not Available Not Available Not Avai lable doxycycli ne hyclate 100 mg tablet two times daily 04/12 completed Recorded 02/15/20 22 4:39PM by SHEMAR Hendrickson, Office Visit; Refill Quantity : 0; Not Available Not Available Not Available amoxicill in 875 mg-potass ium clavulana te 125 mg tablet Take 1 tablet every 12 hours by oral route for 5 days. 10/03 completed Not Available Not Available Not Available oxycodone 5 mg tablet TAKE 1 TO 2 TABLETS BY MOUTH 4 TIMES DAILY NEEDED FOR PAIN -- MAY TAKE EVERY 6 HOURS 09/03 completed Not Available Not Available Not Available metronida zole 500 mg (Replaced ) tablet Take 1 tablet every 8 hours by oral route. 10/02 completed Not Available Not Available Not Available Denta 5000 Plus 1.1 % cream BRUSH ON ONCE DAILY BEFORE BIED INSTRUCT ED BY DENTIST 07/21 completed Not Available Not Available Not Available Sprintec (28) 0.25 mg-0.035 mg tablet Take 1 tablet every day by oral route for 28 days. 10/30 completed Not Available Not Available Not Available Ventolin 90 mcg/actua tion aerosol inhaler every four hours, as needed 04/12 completed Recorded 06/19/19 23 11:00AM by Olya Andre Historic al Summary; Refill Quantity : 1; Each; Not Available Not Available Not Available cyclobenz aprine 5 mg tablet TAKE 1 TABLET BY MOUTH THREE TIMES DAILY FOR 7 DAYS NEEDED FOR SPASM 09/03 completed Not Available Not Available Not Available Antacid 200 mg (as calcium carbonate 500 mg) chewable tablet 10/02 completed Not Available Not Available Not Available ondansetr on every 4-6 hours/WA N 04/12 completed Recorded 04/01/20 22 1:02PM by Mp Auguste, Office Visit; Refill Quantity : 0; Not Available Not Available Not Available Symbicort 80 mcg-4.5 mcg/actua tion HFA aerosol inhaler Inhale 2 puffs by mouth twice daily 07/21 completed Not Available Not Available Not Available budesonid e-formote rol HFA 160 mcg-4.5 mcg/actua tion aerosol inhaler Inhale 2 puffs twice a day by inhalati on route. 2024 active Not Available Not Available Not Avai lable Paxlovid 300 mg (150 mg x 2)-100 mg tablets in a dose pack USE DIRECTED FOR 5 DAYS 09/03 completed Not Available Not Available Not Available Vitals Date Recorded Body height Respiratory rate Body mass index (BMI) Body weight Body temperature Heart rate Oxygen saturation Oxygen saturation in Arterial blood by Pulse oximetry Systolic And Diastolic Provider Name and Address Organization Details Last Updated DateTime 4 167.64 cm 20 /min 31.2 kg/m2 10975.0 3 g 97.6 [degF] 77 /min 96 % 96 % 132/88 mm[Hg] OLYA ANDRE [facility] 4 12:15:44 Date Recorded Body height Body mass index (BMI) Body weight Oxygen saturation Oxygen saturation in Arterial blood by Pulse oximetry Heart rate Respiratory rate Body temperature Systolic And Diastolic Systolic And Diastolic Provider Name and Address Organization Details Last Updated DateTime 5 167.64 cm 32 kg/m2 25900.9 9 g 98 % 98 % 102 /min 18 /min 98.5 [degF] 150/120 mm[Hg] 150/100 mm[Hg] MERCY RODRIGEZ [facility] 5 11:00:43 Date Recorded Body height Body mass index (BMI) Body weight Oxygen saturation Oxygen saturation in Arterial blood by Pulse oximetry Heart rate Respiratory rate Body temperature Systolic And Diastolic Provider Name and Address Organization Details Last Updated DateTime 5 167.64 cm 32.1 kg/m2 93308.4 4 g 98 % 98 % 97 /min 16 /min 97.2 [degF] 114/78 mm[Hg] Helen Sabillon [facility] 5 15:17:28 Date Recorded Body height Body mass index (BMI) Body weight Oxygen saturation Oxygen saturation in Arterial blood by Pulse oximetry Heart rate Body temperature Systolic And Diastolic Provider Name and Address Organization Details Last Updated DateTime 5 167.64 cm 30.5 kg/m2 05171.3 6 g 98 % 98 % 85 /min 98.6 [degF] 144/100 mm[Hg] Tess Missy [facility] 5 18:14:10 Date Recorded Body height Body mass index (BMI) Body weight Body temperature Oxygen saturation Oxygen saturation in Arterial blood by Pulse oximetry Heart rate Systolic And Diastolic Provider Name and Address Organization Details Last Updated DateTime 5 167.64 cm 31.1 kg/m2 86617.5 4 g 97.5 [degF] 97 % 97 % 73 /min 144/102 mm[Hg] Vita Cruz [facility] 5 17:54:18 Social History Question Answer Notes LastModified by Organizat ion Details LastModified Time Tobacco Smoking Status Current Every Day Smoker PRETTY hayes [facility] 10/30/2022 17:34:14 What Is Your Level Of Caffeine Consumption? Occasional [email or web address] Information not available 07/28/2024 What Was The Date Of Your Most Recent Tobacco Screening? 09/27/2024 [email or web address] Information not available 09/27/2024 Sex: Unknown Functional Status Question Answer Note LastModified by Organizat ion Details LastModified Time Do you use any illicit or recreational drugs? No [email or web address] Information not available 07/28/2024 What is your level of alcohol consumption? None [email or web address] Information not available 07/28/2024 Mental Status None recorded. Family History Relationship Description Onset Age of this Age Resolved Age Notes LastModified by Organization Details LastModified Time Father Malignant tumor of colon [email or web address] Not available 07/15 15:20:30 Mother Essential hypertension [email or web address] Not available 0 07/28/2024 15:20:49 Medical History Condition Response Coronary Artery Disease N Other N Gout N Kidney Stones N Blood Diseases N Hyperthyroidism N Breast Cancer N Blood Transfusion N Depression N COPD N Lung Disease N Hypothyroidism N Developmental or Behavioral Disorders N Defects or Inherited Disease N Breast Problem N Difficulty Swallowing N Anesthesia Complications N Meniere's disease N Anxiety Disorder N Muscle, Joint, or Bone Problems N Vision or Eye Problems N Arthritis N Polyps N Infertility N Cancer N Varicosities N Stroke N Endometriosis N Bladder or Kidney Problems N High Cholesterol N Liver Disease N Headaches Y Fibromyalgia N Kidney Disease N Allergies/Hayfever N Heart Problems N Ear or Hearing Problems N Hospitalizations N Thyroid Problems N GI Problems N ADD/ADHD N Skin Problems N Eating Disorder N Anemia N Constipation N Mental Illness N Ovarian Cancer N Diabetes N Bedwetting N Seizures/Epilepsy N Tuberculosis N Eczema N Diverticulitis N Abuse/Domestic Violence N Asthma Y Reflux/GERD N Hepatitis N Heart Disease N Pulmonary Embolism N Pre-Eclampsia N Hypertension Y Chronic Ear Infections N Osteoporosis N Chicken Pox N Autism Spectrum Disorder (ASD) N Thrombophilias N Gynecological HistoryNo gynecological history recorded. Obstetrics History GPAL:G 0 P 0 0 0 0 Immunizations Vaccine Type Date Status Note Provider Nam e and Address Organization Details Recorded Time IPV 2 completed PRETTY hayes [facility] 10/30/2022 17:32:46 MMR 9 completed PRETTY TAYLOR null, [facility] 10/30/2022 17:32:46 MMR 2 completed PRETTY TAYLOR null, [facility] 10/30/2022 17:32:46 Tdap 2 completed PRETTY TAYLOR null, [facility] 10/30/2022 17:32:46 Hep B, unspecified formulation 8 completed PRETTY TAYLOR [facility] 10/30/2022 17:32:46 Hep B, unspecified formulation 8 [facility] 17:32:46 Hep B, unspecified formulation 8 completed [facility]22 17:32:46 OPV 8 completed PRETTY TAYLOR [facility] 10/30/2022 17:32:46 OPV 8 completed [facility] 10/30/2022 17:32:46 polio, unspecified formulation 8 completed [facility] 10/30/2022 17:32:46 DTP-Hib 8 completed PRETTY TAYLOR [facility] 10/30/2022 17:32:46 HPV, quadrivalent 3 completed [facility] 10/30/2022 17:32:46 HPV, quadrivalent 2 completed [facility] 10/30/2022 17:32:46 HPV, quadrivalent 2 completed PRETTY hayes, [facility] 10/30/2022 17:32:46 Hep A, ped/adol, 2 dose 3 completed PRETTY TAYLOR null, [facility] 10/30/2022 17:32:46 Hep A, ped/adol, 2 dose 2 completed PRETTY TAYLOR null, [facility] 10/30/2022 17:32:46 Hib (PRP-T) 9 completed PRETTY TAYLOR null, [facility] 10/30/2022 17:32:46 Hib (PRP-T) 8 completed PRETTY TAYLOR [facility] 10/30/2022 17:32:46 Hib (PRP-T) 8 completed PRETTY TAYLOR [facility] 10/30/2022 17:32:46 meningococcal MCV4P 2 completed PRETTY hayes, [facility] 10/30/2022 17:32:46 DTaP 9 completed PRETTY TAYLOR null, [facility] 10/30/2022 17:32:46 DTaP 8 completed [facility] 10/30/2022 17:32:46 DTaP 2 completed PRETTY TAYLOR null, [facility] 10/30/2022 17:32:46 DTaP 8 completed PRETTY TAYLOR [facility] 10/30/2022 17:32:46 Tdap 4 completed Not Available [facility] 10/03/2024 17:49:23 Past Encounters Encounter ID Performer Location Encounter Start Date Encounter Closed Date Diagnosis/Indication Diagnosis SNOMED-CT Code Diagnosis ICD10 Code Diagnosis Note [id number] SHEMAR GRIGGS [facility] ([facility]) [address] [place] [phone] 08/30/2022 15:46:25 08/30/2022 17:00:13 Acute cervicitis 17641200 N72 Vaginal swab taken 89431 3009 Z75.2 [id number] Harika Ferguson MD [facility] ([facility]) [address] [place] [phone] 09/03/2022 09:50:54 2022 13:12:43 Polycystic ovary syndrome 989905865 E28.2 restart metformin and monitor sx Moderate p ersistent asthma 556542632 J45.40 she is not well controlled and given her albuterol use, she would benefit from maintenanc e inhaler. Discussed asthma action plan. [id number] Harika Ferguson MD [facility] ([facility]) [address] [place] [phone] 5 10/02/2022 09:10:06 10/02/2022 10:18:01 Cyst of right ovary [id number] N83.201 we will send referral to Animal Nutrition Consultant. Discussed OCPs and the patient was agreeable to start. continue metformin. Irregular periods [id number] N92.6 [id number] DEVI HOWARD [facility] ([facility]) [address] [place] [phone] 10/30/2022 17:20:03 11/10/2022 22:27:21 Acute right otitis media [id number] H66.91 Start Z-pack today. Encouraged tylenol/ib uprofen as needed for pain. Recommend pushing fluids and using cool mist humidifier at night. If worsening condition, or no improvemen t in 5-7 days, return for further evaluation . [id number] GERALD CRUZ NP [facility] ([facility]) [address] [place] [phone] 5 11/30/2022 15:54:25 12/09/2022 11:37:22 Nausea [id number] R11.0 Has had 1 negative and 3 home positive urine test (different brands and 1 of which was digital) in the last week. Urine test negative here - wanting a blood HCG test - will notify of results. [place] dietIncrea se PO fluidsOTC Tylenol for pain/disco mfort/head aches Return to clinic if any changes, any worsening, any concernsPa tient verbalized understand ing of plan. [id number] JUDAH WALSH PA-C [facility] ([facility]) [address] [place] [phone] 5 03/01/2023 18:06:22 03/01/2023 19:07:33 Acute sinusitis 51400455 J01.90 she will test for covid thru work and [facility] [id number] Harika Ferguson MD [facility] ([facility]) [address] [place] [phone] 5 04/12/2023 11:17:17 04/12/2023 17:56:53 Intermittent palpitations [id number] R00.2 Will evaluate further with event monitor. Essential hypertension 18115553 I10 Start metoprolol and attempt to help with heart rate as well as blood pressure. Patient was encouraged to continue to check blood pressure at home and follow-up in 1 month. [id number] Harika Ferguson MD [facility] ([facility]) [address] [place] [phone] 5 05/21/2023 11:52:13 05/21/2023 14:17:07 Insomnia 121530774 G47.00 Discussed good sleep hygiene and caffeine avoidance. Start trazodone. Intermitte nt palpitations 777827255 R00.2 We will await results from quality assurance monitor final Essential hypertension 73469110 I10 Continue current blood pressure management . Exercise i nduced bronchospasm [id number] J45.913 [id number] Harika Ferguson MD [facility] ([facility]) [address] [place] [address] [phone] 5 06/17/2023 12:08:35 06/17/2023 17:19:49 Abdominal pain 16513245 R10.9 X-rays were obtained of the abdomen and it showed a fecal impaction in the rectum. Fecal impa ction of rectum [id number] K56.41 Recommend enemas and disimpacti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
--- NOTE | 2024-11-22 02:36 | W.ED.HA ---
HPI - Headache General: Chief Complaint: Headache Stated Complaint: Migrane N/V Body acks Time Seen by Provider: 11/22/24 02:25 History of Present Illness: Patient comes to the emergency department for headache. States that she occasionally gets migraine headaches. States she started with a headache yesterday morning and it is, gradually gotten worse. States has been constant since then. States she has had some vomiting. Denies sore throat, cough, congestion, abdominal pain, diarrhea. States this is a typical migraine for her. States she does not get them very often. She is allergic to Toradol. Will treat her headache with 50 mg of IV Benadryl, 10 mg of IV Compazine, normal saline, and 500 mg of p.o. Tylenol, and reassess. Associated symptoms: Deny chest pain or nausea Related Data Home Medications ?Medication ?Instructions ?Recorded ?Confirmed budesonide-formoterol HFA 80 2 puff inhalation BID shortness of 09/01/23 09/27/24 mcg-4.5 mcg/actuation aerosol breath inhaler (Symbicort) Previous Rx's ?Medication ?Instructions ?Recorded albuterol sulfate 90 mcg/actuation 2 puff inhalation Q4H PRN 06/20/24 aerosol inhaler Shortness Of Breath Or Wheezing #6.7 grams doxycycline hyclate 100 mg tablet 100 mg PO BID 7 days #14 tabs 09/27/24 prednisone 20 mg tablet 40 mg (2 x 20 mg) PO DAILY 5 days 09/27/24 #10 tabs Allergies Allergy/AdvReac Type Severity Reaction Status Date / Time Iodinated Contrast Media Allergy Severe ALGY-Anaphy Verified 09/27/24 15:45 laxis ceftriaxone (From Rocephin) Allergy ALGY-Anaphy Verified 09/27/24 15:45 laxis ciprofloxacin (From Cipro) Allergy ADR-Nausea Verified 09/27/24 15:45 ketorolac Allergy anaphylaxis Verified 09/27/24 15:45 Sulfa (Sulfonamide Allergy Unknown Verified 09/27/24 15:45 Antibiotics) sulfamethoxazole (From Allergy ADR-Nausea Verified 09/27/24 15:45 Bactrim) trimethoprim (From Bactrim) Allergy ADR-Nausea Verified 09/27/24 15:45 Review of Systems Const: Denies: body aches Eyes: Denies: change in vision or blurry vision ENMT: Denies: throat pain or odynophagia Card: Denies: chest pain or palpitations Resp: Denies: dyspnea or productive cough GI: Denies: abdominal pain or nausea PFSH ED PFSH: Medical History (Updated 11/22/24 @ 03:55 by Roddy Young MD) Smoking addiction Familial adenomatous polyposis GERD (gastroesophageal reflux disease) Family history of FAP (familial adenomatous polyposis) Surgical History H/O esophagogastroduodenoscopy Hx of cholecystectomy Hx of colonoscopy with polypectomy H/O colectomy H/O ileostomy Family History Family/Other Diabetes Maternal uncle Hypertension Maternal uncle Hyperlipidemia Maternal uncle Colon cancer paternal cousins Mother Hypertension Hyperlipidemia Stroke Father Colon cancer Family/Other No problems noted. Other Breast cancer Ovarian cancer Uterine cancer Denies family history of Heart disease Thyroid disease Social History Smoking and tobacco/nicotine status: current every day tobacco/nicotine user Physical Exam Const: COMMON NORMALS: healthy appearing HENMT: COMMON NORMALS: normocephalic and atraumatic HEAD & SCALP: normocephalic and atraumatic Neck/C-Spine: COMMON NORMALS: full ROM and supple Resp: COMMON NORMALS: normal respiratory effort, No retractions and No use of accessory muscles Cardio: COMMON NORMALS: regular rate RATE: regular rate GI: COMMON NORMALS: Normal to inspection, nondistended, normoactive bowel sounds present, Soft to palpation and non-tender PALPATION: Yes Soft to palpation Course Vital Signs: Vital signs: Vital Signs Temperature 98.0 F 11/22/24 00:10 Pulse Rate 90 11/22/24 02:43 Respiratory Rate 16 11/22/24 02:43 Blood Pressure 120/76 11/22/24 02:43 Pulse Oximetry 95 11/22/24 02:43 Oxygen Delivery Me thod Room Air 11/22/24 02:43 MDM - Headache Medical Decision Making On reassessment the patient is resting comfortably in her gurney. She states that her headache is much better at this time. Will discharge with precautions to return for worsening or changing symptoms. No radiology studies performed this visit Discharge Plan Discharge Patient Disposition: Home Clinical Impression: Migraine Condition: Stable Prescriptions: No Action albuterol sulfate 90 mcg/actuation HFA aerosol inhaler 2 puff INHALATION Q4H PRN (Reason: Shortness Of Breath Or Wheezing) Qty: 6.7 0RF prednisone 20 mg tablet 40 mg PO DAILY 5 Days Qty: 10 0RF doxycycline hyclate 100 mg tablet 100 mg PO BID 7 Days Qty: 14 0RF budesonide-formoterol [Symbicort] 80-4.5 mcg/actuation HFA aerosol inhaler 2 puff INHALATION BID Discharge Orders: Discharge ED (Routine); Ordered 11/22/24 Ordered By: Roddy Young Referrals: Rigoberto Ferguson MD [Primary Care Provider, Family Practice] Patient Instructions: Migraine Headache (ED), Patient Portal & Benji Instructions Print Language: Maltese Coding Level of Care Code ED Drawing Instructor for Yamilet De Souza
[2024-11-22 02:43] VITALS: BP 120/76; PULSE 90; RESP 16; O2SAT 95
[2024-11-22] MEDS: diphenhydrAMINE 50 mg/mL SDV 1mL IVP (03:23)
[2024-11-22 04:42] VITALS: BP 120/84; PULSE 77; RESP 16; O2SAT 94
== END 2024-11-22 04:44 | disposition home or self-care (01) ==
PROVIDERS: Emergency Provider Emergency Medicine; PCP Family Medicine
DX: G43.909 Migraine, unspecified, not intractable, without status migrainosus (principal); Z72.0 Tobacco use
CPT/HCPCS: 96374; 96375; 99284; J0780; J1200; J7030; J9999

== ENCOUNTER 2025-01-30 17:14 | Emergency (ER) | payer OTHER, SELFPAY ==
[2025-01-30] VITALS (9 sets, daily range): BP systolic 114–142; BP diastolic 71–91; PULSE 67–95; RESP 17; TEMP 36.8; O2SAT 95–100; BMI 29.8
--- OUTSIDE RECORDS SUMMARY | 2025-01-30 17:18 | XMS_ITS | Clinical Summary ---
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 Gender Identity Not on file Sexual Orientation Not on file Last Filed Vital Signs Vital Sign Reading Time Taken Comments Blood Pressure 129/81 06/24/2023 8:20 AM TEACHER ASST Pulse 86 06/24/2023 8:20 AM TEACHER ASST Temperature 36.6 C (97.9 F) 06/24/2023 8:20 AM TEACHER ASST Respiratory Rate 17 06/24/2023 8:20 AM TEACHER ASST Oxygen Saturation 92% 06/24/2023 8:20 AM TEACHER ASST Inhaled Oxygen Concentration - - Weight 87.8 kg (193 lb 9.6 oz) 06/23/2023 4:06 A M TEACHER ASST Height 167.6 cm (5' 6 ) 06/22/2023 4:44 PM TEACHER ASST Body Mass Index 31.25 06/22/2023 4:44 PM TEACHER ASST Plan of Treatment Health Maintenance Due Date Last Done Comments CERVICAL CANCER SCREENING 2018 HPV/Cotest (21-29) 2018 PAP SMEAR 2018 DTAP/TDAP/TD VACCINES (7 - T d or Tdap) 03/15/2022 03/15/2012, 12/13/2001, 10/09/1998, Additional history exists INFLUENZA VACCINE (#1) 2024 HEPATITIS B VACCINES Completed 04/02/1998, 1997, 1997 HPV VACCINES Completed 10/20/2012, 12/08/2011, 03/15/2012 Insurance [facility] MEDICAID Advance Directives For more information, please contact: [phone] * Full Code (Latest Code Status on File) Date Activated Date Inactivated Comments 06/22/2023 3:50 PM 06/24/2023 10:26 PM Care Teams Junior Bookkeeper Relationship Specialty Start Date End Date Vidya Moore MD [address] [place] [phone] PCP - General Family Practice 05/08/21
--- OUTSIDE RECORDS SUMMARY | 2025-01-30 17:18 | XMS_ITS | Clinical Summary ---
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
[2025-01-30 17:55] LABS: Hematocrit 41.5 % (36-47); Hemoglobin 14.20 g/dL (11.27-16.99); Mean Corpuscular HGB Conc 34.2 g/dL (30-55); Mean Corpuscular Hemoglobin 31.8 pg (27-33); Mean Corpuscular Volume 92.8 fl (85-98); Nucleated Red Blood Cells % 0 %; Platelet Count 226 10^3/cmm (157-399); Red Blood Count 4.47 10^6/uL (3.85-5.65); White Blood Count 12.13 10^3/uL (3.29-11.43)
[2025-01-30 18:13] LABS: Alanine Aminotransferase 22 U/L (0-33); Albumin Level 4.5 g/dL (3.5-5.2); Alkaline Phosphatase 86 U/L (35-105); Anion Gap 16.7 (5-19); Aspartate Amino Transferase 16 U/L (0-32); Blood Urea Nitrogen 13 mg/dL (6-20); Calcium 9.3 mg/dL (8.5-10.5); Carbon Dioxide 20 mmol/L (22-29); Chloride 106 mmol/L (98-107); Creatinine Clr Calc Pharmacy 131.7753; Globulin 2.7 g/dL (1.3-4.6); Glucose 84 mg/dL (65-115); Lipase 23 U/L (13-60); Osmolality Calculated 287 mOsm/kg (285-295); Potassium 3.7 mmol/L (3.5-5.1); Sodium 139 mmol/L (136-145); Total Protein 7.2 g/dL (6.6-8.7)
[2025-01-30 18:18] LABS: Glucose Urine UA Negative (Normal); Nitrate Urine Negative (Negative); Specific Gravity, Urine 1.022 (1.005-1.030)
[2025-01-30 18:23] LABS: Add Urine Microscopic? YES
--- NOTE | 2025-01-30 18:35 | CTR_ITS ---
PROCEDURE INFORMATION: Exam: CT Abdomen And Pelvis Without Contrast Exam date and time: 01/30/2025 8:30 PM Age: 29 years old Clinical indication: Abdominal pain; Generalized; Prior surgery; Surgery date: 6+ months; Surgery type: Colon, gb; Additional info: Lower abd pain, HX of fap, no bm TECHNIQUE: Imaging protocol: Computed tomography of the abdomen and pelvis without contrast. Radiation optimization: All CT scans at this facility use at least one of these dose optimization techniques: automated exposure control; mA and/or kV adjustment per patient size (includes targeted exams where dose is matched to clinical indication); or iterative reconstruction. COMPARISON: CT kidney stone [id number] 10/21/2024 2:59 AM RADIATION DOSE METRICS: Total DLP (mGy-cm): 711.53 FINDINGS: Lungs: There are findings of hypoventilatory changes present dependent lungs. Liver: Unremarkable. No mass. Gallbladder and biliary ducts: Gallbladder is surgically removed. Pancreas: Unremarkable. No ductal dilation. Spleen: Calcified granuloma present in the spleen. Adrenal glands: Normal. No mass. Kidneys and ureters: Kidneys demonstrate no hydronephrosis Stomach and bowel: Patient is status post total colectomy and J-pouch reconstruction there are air-fluid levels within the distal small bowel extending to the level of the pouch nonspecific finding. There is segmental dilatation of small bowel in the right lower quadrant secondary to concentric luminal edema of a short segment of small bowel on image [id number] most concerning for segmental enteritis related to exacerbation of inflammatory bowel disease for a workup recommended Appendix: No evidence of appendicitis. Intraperitoneal space: Unremarkable. No free air. No significant fluid collection. Vasculature: Unremarkable. No abdominal aortic aneurysm. Lymph nodes: Unremarkable. No enlarged lymph nodes. Urinary bladder: Urinary bladder unremarkable. Reproductive: Unremarkable as visualized. Bones/joints: Unremarkable. No acute fracture. Soft tissues: Unremarkable. CT/CT abdomen pelvis wo con [id number] IMPRESSION: Patient is status post total colectomy and J-pouch reconstruction with presence of air-fluid levels in the distal small bowel as well as a segment of concentric stenotic edematous small bowel in the right lower quadrant. There is mild degree of segmental dilatation of the right lower abdomen with distal small bowel. The possibility of exacerbation of inflammatory bowel disease with segmental enteritis is suspected correlate and follow-up as indicated.
--- NOTE | 2025-01-30 18:44 | ED_ITS ---
HPI - Abdominal Pain 2 General: Chief Complaint: Abdominal Pain Stated Complaint: abd pain Time Seen by Provider: 01/30/25 17:47 Source: patient and old records reviewed Mode of arrival: ambulatory Limitations: no limitations History of Present Illness: Patient is a 29-year-old female with multiple prior ED visits for abdominal pain, presenting with abdominal pain. Has a history of familial adenomatous polyposis states she is supposed to go see her specialist has been for tomorrow but today thinks that she is having an obstruction. States that she has not had a bowel movement all day, the pain is across the mid abdomen and does not radiate. Reports associated nausea and vomiting. States she chronically has blood in her stools, but no significant change from this in the previous days. No urinary symptoms are noted. Has been taking Motrin and Tylenol for pain, no relief. Her vitals are stable at this time. Overall nontoxic-appearing. She does have a surgical history of colectomy and ileostomy with reversal. MD elicited complaint: abdominal pain Pertinent past history: other (FAP) Onset (ago): hour(s) Pain Consistency: constant Location: Other (Mid abdomen) Severity: similar to previous episodes Quality: cramping Radiation: none Exacerbating factors: nothing Relieving factors: nothing Associated Symptoms: Reports bloating, constipation, hematochezia, nausea and vomiting; Denies change in stool character, chills, diarrhea, dysuria and fever(s) Related Data Home Medications ?Medication ?Instructions ?Recorded ?Confirmed budesonide-formoterol HFA 80 2 puff inhalation BID aneta rtness of 09/01/23 09/27/24 mcg-4.5 mcg/actuation aerosol breath inhaler (Symbicort) Previous Rx's ?Medication ?Instructions ?Recorded albuterol sulfate 90 mcg/actuation 2 puff inhalation Q 4H PRN 06/20/24 aerosol inhaler Shortness Of Breath Or Wheez ing #6.7 grams doxycycline hyclate 100 mg tablet 100 mg PO BID 7 days #14 tabs 09/27/24 prednisone 20 mg tablet 40 mg (2 x 20 mg) PO DAILY 5 days 09/27/24 #10 tabs ondansetron 4 mg disintegrating 4 mg PO TID PRN nausea and 01/30/25 tablet vomiting #30 tabs prednisone 10 mg tablets in a dose 10 mg PO DIRECTE D #21 ea 01/30/25 pack Allergies Allergy/AdvReac Type Severity Reaction Status Date / Time Iodinated Contrast Media Allergy Severe ALGY-Anaphy Verified 11/26/24 23:10 laxis ceftriaxone (From Rocephin) Allergy ALGY-Anaphy Verified 11/26/24 23:10 laxis ciprofloxacin (From Cipro) Allergy ADR-Nausea Verified 11/26/24 23:10 ketorolac Allergy anaphylaxis Verified 11/26/24 23:10 Sulfa (Sulfonamide Allergy Unknown Verified 11/26/24 23:10 Antibiotics) sulfamethoxazole (From Allergy ADR-Nausea Verified 11/26/24 23:10 Bactrim) trimethoprim (From Bactrim) Allergy ADR-Nausea Verified 11/26/24 23:10 Review of Systems 2 General: Reports: 10 or more systems reviewed and unremarkable except in HPI and below Const: Denies: fever(s), chills, change in appetite, change in weight or diaphoresis ENMT: Denies: throat pain or hoarseness Card: Denies: chest pain, palpitations or lightheadedness Resp: Denies: dyspnea, productive cough or wheezing GI: Reports: abdominal pain, nausea, vomiting, constipation, bloating and hematochezia; Denies: diarrhea or change in stool character : Denies: flank pain, difficulty voiding, dysuria, urinary frequency or urinary urgency Musc: Denies: neck pain or back pain Skin/Breast: Denies: rash or new lesions Neuro: Denies: headache(s) or dizziness PFSH ED 2 PFSH: Medical History Smoking addiction Familial adenomatous polyposis GERD (gastroesophageal reflux disease) Family history of FAP (familial adenomatous polyposis) Surgical History H/O esophagogastroduodenoscopy Hx of cholecystectomy Hx of colonoscopy with polypectomy H/O colectomy H/O ileostomy Family History Family/Other Diabetes Maternal uncle Hypertension Maternal uncle Hyperlipidemia Maternal uncle Colon cancer paternal cousins Mother Hypertension Hyperlipidemia Stroke Father Colon cancer Family/Other No problems noted. Other Breast cancer Ovarian cancer Uterine cancer Denies family history of Heart disease Thyroid disease Social History Smoking and tobacco/nicotine status: current every day tobacco/nicotine user Physical Exam 2 Const: COMMON NORMALS: no acute distress, average body habitus, patient oriented x3, no limitations, healthy appearing, alert and well nourished G ENERAL APPEARANCE: cooperative and comfortable ORIENTATION/CONSCIOUSNESS: Yes awake OTHER: Nontoxic-appearing Neck/C-Spine: COMMON NORMALS: full ROM, supple, no meningeal signs and no JVD Resp: COMMON NORMALS: normal respiratory effort, No retractions, No use of accessory muscles and clear to auscultation bilaterally AUSCULTATION: clear to auscultation bilaterally, no crackles, no rales, no rhonchi and no wheezes Cardio: COMMON NORMALS: no JVD, regular rate, regular rhythm, No gallops present (Cardio), No clicks present (Cardio), No murmurs present (Cardio), No rub (Cardio) and Peripheral pulses 2+ throughout RATE: regular rate R HYTHM: regular rhythm PERIPHERAL PULSES: Peripheral pulses 2+ throughout GI: COMMON NORMALS: Normal to inspection, nondistended, normoactive bowel sounds present, Soft to palpation, No hepatosplenomegaly present and no masses AUSCULTATION: Yes normoactive bowel sounds PALPATION: Yes Soft to palpation, Yes Tenderness to palpation present (GI) (Tenderness across middle of abdomen, nonspecific), No Guarding due to palpation present (GI), No Rigid due to palpation and Yes No hepatosplenomegaly present RECTAL EXAM: deferred : COMMON NORMALS: Yes no CVA tenderness BLADDER/KIDNEY EXAM: Yes no CVA tenderness Back/Pelvis: COMMON NORMALS: no CVA tenderness Extremity: COMMON NORMALS: normal to inspection and full ROM Neuro: COMMON NORMALS: patient oriented x3, moves all extremities, no focal motor deficits and no sensory deficits noted SENSORIUM/ORIENTATION: Yes alert MENINGEAL SIGNS: Yes no meningeal signs Psych: COMMON NORMALS: mental status grossly normal, cooperative and speech normal SPEECH: Yes normal speech Skin: COMMON NORMALS: no rashes or lesions noted GENERAL SKIN EXAM: no rashes or lesions noted Course 2 Vital Signs: Vital signs: Vital Signs Temperature 98.2 F 01/30/25 17:20 Pulse Rate 76 01/30/25 19:30 Respiratory Rate 17 01/30/25 17:20 Blood Pressure 129/83 01/30/25 21:30 Pulse Oximetry 100 01/30/25 20:30 Oxygen Delivery Me thod Room Air 01/30/25 17:20 MDM - Abdominal Pain Medical Decision Making Patient presenting with acute on chronic abdominal pain, nontoxic-appearing on exam, tender to palpation to the mid abdomen that is nonspecific. Vitals have been stable. History of familial adenomatous polyposis, she states she is supposed to see gastroenterology tomorrow but is concerned that she is having an obstruction. Lab work obtained and unremarkable, urinalysis clear of any infection. The CT reveals signs of potentially mild exacerbation of her bowel disease, we will treat with steroids and she is to follow-up with her appointment tomorrow as planned. No signs of obstruction at this time or other acute abdominal pathology. Lab Data 01/30/25 17:40 01/30/25 17:40 Labs/Radiology: Radiology Impressions Abdomen/Pelvis CT 01/30/25 18:35 IMPRESSION: Patient is status post total colectomy and J-pouch reconstruction with presence of air-fluid levels in the distal small bowel as well as a segment of concentric stenotic edematous small bowel in the right lower quadrant. There is mild degree of segmental dilatation of the right lower abdomen with distal small bowel. The possibility of exacerbation of inflammatory bowel disease with segmental enteritis is suspected correlate and follow-up as indicated. Laboratory Results WBC 12.13 10^3/uL (3.29-11.43) H 01/30/25 17:40 RBC 4.47 10^6/uL (3.85-5.65) 01/30/25 17:40 Hgb 14.20 g/dL (11.27-16.99) 01/30/25 17:40 Hct 41.5 % (36-47) 01/30/25 17:40 MCV 92.8 fl (85-98) 01/30/25 17:40 MCH 31.8 pg (27-33) 01/30/25 17:40 MCHC 34.2 g/dL (30-55) 01/30/25 17:40 RDW 12.3 % (12.1-15.1) 01/30/25 17:40 Plt Count 226 10^3/cmm (157-399) 01/30/25 17:40 MPV 11.1 fL (7.4-10.4) H 01/30/25 17:40 Neut % (Auto) 74.3 % 01/30/25 17:40 Lymph % (Auto) 15.6 % 01/30/25 17:40 [place] % (Auto) 5.9 % 01/30/25 17:40 Eos % (Auto) 3.1 % 01/30/25 17:40 Baso % (Auto) 0.6 % 01/30/25 17:40 Neut # (Auto) 9.02 10^3/uL (1.8-7.7) H 01/30/25 17:40 Lymph # (Auto) 1.9 10^3/uL (0.8-4.8) 01/30/25 17:40 [place] # (Auto) 0.7 10^3/uL (0.2-0.9) 01/30/25 17:40 Eos # (Auto) 0.4 10^3/uL (0.0-0.8) 01/30/25 17:40 Baso # (Auto) 0.1 10^3/uL (0.0-0.1) 01/30/25 17:40 Nucleated RBC % (auto) 0 % 01/30/25 17:40 Nucleated RBCs # 0.0 /100WBC 01/30/25 17:40 Sodium 139 mmol/L (136-145) 01/30/25 17:40 Potassium 3.7 mmol/L (3.5-5.1) 01/30/25 17:40 Chloride 106 mmol/L (98-107) 01/30/25 17:40 Carbon Dioxide 20 mmol/L (22-29) L 01/30/25 17:40 Anion Gap 16.7 (5-19) 01/30/25 17:40 BUN 13 mg/dL (6-20) 01/30/25 17:40 Creatinine 0.7 mg/dL (0.5-0.9) 01/30/25 17:40 GFR Calculation 100.4 mL/min (90-130) 01/30/25 17:40 Glucose 84 mg/dL (65-115) 01/30/25 17:40 Calculated Osmolality 287 mOsm/kg (285-295) 01/30/25 17:40 Calcium 9.3 mg/dL (8.5-10.5) 01/30/25 17:40 Total Bilirubin 0.3 mg/dL (0.15-1.2) 01/30/25 17:40 AST 16 U/L (0-32) 01/30/25 17:40 ALT 22 U/L (0-33) 01/30/25 17:40 Alkaline Phosphatase 86 U/L (35-105) 01/30/25 17:40 Total Protein 7.2 g/dL (6.6-8.7) 01/30/25 17:40 Albumin 4.5 g/dL (3.5-5.2) 01/30/25 17:40 Globulin 2.7 g/dL (1.3-4.6) 01/30/25 17:40 Lipase 23 U/L (13-60) 01/30/25 17:40 HCG, Qual Negative (Negative) 01/30/25 17:40 Urine Color Yellow (Yellow) 01/30/25 17:55 Urine Appearance Cloudy (CLEAR) A 01/30/25 17:55 Urine pH 5.5 (5-7) 01/30/25 17:55 Ur Specific [place] 1.022 (1.005-1.030) 01/30/25 17:55 Urine Protein Negative (Negative) 01/30/25 17:55 Urine Glucose (UA) Negative (Normal) 01/30/25 17:55 Urine Ketones Negative (Negative) 01/30/25 17:55 Urine Blood Negative (Negative) 01/30/25 17:55 Urine Nitrate Negative (Negative) 01/30/25 17:55 Urine Bilirubin Negative (Negative) 01/30/25 17:55 Urine Urobilinogen 1.0 mg/dL (Negative) 01/30/25 17:55 Ur Leukocyte Esterase Trace (Negative) A 01/30/25 17:55 Urine RBC 0-2 /hpf (0-2) 01/30/25 17:55 Urine WBC 11-20 /hpf (0-5) H 01/30/25 17:55 Ur Squamous Epith Cells 11-20 /hpf (0-5) H 01/30/25 17:55 Amorphous Sediment Not Reportable 01/30/25 17:55 Urine Bacteria Trace /hpf (NONE) 01/30/25 17:55 Hyaline Casts 0.81 /lpf 01/30/25 17:55 All radiology interpretation(s) finalized by discharge Discharge Plan Discharge Patient Disposition: Home Clinical Impression: Familial adenomatous polyposis Condition: Stable Prescriptions: New prednisone 10 mg tablets,dose pack 10 mg PO DIRECTED Qty: 21 0RF Rx Instructions: see taper instructions 6 tablets on day 1, 5 tablets on day 2, 4 tablets on day 3, 3 tablets on day 4, 2 tablets on day 5, and 1 tablet a day 6. P.o. ondansetron 4 mg tablet,disintegrating 4 mg PO TID PRN (Reason: nausea and vomiting) Qty: 30 0RF No Action albuterol sulfate 90 mcg/actuation HFA aerosol inhaler 2 puff INHALATION Q4H PRN (Reason: Shortness Of Breath Or Wheezing) Qty: 6.7 0RF prednisone 20 mg tablet 40 mg PO DAILY 5 Days Qty: 10 0RF doxycycline hyclate 100 mg tablet 100 mg PO BID 7 Days Qty: 14 0RF budesonide-formoterol [Symbicort] 80-4.5 mcg/actuation HFA aerosol inhaler 2 puff INHALATION BID Discharge Orders: Discharge ED (Routine); Ordered 01/30/25 Ordered By: Ji Byrne Referrals: Rigoberto Ferguson MD [Primary Care Provider, Family Practice] Patient Instructions: Patient Portal & Benji Instructions Activity Restrictions/Additional Instructions: Please follow-up with your statistics tutor tomorrow as planned. Take the steroids as prescribed. Zofran for nausea. Clear liquid diet. Please return with any severe worsening of pain, fevers, persistent vomiting, or any other concerns that you have. Print Language: Tajik Coding Level of Care Code ED Postulant for Yamilet De Souza
[2025-01-30] MEDS: ondansetron 2 mg/ML SDV 2 mL 4 MG IVP (19:08)
[2025-01-30] MEDS: morphine 4 mg/mL SDV 1 mL IVP (19:08)
[2025-01-30 20:19] LABS: HCG, Serum Qual Negative (Negative)
[2025-01-30] MEDS: morphine 4 mg/mL SDV 1 mL 2 MG IVP (22:58)
[2025-01-30] MEDS: methylPREDNISolone sod succ 125 mg/2 mL INJ IVP (22:58)
== END 2025-01-30 23:38 | disposition home or self-care (01) ==
PROVIDERS: Emergency Provider Physician Assistant; PCP Family Medicine
DX: D13.91 Familial adenomatous polyposis (principal); Z72.0 Tobacco use
CPT/HCPCS: 36415; 74176; 80053; 81001; 83690; 84703; 85025; 96374; 96375; 96376; 99285; J1100; J2270; J2405; J2919